=== PATIENT | male | born 1935 | race Caucasian/White ===

== ENCOUNTER → 2017-01-31 | Outpatient (CLI) | payer OTHER ==
[~2017-01-31] MED LIST: ASPI81TA28 PO; COEN75CA PO; MULT-506 PO; NIFE30TA83 PO
[2017-01-31 10:50] LABS: ALT/SGPT 26 U/L (12-78); BLOOD UREA NITROGEN 24 mg/dl (7-18); CALCIUM 8.7 mg/dl (8.5-10.1); CARBON DIOXIDE 27 mmol/L (21-32); CHLORIDE 108 mmol/L (98-107); CHOLESTEROL 204 mg/dl (0-200); GLUCOSE 100 mg/dl (70-99); POTASSIUM 4.2 mmol/L (3.5-5.1); SODIUM 142 mmol/L (136-145); TRIGLYCERIDES 328 mg/dl (0-150); VERY LOW DENSITY LIPOPROT CALC 66 mg/dl
[2017-01-31 10:53] LABS: ALB/GLOB RATIO 0.8 (0.9-2); ALKALINE PHOSPHATASE 75 U/L (45-117); AST/SGOT 15 U/L (15-37); CHOLESTEROL/HDL RATIO 6.2; HDL CHOLESTEROL 33 mg/dl; LDL CHOLESTEROL CALCULATED 105 mg/dl
== END | disposition home or self-care (01) ==
LOC: C.LAB1850 08:57
PROVIDERS: ATTEND Internal Medicine
DX: E78.5 Hyperlipidemia, unspecified (principal)

== ENCOUNTER → 2017-08-04 | Outpatient (CLI) | payer OTHER ==
--- NOTE | 2017-08-04 10:29 | DIAGNOSTIC IMAGING REPORT ---
KUB CLINICAL HISTORY: R31.9 Blood in [id number] COMPARISON STUDY: No previous studies for comparison. FINDINGS: There is no pathologic bowel dilatation. There is a faint calcification projected over the midpole the left kidney. A small calculus cannot be excluded. There are left supra renal calcifications. There is a lumbar levoscoliosis. Degenerative changes are present within the spine. 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 There is no pathologic bowel dilatation. IMPRESSION: Equivocal 3 mm left renal calculus Electronically signed by: Dalton Martinez M.D. 08/04/2017 10:28 AM Dictated Date/Time: 08/04/2017 10:27 AM
--- NOTE | 2017-08-04 10:34 | DIAGNOSTIC IMAGING REPORT ---
LUMBAR SPINE 5 VIEWS CLINICAL HISTORY: Numbness. FINDINGS: Five views of the lumbar spine are obtained. No prior studies are available for comparison at the time of dictation. The skeletal structures are osteopenic. There is no radiographic evidence of fracture or malalignment. Vertebral body height and alignment are maintained throughout the lumbar spine. There is straightening of the lumbar lordosis. The transverse and spinous processes are intact. Small anterior osteophytes are seen throughout. Advanced facet arthropathy is seen in the mid to lower lumbar region. There is advanced degenerative disc space narrowing at L5-S1 with endplate sclerosis and vacuum disc phenomenon. Moderate disc space narrowing with endplate sclerosis is seen at L3-L4 and L4-L5. Mild disc space narrowing is seen at the remaining lumbar levels. There is no evidence of spondylolysis. Mild lumbar levocurvature is centered at L3-L4. The bony pelvis is intact as visualized. 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 There is a nonobstructed abdominal bowel gas pattern noting moderate constipation. Advanced atherosclerotic calcification and ectasia is noted in the abdominal aorta. A small infrarenal abdominal aortic aneurysm measures up to 3.9 cm. IMPRESSION: 1. No acute bony abnormality is seen involving the lumbosacral spine. 2. Osteopenia with advanced multilevel spondylosis as above. 3. A small infrarenal abdominal aortic aneurysm measures up to 3.9 cm. Dictated: 08/04/2017 10:14 AM Transcribed: 08/04/2017 10:34 AM Barbie Electronically signed by: Ez Blancas M.D. 08/04/2017 10:40 AM Dictated Date/Time: 08/04/2017 10:14 AM
[2017-08-04 12:19] LABS: BASO % 0.3 %; BASO ABS # 0.03 K/uL (0-0.2); COMPLETE YES; EOS % 1.3 %; HEMATOCRIT 41.4 % (42-52); IG% 0.5 %; LYMPH % 19.2 %; LYMPH ABS # 2.27 K/uL (1.2-3.4); MEAN CELL VOLUME 88.8 fL (80-100); MEAN CORPUSCULAR HEMOGLOBIN 29.6 pg (25-34); MEAN CORPUSCULAR HGB CONC 33.3 g/dl (32-36); MEAN PLATELET VOLUME 11.5 fL (7.4-10.4); MONO % 8.6 %; NEUT % 70.1 %; PLATELET COUNT 210 K/uL (130-400); RED BLOOD COUNT 4.66 M/uL (4.7-6.1); WHITE BLOOD COUNT 11.83 K/uL (4.8-10.8)
[2017-08-04 13:44] LABS: ALT/SGPT 27 U/L (12-78); AST/SGOT 16 U/L (15-37); BLOOD UREA NITROGEN 26 mg/dl (7-18); BUN/CREATININE RATIO 21.3 (10-20); CARBON DIOXIDE 22 mmol/L (21-32); CHLORIDE 108 mmol/L (98-107); CHOLESTEROL 233 mg/dl (0-200); GLUCOSE 107 mg/dl (70-99); POTASSIUM 4.2 mmol/L (3.5-5.1); SODIUM 140 mmol/L (136-145)
[2017-08-04 13:47] LABS: ALB/GLOB RATIO 0.7 (0.9-2); ALKALINE PHOSPHATASE 74 U/L (45-117); CHOLESTEROL/HDL RATIO 5.7; HDL CHOLESTEROL 41 mg/dl; LDL CHOLESTEROL CALCULATED 145 mg/dl; TRIGLYCERIDES 235 mg/dl (0-150); VERY LOW DENSITY LIPOPROT CALC 47 mg/dl
[2017-08-04 14:59] LABS: URINE APPEARANCE CLEAR (CLEAR); URINE BILIRUBIN NEG (NEG); URINE COLOR DK YELLOW; URINE EPITHELIAL CELL AUTO 0-5 /lpf (0-5); URINE NITRITE NEG (NEG); URINE PH 6.5 (4.5-7.5); URINE SPECIFIC GRAVITY 1.019 (1.000-1.030); UROBILINOGEN NEG (NEG); ZZUR CULT IF INDIC CLEAN CATCH NO
[2017-08-04 15:00] LABS: MANUAL MICROSCOPIC REQUIRED? NO; REVIEW REQ? NO
== END | disposition home or self-care (01) ==
LOC: C.RAD1850 09:56
PROVIDERS: ATTEND Internal Medicine
DX: R31.9 Hematuria, unspecified (principal); R20.0 Anesthesia of skin; E78.5 Hyperlipidemia, unspecified; N20.0 Calculus of kidney; M85.88 Other specified disorders of bone density and structure, other site; M47.816 Spondylosis without myelopathy or radiculopathy, lumbar region

== ENCOUNTER 2017-11-26 18:53 | Inpatient (IN) | payer OTHER ==
[~2017-11-26] VITALS: Ht 180.3 cm; Wt 95.7 kg
[~2017-11-26 18:53] MED LIST changes: -APIX1TAB3 PO; -DILT-202 PO; -DLTCD/240 PO; -LNX125 PO; -LPR25 PO; -PRD20 PO; -PRED10TA PO
[2017-11-26] MEDS ORDERED: CEFTRIAXONE SOD INJ 1 GM ADDVIAL IV STA (19:28)
[2017-11-26] MEDS ORDERED: SODIUM CHLORIDE 0.9% 500ML 500 ML IV STA (19:28)
[2017-11-26] MEDS ORDERED: AZITHROMYCIN 250 MG TAB PO STA (19:28)
[2017-11-26] MEDS ORDERED: METHYLPREDNISOLONE 125 MG VIAL IV STA (19:28)
[2017-11-26] MEDS ORDERED: ALBUT/IPRATROP 3MG/0.5MG NEB 3 ML VIAL INH STA (19:28)
--- NOTE | 2017-11-26 19:31 | EMERGENCY ROOM VISIT NOTE ---
History Report prepared by Scribe: Corine Finch Under the Supervision of: Dr. Radu Llanes M.D. First contact with patient: 19:17 Chief Complaint: SHORTNESS OF BREATH Stated Complaint: SOB, PNEUMONIA History of Present Illness The patient is an 82 year old white male with a past medical history of emphysema, and heart block on daily Aspirin who presents to the ED with a cc of worsening shortness of breath beginning a few weeks ago. He does not use Oxygen. He states he saw his doctor recently and had a chest X-ray. He was then called earlier this evening and told he has pneumonia and to come to the ED. The patient admits last night he became very short of breath while playing pool , which concerned him as he had been only short of breath on exertion. Positive cough. Negative chest pain, nausea, vomiting, diarrhea. He denies any history of PE or DVT. He denies any recent sick contacts or antibiotic use. He did not receive a flu shot this year. He is a former smoker, stating he quit 20 years ago. Source of History: patient Onset: few weeks [employer] Position: chest Timing: worsening Modifying Factors (Worsening): exertion Associated Symptoms: + cough, No chest pain, No nausea, No vomiting, No diarrhea Review of Systems See HPI for pertinent positives and negatives. A total of ten systems were reviewed and were otherwise negative. Past Medical & Surgical Medical Problems: (1) Emphysema of lung (2) Hypertension (3) New onset a-fib (4) SOB (shortness of breath) Social History Smoking Status: Former Smoker Alcohol Use: none Drug Use: none Marital Status: Housing Status: lives with family Occupation Status: retired Current/Historical Medications Scheduled Aspirin (Aspirin Ec), 81 MG PO HS Coenzyme Q10 (Ubidecarenone) (Co Q-10), 75 MG PO HS Multivitamin (Multivitamin), 1 TAB PO HS Nifedipine Ext Rel (Procardia Xl Ext Rel), 30 MG PO HS Allergies Coded Allergies: No Known Allergies (Verified , 10/14/16) Physical Exam Vital Signs Date Time Temp Pulse Resp B/P (MAP) Pulse Ox O2 Delivery O2 Flow Rate FiO2 11/26/17 22:28 130 18 149/86 92 Nasal Cannula 4.0 11/26/17 20:35 132 21 93 Nasal Cannula 2.0 11/26/17 20:31 128/92 11/26/17 20:05 126 13 94 Nasal Cannula 2.0 11/26/17 20:01 116/80 11/26/17 19:50 Room Air 11/26/17 19:44 121 11/26/17 19:30 122 22 124/87 94 Nasal Cannula 2.0 11/26/17 19:27 86 Room Air 11/26/17 19:27 91 Nasal Cannula 3.0 11/26/17 19:12 36.4 130 18 122/72 88 Room Air Physical Exam GENERAL: Awake, alert, well-appearing, NAD HENT: Normocephalic, atraumatic. EYES: Normal conjunctiva. Sclera non-icteric. NECK: Supple. No nuchal rigidity. FROM. RESPIRATORY: Some trace bibasilar crackles, nasal canula in place, no rhonchi, wheezing, CARDIAC: Tachycardic heart rate, regular rhythm, no MRG ABDOMEN: Soft, NTND, BS+ MSK: No chest wall TTP, 1+ pretibial edema NEURO: GCS 15, CN 2-12 intact, moves all 4s on command SKIN: No rash or jaundice noted. Medical Decision & Procedures ER Provider Diagnostic Interpretation: Radiology results as stated below per my review and radiologist interpretation: TWO VIEW CHEST CLINICAL HISTORY: Atypical chest pain.. FINDINGS: PA and lateral chest radiographs are compared to study dated 05/01/2007. The heart is enlarged and there is atherosclerotic calcification of the thoracic aorta. The pulmonary vascular is noncongested. Emphysematous change is suspected. Chronic residual thickening is similar to previous. Patchy airspace opacities are present in the lower lungs. No large pleural effusion is identified. There is no pneumothorax. The skeletal structures are osteopenic. The bony thorax appears intact. IMPRESSION: 1. Cardiomegaly and suspect emphysema. 2. Patchy airspace opacities are present at the lung bases. Correlate clinically for evidence of an infectious/inflammatory pneumonitis. Radiographic follow-up to resolution is recommended. Electronically signed by: Ez Blancas M.D. 11/26/2017 4:18 PM CHEST CTA for PULMONARY ARTERIES CT DOSE: 468.80 mGy.cm HISTORY: Atypical chest pain. TECHNIQUE: Multiaxial CT images of the chest were performed following the intravenous administration of contrast to evaluate the pulmonary arteries. Maximal intensity projection images were also obtained. A dose lowering technique was utilized adhering to the principles of ALARA. COMPARISON STUDY: Chest 11/26/2017. FINDINGS: Mild calcified plaque within the normal caliber thoracic aorta. No evidence for dissection. There are also coronary artery calcifications. The heart is top normal in size. Trace pericardial and trace pleural effusions. The visualized liver and spleen are unremarkable. There are small bilateral adrenal gland nodules. An 8 mm exophytic hypodense lesion within the right kidney. This is too small to characterize. There is mediastinal and bilateral hilar lymphadenopathy. Dominant lymph node is seen on the right and measures 18 x 13 mm. Dominant subcarinal lymph node measures 3.4 x 1.8 cm. No suspicious lytic or blastic osseous lesions. No pneumothorax. Small biapical scarlike densities. Mild bronchial wall thickening. Central airways are patent. Moderate to severe emphysema. A 2 mm subpleural nodule within the right upper lobe on image 174. Groundglass appearance to the lungs most noted posteriorly. Mild interlobular septal thickening at the lung bases. Small patchy bibasilar densities posteriorly. No filling defects within the pulmonary arteries to suggest pulmonary embolus. IMPRESSION: 1. No evidence for pulmonary embolus. 2. Trace pericardial and trace pleural effusions. 3. Mediastinal and bilateral hilar lymphadenopathy. This is nonspecific but can be seen the setting of chronic pulmonary edema. However, a neoplastic process such as lymphoma could also have a similar appearance. 4. Mild bibasilar interlobular septal thickening suggestive of mild congestive change. There is also mild bronchial wall thickening which can also be seen the setting of congestive change or could be chronic. 5. Moderate to severe emphysema. 6. Small patchy airspace opacities within the lung bases posteriorly. This is nonspecific but favors atelectasis. 7. Groundglass appearance to the lungs most pronounced posteriorly which may be due to mild dependent change or poor expiratory effort. Electronically signed by: Jeremie Cai M.D. 11/26/2017 10:39 PM Laboratory Results Test 11/26/17 19:40 11/26/17 19:46 11/26/17 21:00 Influenza Type A Antigen Neg for Influ A (NEG) Influenza Type B Antigen Neg for Influ B (NEG) Immature Granulocyte % (Auto) 0.4 % White Blood Count 11.36 K/uL (4.8-10.8) Red Blood Count 4.44 M/uL (4.7-6.1) Hemoglobin 13.3 g/dL (14.0-18.0) Hematocrit 39.7 % (42-52) Mean Corpuscular Volume 89.4 fL (80-100) Mean Corpuscular Hemoglobin 30.0 pg (25-34) Mean Corpuscular Hemoglobin Concent 33.5 g/dl (32-36) Platelet Count 230 K/uL (130-400) Mean Platelet Volume 11.1 fL (7.4-10.4) Neutrophils (%) (Auto) 75.1 % Lymphocytes (%) (Auto) 13.6 % Monocytes (%) (Auto) 8.8 % Eosinophils (%) (Auto) 1.8 % Basophils (%) (Auto) 0.3 % Neutrophils # (Auto) 8.53 K/uL (1.4-6.5) Lymphocytes # (Auto) 1.55 K/uL (1.2-3.4) Monocytes # (Auto) 1.00 K/uL (0.11-0.59) Eosinophils # (Auto) 0.21 K/uL (0-0.5) Basophils # (Auto) 0.03 K/uL (0-0.2) Immature Granulocyte # (Auto) 0.04 K/uL (0.00-0.02) Prothrombin Time 11.9 SECONDS (9.0-12.0) Prothromb Time International Ratio 1.1 (0.9-1.1) Activated Partial Thromboplast Time 27.8 SECONDS (21.0-31.0) Partial Thromboplastin Ratio 1.1 Total Bilirubin 0.9 mg/dl (0.2-1) Aspartate Amino Transf (AST/SGOT) 21 U/L (15-37) Alanine Aminotransferase (ALT/SGPT) 32 U/L (12-78) Alkaline Phosphatase 76 U/L (45-117) Pro-B-Type Natriuretic Peptide 1996 pg/ml (0-1800) Total Protein 7.4 gm/dl (6.4-8.2) Albumin 3.1 gm/dl (3.4-5.0) Globulin 4.3 gm/dl (2.5-4.0) Albumin/Globulin Ratio 0.7 (0.9-2) Urine Color YELLOW Urine Appearance CLEAR (CLEAR) Urine pH 5.0 (4.5-7.5) Urine Specific [place] 1.025 (1.000-1.030) Urine Protein 1+ (NEG) Urine Glucose (UA) NEG (NEG) Urine Ketones NEG (NEG) Urine Occult Blood NEG (NEG) Urine Nitrite NEG (NEG) Urine Bilirubin NEG (NEG) Urine Urobilinogen NEG (NEG) Urine Leukocyte Esterase NEG (NEG) Urine WBC (Auto) 1-5 /hpf (0-5) Urine RBC (Auto) 0-4 /hpf (0-4) Urine Hyaline Casts (Auto) 1-5 /lpf (0-5) Urine Epithelial Cells (Auto) >30 /lpf (0-5) Urine Bacteria (Auto) NEG (NEG) Laboratory results reviewed by me Medications Administered Medications (Trade) Dose Ordered Sig/Gee Route Start Time Stop Time Status Last Admin Dose Admin Albuterol/ Ipratropium (Duoneb) 3 ml NOW STAT INH 11/26/17 19:28 11/26/17 19:31 DC 11/26/17 19:46 3 ML Azithromycin (Zithromax Tab) 500 mg NOW STAT PO 11/26/17 19:28 11/26/17 19:31 DC 11/26/17 19:47 500 MG Ceftriaxone Sodium (Rocephin Inj) 1 gm NOW STAT IV 11/26/17 19:28 11/26/17 19:31 DC 11/26/17 19:46 1 GM Methylprednisolone Sodium Succinate (Solu-Medrol IV) 125 mg NOW STAT IV 11/26/17 19:28 11/26/17 19:31 DC 11/26/17 19:46 125 MG Sodium Chloride 500 ml @ 999 mls/hr Q31M STAT IV 11/26/17 19:28 11/26/17 19:58 DC 11/26/17 19:46 999 MLS/HR Sodium Chloride 1,000 ml @ 999 mls/hr Q1H1M STAT IV 11/26/17 21:55 11/26/17 22:55 DC 11/26/17 22:26 999 MLS/HR Enoxaparin Sodium (Lovenox Inj) 100 mg ONE STAT SQ 11/26/17 22:23 11/26/17 22:24 DC 11/26/17 22:27 100 MG ECG Indication: SOB/dyspnea Rate (beats per minute): 131 Rhythm: atrial fibrillation (with RVR) Findings: other (Normal QRS, normal axis, T-wave flattening inferiorly) Change: Patient's electrocardiogram interpreted by me. ED Course 1921: The patient was evaluated in room B9. A complete history and physical exam was performed. 2144: I reevaluated the patient. He is resting comfortably. I discussed his results and my recommendation he remain in the hospital for further evaluation and management and he verbalized complete understanding and agreement. 2154: I discussed the patients case with Dr. Humphries, [facility] Hospitalist. The patient will be further evaluated. Medical Decision The patient is an 82 year old white male with a past medical history of emphysema, and heart block on daily Aspirin who presents to the ED with a cc of worsening shortness of breath beginning a few weeks ago. Triage Nursing notes reviewed. The patient's presentation and history were concerning for shortness of breath. Differential diagnosis: Etiologies such as infections, reactive airway disease, pneumonia, pneumothorax , COPD, CHF, cardiac ischemia, pulmonary embolism, musculoskeletal, gastrointestinal, as well as others were entertained. Patient was seen and evaluated at the bedside. Patient does have a known history of emphysema and was seen in clinic today where he had chest x-rays which were concerning for possible opacities in the bilateral lower lobes. Patient is requiring oxygen. Patient is a prior history of emphysema however is not treated on a regular basis with any inhalers. Patient does complain of some mild productive sputum. Patient was a former smoker but has not smoked in the last 20 years. He believes he smoked for approximately 40 years prior to that. Patient does have very trace pretibial edema. Patient does have bibasilar crackles. Patient does not have diffuse wheezing. Given the patient' s prior history of emphysema he was treated with medications for COPD exacerbation in addition to Rocephin and azithromycin for pneumonia. Patient also did have gas that was completed. Patient did have some tachycardia and was seen and have A. fib. This may be related to the patient's underlying disease processes patient was given fluids. Troponin is negative. Patient's BNP mildly elevated. Patient's white count 11,000. I did discuss the patient with the hospitalist stated the patient did have new onset A. fib. The patient does have a chance to Vascor greater than 1 and the patient was given Lovenox. Medication Reconcilliation Current Medication List: was personally reviewed by me Blood Pressure Screening Patient's blood pressure: Normal blood pressure Blood pressure disposition: Did not require urgent referral Consults Time Called: 2149 Consulting Physician: Dr. Humphries [facility] Hospitalist Returned Call: [phone] I discussed the patients case with Dr. Humphries [facility] Hospitalist. The patient will be further evaluated. Impression Primary Impression: Pneumonia Additional Impressions: New onset atrial fibrillation Atrial fibrillation with RVR Acute respiratory failure with hypoxia Critical Care I have personally spent greater than 45 minutes of critical care time in the direct management of this patient. This includes bedside care, interpretation of diagnostic studies, and testing, discussion with consultants, patient, and family members, and other required patient management activities. This 45 minutes is in excess of all separately billable procedures. Scribe Attestation The scribe's documentation has been prepared under my direction and personally reviewed by me in its entirety. I confirm that the note above accurately reflects all work, treatment, procedures, and medical decision making performed by me. Departure Information Dispostion Being Evaluated By Hospitalist Referrals RV. Ferguson MD (PCP) Patient Instructions My [facility] Problem Qualifiers Primary Impression: Pneumonia Pneumonia type: due to unspecified organism Laterality: bilateral Lung location: lower lobe of lung Qualified Codes: J18.9 - Pneumonia, unspecified organism
[2017-11-26 20:02] LABS: BASO % 0.3 %; BASO ABS # 0.03 K/uL (0-0.2); EOS % 1.8 %; EOS ABS # 0.21 K/uL (0-0.5); HEMATOCRIT 39.7 % (42-52); HEMOGLOBIN 13.3 g/dL (14.0-18.0); IG# 0.04 K/uL (0.00-0.02); LYMPH % 13.6 %; LYMPH ABS # 1.55 K/uL (1.2-3.4); MEAN CELL VOLUME 89.4 fL (80-100); MEAN CORPUSCULAR HGB CONC 33.5 g/dl (32-36); MEAN PLATELET VOLUME 11.1 fL (7.4-10.4); MONO % 8.8 %; NEUT % 75.1 %; NEUT ABS # 8.53 K/uL (1.4-6.5); PLATELET COUNT 230 K/uL (130-400); RED CELL DISTRIBUTION WIDTH CV 15.8 % (11.5-14.5); RED CELL DISTRIBUTION WIDTH SD 51.7 fL (36.4-46.3); WHITE BLOOD COUNT 11.36 K/uL (4.8-10.8)
[2017-11-26 20:20] LABS: ALBUMIN 3.1 gm/dl (3.4-5.0); ALT/SGPT 32 U/L (12-78); BLOOD UREA NITROGEN 33 mg/dl (7-18); CALCIUM 8.7 mg/dl (8.5-10.1); CARBON DIOXIDE 23 mmol/L (21-32); CREATININE 1.35 mg/dl (0.60-1.40); GLUCOSE 112 mg/dl (70-99); SODIUM 139 mmol/L (136-145)
[2017-11-26 20:25] LABS: ALKALINE PHOSPHATASE 76 U/L (45-117); AST/SGOT 21 U/L (15-37); TOTAL PROTEIN 7.4 gm/dl (6.4-8.2)
[2017-11-26 20:27] LABS: INR 1.1 (0.9-1.1); PTT PATIENT 27.8 SECONDS (21.0-31.0)
[2017-11-26 20:28] LABS: INFLUENZA B ANTIGEN Neg for Influ B (NEG)
[2017-11-26] MEDS ORDERED: SODIUM CHLORIDE 0.9% 1000ML 1,000 ML IV STA (21:55)
[2017-11-26] MEDS ORDERED: OPTIRAY 320 IV PRN (22:00)
[2017-11-26] MEDS ORDERED: ENOXAPARIN 1 MG/KG SQ STA (22:16)
[2017-11-26] MEDS ORDERED: ENOXAPARIN 100 MG/1ML SYR SQ STA (22:23)
--- NOTE | 2017-11-26 22:40 | DIAGNOSTIC IMAGING REPORT ---
CHEST CTA for PULMONARY ARTERIES CT DOSE: 468.80 mGy.cm HISTORY: Atypical chest pain. TECHNIQUE: Multiaxial CT images of the chest were performed following the intravenous administration of contrast to evaluate the pulmonary arteries. Maximal intensity projection images were also obtained. A dose lowering technique was utilized adhering to the principles of ALARA. COMPARISON STUDY: Chest 11/26/2017. FINDINGS: Mild calcified plaque within the normal caliber thoracic aorta. No evidence for dissection. There are also coronary artery calcifications. The heart is top normal in size. Trace pericardial and trace pleural effusions. The visualized liver and spleen are unremarkable. There are small bilateral adrenal gland nodules. An 8 mm exophytic hypodense lesion within the right kidney. This is too small to characterize. There is mediastinal and bilateral hilar lymphadenopathy. Dominant lymph node is seen on the right and measures 18 x 13 mm. Dominant subcarinal lymph node measures 3.4 x 1.8 cm. No suspicious lytic or blastic osseous lesions. No pneumothorax. Small biapical scarlike densities. Mild bronchial wall thickening. Central airways are patent. Moderate to severe emphysema. A 2 mm subpleural nodule within the right upper lobe on image 174. Groundglass appearance to the lungs most noted posteriorly. Mild interlobular septal thickening at the lung bases. Small patchy bibasilar densities posteriorly. No filling defects within the pulmonary arteries to suggest pulmonary embolus. IMPRESSION: 1. No evidence for pulmonary embolus. 2. Trace pericardial and trace pleural effusions. 3. Mediastinal and bilateral hilar lymphadenopathy. This is nonspecific but can be seen the setting of chronic pulmonary edema. However, a neoplastic process such as lymphoma could also have a similar appearance. 4. Mild bibasilar interlobular septal thickening suggestive of mild congestive change. There is also mild bronchial wall thickening which can also be seen the setting of congestive change or could be chronic. 5. Moderate to severe emphysema. 6. Small patchy airspace opacities within the lung bases posteriorly. This is nonspecific but favors atelectasis. 7. Groundglass appearance to the lungs most pronounced posteriorly which may be due to mild dependent change or poor expiratory effort. Electronically signed by: Jeremie Cai M.D. 11/26/2017 10:39 PM Dictated Date/Time: 11/26/2017 10:27 PM
[2017-11-26] MEDS ORDERED: DILTIAZEM BOLUS / DRIP IV STA (23:06)
[2017-11-26] MEDS ORDERED: MAGNESIUM HYDROXIDE SUSP 30 ML UDC PO PRN (23:15)
[2017-11-26] MEDS ORDERED: MoRPHine SULFATE 2 MG/ML CARP IV PRN (23:15)
[2017-11-26] MEDS ORDERED: ALUMINUM/MAGNESIUM/SIMETH (MAALOX MAX) 30 ML UDC PO PRN (23:15)
[2017-11-26] MEDS ORDERED: ACETAMINOPHEN 325 MG TAB PO PRN (23:15)
[2017-11-26] MEDS ORDERED: ONDANSETRON INJ 2 MG/ML 2 ML VIAL IV PRN (23:15)
[2017-11-26] MEDS ORDERED: POLYETHYLENE (MIRALAX) 17 GM PACK PO PRN (23:15)
--- NOTE | 2017-11-26 23:37 | History and Physical ---
History & Physical Date & Time of Service: Nov 26, 2017 at 23:05 Chief Complaint: Sob, Pneumonia Primary Care Physician: RV. Ferguson MD History of Present Illness Source: patient, clinic records, hospital records 82 y/o M Hx HTN, HPL, BPH, LVH, emphysema. Presenting with progressive SOB and a productive cough x 2 days. Denies CP, n/v, diarrhea, dysuria or fevers. On arrival to the ER AF with RVR was noted on monitor. He does not have a history of AF. A CTA was obtained which was consistent with severe emphysema. The pt states that he has not required treatment for this previously. 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, social ETOH Smoking Status: Former Smoker Drug Use: none Marital Status: Occupational Status: retired Immunizations History of Influenza Vaccine: No History of Tetanus Vaccine?: No History of Pneumococcal: No History of Hepatitis B Vaccine: No Multi-Drug Resistant Organisms History of MDRO: No Allergies Coded Allergies: No Known Allergies (Verified , 10/14/16) Home Medications Scheduled Aspirin (Aspirin Ec), 81 MG PO HS Coenzyme Q10 (Ubidecarenone) (Co Q-10), 75 MG PO HS Multivitamin (Multivitamin), 1 TAB PO HS Nifedipine Ext Rel (Procardia Xl Ext Rel), 30 MG PO HS Review of Systems Constitutional: No fever, No chills, No sweats Eyes: No worsening of vision ENT: No hearing loss, No unusual epistaxis, No nasal symptoms Respiratory: + cough, + sputum, + shortness of breath, + dyspnea on exertion Cardiovascular: No chest pain, No orthopnea Abdomen: No pain, No nausea, No vomiting Musculoskeletal: No joint pain Genitourinary - Male: No hematuria, No dysuria Neurologic: No memory loss, No paralysis, No weakness Psychiatric: No depression symptoms Endocrine: No fatigue Hematologic / Lymphatic: No abnormal bleeding/bruising Integumentary: No rash Allergic / Immunologic: No environmental allergies Physical Exam Vital Signs Date Time Temp Pulse Resp B/P (MAP) Pulse Ox O2 Delivery O2 Flow Rate FiO2 11/26/17 22:28 130 18 149/86 92 Nasal Cannula 4.0 11/26/17 20:35 132 21 93 Nasal Cannula 2.0 11/26/17 20:31 128/92 11/26/17 20:05 126 13 94 Nasal Cannula 2.0 11/26/17 20:01 116/80 11/26/17 19:50 Room Air 11/26/17 19:44 121 11/26/17 19:30 122 22 124/87 94 Nasal Cannula 2.0 11/26/17 19:27 86 Room Air 11/26/17 19:27 91 Nasal Cannula 3.0 11/26/17 19:12 36.4 130 18 122/72 88 Room Air General Appearance: WD/WN, no apparent distress Head: normocephalic Eyes: normal inspection ENT: normal ENT inspection, pharynx normal Neck: supple Respiratory/Chest: chest non-tender, + pertinent finding (Poor air movement without clear clear wheezing or crackles) Cardiovascular: no JVD, no murmur, + irregularly irregular Abdomen/GI: normal bowel sounds, non tender, soft Back: normal inspection, no CVA tenderness Extremities/Musculoskelatal: normal inspection, no calf tenderness, normal capillary refill Neurologic/Psych: life consultant II-XII nml as tested, no motor/sensory deficits, alert, oriented x 3 Skin: normal color Diagnostics Laboratory Results Results Past 24 Hours Test 11/26/17 19:40 11/26/17 19:46 11/26/17 21:00 Range/Units Influenza Type A Antigen Neg for Influ A NEG Influenza Type B Antigen Neg for Influ B NEG White Blood Count 11.36 4.8-10.8 K/uL Red Blood Count 4.44 4.7-6.1 M/uL Hemoglobin 13.3 14.0-18.0 g/dL Hematocrit 39.7 42-52 % Mean Corpuscular Volume 89.4 80-100 fL Mean Corpuscular Hemoglobin 30.0 25-34 pg Mean Corpuscular Hemoglobin Concent 33.5 32-36 g/dl Platelet Count 230 130-400 K/uL Mean Platelet Volume 11.1 7.4-10.4 fL Neutrophils (%) (Auto) 75.1 % Lymphocytes (%) (Auto) 13.6 % Monocytes (%) (Auto) 8.8 % Eosinophils (%) (Auto) 1.8 % Basophils (%) (Auto) 0.3 % Neutrophils # (Auto) 8.53 1.4-6.5 K/uL Lymphocytes # (Auto) 1.55 1.2-3.4 K/uL Monocytes # (Auto) 1.00 0.11-0.59 K/uL Eosinophils # (Auto) 0.21 0-0.5 K/uL Basophils # (Auto) 0.03 0-0.2 K/uL RDW Standard Deviation 51.7 36.4-46.3 fL RDW Coefficient of Variation 15.8 11.5-14.5 % Immature Granulocyte % (Auto) 0.4 % Immature Granulocyte # (Auto) 0.04 0.00-0.02 K/uL Prothrombin Time 11.9 9.0-12.0 SECONDS Prothromb Time International Ratio 1.1 0.9-1.1 Activated Partial Thromboplast Time 27.8 21.0-31.0 SECONDS Partial Thromboplastin Ratio 1.1 Sodium Level 139 136-145 mmol/L Potassium Level 4.0 3.5-5.1 mmol/L Chloride Level 107 98-107 mmol/L Carbon Dioxide Level 23 21-32 mmol/L Anion Gap 8.0 3-11 mmol/L Blood Urea Nitrogen 33 7-18 mg/dl Creatinine 1.35 0.60-1.40 mg/dl Est Creatinine Clear Calc Drug Dose 49.6 ml/min Estimated GFR () 56.3 Estimated GFR (Non- 48.5 BUN/Creatinine Ratio 24.4 10-20 Random Glucose 112 70-99 mg/dl Calcium Level 8.7 8.5-10.1 mg/dl Total Bilirubin 0.9 0.2-1 mg/dl Aspartate Amino Transf (AST/SGOT) 21 15-37 U/L Alanine Aminotransferase (ALT/SGPT) 32 12-78 U/L Alkaline Phosphatase 76 45-117 U/L Troponin I < 0.015 0-0.045 ng/ml Pro-B-Type Natriuretic Peptide 1996 0-1800 pg/ml Total Protein 7.4 6.4-8.2 gm/dl Albumin 3.1 3.4-5.0 gm/dl Globulin 4.3 2.5-4.0 gm/dl Albumin/Globulin Ratio 0.7 0.9-2 Urine Color YELLOW Urine Appearance CLEAR CLEAR Urine pH 5.0 4.5-7.5 Urine Specific [place] 1.025 1.000-1.030 Urine Protein 1+ NEG Urine Glucose (UA) NEG NEG Urine Ketones NEG NEG Urine Occult Blood NEG NEG Urine Nitrite NEG NEG Urine Bilirubin NEG NEG Urine Urobilinogen NEG NEG Urine Leukocyte Esterase NEG NEG Urine WBC (Auto) 1-5 0-5 /hpf Urine RBC (Auto) 0-4 0-4 /hpf Urine Hyaline Casts (Auto) 1-5 0-5 /lpf Urine Epithelial Cells (Auto) >30 0-5 /lpf Urine Bacteria (Auto) NEG NEG Diagnostic Radiology CTA: 1. No evidence for pulmonary embolus. 2. Trace pericardial and trace pleural effusions. 3. Mediastinal and bilateral hilar lymphadenopathy. This is nonspecific but can be seen the setting of chronic pulmonary edema. However, a neoplastic process such as lymphoma could also have a similar appearance. 4. Mild bibasilar interlobular septal thickening suggestive of mild congestive change. There is also mild bronchial wall thickening which can also be seen the setting of congestive change or could be chronic. 5. Moderate to severe emphysema. 6. Small patchy airspace opacities within the lung bases posteriorly. This is nonspecific but favors atelectasis. 7. Groundglass appearance to the lungs most pronounced posteriorly which may be due to mild dependent change or poor expiratory effort. EKG AF/RVR - compared to NSR with LVH on EKG 04/12 Impression Assessment and Plan 82 y/o M Hx HTN, HPL, BPH, LVH, emphysema. Presenting with progressive SOB and a productive cough x 2 days. Denies CP, n/v, diarrhea, dysuria or fevers. On arrival to the ER AF with RVR was noted on monitor. He does not have a history of AF. A CTA was obtained which was consistent with severe emphysema. The pt states that he has not required treatment for this previously. 1) SOB - likely result of COPD exacerbation, possible URI and vascular congestion resulting from AF. We will treat with a COPD protocol including antibiotics. He may require scheduled treatment for COPD going forward and should follow with a log rider. 2) AAF/RVR - vascular congestion on CT - will treat with rate control and fully anticoagulate - would consider diuretics if there is no significant short-term improvement, although clinically, volume overload is minimal. Echo and cardiology consult requested. 3) HTN - takes Nifedipine - would likely switch his medication due to onset of AF - he will be treated with Cardizem for now and a final agent would likely be determined by weather or not he reverts back to a sinus rhythm. 4) BPH - Per records was formerly taking Finasteride - no meds listed currently 5) HPL is listed in history - not currently treated 6) There is BL hilar lymphadenopathy on CT which deserves outpt f/u - can likely follow with pulm initially Full code - Full dose Lovenox Total time for this admit including review of labs, meds, imaging, records, EKG - discussion with pt and ER attending 45 min Level of Care Telemetry Resuscitation Status FULL RESUSCITATION VTE Prophylaxis Given or contraindicated: Enoxaparin (Lovenox)SQ
[2017-11-26] MEDS ORDERED: LEVALBUTEROL 1.25MG/3ML NEB INH PRN (23:45)
[2017-11-27] VITALS (16 sets, daily range): BP systolic 118–165; BP diastolic 70–100; PULSE 85–134; TEMP 36.4–36.8; O2SAT 86–94; Ht 180.3 cm; Wt 95.7 kg
[2017-11-27] MEDS: DILTIAZEM HCL INJ 125 MG in DEXTROSE 5% 100ML IV PRN ×3 (00:04→17:42)
[2017-11-27] MEDS: ALBUT/IPRATROP 3MG/0.5MG NEB 3 ML VIAL INH SCH ×4 (02:34→19:42)
[2017-11-27] MEDS: METHYLPREDNISOLONE IV 60 MG in SYRINGE 0 ML IV SCH ×4 (03:52→19:48)
[2017-11-27 07:04] LABS: HEMATOCRIT 39.5 % (42-52); HEMOGLOBIN 12.9 g/dL (14.0-18.0); MEAN CELL VOLUME 89.8 fL (80-100); MEAN CORPUSCULAR HEMOGLOBIN 29.3 pg (25-34); MEAN CORPUSCULAR HGB CONC 32.7 g/dl (32-36); MEAN PLATELET VOLUME 10.6 fL (7.4-10.4); PLATELET COUNT 221 K/uL (130-400); RED CELL DISTRIBUTION WIDTH SD 51.4 fL (36.4-46.3); WHITE BLOOD COUNT 11.07 K/uL (4.8-10.8)
[2017-11-27 07:36] LABS: BLOOD UREA NITROGEN 30 mg/dl (7-18); CALCIUM 8.2 mg/dl (8.5-10.1); CARBON DIOXIDE 20 mmol/L (21-32); CREATININE 1.25 mg/dl (0.60-1.40); GLUCOSE 175 mg/dl (70-99); POTASSIUM 4.4 mmol/L (3.5-5.1); SODIUM 137 mmol/L (136-145)
--- NOTE | 2017-11-27 08:47 | Hospitalist Progress Note ---
Hospitalist Progress Note Date of Service Nov 27, 2017. (Lacey Rivera ., SHARONC) Subjective Pt evaluation today including: conversation w/ patient, physical exam, chart review, lab review, review of inpatient medication list Pain: None PO Intake: Tolerating PO diet Voiding: incontinence (1 episode incontinence last night, unusual for him) Patient reports feeling better. He denies any chest pain, palpitations or shortness of breath currently. He did have a productive cough and wheezing last night that kept him awake. This seems to be clearing up now this morning. The patient is currently on 6L NC, does not wear oxygen at home or have any inhalers. He did have one episode of urinary incontinence last night, which is unusual for him. The patient denies fevers, chills, sweats, chest pain, palpitations, claudication, shortness of breath, nausea, vomiting, abdominal pain, dysuria, hematuria, urinary retention, paralysis, weakness, numbness and tingling. Additional Comments: See HPI for pertinent positives and negatives. All other systems reviewed and negative. (Lacey Rivera ., MARISELA-C) Objective Vital Signs Date Time Temp Pulse Resp B/P (MAP) Pulse Ox O2 Delivery O2 Flow Rate FiO2 11/27/17 07:33 36.6 116 18 165/81 (109) 90 6.0 11/27/17 07:21 115 20 89 Nasal Cannula 6.0 11/27/17 04:00 Nasal Cannula 6.0 11/27/17 03:35 36.5 115 16 147/77 (100) 90 11/27/17 02:20 115 138/84 (102) 11/27/17 02:05 121 20 89 Nasal Cannula 5.0 11/27/17 01:30 124 18 136/86 (103) 92 Nasal Cannula 5.0 11/27/17 01:20 86 Nasal Cannula 4.0 11/27/17 00:40 36.6 134 18 160/100 90 Nasal Cannula 4.0 11/27/17 00:15 36.4 126 24 149/86 92 11/26/17 23:24 126 11/26/17 22:28 130 18 149/86 92 Nasal Cannula 4.0 11/26/17 20:35 132 21 93 Nasal Cannula 2.0 11/26/17 20:31 128/92 11/26/17 20:05 126 13 94 Nasal Cannula 2.0 11/26/17 20:01 116/80 11/26/17 19:50 Room Air 11/26/17 19:44 121 11/26/17 19:30 122 22 124/87 94 Nasal Cannula 2.0 11/26/17 19:27 86 Room Air 11/26/17 19:27 91 Nasal Cannula 3.0 11/26/17 19:12 36.4 130 18 122/72 88 Room Air (Lacey Rivera ., PA-C) Physical Exam Notes: General appearance: Well-developed, well-nourished, no apparent distress Head: Normocephalic, atraumatic Eyes: Normal inspection, PERRL, EOMI ENT: Normal ENT inspection, hearing grossly normal, pharynx normal Neck: Supple, no JVD, trachea midline Respiratory/Chest: +Breath sounds mildly diminished, clear. Lungs clear to auscultation, no respiratory distress Cardiovascular: +Irregularly irregular, tachycardic. No gallop, no murmur Abdomen/GI: Normal bowel sounds, non-tender, soft Extremities/Musculoskeletal: +1+ pitting edema. Normal inspection, no calf tenderness Neurological/Psych: Alert, normal mood/affect, oriented x 3 Skin: Normal color, warm/dry, no rash (Lacey Rivera ., PA-C) Laboratory Results Last 24 Hours Test 11/26/17 19:40 11/26/17 19:46 11/26/17 21:00 11/27/17 06:40 Influenza Type A Antigen Neg for Influ A Influenza Type B Antigen Neg for Influ B White Blood Count 11.36 K/uL 11.07 K/uL Red Blood Count 4.44 M/uL 4.40 M/uL Hemoglobin 13.3 g/dL 12.9 g/dL Hematocrit 39.7 % 39.5 % Mean Corpuscular Volume 89.4 fL 89.8 fL Mean Corpuscular Hemoglobin 30.0 pg 29.3 pg Mean Corpuscular Hemoglobin Concent 33.5 g/dl 32.7 g/dl Platelet Count 230 K/uL 221 K/uL Mean Platelet Volume 11.1 fL 10.6 fL Neutrophils (%) (Auto) 75.1 % Lymphocytes (%) (Auto) 13.6 % Monocytes (%) (Auto) 8.8 % Eosinophils (%) (Auto) 1.8 % Basophils (%) (Auto) 0.3 % Neutrophils # (Auto) 8.53 K/uL Lymphocytes # (Auto) 1.55 K/uL Monocytes # (Auto) 1.00 K/uL Eosinophils # (Auto) 0.21 K/uL Basophils # (Auto) 0.03 K/uL RDW Standard Deviation 51.7 fL 51.4 fL RDW Coefficient of Variation 15.8 % 16.0 % Immature Granulocyte % (Auto) 0.4 % Immature Granulocyte # (Auto) 0.04 K/uL Prothrombin Time 11.9 SECONDS Prothromb Time International Ratio 1.1 Activated Partial Thromboplast Time 27.8 SECONDS Partial Thromboplastin Ratio 1.1 Sodium Level 139 mmol/L 137 mmol/L Potassium Level 4.0 mmol/L 4.4 mmol/L Chloride Level 107 mmol/L 108 mmol/L Carbon Dioxide Level 23 mmol/L 20 mmol/L Anion Gap 8.0 mmol/L 9.0 mmol/L Blood Urea Nitrogen 33 mg/dl 30 mg/dl Creatinine 1.35 mg/dl 1.25 mg/dl Est Creatinine Clear Calc Drug Dose 49.6 ml/min 53.6 ml/min Estimated GFR () 56.3 61.8 Estimated GFR (Non- 48.5 53.3 BUN/Creatinine Ratio 24.4 23.8 Random Glucose 112 mg/dl 175 mg/dl Calcium Level 8.7 mg/dl 8.2 mg/dl Total Bilirubin 0.9 mg/dl Aspartate Amino Transf (AST/SGOT) 21 U/L Alanine Aminotransferase (ALT/SGPT) 32 U/L Alkaline Phosphatase 76 U/L Troponin I < 0.015 ng/ml < 0.015 ng/ml Pro-B-Type Natriuretic Peptide 1996 pg/ml Total Protein 7.4 gm/dl Albumin 3.1 gm/dl Globulin 4.3 gm/dl Albumin/Globulin Ratio 0.7 Urine Color YELLOW Urine Appearance CLEAR Urine pH 5.0 Urine Specific [place] 1.025 Urine Protein 1+ Urine Glucose (UA) NEG Urine Ketones NEG Urine Occult Blood NEG Urine Nitrite NEG Urine Bilirubin NEG Urine Urobilinogen NEG Urine Leukocyte Esterase NEG Urine WBC (Auto) 1-5 /hpf Urine RBC (Auto) 0-4 /hpf Urine Hyaline Casts (Auto) 1-5 /lpf Urine Epithelial Cells (Auto) >30 /lpf Urine Bacteria (Auto) NEG Magnesium Level 2.2 mg/dl (Lacey Rivera ., MARISELA-C) Assessment and Plan 82 y/o male with a history of HTN, HLD, COPD, and BPH who presents with worsening SOB and productive cough. He was found to be in a-fib with RVR in ED and has no previous history of a-fib. New onset a-fib with RVR--ongoing -Admit to telemetry. Pt remains in a-fib, HR varying from 120s to 160s -Continue diltiazem drip. Currently running at 15 ml/hr -Cardiology consulted, appreciate recs -Therapeutic Lovenox 100 mg SC q12h -Troponin negative x 2, third pending -Echo pending -Potassium and magnesium WNL SOB, likely COPD exacerbation but also possible URI vs vascular congestion due to a-fib -DuoNebs Q6R scheduled, Xopenex prn -Solu-Medrol 60 mg IV q6h -Decrease azithromycin 250 mg PO qd. Day #2 -O2 by protocol. Currently 90% on 6L -Should have pulmonology f/u. Not currently being treated for COPD as outpatient despite severe emphysema HTN, HLD--stable -Nifedipine at home, this is held due to dilt drip BPH--no current meds B/l hilar lymphadenopathy on CT -F/u as outpatient DVT prophylaxis -Therapeutic enoxaparin 100 mg SC q12h Code Status -Level I, FULL RESUSCITATION STATUS (Lacey Rivera ., JOHN) Supervising Note Dr. Livingston I performed a history and physical examination on the patient. I reviewed above note and agree with it. I discussed plan with APC and patient. During my face to face encounter with the patient, I answered all of the patient's questions. (Elias Livingston M.D.)
[2017-11-27] MEDS: ENOXAPARIN 100 MG/1ML SYR SQ SCH ×2 (09:35→20:58)
[2017-11-27] MEDS ORDERED: ENOXAPARIN 100 MG/1ML SYR SQ SCH (10:00)
--- NOTE | 2017-11-27 12:26 | ECHOCARDIOGRAM REPORT ---
*NOTICE TO RECEIVING REPUBLICAN AGENCY This information is strictly Confidential and protected under [place] law. [place] law prohibits you from making any further disclosure of this information unless further disclosure is expressly permitted by the written consent of the person to whom it pertains or is authorized by law. A general authorization for the release of medical or other information is not sufficient for this purpose. Hospital accepts no responsibility if the information is made available to any other person, INCLUDING THE PATIENT. Interpretation Summary * Name: STEPHANIE THURSTON Study Date: 11/27/2017 06:18 AM BP: 147/ mmHg * Patient Location: C.2T\S\S241\S\1 HR: 102 * : 1935 (M/d/yyyy) Gender: Male Height: 71 in * Age: 82 yrs Ethnicity: CA Weight: 209 lb * Ordering Physician: Alvarez Humphries * Referring Physician: Steph Nunn * Performed By: Mercedes Burton RCS * * Reason For Study: A-FIB / SOB * BSA: 2.1 m2 * -- Conclusions -- * Left ventricular systolic function is normal. * The left atrium is moderately dilated. * There is mild mitral annular calcification. * Right ventricular systolic pressure is elevated at 40-50mmHg. Procedure Details * A complete two-dimensional transthoracic echocardiogram was performed (2D, M-mode, Doppler and color flow Doppler). Left Ventricle * The left ventricle is normal in size. * There is normal left ventricular wall thickness. * Left ventricular systolic function is normal. * Ejection Fraction = 55-60%. * The left ventricular wall motion is normal. Right Ventricle * The right ventricle is normal in size and function. Atria * The left atrium is moderately dilated. * The right atrium is borderline dilated. Mitral Valve * The mitral valve is grossly normal. * There is mild mitral annular calcification. * There is trace mitral regurgitation. Tricuspid Valve * The tricuspid valve is not well visualized, but is grossly normal. * There is mild tricuspid regurgitation. * Right ventricular systolic pressure is elevated at 40-50mmHg. Aortic Valve * The aortic valve is normal in structure and function. * The aortic valve is trileaflet. * No hemodynamically significant valvular aortic stenosis. * There is no significant aortic regurgitation. Great Vessels * The aortic root is normal size. Pericardium/Pleural * There is no pericardial effusion. MMode 2D Measurements and Calculations IVSd 1.2 cm IVSs 1.9 cm LVIDd 4.1 cm LVIDs 3.3 cm LVPWd 1.1 cm LVPWs 1.4 cm IVS/LVPW 1.0 FS 19.5 % EDV(Teich) 73.0 ml ESV(Teich) 43.4 ml EF(Teich) 40.6 % EDV(cubed) 67.5 ml ESV(cubed) 35.2 ml EF(cubed) 47.9 % % IVS thick 66.3 % % LVPW thick 26.9 % LV mass(C)d 157.0 grams LV mass(C)dI 73.1 grams/m\S\2 LV mass(C)s 212.3 grams LV mass(C)sI 98.8 grams/m\S\2 SV(Teich) 29.6 ml SI(Teich) 13.8 ml/m\S\2 SV(cubed) 32.3 ml SI(cubed) 15.0 ml/m\S\2 Ao root diam 3.7 cm Ao root area 10.5 cm\S\2 ACS 2.1 cm LA dimension 4.6 cm LA/Ao 1.3 LVOT diam 2.0 cm LVOT area 3.1 cm\S\2 LVAd ap4 29.8 cm\S\2 LVLd ap4 8.1 cm EDV(MOD-sp4) 89.0 ml EDV(sp4-el) 93.3 ml LVAs ap4 18.2 cm\S\2 LVLs ap4 7.6 cm ESV(MOD-sp4) 36.4 ml ESV(sp4-el) 37.2 ml EF(MOD-sp4) 59.1 % EF(sp4-el) 60.1 % LVAd ap2 22.7 cm\S\2 LVLd ap2 6.4 cm EDV(MOD-sp2) 66.0 ml EDV(sp2-el) 68.2 ml LVAs ap2 14.0 cm\S\2 LVLs ap2 4.8 cm ESV(MOD-sp2) 32.2 ml ESV(sp2-el) 34.7 ml EF(MOD-sp2) 51.2 % EF(sp2-el) 49.0 % LVLd %diff -25.47 % EDV(MOD-bp) 85.2 ml LVLs %diff -58.53 % ESV(MOD-bp) 40.7 ml EF(MOD-bp) 52.3 % SV(MOD-sp4) 52.6 ml SI(MOD-sp4) 24.5 ml/m\S\2 SV(MOD-sp2) 33.8 ml SI(MOD-sp2) 15.7 ml/m\S\2 SV(MOD-bp) 44.5 ml SI(MOD-bp) 20.7 ml/m\S\2 SV(sp4-el) 56.1 ml SI(sp4-el) 26.1 ml/m\S\2 SV(sp2-el) 33.4 ml SI(sp2-el) 15.6 ml/m\S\2 Doppler Measurements and Calculations MV E max declan 169.3 cm/sec MV P1/2t max declan 161.6 cm/sec MV P1/2t 70.1 msec MVA(P1/2t) 3.1 cm\S\2 MV dec slope 675.3 cm/sec\S\2 MV dec time 0.14 sec Ao V2 max 80.3 cm/sec Ao max PG 2.6 mmHg Ao max PG (full) 0.72 mmHg MARIA R(V,A) 2.6 cm\S\2 MARIA R(V,D) 2.6 cm\S\2 LV V1 max PG 1.9 mmHg LV V1 max 68.1 cm/sec TR max declan 315.8 cm/sec
--- NOTE | 2017-11-27 13:23 | Cardiology Consultation ---
Cardiology Consultation Date of Consultation: Nov 27, 2017. Requesting Physician: Dr. Humphries Reason for Consultation: Atrial fibrillation, shortness of breath Pt evaluation today including: conversation w/ patient, conversation w/ family , physical exam, chart review, lab review, review of studies, review of inpatient medication list History of Present Illness This is a very pleasant 82-year-old gentleman who has a history of hypertension , hyperlipidemia and COPD. He also describes a history of coronary artery disease, he describes having difficulty with exertion in the mid-1980s when he worked at [employer], he describes having a catheterization performed at that time where he recalls being told he had a blocked vessel with what sounds like a description of collateral flow. He was placed on nifedipine and has been taking it ever since. He did stop smoking around that time and has had no further difficulty with it. He does not recall ever having chest discomfort then or since. He presents now with about one week of a trembling sensation in his chest which he doesn't recall ever feeling before as well as shortness of breath and dyspnea on exertion. He has COPD and his oxygen content based on home oximetry was significantly reduced therefore he was brought to the emergency room. Here he was noted to be in rapid atrial fibrillation and hypoxic. He was placed on intravenous diltiazem, his heart rate was somewhat controlled although still fast. At the time of my evaluation he is feeling much better, he does not have much in the way of palpitations or shortness of breath currently. Past Medical/Surgical History COPD Coronary artery disease Hypertension Hyperlipidemia Social History Smoking Status: Former Smoker History of Alcohol Use: Yes (Socially drinks a beer) Review of Systems Constitutional: No fever, No weight loss, No weakness Respiratory: + see HPI, + shortness of breath, + dyspnea on exertion, No cough , No wheezing Cardiac: + see HPI, + palpitations, No chest pain, No orthopnea, No PND, No edema Abdomen: No pain, No nausea, No vomiting, No diarrhea, No GI bleeding Male : No urinary frequency, No nocturia more than once/night, No slowing stream, No sexual dysfunction Neurologic: No paralysis, No weakness, No numbness/tingling, No balance problems Heme: No abnormal bleeding/bruising, No clotting problems Endo: No fatigue Skin: No problem reported All Other Systems: Reviewed and Negative Allergies Coded Allergies: No Known Allergies (Verified , 10/14/16) Medications Current Inpatient Medications Medications (Trade) Dose Ordered Sig/Gee Route Start Time Stop Time Status Last Admin Dose Admin Ioversol (Optiray 320) 100 ml UD PRN IV 11/26/17 22:00 11/30/17 21:59 Aspirin (Ecotrin Tab) 81 mg HS PO 11/27/17 21:00 12/27/17 20:59 Acetaminophen (Tylenol Tab) 650 mg Q4H PRN PO 11/26/17 23:15 12/26/17 23:14 Al Hydrox/Mg Hydrox/Simethicone (Maalox Max Susp) 15 ml Q4H PRN PO 11/26/17 23:15 12/26/17 23:14 Magnesium Hydroxide (Milk Of Magnesia Susp) 30 ml Q12H PRN PO 11/26/17 23:15 12/26/17 23:14 Ondansetron HCl (Zofran Inj) 4 mg Q6H PRN IV 11/26/17 23:15 12/26/17 23:14 Morphine Sulfate (MoRPHine SULFATE INJ) 2 mg Q30M PRN IV 11/26/17 23:15 12/10/17 23:14 Polyethylene (Miralax Powder Packet) 17 gm DAILY PRN PO 11/26/17 23:15 12/26/17 23:14 Diltiazem HCl 125 mg/Dextrose 125 ml @ 0 mls/hr Q0M PRN IV 11/26/17 23:45 12/26/17 23:44 11/27/17 08:41 15 MLS/HR Albuterol/ Ipratropium (Duoneb) 3 ml Q6R INH 11/27/17 03:00 12/27/17 02:59 11/27/17 07:21 3 ML Levalbuterol (Xopenex 1.25MG/ 3ML Neb) 1.25 mg Q4R PRN INH 11/26/17 23:45 12/26/17 23:44 Methylprednisolone Sodium Succinate 60 mg/Syringe 0.96 ml @ 1.5 mls/min Q6H IV 11/27/17 02:00 12/27/17 01:59 11/27/17 08:19 1.5 MLS/MIN Enoxaparin Sodium (Lovenox Inj) 100 mg Q12H SQ 11/27/17 10:00 12/27/17 09:59 11/27/17 09:35 100 MG Azithromycin (Zithromax Tab) 250 mg Q24H PO 11/27/17 20:00 11/30/17 20:01 Physical Exam Vital Signs Past 12 Hours Date Time Temp Pulse Resp B/P (MAP) Pulse Ox O2 Delivery O2 Flow Rate FiO2 11/27/17 12:00 89 Nasal Cannula 5.0 11/27/17 11:27 36.4 113 20 131/70 (90) 89 5.0 11/27/17 08:00 90 Nasal Cannula 5.0 11/27/17 07:33 36.6 116 18 165/81 (109) 90 6.0 11/27/17 07:21 115 20 89 Nasal Cannula 6.0 11/27/17 04:00 Nasal Cannula 6.0 11/27/17 03:35 36.5 115 16 147/77 (100) 90 11/27/17 02:20 115 138/84 (102) 11/27/17 02:05 121 20 89 Nasal Cannula 5.0 11/27/17 01:30 124 18 136/86 (103) 92 Nasal Cannula 5.0 11/27/17 01:20 86 Nasal Cannula 4.0 Constitutional: General Apperance: heathly-appearing Level of Distress: NAD Psychiatric: Mental Status: active & alert Head: normocephalic Eyes: EOM: EOMI ENMT: normal ENT inspection, hearing grossly normal Neck: supple, no masses Lungs: Respiratory effort: no dyspnea, good air movement Auscultation: no wheezing, no rales/crackles, deminished air movement Cardiovascular: Heart Auscultation: no murmurs, no rubs, no gallops, irregular rate rhythm Peripheral Pulses: Bruits: none appreciated Abdomen: Bowel Sounds: normal Inspection & Palpation: soft, no tenderness, guarding & rebound, no masses Musculoskeletal: normal strength (5/5 throughout) Extremities: no edema Neurologic: Cranial Nerves: grossly intact Sensation: grossly intact Data Laboratory Results: Last 24 Hours Test 11/26/17 19:40 11/26/17 19:46 11/26/17 21:00 11/27/17 06:40 Influenza Type A Antigen Neg for Influ A Influenza Type B Antigen Neg for Influ B White Blood Count 11.36 K/uL 11.07 K/uL Red Blood Count 4.44 M/uL 4.40 M/uL Hemoglobin 13.3 g/dL 12.9 g/dL Hematocrit 39.7 % 39.5 % Mean Corpuscular Volume 89.4 fL 89.8 fL Mean Corpuscular Hemoglobin 30.0 pg 29.3 pg Mean Corpuscular Hemoglobin Concent 33.5 g/dl 32.7 g/dl Platelet Count 230 K/uL 221 K/uL Mean Platelet Volume 11.1 fL 10.6 fL Neutrophils (%) (Auto) 75.1 % Lymphocytes (%) (Auto) 13.6 % Monocytes (%) (Auto) 8.8 % Eosinophils (%) (Auto) 1.8 % Basophils (%) (Auto) 0.3 % Neutrophils # (Auto) 8.53 K/uL Lymphocytes # (Auto) 1.55 K/uL Monocytes # (Auto) 1.00 K/uL Eosinophils # (Auto) 0.21 K/uL Basophils # (Auto) 0.03 K/uL RDW Standard Deviation 51.7 fL 51.4 fL RDW Coefficient of Variation 15.8 % 16.0 % Immature Granulocyte % (Auto) 0.4 % Immature Granulocyte # (Auto) 0.04 K/uL Prothrombin Time 11.9 SECONDS Prothromb Time International Ratio 1.1 Activated Partial Thromboplast Time 27.8 SECONDS Partial Thromboplastin Ratio 1.1 Sodium Level 139 mmol/L 137 mmol/L Potassium Level 4.0 mmol/L 4.4 mmol/L Chloride Level 107 mmol/L 108 mmol/L Carbon Dioxide Level 23 mmol/L 20 mmol/L Anion Gap 8.0 mmol/L 9.0 mmol/L Blood Urea Nitrogen 33 mg/dl 30 mg/dl Creatinine 1.35 mg/dl 1.25 mg/dl Est Creatinine Clear Calc Drug Dose 49.6 ml/min 53.6 ml/min Estimated GFR () 56.3 61.8 Estimated GFR (Non- 48.5 53.3 BUN/Creatinine Ratio 24.4 23.8 Random Glucose 112 mg/dl 175 mg/dl Calcium Level 8.7 mg/dl 8.2 mg/dl Total Bilirubin 0.9 mg/dl Aspartate Amino Transf (AST/SGOT) 21 U/L Alanine Aminotransferase (ALT/SGPT) 32 U/L Alkaline Phosphatase 76 U/L Troponin I < 0.015 ng/ml < 0.015 ng/ml Pro-B-Type Natriuretic Peptide 1996 pg/ml Total Protein 7.4 gm/dl Albumin 3.1 gm/dl Globulin 4.3 gm/dl Albumin/Globulin Ratio 0.7 Urine Color YELLOW Urine Appearance CLEAR Urine pH 5.0 Urine Specific [place] 1.025 Urine Protein 1+ Urine Glucose (UA) NEG Urine Ketones NEG Urine Occult Blood NEG Urine Nitrite NEG Urine Bilirubin NEG Urine Urobilinogen NEG Urine Leukocyte Esterase NEG Urine WBC (Auto) 1-5 /hpf Urine RBC (Auto) 0-4 /hpf Urine Hyaline Casts (Auto) 1-5 /lpf Urine Epithelial Cells (Auto) >30 /lpf Urine Bacteria (Auto) NEG Magnesium Level 2.2 mg/dl Imaging: Chest x-ray on arrival suggests congestive heart failure EKG: On arrival atrial fibrillation with a heart rate of 131 bpm, no acute changes. Telemetry reviewed: Atrial fibrillation with a rapid heart rate, the heart rate has improved since admission but remains elevated. Echocardiogram: Normal left ventricular size and function, moderate left atrial enlargement. Assessment & Plan #1. Shortness of breath: He presented with one week of shortness of breath and developed progressive hypoxemia based on his home oximeter, I suspect that he went into atrial fibrillation about a week ago and had progressive fluid retention and eventually developed heart failure prior to presentation (this would be diastolic heart failure not systolic). There is no evidence of ischemia despite his history of coronary artery disease. #2. Atrial fibrillation: He has had one week of symptoms, he describes shortness of breath as well as palpitations which she doesn't recall ever having before. I suspect his atrial fibrillation started a week ago and his heart rate is rapid. Even on his current dose of diltiazem his heart rate is well over 100 on average. I am going to add digoxin to his regimen, but keep him on the IV diltiazem for now. I'm going to try to avoid beta-blockade with his lung disease but we may have to add a low dose. #3. Coronary artery disease: He has a good history of having a catheterization at [place] in the mid 1980s, where he was told he had an occluded vessel with collaterals. His history is quite consistent, however there is nothing on his electrocardiogram or his echocardiogram to suggest a myocardial infarction. He did quit smoking subsequently, so this is possible. His enzymes were negative this admission. I would not pursue further evaluation of this. Thank you for allowing me to participate in his care.
[2017-11-27] MEDS ORDERED: DIGOXIN IV 250 MCG in SYRINGE 9 ML IV ONE (14:00)
[2017-11-27] MEDS ORDERED: DIGOXIN 0.25 MG TAB PO ONE (14:00)
[2017-11-27] MEDS: DIGOXIN 0.125 MG TAB PO SCH (16:30)
[2017-11-27] MEDS: AZITHROMYCIN 250 MG TAB PO SCH (19:48)
[2017-11-27] MEDS ORDERED: AZITHROMYCIN IV 500 MG in DEXTROSE 5% 250ML 250 ML IV SCH (20:00)
[2017-11-27] MEDS: ASPIRIN 81 MG ECTAB PO SCH (20:58)
[2017-11-28] VITALS (16 sets, daily range): BP systolic 111–144; BP diastolic 62–82; PULSE 75–132; TEMP 36.3–36.7; O2SAT 86–99
[2017-11-28] MEDS: DILTIAZEM HCL INJ 125 MG in DEXTROSE 5% 100ML IV PRN ×2 (01:17→21:28)
[2017-11-28] MEDS: METHYLPREDNISOLONE IV 60 MG in SYRINGE 0 ML IV SCH ×3 (01:35→20:37)
[2017-11-28] MEDS: ALBUT/IPRATROP 3MG/0.5MG NEB 3 ML VIAL INH SCH ×4 (01:49→19:25)
[2017-11-28 07:10] LABS: HEMOGLOBIN 12.8 g/dL (14.0-18.0); MEAN CELL VOLUME 89.9 fL (80-100); MEAN CORPUSCULAR HEMOGLOBIN 29.5 pg (25-34); MEAN CORPUSCULAR HGB CONC 32.8 g/dl (32-36); MEAN PLATELET VOLUME 11.2 fL (7.4-10.4); PLATELET COUNT 254 K/uL (130-400); RED CELL DISTRIBUTION WIDTH CV 16.2 % (11.5-14.5); RED CELL DISTRIBUTION WIDTH SD 52.8 fL (36.4-46.3); WHITE BLOOD COUNT 22.16 K/uL (4.8-10.8)
--- NOTE | 2017-11-28 07:20 | Clinical Documentation Query ---
CLINICAL DOCUMENTATION QUERY 82 year old white male who presents to the ED with a cc of worsening shortness of breath. It has been surmised by cardiology that is due to prolonged Afib with RVR. Cardiology goes on to say the patient did developed diastolic CHF, however acuity was missing from his documentation. In your clinical opinion is this patient being managed for: (x ) Acute diastolic (Preserved EF) CHF due to Afib RVR exacerbating underling COPD treated with rate control medications ( ) Not Agree ( ) Other explanation of clinical findings (Please Explain) ( ) Unable to determine (Please Define) ( ) Need to Discuss The medical record reflects the following clinical findings, treatment, and risk factors. Clinical Indicators: HR 130, Hypoxia 88%, crackles and wheezes by ED lung exam. CXR suggestive of mild congestive changes. Treatment: IV Digoxin, IV Cardizem gtt, telemetry, I/O's daily weights, cardiology consult, Echo Risk Factors: Age, Afib RVR, HTN, LVH Please clarify and document your clinical opinion in the progress notes and discharge summary. Terms such as "probable", "suspected", "likely", "questionable", "possible", or "still to be ruled out" are acceptable. IF IN AGREEMENT, YOU MUST DOCUMENT ABOVE DIAGNOSTIC STATEMENT IN DAILY PROGRESS NOTES AND DISCHARGE SUMMARY. This document is not part of the patient's record. Thank You, Elie Tinsley, RN [phone]
--- NOTE | 2017-11-28 07:22 | Clinical Documentation Query ---
CLINICAL DOCUMENTATION QUERY 82 year old white male who presents to the ED with a cc of worsening shortness of breath. It has been surmised by cardiology that is due to prolonged Afib with RVR. Cardiology goes on to say the patient did developed diastolic CHF, however acuity was missing from his documentation. In your clinical opinion is this patient being managed for: ( ) Acute diastolic (Preserved EF) CHF due to Afib RVR exacerbating underling COPD treated with rate control ( ) Not Agree ( ) Other explanation of clinical findings (Please Explain) ( ) Unable to determine (Please Define) ( ) Need to Discuss The medical record reflects the following clinical findings, treatment, and risk factors. Clinical Indicators: HR 130, Hypoxia 88%, crackles and wheezes by ED lung exam. CXR suggestive of mild congestive changes. Treatment: IV Digoxin, IV Cardizem gtt, telemetry, I/O's daily weights, cardiology consult, Echo Risk Factors: Age, Afib RVR, HTN, LVH Please clarify and document your clinical opinion in the progress notes and discharge summary. Terms such as "probable", "suspected", "likely", "questionable", "possible", or "still to be ruled out" are acceptable. IF IN AGREEMENT, YOU MUST DOCUMENT ABOVE DIAGNOSTIC STATEMENT IN DAILY PROGRESS NOTES AND DISCHARGE SUMMARY. This document is not part of the patient's record. Thank You, Elie Tinsley, RN [phone]
[2017-11-28 07:33] LABS: CALCIUM 8.8 mg/dl (8.5-10.1); CREATININE 1.65 mg/dl (0.60-1.40); POTASSIUM 4.3 mmol/L (3.5-5.1)
--- NOTE | 2017-11-28 08:26 | Cardiology Follow-Up ---
Subjective Date of Service: Nov 28, 2017. Pt evaluation today including: conversation w/ patient, physical exam, lab review, review of studies, review of inpatient medication list History of Present Illness This is a very pleasant 82-year-old gentleman who has a history of hypertension , hyperlipidemia and COPD. He also describes a history of coronary artery disease, he describes having difficulty with exertion in the mid- when he worked at [employer], he describes having a catheterization performed at that time where he recalls being told he had a blocked vessel with what sounds like a description of collateral flow. He was placed on nifedipine and has been taking it ever since. He did stop smoking around that time and has had no further difficulty with it. He does not recall ever having chest discomfort then or since. He presents now with about one week of a trembling sensation in his chest which he doesn't recall ever feeling before as well as shortness of breath and dyspnea on exertion. He has COPD and his oxygen content based on home oximetry was significantly reduced therefore he was brought to the emergency room. Here he was noted to be in rapid atrial fibrillation and hypoxic (diastolic CHF). He was placed on intravenous diltiazem, his heart rate was somewhat controlled although still fast therefore I added digoxin yesterday in hopes of minimizing the need for beta blockade due to his lung disease. Today he is feeling much better, he does not have much in the way of palpitations, his shortness of breath is significantly improved. Social History Smoking Status: Former Smoker History of Alcohol Use: Yes (Socially drinks a beer) Review of Systems Respiratory: + see HPI, + shortness of breath, + dyspnea on exertion, No cough , No wheezing Cardiac: + see HPI, + palpitations, No chest pain, No orthopnea, No PND, No edema Medications Cardiovascular: Item Value Date Time Aspirin 81 mg 11/27/17 2100 (Ecotrin Tab) HS/PO 11/27/17 2058 Digoxin 0.125 mg 11/27/17 1600 (Lanoxin Tab) DAILY@16/PO 11/27/17 1630 Diltiazem HCl 125 125 ml @ 0 mls/hr 11/26/17 2345 mg/Dextrose .Q0M PRN/IV 11/28/17 0117 Objective Vital Signs Past 12 Hours Date Time Temp Pulse Resp B/P (MAP) Pulse Ox O2 Delivery O2 Flow Rate FiO2 11/28/17 07:42 36.5 105 18 135/82 (99) 93 5.0 11/28/17 07:12 75 20 92 Nasal Cannula 5.0 11/28/17 04:00 Nasal Cannula 5.0 11/28/17 03:04 36.7 119 21 122/62 (82) 91 Nasal Cannula 5.0 11/28/17 01:49 83 20 92 Nasal Cannula 5.0 11/28/17 00:00 Nasal Cannula 5.0 11/27/17 23:57 36.6 108 24 118/71 (87) 91 Nasal Cannula 5.0 Last Recorded Weight-Kilograms: 95.000 Physical Exam Constitutional: General Apperance: heathly-appearing Level of Distress: NAD Lungs: Respiratory effort: no dyspnea, good air movement Auscultation: no wheezing, no rales/crackles, deminished air movement Cardiovascular: Heart Auscultation: no murmurs, no rubs, no gallops, irregular rate rhythm Peripheral Pulses: Bruits: none appreciated Extremities: no edema Data Laboratory Results: Last 24 Hours Test 11/27/17 14:26 11/28/17 06:41 Troponin I < 0.015 ng/ml White Blood Count 22.16 K/uL Red Blood Count 4.34 M/uL Hemoglobin 12.8 g/dL Hematocrit 39.0 % Mean Corpuscular Volume 89.9 fL Mean Corpuscular Hemoglobin 29.5 pg Mean Corpuscular Hemoglobin Concent 32.8 g/dl RDW Standard Deviation 52.8 fL RDW Coefficient of Variation 16.2 % Platelet Count 254 K/uL Mean Platelet Volume 11.2 fL Sodium Level 134 mmol/L Potassium Level 4.3 mmol/L Chloride Level 105 mmol/L Carbon Dioxide Level 19 mmol/L Anion Gap 10.0 mmol/L Blood Urea Nitrogen 40 mg/dl Creatinine 1.65 mg/dl Est Creatinine Clear Calc Drug Dose 40.6 ml/min Estimated GFR () 44.1 Estimated GFR (Non- 38.1 BUN/Creatinine Ratio 24.2 Random Glucose 189 mg/dl Calcium Level 8.8 mg/dl Magnesium Level 2.4 mg/dl Digoxin Level 0.8 ng/ml Telemetry reviewed: Atrial fibrillation, heart rate improved from yesterday, still averaging right around 100 however. Assessment and Plan #1. Shortness of breath: He presented with one week of palpitations and shortness of breath and developed progressive hypoxemia based on his home oximeter, I suspect that he went into atrial fibrillation about a week ago and had progressive fluid retention and eventually developed heart failure prior to presentation (this would be diastolic heart failure not systolic). There is no evidence of ischemia despite his history of coronary artery disease. This has essentially resolved, at least at rest. His creatinine is up slightly today, I believe he has been adequately diuresed at this time and would not pursue further diuresis. My approach would be rate control for 3-4 weeks with anticoagulation, I will set him up for an office visit in about 3 weeks and if he remains in atrial fibrillation we can plan cardioversion. #2. Atrial fibrillation: He has had one week of symptoms, he describes shortness of breath as well as palpitations which she doesn't recall ever having before. I suspect his atrial fibrillation started a week ago and his heart rate was rapid. Even on his current dose of diltiazem (15 mg per hour) and on digoxin with a level of 0.8 his heart rate is better but still about 100 on average. At this point I would like to switch him to oral medications, I'm going to start him on diltiazem CD 240 mg this morning and give another dose of digoxin this morning. I'm going to continue his daily dose of 0.125. He does need anticoagulation, his creatinine is up slightly but his baseline is not, based on this his Eliquis dose is probably 2.5 mg twice a day now but I suspect before he goes home and should be 5 mg twice a day. I'm going to start 2.5 mg twice a day now and discontinue Lovenox. #3. Coronary artery disease: He has a good history of having a catheterization at [place] in the mid 1980s, where he was told he had an occluded vessel with collaterals. His history is quite consistent, however there is nothing on his electrocardiogram or his echocardiogram to suggest a myocardial infarction. He did quit smoking subsequently, so it is possible he has not had progression. His enzymes were negative this admission. I would not pursue further evaluation of this, but perhaps we should continue aspirin even though it increases his risk of bleeding on anticoagulant. Thank you for allowing me to participate in his care.
[2017-11-28] MEDS ORDERED: DIGOXIN 0.125 MG TAB PO ONE (08:30)
[2017-11-28] MEDS ORDERED: DILTIAZEM HCL 240 MG CAPCR PO SCH (09:00)
[2017-11-28] MEDS: APIXABAN 2.5 MG TAB PO SCH ×2 (10:16→20:38)
--- NOTE | 2017-11-28 15:11 | Progress Note ---
Subjective Date of Service: Nov 28, 2017. Subjective Pt evaluation today including: conversation w/ patient, physical exam 82 yo mail who is here for a. fib with RVR. Patient reports feeling well. Nurses state that his heart rate has been better controlled. Patient denies any palpitations or SOB. Problem List Medical Problems: (1) Atrial fibrillation with RVR Status: Acute (2) New onset atrial fibrillation Status: Acute (3) Pneumonia Status: Acute Medications Current Inpatient Medications Medications (Trade) Dose Ordered Sig/Gee Route Start Time Stop Time Status Last Admin Dose Admin Ioversol (Optiray 320) 100 ml UD PRN IV 11/26/17 22:00 11/30/17 21:59 Aspirin (Ecotrin Tab) 81 mg HS PO 11/27/17 21:00 12/27/17 20:59 11/28/17 20:36 81 MG Acetaminophen (Tylenol Tab) 650 mg Q4H PRN PO 11/26/17 23:15 12/26/17 23:14 Al Hydrox/Mg Hydrox/Simethicone (Maalox Max Susp) 15 ml Q4H PRN PO 11/26/17 23:15 12/26/17 23:14 Magnesium Hydroxide (Milk Of Magnesia Susp) 30 ml Q12H PRN PO 11/26/17 23:15 12/26/17 23:14 Ondansetron HCl (Zofran Inj) 4 mg Q6H PRN IV 11/26/17 23:15 12/26/17 23:14 Morphine Sulfate (MoRPHine SULFATE INJ) 2 mg Q30M PRN IV 11/26/17 23:15 12/10/17 23:14 Polyethylene (Miralax Powder Packet) 17 gm DAILY PRN PO 11/26/17 23:15 12/26/17 23:14 Albuterol/ Ipratropium (Duoneb) 3 ml Q6R INH 11/27/17 03:00 12/27/17 02:59 11/29/17 06:57 3 ML Levalbuterol (Xopenex 1.25MG/ 3ML Neb) 1.25 mg Q4R PRN INH 11/26/17 23:45 12/26/17 23:44 Azithromycin (Zithromax Tab) 250 mg Q24H PO 11/27/17 20:00 2/4/18 20:01 11/28/17 20:38 250 MG Digoxin (Lanoxin Tab) 0.125 mg DAILY@16 PO 11/27/17 16:00 12/27/17 15:59 11/28/17 16:48 0.125 MG Diltiazem HCl (Cardizem Cd Cap) 240 mg QAM PO 11/28/17 09:00 12/28/17 08:59 Future Hold 11/28/17 10:16 240 MG Apixaban (Eliquis Tab) 2.5 mg BID PO 11/28/17 09:00 12/28/17 08:59 11/28/17 20:38 2.5 MG Methylprednisolone Sodium Succinate 60 mg/Syringe 0.96 ml @ 1.5 mls/min Q12H IV 11/28/17 20:00 12/27/17 01:59 11/28/17 20:37 1.5 MLS/MIN Diltiazem HCl 125 mg/Dextrose 125 ml @ 0 mls/hr Q0M PRN IV 11/28/17 20:45 12/28/17 20:44 11/28/17 21:28 5 MLS/HR Objective Vital Signs Date Time Temp Pulse Resp B/P (MAP) Pulse Ox O2 Delivery O2 Flow Rate FiO2 11/28/17 14:25 118 20 93 Nasal Cannula 5.0 11/28/17 12:00 Nasal Cannula 5.0 11/28/17 11:19 36.4 110 18 144/67 (92) 92 5.0 11/28/17 10:17 108 11/28/17 08:00 Nasal Cannula 5.0 11/28/17 07:42 36.5 105 18 135/82 (99) 93 5.0 11/28/17 07:12 75 20 92 Nasal Cannula 5.0 11/28/17 04:00 Nasal Cannula 5.0 11/28/17 03:04 36.7 119 21 122/62 (82) 91 Nasal Cannula 5.0 11/28/17 01:49 83 20 92 Nasal Cannula 5.0 11/28/17 00:00 Nasal Cannula 5.0 11/27/17 23:57 36.6 108 24 118/71 (87) 91 Nasal Cannula 5.0 11/27/17 20:00 Nasal Cannula 5.0 11/27/17 19:42 85 20 91 Nasal Cannula 5.0 11/27/17 19:09 36.8 109 19 143/70 (94) 90 Room Air 11/27/17 16:30 92 11/27/17 16:00 Nasal Cannula 5.0 11/27/17 15:26 36.5 107 18 138/74 (95) 90 Nasal Cannula 5.0 Physical Exam Comments: General appearance: Well-developed, well-nourished, no apparent distress Head: Normocephalic, atraumatic Eyes: Normal inspection, PERRL, EOMI ENT: Normal ENT inspection, hearing grossly normal, pharynx normal Neck: Supple, no JVD, trachea midline Respiratory/Chest: Lungs clear to auscultation, no respiratory distress Cardiovascular: +Irregularly irregular, tachycardic. No gallop, no murmur Abdomen/GI: Normal bowel sounds, non-tender, soft Extremities/Musculoskeletal: +1+ pitting edema. Normal inspection, no calf tenderness Neurological/Psych: Alert, normal mood/affect, oriented x 3 Skin: Normal color, warm/dry, no rash Laboratory Results Last 24 Hours Test 11/28/17 06:41 White Blood Count 22.16 K/uL Red Blood Count 4.34 M/uL Hemoglobin 12.8 g/dL Hematocrit 39.0 % Mean Corpuscular Volume 89.9 fL Mean Corpuscular Hemoglobin 29.5 pg Mean Corpuscular Hemoglobin Concent 32.8 g/dl RDW Standard Deviation 52.8 fL RDW Coefficient of Variation 16.2 % Platelet Count 254 K/uL Mean Platelet Volume 11.2 fL Sodium Level 134 mmol/L Potassium Level 4.3 mmol/L Chloride Level 105 mmol/L Carbon Dioxide Level 19 mmol/L Anion Gap 10.0 mmol/L Blood Urea Nitrogen 40 mg/dl Creatinine 1.65 mg/dl Est Creatinine Clear Calc Drug Dose 40.6 ml/min Estimated GFR () 44.1 Estimated GFR (Non- 38.1 BUN/Creatinine Ratio 24.2 Random Glucose 189 mg/dl Calcium Level 8.8 mg/dl Magnesium Level 2.4 mg/dl Digoxin Level 0.8 ng/ml Assessment and Plan #1. Shortness of breath: He presented with one week of palpitations and shortness of breath and developed progressive hypoxemia based on his home oximeter, I suspect that he went into atrial fibrillation about a week ago and had progressive fluid retention and eventually developed heart failure prior to presentation (this would be diastolic heart failure not systolic). There is no evidence of ischemia despite his history of coronary artery disease. This has essentially resolved, at least at rest. His creatinine is up slightly today, I believe he has been adequately diuresed at this time and would not pursue further diuresis. My approach would be rate control for 3-4 weeks with anticoagulation, I will set him up for an office visit in about 3 weeks and if he remains in atrial fibrillation we can plan cardioversion. New onset a-fib with RVR--ongoing -Admit to telemetry. Pt remains in a-fib, HR varying from 105 to 113 Titrate diltiazem to PO. -Diltiazem 240 mg PO daily. -Cardiology consulted, appreciate recs -Therapeutic Lovenox 100 mg SC q12h -Troponin negative x 3 -Echo shows normal EF with normal systolic function -Potassium and magnesium WNL -Acute CHF from unctonrlled a. fib with RVR in a patient with preserved EF. Patient received lasix and is rate controlled with Diltiazem. SOB, likely COPD exacerbation but also possible URI vs vascular congestion due to a-fib -DuoNebs Q6R scheduled, Xopenex prn -Solu-Medrol 60 mg IV q6h -Decrease azithromycin 250 mg PO qd. Day #3 -O2 by protocol. Currently >92% on 4L -Should have pulmonology f/u. Not currently being treated for COPD as outpatient despite severe emphysema -Patient will be getting a 2 step today HTN, HLD--stable -Nifedipine at home, this is held due to dilt drip BPH--no current meds B/l hilar lymphadenopathy on CT -F/u as outpatient DVT prophylaxis -Therapeutic enoxaparin 100 mg SC q12h Code Status -Level I, FULL RESUSCITATION STATUS Continued [facility] stay due to: multiple IV medications needed Discharge planning: uncertain
[2017-11-28] MEDS: DIGOXIN 0.125 MG TAB PO SCH (16:48)
[2017-11-28] MEDS ORDERED: DILTIAZEM BOLUS / DRIP IV STA (20:24)
[2017-11-28] MEDS: ASPIRIN 81 MG ECTAB PO SCH (20:36)
[2017-11-28] MEDS: AZITHROMYCIN 250 MG TAB PO SCH (20:38)
[2017-11-28] MEDS ORDERED: DILTIAZEM HCL 5 MG/ML 5 ML VIAL BOLUS/OMNI IV SCH (20:45)
[2017-11-29] VITALS (12 sets, daily range): BP systolic 111–155; BP diastolic 59–89; PULSE 79–113; TEMP 36.4–36.7; O2SAT 86–96
[2017-11-29] MEDS: ALBUT/IPRATROP 3MG/0.5MG NEB 3 ML VIAL INH SCH ×4 (02:23→19:12)
[2017-11-29 07:14] LABS: HEMATOCRIT 38.2 % (42-52); HEMOGLOBIN 12.3 g/dL (14.0-18.0); MEAN CELL VOLUME 90.1 fL (80-100); MEAN CORPUSCULAR HGB CONC 32.2 g/dl (32-36); PLATELET COUNT 237 K/uL (130-400); RED CELL DISTRIBUTION WIDTH CV 16.1 % (11.5-14.5); RED CELL DISTRIBUTION WIDTH SD 52.2 fL (36.4-46.3); WHITE BLOOD COUNT 19.21 K/uL (4.8-10.8)
[2017-11-29 08:03] LABS: CALCIUM 8.8 mg/dl (8.5-10.1); CREATININE 1.27 mg/dl (0.60-1.40)
[2017-11-29] MEDS: METHYLPREDNISOLONE IV 60 MG in SYRINGE 0 ML IV SCH ×2 (08:38→21:02)
[2017-11-29] MEDS: APIXABAN 2.5 MG TAB PO SCH ×2 (08:38→21:02)
[2017-11-29] MEDS: DILTIAZEM HCL INJ 125 MG in DEXTROSE 5% 100ML IV PRN (09:02)
[2017-11-29] MEDS ORDERED: DILTIAZEM HCL 240 MG CAPCR PO ONE (10:50)
--- NOTE | 2017-11-29 11:34 | Hospitalist Progress Note ---
Hospitalist Progress Note Date of Service Nov 29, 2017. (Lacey Rivera ., SHARONC) Subjective Pt evaluation today including: conversation w/ patient, physical exam, chart review, lab review, review of inpatient medication list Pain: None PO Intake: Tolerating PO diet Voiding: no voiding problems Patient reports feeling well. He denies any palpitations, chest pain or shortness of breath. Reviewed tele, and the patient remains in a-fib with RVR. The patient denies fevers, chills, sweats, chest pain, palpitations, claudication, cough, wheezing, shortness of breath, nausea, vomiting, abdominal pain, dysuria, hematuria, urinary retention, paralysis, weakness, numbness and tingling. Additional Comments: See HPI for pertinent positives and negatives. All other systems reviewed and negative. (Lacey Rivera ., MARISELA-C) Objective Vital Signs Date Time Temp Pulse Resp B/P (MAP) Pulse Ox O2 Delivery O2 Flow Rate FiO2 11/29/17 08:05 Nasal Cannula 3.0 11/29/17 07:40 36.6 88 22 155/80 (105) 96 Nasal Cannula 5.0 11/29/17 06:57 104 15 86 Nasal Cannula 5.0 11/29/17 04:00 Nasal Cannula 5.0 11/29/17 03:38 36.6 99 18 111/59 (76) 95 Nasal Cannula 4.0 11/29/17 00:00 Nasal Cannula 5.0 11/28/17 23:38 36.6 119 17 111/63 (79) 96 Nasal Cannula 4.0 11/28/17 22:43 108 18 135/82 (99) 94 Nasal Cannula 5.0 11/28/17 22:15 119 18 130/81 (97) 94 Nasal Cannula 5.0 11/28/17 22:00 109 18 116/65 (82) 95 Nasal Cannula 5.0 11/28/17 21:45 113 18 129/69 (89) 96 Nasal Cannula 5.0 11/28/17 21:30 127 18 138/74 (95) 93 Nasal Cannula 11/28/17 21:15 36.6 132 18 135/65 (88) 93 Nasal Cannula 11/28/17 20:21 36.3 113 20 138/82 (100) 99 Nasal Cannula 5.0 11/28/17 19:25 103 20 86 Nasal Cannula 3.0 11/28/17 19:22 Nasal Cannula 5.0 11/28/17 16:48 112 11/28/17 16:00 Nasal Cannula 5.0 11/28/17 15:42 36.4 109 20 140/63 (88) 90 Nasal Cannula 3.0 11/28/17 14:25 118 20 93 Nasal Cannula 5.0 11/28/17 12:00 Nasal Cannula 5.0 11/28/17 11:19 36.4 110 18 144/67 (92) 92 5.0 (Lacey Rivera ., PA-C) Physical Exam Notes: General appearance: Well-developed, well-nourished, no apparent distress Head: Normocephalic, atraumatic Eyes: Normal inspection, PERRL, EOMI ENT: Normal ENT inspection, hearing grossly normal, pharynx normal Neck: Supple, no JVD, trachea midline Respiratory/Chest: +Breath sounds mildly diminished, clear. Lungs clear to auscultation, no respiratory distress Cardiovascular: +Irregularly irregular. No gallop, no murmur Abdomen/GI: Normal bowel sounds, non-tender, soft Extremities/Musculoskeletal: +Trace pitting edema. Normal inspection, no calf tenderness Neurological/Psych: Alert, normal mood/affect, oriented x 3 Skin: Normal color, warm/dry, no rash (Lacey Rivera ., PA-C) Laboratory Results Last 24 Hours Test 11/29/17 06:55 11/29/17 08:12 White Blood Count 19.21 K/uL Red Blood Count 4.24 M/uL Hemoglobin 12.3 g/dL Hematocrit 38.2 % Mean Corpuscular Volume 90.1 fL Mean Corpuscular Hemoglobin 29.0 pg Mean Corpuscular Hemoglobin Concent 32.2 g/dl RDW Standard Deviation 52.2 fL RDW Coefficient of Variation 16.1 % Platelet Count 237 K/uL Mean Platelet Volume 11.0 fL Sodium Level 136 mmol/L Potassium Level mmol/L 4.0 mmol/L Chloride Level 108 mmol/L Carbon Dioxide Level 21 mmol/L Anion Gap 7.0 mmol/L Blood Urea Nitrogen 38 mg/dl Creatinine 1.27 mg/dl Est Creatinine Clear Calc Drug Dose 52.8 ml/min Estimated GFR () 60.6 Estimated GFR (Non- 52.3 BUN/Creatinine Ratio 30.0 Random Glucose 154 mg/dl Calcium Level 8.8 mg/dl Magnesium Level mg/dl 2.6 mg/dl (Lacey Rivera ., JOHN) Assessment and Plan 82 y/o male with a history of HTN, HLD, COPD, and BPH who presents with worsening SOB and productive cough. He was found to be in a-fib with RVR in ED and has no previous history of a-fib. New onset a-fib with RVR--ongoing -Admit to telemetry. Pt remains in a-fib, HR varying from 100s up to 150s but maintaining mostly 130s overnight. Now dilt drip titrated up, HR is in 80s -Continue diltiazem drip. Currently running at 10 ml/hr -Cardiology consulted, appreciate recs: Patient will need 3-4 weeks anticoagulation and follow up to evaluate need for cardioversion. Stop Lovenox and will anticoagulate with Eliquis. Continue aspirin given cardiac history. -Lovenox d/c'd -Increase Eliquis to 5 mg PO BID as JUAN resolved -Increase diltiazem to 360 mg PO qd -Continue digoxin 125 mcg PO qd -Troponin negative x 3 -Echo shows LVEF 55-60%. Left atrium mildly dilated. No wall motion abnormalities -Potassium and magnesium WNL SOB secondary to COPD exacerbation and/or acute diastolic CHF caused by a-fib-- improving -DuoNebs Q6R scheduled, Xopenex prn -Solu-Medrol 60 mg IV q12h -Azithromycin 250 mg PO qd. Day #4 -O2 by protocol. Currently on 3L. Wean to SpO2 88-92% -Should have pulmonology f/u. Not currently being treated for COPD as outpatient despite severe emphysema JUAN on CKD stage III--resolved -Creatinine up to 1.65, now back down to 1.27 on 2/3 -Increase Eliquis as above HTN, HLD--stable -Nifedipine at home, this is held due to dilt drip BPH--no current meds B/l hilar lymphadenopathy on CT -F/u as outpatient DVT prophylaxis -Therapeutic enoxaparin 100 mg SC q12h Code Status -Level I, FULL RESUSCITATION STATUS Continued [facility] stay due to: abnormal vital signs (RVR), multiple IV medications needed (Lacey Rivera ., PA-C) Supervising Note Dr. Livingston I performed a history and physical examination on the patient. I reviewed above note and agree with it. I discussed plan with APC and patient. During my face to face encounter with the patient, I answered all of the patient's questions. (Elias Livingston M.D.)
[2017-11-29] MEDS ORDERED: DILTIAZEM HCL 120 MG CAPCR PO ONE (11:37)
[2017-11-29] MEDS: DIGOXIN 0.125 MG TAB PO SCH (17:17)
[2017-11-29] MEDS: AZITHROMYCIN 250 MG TAB PO SCH (21:01)
[2017-11-29] MEDS: ASPIRIN 81 MG ECTAB PO SCH (21:01)
[2017-11-30] VITALS (13 sets, daily range): BP systolic 139–157; BP diastolic 69–89; PULSE 65–116; TEMP 36.4–36.8; O2SAT 88–93
[2017-11-30] MEDS: ALBUT/IPRATROP 3MG/0.5MG NEB 3 ML VIAL INH SCH ×4 (02:12→20:02)
[2017-11-30 06:10] LABS: HEMATOCRIT 37.2 % (42-52); HEMOGLOBIN 12.3 g/dL (14.0-18.0); MEAN CELL VOLUME 90.3 fL (80-100); MEAN CORPUSCULAR HEMOGLOBIN 29.9 pg (25-34); MEAN CORPUSCULAR HGB CONC 33.1 g/dl (32-36); PLATELET COUNT 233 K/uL (130-400); RED CELL DISTRIBUTION WIDTH CV 16.1 % (11.5-14.5); RED CELL DISTRIBUTION WIDTH SD 53.2 fL (36.4-46.3); WHITE BLOOD COUNT 16.61 K/uL (4.8-10.8)
[2017-11-30 06:41] LABS: CALCIUM 8.3 mg/dl (8.5-10.1); CREATININE 1.22 mg/dl (0.60-1.40); POTASSIUM 4.1 mmol/L (3.5-5.1)
[2017-11-30] MEDS: APIXABAN 2.5 MG TAB PO SCH ×2 (07:32→20:46)
[2017-11-30] MEDS: DILTIAZEM HCL 120 MG CAPCR PO SCH (07:32)
[2017-11-30] MEDS: DILTIAZEM HCL 240 MG CAPCR PO SCH (07:33)
[2017-11-30] MEDS: METHYLPREDNISOLONE IV 60 MG in SYRINGE 0 ML IV SCH (07:33)
[2017-11-30] MEDS ORDERED: METOPROLOL TARTRATE 25 MG TAB PO ONE (10:38)
--- NOTE | 2017-11-30 10:46 | Progress Note ---
Subjective Date of Service: Nov 30, 2017. Subjective Pt evaluation today including: conversation w/ patient, physical exam, chart review Patient reports feeling well. He denies any shortness of breath, palpations, nausea, vomiting. Patient is ambulating well on his own to the bathroom. Problem List Medical Problems: (1) Atrial fibrillation with RVR Status: Acute (2) New onset atrial fibrillation Status: Acute (3) Pneumonia Status: Acute Review of Systems Constitutional: No fever, No chills Eyes: No worsening of vision Respiratory: No cough, No sputum Cardiac: No edema Abdomen: No pain, No nausea Musculoskeletal: No joint pain Neurologic: No memory loss Psychiatric: No depression symptoms Endo: No fatigue Skin: No rash, No itch All Other Systems: Reviewed and Negative Medications Current Inpatient Medications Medications (Trade) Dose Ordered Sig/Gee Route Start Time Stop Time Status Last Admin Dose Admin Ioversol (Optiray 320) 100 ml UD PRN IV 11/26/17 22:00 11/30/17 21:59 Aspirin (Ecotrin Tab) 81 mg HS PO 11/27/17 21:00 12/27/17 20:59 11/29/17 21:01 81 MG Acetaminophen (Tylenol Tab) 650 mg Q4H PRN PO 11/26/17 23:15 12/26/17 23:14 Al Hydrox/Mg Hydrox/Simethicone (Maalox Max Susp) 15 ml Q4H PRN PO 11/26/17 23:15 12/26/17 23:14 Magnesium Hydroxide (Milk Of Magnesia Susp) 30 ml Q12H PRN PO 11/26/17 23:15 12/26/17 23:14 Ondansetron HCl (Zofran Inj) 4 mg Q6H PRN IV 11/26/17 23:15 12/26/17 23:14 Morphine Sulfate (MoRPHine SULFATE INJ) 2 mg Q30M PRN IV 11/26/17 23:15 12/10/17 23:14 Polyethylene (Miralax Powder Packet) 17 gm DAILY PRN PO 11/26/17 23:15 12/26/17 23:14 Albuterol/ Ipratropium (Duoneb) 3 ml Q6R INH 11/27/17 03:00 12/27/17 02:59 11/30/17 07:55 3 ML Levalbuterol (Xopenex 1.25MG/ 3ML Neb) 1.25 mg Q4R PRN INH 11/26/17 23:45 12/26/17 23:44 Azithromycin (Zithromax Tab) 250 mg Q24H PO 11/27/17 20:00 11/30/17 20:01 11/29/17 21:01 250 MG Digoxin (Lanoxin Tab) 0.125 mg DAILY@16 PO 11/27/17 16:00 12/27/17 15:59 11/29/17 17:17 0.125 MG Methylprednisolone Sodium Succinate 60 mg/Syringe 0.96 ml @ 1.5 mls/min Q12H IV 11/28/17 20:00 12/27/17 01:59 11/30/17 07:33 1.5 MLS/MIN Diltiazem HCl 125 mg/Dextrose 125 ml @ 0 mls/hr Q0M PRN IV 11/28/17 20:45 12/28/17 20:44 11/29/17 09:02 10 MLS/HR Diltiazem HCl (Cardizem Cd Cap) 240 mg QAM PO 11/30/17 09:00 12/30/17 08:59 11/30/17 07:33 240 MG Apixaban (Eliquis Tab) 5 mg BID PO 11/29/17 21:00 12/29/17 20:59 11/30/17 07:32 5 MG Diltiazem HCl (Cardizem Cd Cap) 120 mg QAM PO 11/30/17 09:00 12/30/17 08:59 11/30/17 07:32 120 MG Objective Vital Signs Date Time Temp Pulse Resp B/P (MAP) Pulse Ox O2 Delivery O2 Flow Rate FiO2 11/30/17 09:04 88 Nasal Cannula 2.0 11/30/17 07:55 116 16 91 Nasal Cannula 3.0 11/30/17 07:47 36.8 101 20 156/71 (99) 92 Nasal Cannula 2.0 11/30/17 03:40 36.4 113 23 139/89 (106) 89 Nasal Cannula 2.0 11/30/17 03:00 89 Nasal Cannula 2.0 11/30/17 02:12 113 16 92 Nasal Cannula 3.0 11/30/17 00:00 90 Nasal Cannula 2.0 11/29/17 23:40 36.7 100 22 151/77 (101) 88 Nasal Cannula 2.0 11/29/17 20:00 88 Nasal Cannula 2.0 11/29/17 19:48 36.5 107 18 144/60 (88) 88 Nasal Cannula 2.0 11/29/17 19:12 79 16 91 Nasal Cannula 3.0 11/29/17 17:17 105 11/29/17 16:00 Nasal Cannula 2.0 11/29/17 15:28 36.6 100 18 113/61 (78) 92 Nasal Cannula 2.0 11/29/17 14:10 105 16 90 Nasal Cannula 2.0 11/29/17 12:06 Nasal Cannula 2.0 11/29/17 11:53 36.4 82 20 126/69 (88) 92 Nasal Cannula 2.0 11/29/17 11:18 92 Nasal Cannula 2.0 Physical Exam General Appearance: WD/WN, no apparent distress Eyes: normal inspection ENT: normal ENT inspection Neck: supple, no adenopathy Respiratory/Chest: chest non-tender, lungs clear, normal breath sounds Cardiovascular: no JVD, + irregularly irregular, + pertinent finding (trace edema) Abdomen: normal bowel sounds, non tender, soft Extremities: normal range of motion, non-tender Neurologic/Psychiatric: alert, oriented x 3 Skin: normal color Lymphatic: no adenopathy Laboratory Results Last 24 Hours Test 11/30/17 05:29 White Blood Count 16.61 K/uL Red Blood Count 4.12 M/uL Hemoglobin 12.3 g/dL Hematocrit 37.2 % Mean Corpuscular Volume 90.3 fL Mean Corpuscular Hemoglobin 29.9 pg Mean Corpuscular Hemoglobin Concent 33.1 g/dl RDW Standard Deviation 53.2 fL RDW Coefficient of Variation 16.1 % Platelet Count 233 K/uL Mean Platelet Volume 11.0 fL Sodium Level 137 mmol/L Potassium Level 4.1 mmol/L Chloride Level 107 mmol/L Carbon Dioxide Level 22 mmol/L Anion Gap 8.0 mmol/L Blood Urea Nitrogen 39 mg/dl Creatinine 1.22 mg/dl Est Creatinine Clear Calc Drug Dose 55.0 ml/min Estimated GFR () 63.6 Estimated GFR (Non- 54.9 BUN/Creatinine Ratio 31.7 Random Glucose 154 mg/dl Calcium Level 8.3 mg/dl Magnesium Level 2.2 mg/dl Assessment and Plan 82 y/o male with a history of HTN, HLD, COPD, and BPH who presents with worsening SOB and productive cough. He was found to be in a-fib with RVR in ED and has no previous history of a-fib. New onset a-fib with RVR--ongoing -Admit to telemetry. Pt remains in a-fib, HR varying from 90s to 130s -Increased diltiazem yesterday to 360mg. -HR is not at goal. will continue with dig and obtain a level. -D/W cardio, will add metoprolol 12.5 mg PO TID -Cardiology consulted, appreciate recs: Patient will need 3-4 weeks anticoagulation and follow up to evaluate need for cardioversion. -On elquis -Continue digoxin 125 mcg PO qd -Troponin negative x 3 -Echo shows LVEF 55-60%. Left atrium mildly dilated. No wall motion abnormalities -Potassium and magnesium WNL SOB secondary to COPD exacerbation and/or acute diastolic CHF caused by a-fib-- improving -DuoNebs Q6R scheduled, Xopenex prn -Solu-Medrol 60 mg IV q12h -will dc solumedrol and start prednisone 60mg in AM and slowly taper -Azithromycin 250 mg PO qd. Day #5; will stop. -O2 by protocol. Currently on 2L. Wean to SpO2 88-92% -Should have pulmonology f/u. Not currently being treated for COPD as outpatient despite severe emphysema JUAN on CKD stage III--resolved -Creatinine up to 1.65, now back down to 1.22 on 11/30 HTN, HLD--stable -Nifedipine at home, this is held due to dilt drip BPH--no current meds B/l hilar lymphadenopathy on CT -F/u as outpatient DVT prophylaxis -Eliquis Code Status -Level I, FULL RESUSCITATION STATUS Continued [facility] stay due to: abnormal vital signs (RVR), multiple IV medications needed Discharge planning: uncertain
[2017-11-30] MEDS: METOPROLOL TARTRATE 25 MG TAB PO SCH ×2 (14:08→20:47)
[2017-11-30] MEDS: DIGOXIN 0.125 MG TAB PO SCH (17:12)
[2017-11-30] MEDS: ASPIRIN 81 MG ECTAB PO SCH (20:45)
[2017-11-30] MEDS: AZITHROMYCIN 250 MG TAB PO SCH (20:46)
[2017-12-01] VITALS (10 sets, daily range): BP systolic 141–162; BP diastolic 80–90; PULSE 76–118; TEMP 36.4–36.9; O2SAT 89–93
[2017-12-01] MEDS: ALBUT/IPRATROP 3MG/0.5MG NEB 3 ML VIAL INH SCH ×3 (02:20→14:17)
[2017-12-01] MEDS: METOPROLOL TARTRATE 25 MG TAB PO SCH ×2 (07:54→12:20)
[2017-12-01] MEDS: DILTIAZEM HCL 240 MG CAPCR PO SCH (07:55)
[2017-12-01] MEDS: DILTIAZEM HCL 120 MG CAPCR PO SCH (07:55)
[2017-12-01] MEDS: APIXABAN 2.5 MG TAB PO SCH (07:55)
--- NOTE | 2017-12-01 08:45 | Hospitalist Progress Note ---
Hospitalist Progress Note Date of Service Dec 01, 2017. Objective Vital Signs Date Time Temp Pulse Resp B/P (MAP) Pulse Ox O2 Delivery O2 Flow Rate FiO2 12/01/17 07:26 36.5 103 18 162/85 (110) 92 2.0 12/01/17 04:00 Nasal Cannula 2.0 12/01/17 03:40 36.4 112 22 141/80 (100) 89 Nasal Cannula 2.0 12/01/17 02:20 76 16 93 Nasal Cannula 2.0 12/01/17 00:00 Nasal Cannula 2.0 11/30/17 23:43 36.6 82 22 157/78 (104) 92 Room Air 11/30/17 20:02 65 16 91 Nasal Cannula 2.0 11/30/17 20:00 Nasal Cannula 2.0 11/30/17 19:16 36.6 95 18 153/72 (99) 93 Nasal Cannula 2.0 11/30/17 17:12 85 11/30/17 16:00 Nasal Cannula 2.0 11/30/17 15:22 74 16 90 Nasal Cannula 2.0 11/30/17 15:09 36.6 101 18 139/69 (92) 92 Nasal Cannula 2.0 11/30/17 12:46 36.4 105 20 152/84 (106) 90 Nasal Cannula 2.0 11/30/17 12:16 Nasal Cannula 2.0 11/30/17 09:04 88 Nasal Cannula 2.0 Laboratory Results Last 24 Hours Test 12/01/17 07:02 Assessment and Plan 82 y/o male with a history of HTN, HLD, COPD, and BPH who presents with worsening SOB and productive cough. He was found to be in new onset a-fib with RVR in ED. New onset a-fib with RVR--ongoing - Pt remains in a-fib, HR varying from 90s to 130s - Cardiology on board: continue diltiazem CD 360 qAM, metoprolol tartrate 12.5 mg TID, digoxin 0.125 mg daily -Cardiology consulted, appreciate recs: Patient will need 3-4 weeks anticoagulation (Eliquis 5 mg BID) and follow up to evaluate need for cardioversion. -Echo on 11/27: LVEF 55-60%. Left atrium mildly dilated. No wall motion abnormalities -Troponin negative x 3, Potassium and magnesium WNL SOB secondary to COPD exacerbation and/or acute diastolic CHF caused by a-fib-- improving - DuoNebs Q6R scheduled, Xopenex prn - Tapered off solumedrol now to prednisone 60 mg QAM (day #2) - Finished Azithromycin 250 mg x 5 days on 11/30. - O2 by protocol. Currently on 2L. Wean to SpO2 88-92% - Should have pulmonology f/u. Not currently being treated for COPD as outpatient despite severe emphysema JUAN on CKD stage III--resolved -Creatinine up to 1.65, now back down to 1.22 on 11/30 HTN, HLD--stable -Nifedipine at home on hold as now on diltiazem, metoprolol and digoxin. BPH--no current meds B/l hilar lymphadenopathy on CT -F/u as outpatient DVT px: Eliquis Code Status: FULL code Disposition: From home
--- NOTE | 2017-12-01 08:49 | Cardiology Follow-Up ---
Subjective Date of Service: Dec 01, 2017. Pt evaluation today including: conversation w/ patient, physical exam, lab review, review of studies, review of inpatient medication list History of Present Illness This is a very pleasant 82-year-old gentleman who has a history of hypertension , hyperlipidemia and COPD. He also describes a history of coronary artery disease, he describes having difficulty with exertion in the mid- when he worked at [employer], he describes having a catheterization performed at that time where he recalls being told he had a blocked vessel with what sounds like a description of collateral flow. He was placed on nifedipine and has been taking it ever since. He did stop smoking around that time and has had no further difficulty with it. He does not recall ever having chest discomfort then or since. He presents now with about one week of a trembling sensation in his chest which he doesn't recall ever feeling before as well as shortness of breath and dyspnea on exertion. He has COPD and his oxygen content based on home oximetry was significantly reduced therefore he was brought to the emergency room. Here he was noted to be in rapid atrial fibrillation and hypoxic (diastolic CHF). He was placed on intravenous diltiazem, his heart rate was somewhat controlled although still fast therefore I added digoxin yesterday in hopes of minimizing the need for beta blockade due to his lung disease. He continues to have difficulty with heart rate control but he is not aware of it. He has no complaints, he is unaware of his heart rhythm and is not having shortness of breath. He would like to go home. Social History Smoking Status: Former Smoker History of Alcohol Use: Yes (Socially drinks a beer) Review of Systems Respiratory: No cough, No sputum, No shortness of breath Cardiac: No chest pain, No edema Medications Cardiovascular: Item Value Date Time Metoprolol 12.5 mg 11/30/17 1400 Tartrate TID/PO 12/01/17 0754 (Lopressor Tab) Diltiazem HCl 240 mg 11/30/17 0900 (Cardizem Cd Cap) QAM/PO 12/01/17 0755 Diltiazem HCl 120 mg 11/30/17 0900 (Cardizem Cd Cap) QAM/PO 12/01/17 0755 Apixaban 5 mg 11/29/17 2100 (Eliquis Tab) BID/PO 12/01/17 0755 Diltiazem HCl 125 125 ml @ 0 mls/hr 11/28/172044 mg/Dextrose .Q0M PRN/IV 11/29/17 0902 Aspirin 81 mg 11/27/17 2100 (Ecotrin Tab) HS/PO 11/30/172044 Digoxin 0.125 mg 11/27/17 1600 (Lanoxin Tab) DAILY@16/PO 11/30/17 1712 Objective Vital Signs Past 12 Hours Date Time Temp Pulse Resp B/P (MAP) Pulse Ox O2 Delivery O2 Flow Rate FiO2 12/01/17 07:26 36.5 103 18 162/85 (110) 92 2.0 12/01/17 04:00 Nasal Cannula 2.0 12/01/17 03:40 36.4 112 22 141/80 (100) 89 Nasal Cannula 2.0 12/01/17 02:20 76 16 93 Nasal Cannula 2.0 12/01/17 00:00 Nasal Cannula 2.0 11/30/17 23:43 36.6 82 22 157/78 (104) 92 Room Air Last Recorded Weight-Kilograms: 95.700 Physical Exam Constitutional: General Apperance: heathly-appearing Level of Distress: NAD Lungs: Respiratory effort: no dyspnea, good air movement Auscultation: breath sounds normal, no wheezing, no rales/crackles Cardiovascular: Heart Auscultation: no murmurs, no rubs, no gallops, irregular rate rhythm Peripheral Pulses: Bruits: none appreciated Extremities: no edema Data Laboratory Results: Last 24 Hours Test 12/01/17 07:02 Telemetry reviewed: Atrial fibrillation, heart rate averaging around 100 with some higher rates, no bradycardia. No significant mold insert changer 3 days. Assessment and Plan #1. Shortness of breath: He presented with one week of palpitations and shortness of breath and developed progressive hypoxemia based on his home oximeter, I suspect that he went into atrial fibrillation about a week ago and had progressive fluid retention and eventually developed heart failure prior to presentation (this would be diastolic heart failure not systolic). There is no evidence of ischemia despite his history of coronary artery disease. This has resolved. I believe he has been adequately diuresed at this time and would not pursue further diuresis. #2. Atrial fibrillation: He had one week of symptoms, he describes shortness of breath as well as palpitations which she doesn't recall ever having before. I suspect his atrial fibrillation started a week prior to admission and his heart rate was rapid. Even on his current combination of oral diltiazem, low- dose beta-blockade and and on digoxin with a level of 0.8 (pending today) his heart rate is still about 100 on average. I think this is acceptable, I'm little concerned about going up to high and his medications as they don't appear to be controlling it very well and even though it is little bit high we are planning cardioversion in a few weeks. If we increase his medications substantially and he converts on his own he may get very slow. I would continue Eliquis at the current dose. #3. Coronary artery disease: He has a good history of having a catheterization at [facility] in the mid 1980s, where he was told he had an occluded vessel with collaterals. His history is quite consistent, however there is nothing on his electrocardiogram or his echocardiogram to suggest a myocardial infarction. He did quit smoking subsequently, so it is possible he has not had progression. His enzymes were negative this admission. I would not pursue further evaluation of this, but perhaps we should continue aspirin even though it increases his risk of bleeding on anticoagulant. Thank you for allowing me to participate in his care.
[2017-12-01] MEDS ORDERED: LNX125 PO (13:54)
[2017-12-01] MEDS ORDERED: DILT-202 PO (13:54)
[2017-12-01] MEDS ORDERED: LPR25 PO (13:54)
[2017-12-01] MEDS ORDERED: DLTCD/240 PO (13:54)
[2017-12-01] MEDS ORDERED: APIX1TAB3 PO (13:54)
[2017-12-01] MEDS ORDERED: PRED10TA PO (13:54)
[2017-12-01] MEDS ORDERED: PRD20 PO (13:54)
--- NOTE | 2017-12-01 14:06 | Discharge Instructions ---
Discharge Instructions Date of Service Dec 01, 2017. Admission Reason for Admission: New Onset A-Fib, Sob Discharge Discharge Diagnosis / Problem: New onset Afib, diastolic CHF exacerabation, COPD exacerbation Discharge Goals Goal(s): Decrease discomfort, Improve function, Increase independence, Improve disease control Activity Recommendations Activity Limitations: resume your previous activity Lifting Limitations: no more than 25 pounds, gradually increase as tolerated Exercise/Sports Limitations: rest today, gradually increase as tolerated May Resume Sexual Activity: when tolerated Shower/Bathe: no limitations Driving or Machine Use: Do not drive until cleared by PCP . Instructions / Follow-Up Instructions / Follow-Up You were admitted to [facility] with new onset atrial fibrillation with rapid ventricular response (RVR) and diagnosed with the same, along with Congestive Heart Failure exacerbation and COPD exacerbation.. During your stay here you were treated with supportive care, heart rate controlling medications, and intravenous diuretics to remove excess fluid for atrial fibrillation and CHF exacerbation. You were seen by cardiology during admission, and will need to follow up for outpatient cardioversion. This is why you have been placed on anticoagulation ( Eliquis). You were also treated with intravenous steroids which were weaned down to oral prednisone for COPD. It is likely that your acute CHF exacerbation was caused by atrial fibrillation as stated above.. Medications: For atrial fibrillation, CHF exacerbation: 1. Continue taking Cardizem 360 mg daily (this will be 2 tablets combined to equal this dosage ) 2. Continue taking digoxin 0.125 mg daily 3. Continue taking metoprolol tartrate 25 mg twice daily 4. Continue Taking Eliquis 5 mg twice daily For COPD exacerbation: Take Prednisone taper as directed, start with the 20 mg tablet prescription: Take 60 mg (3 tabs) x 2 days, then 40 mg (2 tabs) x 4 days, then 20 mg (1 tab ) x 4 days. Then take the other prescription of 10 mg tablets, 1 tablet daily x 4 days then stop. Finish course on 12/15. Appointments: Follow up with your Primary Care Provider within 1 week. Follow-up with cardiology within 1-2 weeks. You will be scheduled for outpatient cardioversion in 3-4 weeks. Follow-up with pulmonology within 1-2 weeks. Specific CHF instructions Call 911 and go to the Emergency Room if: * You have tightness or pain in your chest that does not go away with rest or Nitroglycerin * You are very short of breath even with rest Call your doctor if any of the following symptoms or problems start or get worse: * Shortness of breath or difficulty breathing * Wake up at night short of breath * Chest pain * Cough * Swelling of your hands, fee, or legs * More fatigued or tired with your normal activity * Palpitations - sudden fast heart beats WEIGHT * Weigh yourself every morning after using the bathroom. * Use the same scale. * Wear the same amount of clothing. * Write your weight down on your chart. * Call your doctor if you gain more than 2-3 pounds in 1-2 days, or if you gain more than 5 pounds within 1 week. MEDICATIONS * Use this discharge instruction sheet for instructions. * Take your medications at the time your doctor ordered. * Do not skip a dose of your medicines. * If you miss a dose of medicine, take as soon as possible, but DO NOT DOUBLE A DOSE. * Read your medicine information when you get home. * Know all of the side effects of your medicine. * Call your doctor's office if you have any side effects. * Be sure all of your doctors know what medicine and herbs you take (including cold, flu, and herbal medicine). * Pain Medicine: If you do not get relief from your pain, please call your doctor for help. Take the following with you to your follow-up doctor appointments: * Weight Chart * Medication List * List of questions Do not drink excessive alcohol, beer or wine. Current Hospital Diet Patient's current hospital diet: AHA Diet (Heart Healthy) Discharge Diet Recommended Diet: AHA Diet (Heart Healthy) Pending Studies Studies pending at discharge: no Medical Emergencies . Who to Call and When: Medical Emergencies: If at any time you feel your situation is an emergency, please call 911 immediately. . Non-Emergent Contact Non-Emergency issues call your: Primary Care Provider, Industrial Machine System Technician Call Non-Emergent contact if: you have a fever, temperature is above 100.5, your pain is not controlled, your pain is worsening, you have any medication questions other concerns with your health. Call 911 or go directly to the Emergency Department if you experience any of the following: Chest pain, chest tightness, shortness of breath, abdominal pain , lightheadedness, dizziness, gastrointestinal bleeding, or have any other concerns regarding your health. . Past History Medical & Surgical History: (1) Atrial fibrillation with RVR (2) New onset a-fib (3) Diastolic CHF, acute on chronic (4) COPD exacerbation (5) Hypertension . "Provider Documentation" section prepared by Debo Castillo. . VTE Core Measure Inpt VTE Proph given/why not?: Enoxaparin (Lovenox)SQ
--- NOTE | 2017-12-01 14:19 | Discharge Summary ---
Discharge Summary Date of Service Dec 01, 2017. Discharge Summary Admission Date: Nov 26, 2017 at 23:14 Discharge Date: Dec 01, 2017 Discharge Disposition: Home with services Principal Diagnosis: New onset Atrial fibrillation with RVR, Diastolic CHF, COPD exacerbation Problems/Secondary Diagnoses: Medical Problems: (1) COPD exacerbation (2) Diastolic CHF, acute on chronic (3) Emphysema of lung (4) Hypertension (5) New onset a-fib (6) SOB (shortness of breath) Immunizations: Have You Had Influenza Vaccine: No History of Tetanus Vaccine?: No History of Pneumococcal: No History of Hepatitis B Vaccine: No Procedures: CHEST CTA for PULMONARY ARTERIES 11/26/17 IMPRESSION: 1. No evidence for pulmonary embolus. 2. Trace pericardial and trace pleural effusions. 3. Mediastinal and bilateral hilar lymphadenopathy. This is nonspecific but can be seen the setting of chronic pulmonary edema. However, a neoplastic process such as lymphoma could also have a similar appearance. 4. Mild bibasilar interlobular septal thickening suggestive of mild congestive change. There is also mild bronchial wall thickening which can also be seen the setting of congestive change or could be chronic. 5. Moderate to severe emphysema. 6. Small patchy airspace opacities within the lung bases posteriorly. This is nonspecific but favors atelectasis. 7. Groundglass appearance to the lungs most pronounced posteriorly which may be due to mild dependent change or poor expiratory effort. Consultations: Cardiology Medication Reconciliation New Medications: Prednisone Tab (Prednisone) 10 Mg Tab 10 MG PO DAILY for 4 Days, #4 TAB Take 10 mg daily x 4 days after finishing all 20 mg tablets. Apixaban (Eliquis) 5 Mg Tab 5 MG PO BID for 30 Days, #60 TAB Digoxin (Digoxin) 0.125 Mg Tab 0.125 MG PO DAILY@16 for 30 Days, #30 TAB Diltiazem Hcl (Diltiazem Cd) 240 Mg Capcr 240 MG PO QAM for 30 Days, #30 TAB Diltiazem HCl (Diltiazem Cd) 120 Mg Capcr 120 MG PO QAM for 30 Days, #30 TAB Metoprolol Tartrate (Lopressor) 25 Mg Tab 25 MG PO BID for 30 Days, #60 TAB Prednisone (Prednisone) 20 Mg Tab 60 MG PO UD for 8 Days, #18 TAB Take 60 mg x 2 days, then 40 mg x 4 days, then 20 mg x 4 days, then follow with 10 mg x 4 days. Continued Medications: Aspirin (Aspirin Ec) 81 Mg Tab 81 MG PO HS Coenzyme Q10 (Ubidecarenone) (Co Q-10) 75 Mg Cap 75 MG PO HS Multivitamin (Multivitamin) Tab 1 TAB PO HS Discontinued Medications: Nifedipine Ext Rel (Procardia Xl Ext Rel) 30 Mg Tabcr 30 MG PO HS Discharge Exam The patient was seen and examined this morning. Pt reports doing well today. He has been up and ambulating to the bathroom without any difficulty. On telemetry he was noted to have a heart rate into the 130s low 140s during this timeframe, all throughout this time he is asymptomatic. In his heart rate slowly dropped back down into the 90s to 100s at rest. He denies any chest pain , shortness of breath, headache, palpitation, flutter. He is hoping to go home later today. Overall the patient feels very well. ROS: Constitutional: No fever, sweats or chills Eyes: No diplopia, no worsening or blurred vision ENT: normal hearing, no trouble swallowing Respiratory: No cough, sputum, dyspnea at rest or on exertion Cardiovascular: No chest pain, tightness or palpitations Abdomen: No pain, nausea, vomiting, diarrhea or constipation Musculoskeletal: No joint pain, calf pain, swelling Neurologic: No weakness, numbness/tingling, or balance problems Psychiatric: No anxiety or depression Skin: No rash or itch PE: General: awake, alert, no apparent distress Head: Normocephalic, atraumatic ENT: PERRL, EOMI, no pharyngeal exudate, mucous membranes moist Chest: Clear to auscultation, on 2 L via NC, no adventitious breath sounds Cardiac: Regular rate and rhythm, slightly tachycardic heart rate in the low 100s, + systolic murmur, no JVD, normal peripheral pulses, good capillary refill Abdominal: NABS x 4 quadrants, soft, nontender to palpation, no rebound, guarding or tenderness Extremities: Normal inspection, no peripheral edema or erythema, calfs nontender to palpation Psych: Normal mood and affect Neuro: AAO x 3, strength intact bilaterally and related 5/5, no motor deficits, speech is clear, no peripheral sensory deficits Hospital Course 82 y/o male with a history of HTN, HLD, COPD, and BPH who presents with worsening SOB and productive cough. He was found to be in new onset a-fib with RVR in ED. New onset a-fib with RVR--ongoing - Pt remains in a-fib, HR varying from 90s to 130s - elevated only with exertion and pt is asymptomatic - Cardiology on board: continue diltiazem CD 360 qAM, metoprolol tartrate 12.5 mg TID- will switch over to 25 twice a day since his HR is still elevating with minimal exertion. Continue digoxin 0.125 mg daily. Patient will need 3-4 weeks anticoagulation (Eliquis 5 mg BID) and follow up to evaluate need for cardioversion. - Echo on 11/27: LVEF 55-60%. Left atrium mildly dilated. No wall motion abnormalities - Troponin negative x 3, Potassium and magnesium WNL SOB secondary to COPD exacerbation and/or acute diastolic CHF caused by a-fib-- improving - DuoNebs Q6R scheduled, Xopenex prn - Tapered off solumedrol now to prednisone 60 mg QAM (day #2) - will do slow taper: Take 60 mg (3 tabs) x 2 days, then 40 mg (2 tabs) x 4 days, then 20 mg ( 1 tab) x 4 days. Then take the other prescription of 10 mg tablets, 1 tablet daily x 4 days then stop. Finish course on 12/15. - Finished Azithromycin 250 mg x 5 days on 11/30. - O2 by protocol. Currently on 2L. Wean to SpO2 88-92% - Pt was provided a script for O2 2 L at rest and 3 L on exertion. - Will need pulmonology f/u. Not currently being treated for COPD as outpatient despite severe emphysema JUAN on CKD stage III--resolved -Creatinine was up to 1.65, now back down to 1.22 on 11/30 HTN, HLD--stable -Nifedipine discontinued as other medications for A. fib and CHF started as above including diltiazem, metoprolol and digoxin. BPH--no current meds B/l hilar lymphadenopathy on CT -F/u as outpatient DVT px: Eliquis Code Status: FULL code Disposition: From home, discharge home today. Total Time Spent: Greater than 30 minutes This includes examination of the patient, discharge planning, medication reconciliation, and communication with other providers. Discharge Instructions Please refer to the electronic Patient Visit Report (Discharge Instructions) for additional information. Follow-Up Follow up with your Primary Care Provider within 1 week. Follow-up with cardiology within 1-2 weeks. You will be scheduled for outpatient cardioversion in 3-4 weeks. Follow-up with pulmonology within 1-2 weeks. Additional Copies To RV. Ferguson MD
[2017-12-01] MEDS: DIGOXIN 0.125 MG TAB PO SCH (16:20)
== END 2017-12-01 16:45 | disposition home or self-care (01) | DRG 308 ==
LOC: C.EDB 18:55 → C.2T 23:14 → ENRESERV 23:25
PROVIDERS: ADMIT Internal Medicine; ATTEND Internal Medicine
DX: I48.91 Unspecified atrial fibrillation (principal); I50.31 Acute diastolic (congestive) heart failure; I13.0 Hypertensive heart and chronic kidney disease with heart failure and stage 1 through stage 4 chronic kidney disease, or unspecified chronic kidney disease; N17.9 Acute kidney failure, unspecified; J43.9 Emphysema, unspecified; N18.3 Chronic kidney disease, stage 3 (moderate); E78.5 Hyperlipidemia, unspecified; Z79.82 Long term (current) use of aspirin; Z79.899 Other long term (current) drug therapy; Z87.891 Personal history of nicotine dependence

== ENCOUNTER → 2017-11-26 | Outpatient (CLI) | payer OTHER ==
[~2017-11-26] MED LIST changes: +APIX1TAB3 PO; +DILT-202 PO; +DLTCD/240 PO; +LNX125 PO; +LPR25 PO; +PRD20 PO; +PRED10TA PO
--- NOTE | 2017-11-26 16:20 | DIAGNOSTIC IMAGING REPORT ---
TWO VIEW CHEST CLINICAL HISTORY: Atypical chest pain.. FINDINGS: PA and lateral chest radiographs are compared to study dated 05/01/2007. The heart is enlarged and there is atherosclerotic calcification of the thoracic aorta. The pulmonary vascular is noncongested. Emphysematous change is suspected. Chronic residual thickening is similar to previous. Patchy airspace opacities are present in the lower lungs. No large pleural effusion is identified. There is no pneumothorax. The skeletal structures are osteopenic. The bony thorax appears intact. IMPRESSION: 1. Cardiomegaly and suspect emphysema. 2. Patchy airspace opacities are present at the lung bases. Correlate clinically for evidence of an infectious/inflammatory pneumonitis. Radiographic follow-up to resolution is recommended. Electronically signed by: Ez Blancas M.D. 11/26/2017 4:18 PM Dictated Date/Time: 11/26/2017 4:17 PM
== END | disposition home or self-care (01) ==
LOC: C.RAD1850 16:06
PROVIDERS: ATTEND Internal Medicine
DX: I51.7 Cardiomegaly (principal); R91.8 Other nonspecific abnormal finding of lung field; R09.02 Hypoxemia

== ENCOUNTER → 2017-12-08 | Outpatient (CLI) | payer OTHER ==
[~2017-12-08] MED LIST changes: +APIX1TAB3 PO; +DILT-202 PO; +DLTCD/240 PO; +LNX125 PO; +LPR25 PO; -NIFE30TA83 PO; +PRD20 PO
[2017-12-08 15:43] LABS: BASO % 0.2 %; BASO ABS # 0.04 K/uL (0-0.2); EOS % 0.1 %; EOS ABS # 0.02 K/uL (0-0.5); HEMATOCRIT 45.7 % (42-52); IG# 0.71 K/uL (0.00-0.02); LYMPH % 5.7 %; LYMPH ABS # 1.19 K/uL (1.2-3.4); MEAN CELL VOLUME 90.5 fL (80-100); MEAN CORPUSCULAR HEMOGLOBIN 29.7 pg (25-34); MEAN CORPUSCULAR HGB CONC 32.8 g/dl (32-36); MEAN PLATELET VOLUME 11.4 fL (7.4-10.4); MONO % 2.9 %; NEUT % 87.7 %; NEUT ABS # 18.48 K/uL (1.4-6.5); PLATELET COUNT 297 K/uL (130-400); RED CELL DISTRIBUTION WIDTH CV 16.7 % (11.5-14.5); RED CELL DISTRIBUTION WIDTH SD 54.4 fL (36.4-46.3); WHITE BLOOD COUNT 21.04 K/uL (4.8-10.8)
[2017-12-08 15:50] LABS: ALBUMIN 2.9 gm/dl (3.4-5.0); ALT/SGPT 70 U/L (12-78); AST/SGOT 16 U/L (15-37); BLOOD UREA NITROGEN 32 mg/dl (7-18); CALCIUM 8.8 mg/dl (8.5-10.1); CARBON DIOXIDE 26 mmol/L (21-32); CREATININE 1.29 mg/dl (0.60-1.40); GLUCOSE 124 mg/dl (70-99); POTASSIUM 4.4 mmol/L (3.5-5.1); SODIUM 137 mmol/L (136-145)
[2017-12-08 15:52] LABS: ALKALINE PHOSPHATASE 74 U/L (45-117); TOTAL PROTEIN 6.6 gm/dl (6.4-8.2)
== END | disposition home or self-care (01) ==
LOC: C.LAB1850 14:10
PROVIDERS: ATTEND Internal Medicine
DX: D72.829 Elevated white blood cell count, unspecified (principal); I48.91 Unspecified atrial fibrillation

== ENCOUNTER → 2017-12-29 | Day surgery (SDC) | payer OTHER ==
[2017-12-29] VITALS (7 sets, daily range): BP systolic 128–184; BP diastolic 70–99; PULSE 82–120; TEMP 36.8; O2SAT 96–98; Ht 180.3 cm; Wt 93.0 kg
[~2017-12-29] VITALS: Ht 180.3 cm; Wt 93.0 kg
[~2017-12-29] MED LIST changes: +COEN1CAP7 PO; +LIDOCAINE HCL 2% 2 ML VIAL (20MG/ML) ONE; +PROPOFOL IV EMULSION 10 MG/ML 20 ML VIAL IV ONE
--- NOTE | 2017-12-29 07:42 | History & Physical Bridge Note ---
H&P Re-Evaluation Bridge Note: I have examined the patient, reviewed the History & Physical and in the interval since the performance of the History & Physical I have noted the following changes of clinical significance: No changes noted. I reviewed the indications, procedure, risks and alternatives with him and he understands and agrees to proceed. Consent obtained.
--- NOTE | 2017-12-29 07:49 | Cardioversion ---
Electricial Cardioversion Rpt Date of Service: December 29, 2017 Electrical Cardioversion Rprt The patient was brought to the laboratory being NPO after midnight and was identified in the laboratory, connected to the recording apparatus including electrocardiographic monitoring, noninvasive blood pressure monitoring and pulse oximetry. Anteroposterior patch electrodes were placed. The patient was anesthetized by the anesthesia department. Once adequate anesthesia was obtained a synchronized biphasic shock was delivered using 200 J with conversion to a sinus rhythm. The patient awoke from the anesthetic without sequela, will be observed briefly and then discharged.
--- NOTE | 2017-12-29 08:24 | Anesthesiology Progress Note ---
Anesthesia Post Op Note Date & Time Dec 29, 2017 at 08:24 Vital Signs Pain Intensity: 0 Vital Signs Past 12 Hours Date Time Temp Pulse Resp B/P (MAP) Pulse Ox O2 Delivery O2 Flow Rate FiO2 12/29/17 08:03 82 16 130/75 (93) 98 Nasal Cannula 2 12/29/17 07:53 82 16 128/73 98 Nasal Cannula 2 12/29/17 07:50 82 16 131/73 98 Nasal Cannula 4 12/29/17 07:47 82 16 141/82 98 Nasal Cannula 4 12/29/17 07:43 120 16 158/99 98 Nasal Cannula 4 12/29/17 07:05 36.8 120 16 184/98 (126) 98 Room Air Notes Mental Status: alert / awake / arousable, participated in evaluation Pt Amnestic to Procedure: Yes Nausea / Vomiting: adequately controlled Pain: adequately controlled Airway Patency, RR, SpO2: stable & adequate BP & HR: stable & adequate Hydration State: stable & adequate Anesthetic Complications: no major complications apparent
--- NOTE | 2017-12-29 09:17 | Discharge Instructions ---
Discharge Instructions Date of Service Dec 29, 2017. Admission Reason for Admission: Atrial fibrillation Discharge Discharge Diagnosis / Problem: Electrical cardioversion Discharge Goals Goal(s): Improve disease control Activity Recommendations Activity Limitations: resume your previous activity . Instructions / Follow-Up Instructions / Follow-Up ACTIVITY RECOMMENDATIONS: * May resume driving tomorrow. SPECIAL CARE: * May apply burn ointment for skin irritation. * Please contact physician for any lightheadedness, dizziness or palpitations. Follow-up appointment on January 29, [address] Leyva Current Hospital Diet Patient's current hospital diet: AHA Diet (Heart Healthy) Discharge Diet Recommended Diet: AHA Diet (Heart Healthy) Pending Studies Studies pending at discharge: no Medical Emergencies . Who to Call and When: Medical Emergencies: If at any time you feel your situation is an emergency, please call 911 immediately. . Non-Emergent Contact Non-Emergency issues call your: Primary Care Provider . . "Provider Documentation" section prepared by Issa Leyva. .
== END | disposition home or self-care (01) ==
LOC: C.CATH 06:45
PROVIDERS: ATTEND Internal Medicine Cardiovascular Disease
DX: I48.91 Unspecified atrial fibrillation (principal); J44.9 Chronic obstructive pulmonary disease, unspecified; I12.9 Hypertensive chronic kidney disease with stage 1 through stage 4 chronic kidney disease, or unspecified chronic kidney disease; I50.9 Heart failure, unspecified; E78.5 Hyperlipidemia, unspecified; M19.90 Unspecified osteoarthritis, unspecified site; I25.10 Atherosclerotic heart disease of native coronary artery without angina pectoris; H35.81 Retinal edema; Z87.891 Personal history of nicotine dependence; Z79.82 Long term (current) use of aspirin; Z80.49 Family history of malignant neoplasm of other genital organs

== ENCOUNTER → 2018-01-27 | Outpatient (CLI) | payer OTHER ==
[~2018-01-27] MED LIST changes: -APIX1TAB3 PO; -COEN75CA PO; -LIDOCAINE HCL 2% 2 ML VIAL (20MG/ML) ONE; -PRD20 PO; -PROPOFOL IV EMULSION 10 MG/ML 20 ML VIAL IV ONE
--- NOTE | 2018-01-30 18:04 | POLYSOMNOGRAPH REPORT ---
CLINICAL DATA: An 82-year-old male with BMI of 28.17, referred by Rj Burton PA-C, for evaluation of witnessed apneic spells, hypersomnolence and nocturnal hypoxemia. On the evening of 01/27/2018, a home sleep apnea test was performed using VenueSpot type 3 monitor. RECORDING RESULTS: Total recording time was 10 hours. The patient monitoring time and estimated sleep time was 7.1 hours. RESPIRATORY DATA: The VIJI was 2.7. There were 1 obstructive, 3 mixed and 4 central apneic episodes. There were 11 hypopneic episodes. The longest respiratory event was 26 seconds. OXIMETRY DATA: Significant nocturnal hypoxemia was seen. Oxygen rosa was 78%. Mean saturation was 89%. Time below 89% was 201 minutes. HEART RATE DATA: Heart rates ranged from 44-75 beats per minute. SNORING DATA: Snoring was recorded throughout the night. HAIRSPRING FABRICATION SUPERVISOR'S COMMENTS: The patient's saturations ran in the mid-to-high 80s through most of the night. He was wearing nasal cannula and the thermistor did not read a lot of the time. It appeared that the patient may have taken both cannulas out of his nose during the night. He often takes his nasal cannula for oxygen out during the night. Therefore, the reliability of the data from this study is questioned. IMPRESSION: No definite evidence of sleep apnea based on this limited home sleep apnea test. The patient does have significant nocturnal hypoxemia. It is unclear whether the patient had his thermistor in place enough throughout the night to make this a valid test. RECOMMENDATIONS: If sleep apnea is still a consideration, an in-lab baseline sleep study should be performed. Clinical correlation is needed. EARNESTINE
== END | disposition home or self-care (01) ==
LOC: C.NEUR 12:55
PROVIDERS: ATTEND Physician Assistant
DX: G47.19 Other hypersomnia (principal); R06.81 Apnea, not elsewhere classified

== ENCOUNTER → 2018-02-03 | Outpatient (CLI) | payer OTHER ==
[~2018-02-03] MED LIST changes: +OPTIRAY 320 IV PRN
--- NOTE | 2018-02-03 14:11 | DIAGNOSTIC IMAGING REPORT ---
CT (CHEST) THORAX WITH CLINICAL HISTORY: 82 years-old Male presenting with LYMPHADENOPATHY. TECHNIQUE: Multidetector CT imaging of the chest was performed after the administration of intravenous contrast. IV contrast: 111 mL of Optiray 320. A dose lowering technique was used consistent with the principles of ALARA (as low as reasonably achievable). COMPARISON: 11/26/2017. CT DOSE (mGy.cm): The estimated cumulative dose is 412.63 mGy.cm. 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 On soft tissue windows, normal thyroid and thoracic inlet. Prominent though subcentimeter mediastinal and bilateral hilar nodes. Index node in the mediastinum in the subcarinal region measures 8 mm in the short axis. Atherosclerosis of the aorta. Mild prominence of both atria. Coronary artery and aortic valve calcification. Trace pericardial effusion. Resolution of prior pleural effusions. Upper abdomen normal. On lung windows, moderate emphysematous changes diffusely throughout the lungs with an apical predominance. Paraseptal emphysematous changes also noted. Minimal peripheral bandlike opacity in the right middle lobe (series 4 image 223), likely scarring. Peripheral solid 3 mm nodule in the anterior segment of the left upper lobe (series 4 image 58), unchanged. Subpleural irregular 5 mm nodule in the lingula (series 4 image 199), new from prior. Multiple adjacent bandlike opacities and architectural distortion. Previously noted added density in the lungs with diffuse groundglass is no longer apparent. Dependent consolidation has also resolved. Bronchial wall thickening noted. Central airways patent. On bone windows, degenerative changes of the spine. IMPRESSION: 1. Resolution of previously noted diffuse groundglass density, dependent consolidation, and pleural effusions. No convincing evidence of acute intrathoracic pathology. 2. Moderate emphysematous changes and bronchial wall thickening. 3. Multifocal solid irregular and nodular foci in the lungs, some of which were present on prior exam and some of which are new or have evolved since the prior. These may represent multifocal areas of scarring or discrete nodules. Follow-up as clinically indicated. 4. Borderline enlarged mediastinal and bilateral hilar lymph nodes are likely reactive given the presence of chronic lung disease. Electronically signed by: Ramon Hay M.D. 02/03/2018 2:10 PM Dictated Date/Time: 02/03/2018 2:00 PM
== END | disposition home or self-care (01) ==
LOC: C.CTS 13:41
PROVIDERS: ATTEND Internal Medicine Hematology & Oncology
DX: R59.0 Localized enlarged lymph nodes (principal); R91.8 Other nonspecific abnormal finding of lung field

== ENCOUNTER → 2018-03-12 | Outpatient (CLI) | payer OTHER ==
[~2018-03-12] MED LIST changes: -OPTIRAY 320 IV PRN
[2018-03-12 13:05] LABS: BASO % 0.2 %; BASO ABS # 0.02 K/uL (0-0.2); EOS ABS # 0.12 K/uL (0-0.5); HEMATOCRIT 42.7 % (42-52); HEMOGLOBIN 14.1 g/dL (14.0-18.0); IG# 0.04 K/uL (0.00-0.02); LYMPH % 15.4 %; LYMPH ABS # 1.91 K/uL (1.2-3.4); MEAN CORPUSCULAR HEMOGLOBIN 29.1 pg (25-34); MEAN PLATELET VOLUME 10.6 fL (7.4-10.4); MONO % 7.2 %; MONO ABS # 0.89 K/uL (0.11-0.59); NEUT % 75.9 %; NEUT ABS # 9.45 K/uL (1.4-6.5); PLATELET COUNT 253 K/uL (130-400); RED CELL DISTRIBUTION WIDTH CV 15.2 % (11.5-14.5); RED CELL DISTRIBUTION WIDTH SD 48.3 fL (36.4-46.3); WHITE BLOOD COUNT 12.43 K/uL (4.8-10.8)
[2018-03-12 13:48] LABS: ALBUMIN 3.4 gm/dl (3.4-5.0); ALKALINE PHOSPHATASE 69 U/L (45-117); ALT/SGPT 21 U/L (12-78); AST/SGOT 15 U/L (15-37); BLOOD UREA NITROGEN 16 mg/dl (7-18); CARBON DIOXIDE 28 mmol/L (21-32); CREATININE 1.08 mg/dl (0.60-1.40); GLUCOSE 107 mg/dl (70-99); POTASSIUM 4.1 mmol/L (3.5-5.1); SODIUM 139 mmol/L (136-145); TOTAL PROTEIN 7.7 gm/dl (6.4-8.2)
== END | disposition home or self-care (01) ==
LOC: C.LAB1850 12:10
PROVIDERS: ATTEND Physician Assistant
DX: R11.0 Nausea (principal); I48.1 Persistent atrial fibrillation

== ENCOUNTER 2020-03-21 10:49 | Inpatient (IN) ==
[2020-03-21] MEDS ORDERED: MoRPHine SULFATE 4 MG/ML 1 ML CARP\\VIAL IV STA (11:14)
[2020-03-21] MEDS ORDERED: SODIUM CHLORIDE 0.9% 1000ML 500 ML IV ONE (11:14)
[2020-03-21] MEDS ORDERED: ONDANSETRON INJ 2 MG/ML 2 ML VIAL IV STA (11:14)
--- NOTE | 2020-03-21 11:37 | Emergency Department Note ---
Impression & Plan Back pain, JUAN (acute kidney injury), Hypertension, Leukocytosis ED Provider Note NAME: STEPHANIE THURSTON AGE: 84 SEX: M : 1935 ARRIVES VIA: Ambulance INFORMANT: Patient ED PROVIDER(S): Ariel Anthony DO CHIEF COMPLAINT: Severe back pain HPI: Patient is an 84-year-old male who presents the ER for bilateral flank pain which has been present for the past 2 weeks. He notes it is located in the middle of his lower back. Radiates out to both sides. It is worse with movement, twisting, turning, and bending. Pain can radiate up to a 10 out of 10. Describes a sharp stabbing. Currently the pain is a 1 out of 10. He has been taking Tylenol and this helps. He denies any weakness or numbness. No loss of bowel or bladder function. Denies any chest pain shortness of breath, change in vision, nausea vomiting or diarrhea. He does not chronically wear 3 L nasal cannula at all times. ROS: See above HPI for pertinent positives & negatives. A total of 10 systems reviewed and were otherwise negative. PAST MEDICAL HISTORY:See Below PAST SURGICAL HISTORY:See Below FAMILY HISTORY:See Below SOCIAL HISTORY:See Below HOME MEDICATIONS:See Below ALLERGIES:See Below VITALS:See Below PHYSICAL EXAMINATION: GENERAL: Sitting up in bed, alert, well appearing, well nourished, no distress, non-toxic EYE EXAM: normal conjunctiva. OROPHARYNX: no exudate, no erythema, lips, buccal mucosa, and tongue normal and mucous membranes are moist NECK: supple, no nuchal rigidity, no adenopathy, non-tender LUNGS: Clear to auscultation. Normal chest wall mechanics HEART: no murmurs, S1 normal and S2 normal ABDOMEN: abdomen soft, non-tender, normo-active bowel sounds, no masses, no rebound or guarding. BACK: Back is symmetrical on inspection and there is no deformity, acute midline tenderness in the mid lumbar region radiating out to both flanks. UPPER EXTREMITIES: upper extremities are grossly normal. LOWER EXTREMITIES: No pitting edema. Flexion-extension of the hips knees ankles and EHL 5 out of 5 bilaterally. Moderate pain with flexion of the right hip. NEURO EXAM: Normal sensorium, cranial nerves II-XII grossly intact, normal speech, no gross weakness of arms. MEDICAL DECISION MAKING: Patient is a 84-year-old male who presents the ER for back pain located in the middle of the back. Radiates out to both sides. Labs show a mild leukocytosis of 16,000 and a mild anemia 10. BMP with a creatinine 1.9 although baseline of 1. LFTs and bilirubin was unremarkable. Lipase is unremarkable as well. Patient has been taking apixaban. CT of the lumbar spine showed significant degenerative diseases. Patient was given IV pain medications. He still continued to have significant amount of pain. He was unable to get up and move around. He has not been drinking liquids as he is unable to get up out of bed. Discussed with hospitalist for observation. UA was still pending as patient did not give a urine sample. Triage Nursing notes reviewed. Prior medical records reviewed Vital Signs: reviewed and remarkable for no significant abnormalities Differential diagnosis: Differential diagnoses includes but is not limited to lumbar radiculopathy, kidney stone, muscle strain, facture, cauda equina, mass, and disc herniation. ER treatment provided: See below Diagnostics interpreted by me: ECG: none Cardiac Monitoring: An order was placed for continuous cardiac monitoring. The monitor shows a rate of 81 with sinus rhythm. Laboratory studies: As stated above and show below. Imaging studies: CT lumbar spine shows degenerative disease Consultation(s): Discussed with Dr. Ball for admission. ED COURSE: Procedures: none Critical Care: [None] Past Med/Surg History Social History Preferred Language: Kiswahili Communication Ability: Effective Visual Impairment: No Limitations Hearing Ability: Use of Hearing Aid Supervising Librarian Required: No Beliefs That Will Affect Care: None marital status: Current Living Situation: Spouse current occupational status: retired Feels Safe at Home: Yes Smoking Status: Former smoker Tobacco Type: cigarettes ; Age Started Using Tobacco: 16 ; Age Quit Using Tobacco: 50 ; Second Hand Exposure: No ; Hx Alcohol Use: Yes Alcohol type: beer Alcohol Intake Frequency: Weekly Hx Substance Use: No Childhood Exposure to Second-Hand Smoke: No Seatbelt Use: always Sunscreen Use: No Allergies Allergies Allergy/AdvReac Type Severity Reaction Status Date / Time No Known Allergies Allergy Unknown Verified 03/17/20 13:40 Home Meds Home Medications Medication Instructions Recorded Confirmed Oxygen Home #1 ea 04/14/19 03/17/20 multivitamin 1 tab PO DAILY 08/13/19 03/21/20 coenzyme Q10 [Co Q-10] 100 mg PO BID 03/21/20 03/21/20 diltiazem HCl [Cardizem CD] 360 mg PO QPM 03/21/20 03/21/20 Previous Rx's Medication Instructions Recorded tiotropium 2.5 mcg-olodaterol 2.5 2 puffs INHALATION DAILY #3 inhaler 08/05/19 mcg/actuation mist for inhalation triamterene 37.5 1 cap PO QAM #90 cap 11/08/19 mg-hydrochlorothiazide 25 mg capsule apixaban 5 mg tablet 5 mg PO BID #180 tab 02/15/20 digoxin 125 mcg (0.125 mg) tablet 125 mcg PO DAILY #90 tab 02/15/20 metoprolol tartrate 25 mg tablet 25 mg PO BID #180 tab 02/15/20 diclofenac sodium 1 % topical gel 4 gm TOP TID PRN #100 gm 03/17/20 Results & Data (ED) Vital Signs Vital Signs - 24 hr 03/21/20 10:55 03/21/20 11:24 Temperature 37.4 C Temperature Source Oral Pulse Rate 98 H Respiratory Rate 18 Blood Pressure 100/45 L Blood Pressure Mean 63 Pulse Oximetry 95 96 Oxygen Delivery Method Nasal Cannula Room Air Oxygen Flow Rate 3 Sepsis Recent Fever Within 48 Hours No Sepsis Action Taken by Nursing No Action Required Laboratory Data Result diagrams: 03/21/20 11:25 03/21/20 11:25 Lab Results 03/21/20 03/21/20 Range/Units 11:25 11:25 WBC 16.18 H (4.8-10.8) K/uL RBC 3.47 L (4.7-6.1) M/uL Hgb 10.4 L (14.0-18.0) g/dL Hct 31.3 L (42-52) % MCV 90.2 (80-100) fL MCH 30.0 (25-34) pg MCHC 33.2 (32-36) g/dL RDW Std Deviation 50.3 H (36.4-46.3) fL RDW Coeff of Ashley 15.4 H (11.5-14.5) % Plt Count 262 (130-400) K/uL MPV 9.8 (7.4-10.4) fL Immature Gran % (Auto) 0.6 % Neut % (Auto) 83.4 % Lymph % (Auto) 6.7 % [place] % (Auto) 9.0 % Eos % (Auto) 0.1 % Baso % (Auto) 0.2 % Immature Gran # (Auto) 0.10 H (0.00-0.02) K/uL Neut # (Auto) 13.48 H (1.4-6.5) K/uL Lymph # (Auto) 1.08 L (1.2-3.4) K/uL [place] # (Auto) 1.46 H (0.11-0.59) K/uL Eos # (Auto) 0.02 (0-0.5) K/uL Baso # (Auto) 0.04 (0-0.2) K/uL Sodium 134 L (136-145) mmol/L Potassium 4.7 (3.5-5.1) mmol/L Chloride 103 (98-107) mmol/L Carbon Dioxide 27 (21-32) mmol/L Anion Gap 4.0 (3-11) BUN 58 H (7-18) mg/dl Creatinine 1.99 H (0.6-1.4) mg/dl Est Cr Clr Drug Dosing 28.5 ml/min Est GFR ( Amer) 34.7 Est GFR (Non-Af Amer) 29.9 BUN/Creatinine Ratio 29.3 H (10-20) Glucose 127 H (70-99) mg/dl Calcium 9.2 (8.5-10.1) mg/dl Total Bilirubin 1.1 H (0.2-1) mg/dl AST 39 H (15-37) U/L ALT 52 (12-78) U/L Alkaline Phosphatase 141 H (45-117) U/L Total Protein 7.5 (6.4-8.2) gm/dl Albumin 2.3 L (3.4-5.0) gm/dl Globulin 5.2 H (2.5-4.0) gm/dl Albumin/Globulin Ratio 0.4 L (0.9-2) Lipase 260 (73-393) U/L Administered Medications Discontinued Medications Sodium Chloride (Nss 1000ml) 500 mls @ 999 mls/hr IV .Q31M ONE Stop: 03/21/20 11:44 Last Infusion: 03/21/20 12:03 Dose: 0 mls/hr Documented by: [id number] Admin: 03/21/20 11:31 Dose: 999 mls/hr Documented by: [id number] Morphine Sulfate (Morphine Sulfate) 4 mg IV NOW STA Stop: 03/21/20 11:15 Last Admin: 03/21/20 11:31 Dose: 4 mg Documented by: [id number] Ondansetron HCl (Zofran) 4 mg IV NOW STA Stop: 03/21/20 11:15 Last Admin: 03/21/20 11:31 Dose: 4 mg Documented by: [id number] Discharge Plan Visit Data *Final* Discharge Date/Time: 03/21/20 15:19 Chief Complaint: Back Injury/Pain ED Provider: Ariel Anthony Discharge Problem: Back pain, JUAN (acute kidney injury), Hypertension, Leukocytosis Patient Disposition: Admitted As Inpatient Discharge Instructions Interventions: ED Discharge Assessment Last Done: 03/21/20 15:19 Discharge Problem: Back pain Qualifiers: Back pain location: low back pain Chronicity: acute Back pain laterality: unspecified Sciatica presence: without sciatica Qualified Code(s): M54.5 - Low back pain Hypertension Qualifiers: Hypertension type: unspecified Qualified Code(s): I10 - Essential (primary) hypertension Leukocytosis Qualifiers: Leukocytosis type: unspecified Qualified Code(s): D72.829 - Elevated white blood cell count, unspecified
[2020-03-21 11:40] LABS: Basophils # (auto) 0.04 K/uL (0-0.2); Basophils % (auto) 0.2 %; Eosinophils # (auto) 0.02 K/uL (0-0.5); Eosinophils % (auto) 0.1 %; Hematocrit (blood only) 31.3 % (42-52); Hemoglobin 10.4 g/dL (14.0-18.0); Immature Granulocytes % (auto) 0.6 %; Lymphocytes # (auto) 1.08 K/uL (1.2-3.4); Lymphocytes % (auto) 6.7 %; Mean Corpuscular Hgb Conc 33.2 g/dL (32-36); Mean Corpuscular Volume 90.2 fL (80-100); Mean Platelet Volume 9.8 fL (7.4-10.4); Monocytes # (auto) 1.46 K/uL (0.11-0.59); Neutrophils # (auto) 13.48 K/uL (1.4-6.5); Neutrophils % (auto) 83.4 %; Platelet Count 262 K/uL (130-400); RDW Coefficient of Variation 15.4 % (11.5-14.5); RDW Standard Deviation 50.3 fL (36.4-46.3); Red Blood Count 3.47 M/uL (4.7-6.1); White Blood Count 16.18 K/uL (4.8-10.8)
[2020-03-21 12:09] LABS: Albumin Level 2.3 gm/dl (3.4-5.0); BUN Creatinine Ratio 29.3 (10-20); Calcium 9.2 mg/dl (8.5-10.1); Creatinine Clr Calc Pharmacy 28.5 ml/min; Est GFR (African American) 34.7; Est GFR (Non-African American) 29.9; Potassium 4.7 mmol/L (3.5-5.1)
[2020-03-21 12:12] LABS: Albumin Globulin Ratio 0.4 (0.9-2); Bilirubin,Total 1.1 mg/dl (0.2-1); Globulin 5.2 gm/dl (2.5-4.0); Total Protein 7.5 gm/dl (6.4-8.2)
--- NOTE | 2020-03-21 12:30 | CT Scan Report ---
CT lumbar spine wo con CT DOSE: 636.18 mGycm HISTORY: Pain. Neuropathy. severe lower back pain TECHNIQUE: Multiaxial CT images of the lumbar spine were performed and reformatted in the sagittal an d coronal plane without the use of contrast. A dose lowering technique was utilized adhering to the principles of ALARA. COMPARISON: None. FINDINGS: Moderate generalized degenerative disc change. This is most prominent from L4 through S1. S everal vacuum discs are present. Vertebral body stature is normal. No evidence for compression deformity. Transaxial images confirm moderate degenerative changes of the posterior elements. No acute abnormali ty is identified. No significant bony compromise of the spinal canal. IMPRESSION: 1. Moderate rather significant degenerative disc change primarily of the low lumbar region. 2. No acute process. ACT 112: Negative or not required by law. The above report was generated using voice recognition software. It may contain grammatical, syntax or spelling errors. Electronically signed by: Taurus Hurt M.D. 03/21/2020 12:28 PM
--- NOTE | 2020-03-21 13:18 | History & Physical Report ---
Date of Service March 21, 2020 Assessment & Plan (1) Back pain of thoracolumbar region: Suspect acute worsening due to lockdown and patient's lack of movement. CT lumbar spine negative for acute fracture However slight concern regarding abnormalities in lab work which is unexplained by above and sudden progression of symptoms for someone with no significant back pain prior to the lockdown and associated fatigue, reduced appetite, weight loss. Therefore will rehydrate overnight to improve his renal function and get MRI L- spine w and w/o contrast in AM to assess for discitis. If MRI spine normal will need PT assessment potentially for inpatient rehabilitation (2) Permanent atrial fibrillation: Continue anticoagulation with apixaban Rate control with digoxin, metoprolol and diltiazem (3) Leukocytosis: Chronically elevated but acutely increased. No symptoms/sign PNA, UTI (pyelo), prostatitis, IE, cellulitis, diverticulitis (although scan without contrast). Will assess for discitis given acute complaint of back pain but otherwise trend with inflammatory markers to make sure improving. (4) Normocytic anemia: Acute onset. Unclear cause. No suggestion of GI bleed from history of exam. CT A/P to r/o retroperitoneal bleed causing his pain - subsequently negative. CBC, iron studies, B12, folate in AM (5) Elevated serum creatinine: Suspected dehydration from history, without JUAN at present IV fluids overnight. Trend in AM. 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 Do not suspect related to acute complaint. No uncontrolled hypertension or electrolyte abnormality to suggest hormonal hypersecretion. Follow up outpatient. (8) Aneurysm of infrarenal abdominal aorta: Noted on CT, previously known and monitored as outpatient (9) Emphysema of lung: Continue maintenance outpatient inhalers (10) Chronic respiratory failure with hypoxia: At baseline with 3L O2 (11) DVT prophylaxis: Continue outpatient apixaban Admission and Anticipated Discharge Date Admission Date: 12/22/2019 History of Present Illness Chief Complaint: Back pain Primary Care Provider: Dorothea Plunkett MD Rafiq Jesus is an 84 year old male who presents to the ER via EMS due to ongoing bilateral back pain for the past 2-2.5 weeks. No sudden event event that occurred to start this but he has been finding it harder and harder to get out of a chair and move around because of the pain. No radiation down his legs, no perianal numbness, no change in his urine frequency, stream, nocturia, hematuria. Associated bilateral generalized lower leg weakness. He does endorse three days during this time in which he had to take some laxatives to help his bowels move but otherwise no change in his bowel movements. He denies any red blood in stool or melena. While resting in bed the pain severity is 1/10 but on any movement this increases to 10/10. Prior to this he notes only the occasional back twinge which was helped by his daughter who is a chiropractor but this severity of pain he has never experienced before now. Associated loss of appetite and weight loss during this time. He has not been eating or drinking much due to the pain over the last 2 days. He is chronically on 3L O2 due to COPD. No acute wheezing or shortness of breath. Discussed with his and daughter over the phone who confirmed history above in addition to noting he had a temperature of 101 degree Fahrenheit this morning. Allergies Allergy/AdvReac Type Severity Reaction Status Date / Time No Known Allergies Allergy Unknown Verified 03/17/20 13:40 Home Medications Home Medications Medication Instructions Recorded Confirmed Type Oxygen Home #1 ea 04/14/19 03/17/20 History tiotropium 2.5 mcg-olodaterol 2.5 2 puffs INHALATION DAILY #3 inhaler 08/05/19 03/21/20 Rx mcg/actuation mist for inhalation multivitamin 1 tab PO DAILY 08/13/19 03/21/20 History triamterene 37.5 1 cap PO QAM #90 cap 11/08/19 03/21/20 Rx mg-hydrochlorothiazide 25 mg capsule apixaban 5 mg tablet 5 mg PO BID #180 tab 02/15/20 03/21/20 Rx digoxin 125 mcg (0.125 mg) tablet 125 mcg PO DAILY #90 tab 02/15/20 03/21/20 Rx metoprolol tartrate 25 mg tablet 25 mg PO BID #180 tab 02/15/20 03/21/20 Rx diclofenac sodium 1 % topical gel 4 gm TOP TID PRN #100 gm 03/17/20 03/21/20 Rx coenzyme Q10 [Co Q-10] 100 mg PO BID 03/21/20 03/21/20 History diltiazem HCl [Cardizem CD] 360 mg PO QPM 03/21/20 03/21/20 History Past Med/Surg History Social History Preferred Language: Vietnamese Communication Ability: Effective Visual Impairment: No Limitations Hearing Ability: Use of Hearing Aid Commercial Or Institutional Cleaner Required: No Beliefs That Will Affect Care: None marital status: Current Living Situation: Spouse current occupational status: retired Other Information That Helps Us Care for You: No Feels Safe at Home: Yes Safety Concerns: Feels Safe At This Time Smoking Status: Former smoker Tobacco Type: cigarettes ; Age Started Using Tobacco: 16 ; Age Quit Using Tobacco: 50 ; Second Hand Exposure: No ; Hx Alcohol Use: Yes Alcohol type: beer Alcohol Intake Frequency: Weekly Hx Substance Use: No Childhood Exposure to Second-Hand Smoke: No Seatbelt Use: always Sunscreen Use: No Review of Systems Review of Systems: All systems reviewed & are unremarkable except as noted in HPI & below Physical Exam Constitutional: well developed and + acute distress (back pain on movement or examination); + not well nourished and no altered mental status Eyes: PERRL, conjunctivae normal, anicteric sclerae ENMT: Ears: + hearing impairment; no external ear abnormality Nose: no external nose abnormality Mouth: + dry oral mucous membranes Neck: trachea midline, no thyromegaly Respiratory: normal respiratory effort, lungs clear to auscultation Auscultation: no crackles, no rales, no rhonchi and no wheezes Cardiovascular: Rate/Rhythm: regular rate and + irregularly irregular Musculoskeletal: Spine: + limited thoraco-lumbar ROM, thoracic spine normal to inspection, lumbar spine normal to inspection, + lumbar spinal tenderness (L2 central, more generalized paraspinal), + paraspinal tenderness and + straight leg raise positive (b/l); no sacral tenderness Extremities: extremities normal to inspection, strength 5/5 throughout and + muscle atrophy (generalized) Difficult to assess b/l LE strength due to pain but no objective or lateralizing weakness with hip flexion, knee extension/flex, ankle dorsiflex/plantarflex Skin: no rashes, warm and dry Neurologic: moves all extremities and awake; no focal motor deficits (see above) and not confused Speech / Cognition: normal speech Motor/Sensory: no tremor, no pronator drift and no sensory deficit Psychiatric: A+Ox3, euthymic affect Genitourinary: no CVA tenderness (tenderness appears to be more superficial) Lymphatic: no inguinal lymphadenopathy Results & Data Results & Data ([facility]) Vital Signs (Past 12 Hours) Vital Signs Temp Pulse Resp BP Pulse Ox 03/21/20 11:24 96 03/21/20 10:55 37.4 C 98 H 18 100/45 [address] lumbar spine wo con IMPRESSION: 1. Moderate rather significant degenerative disc change primarily of the low lumbar region. 2. No acute process. XR chest 1V portable IMPRESSION: 1. Emphysema. 2. Mild diffuse interstitial thickening which is likely chronic. This remains unchanged. 3. Stable cardiomegaly. 4. No evidence for pulmonary edema CT SCAN OF THE ABDOMEN AND PELVIS WITHOUT CONTRAST IMPRESSION: 1. No evidence of bowel obstruction. No evidence of free air 2. Normal appendix 3. Diverticulosis. No evidence of acute diverticulitis 4. Cholelithiasis 5. Bilateral adrenal gland nodules 6. Mild hepatosplenomegaly 7. 3 cm infrarenal abdominal aortic aneurysm 8. Pulmonary emphysema Code Status & VTE Plan Code Status All treatments outside of a cardiac arrest VTE Prophylaxis Plan VTE Prophylaxis will be ordered: Yes PG Care Time/CCT Total # of Minutes Spent Total Time Spent with Patient: Total time spent is greater than 50% in coordinat ion of care (as documented) at patient's floor/unit and/or counseling patient: Coding Level of Care Code 75559 Initial Inpt Care Lvl 3 Diagnoses Back pain of thoracolumbar region M54.5; M54.6 Permanent atrial fibrillation I48.21 Leukocytosis D72.829 Normocytic anemia D64.9 Elevated serum creatinine R79.89 Constipation K59.00 Adrenal incidentaloma E27.8 Aneurysm of infrarenal abdominal aorta I71.4 Emphysema of lung J43.9 Chronic respiratory failure with hypoxia J96.11 DVT prophylaxis Z29.9
--- NOTE | 2020-03-21 13:48 | XRay Report ---
XR chest 1V portable HISTORY: Shortness of breath. congestive heart failure COMPARISON: Chest CT 05/05/2018. Chest x-ray 11/26/2017. FINDINGS: The lungs are hyperexpanded with apical predominant emphysematous changes. No pneumothorax. No pleural effusions. The heart remains mildly enlarged. There are a few bibasilar linear densities suggesting subsegmental atelectasis. No new focal lung consolidations to suggest pneumonia. Prominenc e of interstitial markings is likely chronic and unchanged. No evidence for pulmonary edema. IMPRESSION: 1. Emphysema. 2. Mild diffuse interstitial thickening which is likely chronic. This remains unchanged. 3. Stable cardiomegaly. 4. No evidence for pulmonary edema. ACT 112: Negative or not required by law. Electronically signed by: Jeremie Cai M.D. 03/21/2020 1:46 PM
[2020-03-21 14:32] LABS: C Reactive Protein 13.4 mg/dl (0-0.29); Prostate Specific Antigen 3.21 ng/ml (0-4)
--- NOTE | 2020-03-21 14:37 | CT Scan Report ---
CT SCAN OF THE ABDOMEN AND PELVIS WITHOUT CONTRAST CLINICAL HISTORY: generalized abdominal pain, weight/appetite loss COMPARISON STUDY: No previous studies for comparison. TECHNIQUE: CT scan of the abdomen and pelvis was performed from the lung bases to the proximal femurs . Images are reviewed in the axial, sagittal, and coronal planes. IV contrast was not administered fo r this examination. A dose lowering technique was utilized adhering to the principles of ALARA. CT DOSE: 885.98 mGycm FINDINGS: Lower chest: There is severe pulmonary emphysema. There is subtle increased groundglass attenuation o f the lung parenchyma. There is a small pericardial effusion Liver: There is mild hepatomegaly. No focal hepatic masses are visualized in this noncontrast study. Gallbladder: Cholelithiasis Spleen: The spleen is mildly enlarged measuring 13 cm Pancreas: Unremarkable. Adrenal glands: There is a 34 mm left adrenal gland nodule. There is a 12 mm right adrenal gland nodu le. Kidneys: There is a hyperdense 7 mm upper pole right renal cyst. In addition there are multiple hypod ense renal lesions, statistically representing cysts. There is no hydronephrosis. Bowel: There are no transition zones to indicate bowel obstruction. There is colonic diverticulosis. There are no acute peridiverticular inflammatory changes. Peritoneum: There is no intraperitoneal free air or abdominal ascites. There is a tiny fat-containing umbilical hernia. There are postsurgical changes of a left inguinal hernia repair. There is a small fat-containing right inguinal hernia. There is a ringlike opacity adjacent to the sigmoid colon and a nterior to the left femoral vessels, likely representing a small fat infarct. Vasculature: There is a 3 cm infrarenal abdominal aortic aneurysm. Adenopathy: None. Pelvic viscera: There is a tiny bladder diverticulum. There is artifact secondary to bilateral hip ar throplasties. The prostate appears prominent Skeletal structures: No destructive osseous lesions are seen. IMPRESSION: 1. No evidence of bowel obstruction. No evidence of free air 2. Normal appendix 3. Diverticulosis. No evidence of acute diverticulitis 4. Cholelithiasis 5. Bilateral adrenal gland nodules 6. Mild hepatosplenomegaly 7. 3 cm infrarenal abdominal aortic aneurysm 8. Pulmonary emphysema ACT 112: Negative or not required by law. Electronically signed by: Dalton Martinez M.D. 03/21/2020 2:36 PM
[2020-03-21] MEDS ORDERED: ALBUT/IPRATROP 3MG/0.5MG NEB 3 ML VIAL INH SCH (16:15)
[2020-03-21] MEDS ORDERED: LACTATED RINGER'S 1,000 ML IV SCH (16:45)
[2020-03-21] MEDS: ACETAMINOPHEN 325 MG TAB PO SCH ×2 (17:26→20:05)
[2020-03-21] MEDS: DICLOFENAC SOD 1% GEL 100 GM TUBE EXT PRN (17:27)
[2020-03-21] MEDS: METOPROLOL TARTRATE 25 MG TAB PO SCH (20:06)
[2020-03-21] MEDS ORDERED: NON-FORMULARY MEDICATION (Coenzyme Q10 [Co Q-10] 100 MG) PO SCH (21:00)
[2020-03-21] MEDS ORDERED: APIXABAN 2.5 MG TAB PO SCH (21:00)
[2020-03-21] MEDS ORDERED: dilTIAZem HCL 180 MG CAPCR PO SCH (21:00)
[2020-03-22 00:29] LABS: Appearance Urine Cloudy (Clear); Bacteria Urine Automated 1+ (Negative); Bilirubin Urine Negative (Negative); Blood Urine Trace (Negative); Color Urine Dark Yellow; Glucose Urine UA Negative (Negative); Ketones Urine Negative (Negative); Leukocyte Esterase Urine 2+ (Negative); Nitrite Urine Negative (Negative); Protein Urine Negative (Negative); Specific Gravity Urine 1.018 (1.000-1.030); Urobilinogen Urine Negative (Negative); WBC Urine Automated >30 /hpf (0-5)
[2020-03-22 07:36] LABS: Basophils # (auto) 0.02 K/uL (0-0.2); Basophils % (auto) 0.2 %; Eosinophils # (auto) 0.16 K/uL (0-0.5); Eosinophils % (auto) 1.3 %; Hematocrit (blood only) 30.3 % (42-52); Hemoglobin 9.7 g/dL (14.0-18.0); Immature Granulocytes # (auto) 0.09 K/uL (0.00-0.02); Immature Granulocytes % (auto) 0.7 %; Lymphocytes # (auto) 0.74 K/uL (1.2-3.4); Mean Corpuscular Hemoglobin 29.2 pg (25-34); Mean Corpuscular Volume 91.3 fL (80-100); Mean Platelet Volume 10.2 fL (7.4-10.4); Monocytes # (auto) 1.02 K/uL (0.11-0.59); Monocytes % (auto) 8.3 %; Neutrophils # (auto) 10.28 K/uL (1.4-6.5); Neutrophils % (auto) 83.5 %; Platelet Count 253 K/uL (130-400); RDW Coefficient of Variation 15.5 % (11.5-14.5); RDW Standard Deviation 51.9 fL (36.4-46.3); Red Blood Count 3.32 M/uL (4.7-6.1); Reticulocytes # 0.07 10^6/uL (0.02-0.10); White Blood Count 12.31 K/uL (4.8-10.8)
[2020-03-22] MEDS: UMECLIDINIUM/VILANTEROL 62.5/25MCG 7 PUFFS/INHALER INH SCH (08:07)
[2020-03-22] MEDS: ACETAMINOPHEN 325 MG TAB PO SCH ×4 (08:08→20:05)
[2020-03-22 08:09] LABS: Albumin Level 2.2 gm/dl (3.4-5.0); BUN Creatinine Ratio 33.3 (10-20); C Reactive Protein 13.4 mg/dl (0-0.29); Creatinine Clr Calc Pharmacy 30.9 ml/min; Est GFR (African American) 38.2; Est GFR (Non-African American) 32.9; Magnesium 2.5 mg/dl (1.8-2.4); Potassium 4.4 mmol/L (3.5-5.1)
[2020-03-22] MEDS: MULTIVITAMIN TAB PO SCH (08:09)
[2020-03-22] MEDS: APIXABAN 5 MG TABLET PO SCH (08:09)
[2020-03-22 08:12] LABS: Albumin Globulin Ratio 0.5 (0.9-2); Bilirubin,Total 0.8 mg/dl (0.2-1); Ferritin 565.5 ng/ml (8-388); Globulin 4.8 gm/dl (2.5-4.0); Phosphorus 4.6 mg/dl (2.5-4.9)
[2020-03-22 08:13] LABS: Folate (Folic Acid) 21.58 ng/ml (>5.38)
[2020-03-22] MEDS: LIDOCAINE 5% 1 PATCH TD SCH (08:13)
[2020-03-22] MEDS ORDERED: VANCOMYCIN CONSULT ACTIVE PRN (10:42)
[2020-03-22] MEDS ORDERED: VANCOMYCIN HCL 1,000 MG in SODIUM CHLORIDE 0.9% 250 ML IV SCH (10:45)
[2020-03-22] MEDS ORDERED: SODIUM CHLORIDE 0.9% 1000ML 1,000 ML IV SCH (11:00)
--- NOTE | 2020-03-22 11:04 | Hospitalist Progress Note ---
Date of Service March 22, 2020 Assessment & Plan (1) Streptococcal bacteremia: present on arrival 2 out of 2 sets growing gram positive cocci in chains awaiting final cultures and sensitivity follow up urine culture, still pending will try to get MRI lumbar spine to look for discitis no signs of endocarditis on exam (no murmurs, no splinter hemorrhages or petechiae) check echo to be sure start Vanco and Rocephin, taper as cultures indicate repeat blood cultures in 48 hours (2) JUAN (acute kidney injury): due to dehydration, possible infection, UTI vs bacteremia Cr down to 1.84 from 1.99 making adequate urine continue fluids, repeat BMP tomorrow, electrolytes stable (3) Back pain of thoracolumbar region: Suspect acute worsening due to lockdown and patient's lack of movement. CT lumbar spine negative for acute fracture could be due to dehydration, UTI, there was no evidence of pyelonephritis refusing MRI lumbar spine today, will hold off for now, especially since pain is better consult PT/OT (4) Permanent atrial fibrillation: hold apixaban starting this evening in case he needs procedure, will base this off of MRI if he gets one Rates controlled with digoxin, metoprolol and diltiazem (5) Leukocytosis: Chronically elevated but acutely increased. possible UTI, does have evidence of bacteremia WBC coming down start antibiotics today (6) Normocytic anemia: Acute onset. Unclear cause. No suggestion of GI bleed from history of exam. CT A/P to r/o retroperitoneal bleed causing his pain - subsequently negative. 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 Do not suspect related to acute complaint. No uncontrolled hypertension or electrolyte abnormality to suggest hormonal hypersecretion. Follow up outpatient. (10) Aneurysm of infrarenal abdominal aorta: Noted on CT, previously known and monitored as outpatient (11) Emphysema of lung: Continue maintenance outpatient inhalers (12) Chronic respiratory failure with hypoxia: At baseline with 3L O2 (13) DVT prophylaxis: Continue outpatient apixaban Admission and Anticipated Discharge Date Admission Date: March 21, 2020 Subjective patient feels better this morning, far less back pain sitting at the edge of the bed, able to move easier, he is happy discussed that his blood cultures were positive, looks like streptococcal species no known skin infection, no breaks in skin, urine culture is still pending discussed with him that we would need to get repeat blood cultures, likely here through the weekend refused MRI today, can wait another day, see what bacteria grows in cultures reviewed labs updated his over the phone Review of Systems Review of Systems: All systems reviewed & are unremarkable except as noted in HPI & below Constitutional: + fatigue and + weakness; no fever, no chills and no sweats Respiratory: no cough and no dyspnea Cardiovascular: no chest pain, no palpitations, no syncope and no edema Gastrointestinal: no abdominal pain, no nausea, no vomiting, no constipation and no diarrhea/loose stools Genitourinary: + dysuria (far less, had this prior to admission) Musculoskeletal: + back pain (far less) Physical Exam Constitutional: WD/WN, vitals as above Eyes: PERRL, conjunctivae normal, anicteric sclerae ENMT: external ear and nose normal, oropharynx normal Neck: trachea midline, no thyromegaly Respiratory: normal respiratory effort, lungs clear to auscultation Cardiovascular: Rate/Rhythm: regular rate and + irregularly irregular Heart Sounds: normal S1 and normal S2; no murmur Vessels: no JVD Extremities: normal capillary refill; no edema Gastrointestinal (Abdomen): normal bowel sounds, soft, nontender, no hepatosplenomegaly Musculoskeletal: no cyanosis or clubbing, extremities motor strength 5/5 Skin: no rashes, warm and dry Neurologic: patellar DTR's 2+ bilat, sensation intact and PERRL, EOMI, accommodation nl, no face palsy, no dysarthria Psychiatric: A+Ox3, euthymic affect Lymphatic: no cervical or axillary lymphadenopathy Results & Data Results & Data ([facility]) Vital Signs (Past 12 Hours) Vital Signs Temp Pulse Pulse Resp BP BP Pulse Ox 03/22/20 07:32 36.5 C 20 109/64 90 03/22/20 07:01 83 03/22/20 05:06 36.5 C 69 18 94/56 L 91 03/22/20 01:50 100/50 L 102/60 03/22/20 00:44 14 94/49 L 94 03/21/20 23:43 36.3 C L 79 18 100/49 L 91 Laboratory Results Laboratory Results - last 24 hr 03/21/20 03/21/20 03/21/20 11:25 11:25 13:47 WBC 16.18 H RBC 3.47 L Hgb 10.4 L Hct 31.3 L MCV 90.2 MCH 30.0 MCHC 33.2 RDW Std Deviation 50.3 H RDW Coeff of Ashley 15.4 H Plt Count 262 MPV 9.8 Immature Gran % (Auto) 0.6 Neut % (Auto) 83.4 Lymph % (Auto) 6.7 [place] % (Auto) 9.0 Eos % (Auto) 0.1 Baso % (Auto) 0.2 Reticulocyte % (Auto) Immature Gran # (Auto) 0.10 H Neut # (Auto) 13.48 H Lymph # (Auto) 1.08 L [place] # (Auto) 1.46 H Eos # (Auto) 0.02 Baso # (Auto) 0.04 Reticulocyte # ESR 84 H Sodium 134 L Potassium 4.7 Chloride 103 Carbon Dioxide 27 Anion Gap 4.0 BUN 58 H Creatinine 1.99 H Est Cr Clr Drug Dosing 28.5 Est GFR ( Amer) 34.7 Est GFR (Non-Af Amer) 29.9 BUN/Creatinine Ratio 29.3 H Glucose 127 H Calcium 9.2 Phosphorus Magnesium Iron Transferrin Transferrin % Sat Ferritin Total Bilirubin 1.1 H AST 39 H ALT 52 Alkaline Phosphatase 141 H C-Reactive Protein Total Protein 7.5 Albumin 2.3 L Globulin 5.2 H Albumin/Globulin Ratio 0.4 L Lipase 260 Prostate Specific Ag Vitamin B12 Folate Urine Color Urine Appearance Urine pH Ur Specific [place] Urine Protein Urine Glucose (UA) Urine Ketones Urine Blood Urine Nitrite Urine Bilirubin Urine Urobilinogen Ur Leukocyte Esterase Urine WBC (Auto) Urine RBC (Auto) U Hyaline Cast (Auto) U Epithel Cells (Auto) Urine Bacteria (Auto) 03/21/20 03/21/20 03/22/20 13:47 23:45 07:00 WBC 12.31 H RBC 3.32 L Hgb 9.7 L Hct 30.3 L MCV 91.3 MCH 29.2 MCHC 32.0 RDW Std Deviation 51.9 H RDW Coeff of [place] 15.5 H Plt Count 253 MPV 10.2 Immature Gran % (Auto) 0.7 Neut % (Auto) 83.5 Lymph % (Auto) 6.0 [place] % (Auto) 8.3 Eos % (Auto) 1.3 Baso % (Auto) 0.2 Reticulocyte % (Auto) 2.0 Immature Gran # (Auto) 0.09 H Neut # (Auto) 10.28 H Lymph # (Auto) 0.74 L [place] # (Auto) 1.02 H Eos # (Auto) 0.16 Baso # (Auto) 0.02 Reticulocyte # 0.07 ESR Sodium Potassium Chloride Carbon Dioxide Anion Gap BUN Creatinine Est Cr Clr Drug Dosing Est GFR ( Amer) Est GFR (Non-Af Amer) BUN/Creatinine Ratio Glucose Calcium Phosphorus Magnesium Iron Transferrin Transferrin % Sat Ferritin Total Bilirubin AST ALT Alkaline Phosphatase C-Reactive Protein 13.40 H Total Protein Albumin Globulin Albumin/Globulin Ratio Lipase Prostate Specific Ag 3.210 Vitamin B12 Folate Urine Color Dark Yellow Urine Appearance Cloudy A Urine pH 5.0 Ur Specific [place] 1.018 Urine Protein Negative Urine Glucose (UA) Negative Urine Ketones Negative Urine Blood Trace H Urine Nitrite Negative Urine Bilirubin Negative Urine Urobilinogen Negative Ur Leukocyte Esterase 2+ H Urine WBC (Auto) >30 H Urine RBC (Auto) 5-10 H U Hyaline Cast (Auto) 1-5 U Epithel Cells (Auto) 10-20 H Urine Bacteria (Auto) 1+ H 03/22/20 03/22/20 03/22/20 07:00 07:00 07:00 WBC RBC Hgb Hct MCV MCH MCHC RDW Std Deviation RDW Coeff of [place] Plt Count MPV Immature Gran % (Auto) Neut % (Auto) Lymph % (Auto) [place] % (Auto) Eos % (Auto) Baso % (Auto) Reticulocyte % (Auto) Immature Gran # (Auto) Neut # (Auto) Lymph # (Auto) [place] # (Auto) Eos # (Auto) Baso # (Auto) Reticulocyte # ESR 73 H Sodium 133 L Potassium 4.4 Chloride 102 Carbon Dioxide 22 Anion Gap 9.0 BUN 61 H Creatinine 1.84 H Est Cr Clr Drug Dosing 30.9 Est GFR ( Amer) 38.2 Est GFR (Non-Af Amer) 32.9 BUN/Creatinine Ratio 33.3 H Glucose 102 H Calcium 9.0 Phosphorus 4.6 Magnesium 2.5 H Iron 24 L Transferrin 136 L Transferrin % Sat 12 L Ferritin 565.5 H Total Bilirubin 0.8 AST 25 ALT 44 Alkaline Phosphatase 122 H C-Reactive Protein 13.40 H Total Protein 7.0 Albumin 2.2 L Globulin 4.8 H Albumin/Globulin Ratio 0.5 L Lipase Prostate Specific Ag Vitamin B12 768 Folate 21.58 Urine Color Urine Appearance Urine pH Ur Specific [place] Urine Protein Urine Glucose (UA) Urine Ketones Urine Blood Urine Nitrite Urine Bilirubin Urine Urobilinogen Ur Leukocyte Esterase Urine WBC (Auto) Urine RBC (Auto) U Hyaline Cast (Auto) U Epithel Cells (Auto) Urine Bacteria (Auto) Microbiology 03/21/20 17:10 Blood Aerobic Blood Culture - Preliminary Gram positive cocci in chains 03/21/20 17:10 Blood Anaerobic Blood Culture - Preliminary Gram positive cocci in chains 03/21/20 17:18 Blood Aerobic Blood Culture - Preliminary Gram positive cocci in chains 03/21/20 17:18 Blood Anaerobic Blood Culture - Preliminary Gram positive cocci in chains Medications Administered Current Inpatient Medications [facility]: 04/20/20 16:14 Last Admin: 03/22/20 08:08 Dose: 650 mg Documented by: Apixaban (Eliquis) 5 mg PO BID [facility] Stop: 04/21/20 08:59 Last Admin: 03/22/20 08:09 Dose: 5 mg Documented by: Diclofenac Sodium (Voltaren 1% Top) 4 gm EXT TID PRN PRN Reason: back pain Stop: 04/20/20 16:14 Last Admin: 03/21/20 17:27 Dose: 4 gm Documented by: Digoxin (Lanoxin) 0.125 mg PO DAILY@1600 [facility] Stop: 04/21/20 15:59 Diltiazem HCl (Cardizem Cd) 360 mg PO QPM [facility] Stop: 04/20/20 20:59 Last Admin: 03/21/20 20:07 Dose: 360 mg Documented by: Ceftriaxone Sodium 1,000 mg/ (Dextrose) 50 mls @ 100 mls/hr IV Q12H [facility]; Protocol Stop: 04/05/20 10:44 Sodium Chloride (Nss 1000ml) 1,000 mls @ 80 mls/hr IV .[id number] [facility] Stop: 03/22/20 23:29 Vancomycin HCl 2,000 mg/ (Sodium Chloride) 540 mls @ 200 mls/hr IV TODAY@1115 [facility] Stop: 03/22/20 13:56 Lidocaine (Lidoderm 5%) 1 patch TD QAM [facility] Stop: 04/21/20 08:59 Last Admin: 03/22/20 08:13 Dose: 1 patch Documented by: Metoprolol Tartrate (Lopressor) 25 mg PO BID [facility] Stop: 04/20/20 20:59 Last Admin: 03/21/20 20:06 Dose: 25 mg Documented by: Miscellaneous (Remove Lidoderm Patch) 1 ea N/A DAILY@2100 [facility] Stop: 04/21/20 20:59 Miscellaneous Information (Consult) 1 ea N/A UD PRN PRN Reason: Consult Stop: 04/21/20 10:41 Multivitamins (Multivitamin Tab) 1 tab PO DAILY [facility] Stop: 04/21/20 08:59 Last Admin: 03/22/20 08:09 Dose: 1 tab Documented by: Tramadol HCl (Ultram) 50 mg PO Q4H PRN PRN Reason: Pain Stop: 04/20/20 16:14 Umeclidinium/Vilanterol (Anoro Ellipta 62.5/25 Mcg Inh) 1 puffs INH DAILY [facility] Stop: 04/21/20 08:59 Last Admin: 03/22/20 08:07 Dose: 1 puffs Documented by: PG Care Time/CCT Total # of Minutes Spent Total Time Spent with Patient: Total time spent is greater than 50% in coordination of care (as documented) at patient's floor/unit and/or counseling patient: Coding Level of Care Code 02757 Subseq Hosp Care Lvl 3 Diagnoses Streptococcal bacteremia R78.81; B95.5 JUAN (acute kidney injury) N17.9 Back pain of thoracolumbar region M54.5; M54.6 Permanent atrial fibrillation I48.21 Leukocytosis D72.829 Normocytic anemia D64.9 Elevated serum creatinine R79.89 Constipation K59.00 Adrenal incidentaloma E27.8 Aneurysm of infrarenal abdominal aorta I71.4 Emphysema of lung J43.9 Chronic respiratory failure with hypoxia J96.11 DVT prophylaxis Z29.9
[2020-03-22] MEDS ORDERED: VANCOMYCIN HCL 2,000 MG in SODIUM CHLORIDE 0.9% 500 ML IV SCH (11:15)
[2020-03-22] MEDS ORDERED: cefTRIAXone SODIUM 2,000 MG in DEXTROSE 5% 50 ML IV SCH (12:00)
--- NOTE | 2020-03-22 12:33 | XCELERA ---
[id number]
--- NOTE | 2020-03-22 15:34 | Pharmacy Report ---
Pharmacy Abx Initial Consult - Date of Service March 22, 2020 - Pharmacy Dosing Scope Date of Consult: 03/22/2020 Consultation requested by: Dr. Chopra Pharmacy is consulted to initiate Vancomycin IV dosing therapy, order appropriate labs and adjust drug dose/frequency. - Subjective The patient is a 84 year old M admitted on 03/21/20 13:18. - Objective Height: 5 ft 10 in Weight: 82.3 kg Vital Signs (Past 12hrs): Vital Signs Temp Pulse Pulse Resp BP BP Pulse Ox 03/22/20 15:27 36.4 C L 77 18 101/61 90 03/22/20 15:06 75 03/22/20 11:46 36.5 C 83 18 147/78 H 94 03/22/20 07:32 36.5 C 20 109/64 90 03/22/20 07:01 83 03/22/20 05:06 36.5 C 69 18 94/56 L 91 Lab Results (24hrs): Laboratory Tests (24 Hours) 03/22/20 03/22/20 03/22/20 07:00 07:00 07:00 WBC 12.31 H Neut # (Auto) 10.28 H ESR 73 H Creatinine 1.84 H Est Cr Clr Drug Dosing 30.9 C-Reactive Protein 13.40 H Micro Results: 03/21/20 23:45 Urine Culture - Pending Urine,Clean Catch - Risk Factors for Resistance * None - Assessment & Plan Assessment 84 year old M admitted secondary to possible discitis Started on Vancomycin + Rocephin Leukocytosis of 12.3K, afebrile, inflammatory markers (ESR/CRP) both elevated, Renal fxn appears to be elevated from previous data in April 2019. 01/28 BCx bottles growing Gram Positive Cocci in Chains. Urine culture pending. Plan Vancomycin for treatment of possible discitis Vancomycin IV * Loading dose: 2000 mg (~24 mg/kg) * Maintenance dose: 1000 mg IV (~12 mg/kg) every 24 hours * Goal trough level: 15 to 20 mcg/mL * Trough level ordered tentatively scheduled for Friday but may need adjusted if patient's kidney function improves * A less than traditional dose has been selected due to likelihood of drug accumulation in patient with h/o CKD. Ceftriaxone (Pharmacy not consulted) * 2 g IV every 24 hours is appropriate for indication Pharmacy will continue to follow and will adjust dose/frequency as necessary. Thank you.
[2020-03-22] MEDS ORDERED: DIGOXIN 0.125 MG TAB PO SCH (16:00)
[2020-03-22] MEDS: TRAMADOL HCL 50 MG TABLET PO PRN (21:00)
[2020-03-23 01:20] LABS: Appearance Urine Cloudy (Clear); Bacteria Urine Automated Negative (Negative); Bilirubin Urine Negative (Negative); Blood Urine 3+ (Negative); Color Urine Dark Yellow; Glucose Urine UA Negative (Negative); Ketones Urine Negative (Negative); Leukocyte Esterase Urine 3+ (Negative); Nitrite Urine Negative (Negative); Protein Urine Trace (Negative); RBC Urine Automated >30 /hpf (0-4); Specific Gravity Urine 1.022 (1.000-1.030); Urobilinogen Urine Negative (Negative); WBC Urine Automated >30 /hpf (0-5)
[2020-03-23 07:28] LABS: Creatinine Clr Calc Pharmacy 30.9 ml/min; Est GFR (African American) 38.2; Est GFR (Non-African American) 32.9
[2020-03-23] MEDS: LIDOCAINE 5% 1 PATCH TD SCH (08:59)
[2020-03-23] MEDS: UMECLIDINIUM/VILANTEROL 62.5/25MCG 7 PUFFS/INHALER INH SCH (09:00)
[2020-03-23] MEDS: ACETAMINOPHEN 325 MG TAB PO SCH ×4 (09:01→20:26)
[2020-03-23] MEDS: MULTIVITAMIN TAB PO SCH (09:01)
[2020-03-23 10:46] LABS: Basophils # (auto) 0.02 K/uL (0-0.2); Basophils % (auto) 0.2 %; Eosinophils # (auto) 0.04 K/uL (0-0.5); Eosinophils % (auto) 0.3 %; Hematocrit (blood only) 28.6 % (42-52); Hemoglobin 9.6 g/dL (14.0-18.0); Immature Granulocytes # (auto) 0.07 K/uL (0.00-0.02); Immature Granulocytes % (auto) 0.5 %; Lymphocytes % (auto) 6.8 %; Mean Corpuscular Hemoglobin 30.5 pg (25-34); Mean Corpuscular Hgb Conc 33.6 g/dL (32-36); Mean Corpuscular Volume 90.8 fL (80-100); Mean Platelet Volume 9.7 fL (7.4-10.4); Monocytes # (auto) 0.66 K/uL (0.11-0.59); Neutrophils # (auto) 11.54 K/uL (1.4-6.5); Neutrophils % (auto) 87.2 %; Platelet Count 258 K/uL (130-400); RDW Coefficient of Variation 15.5 % (11.5-14.5); RDW Standard Deviation 51.7 fL (36.4-46.3); Red Blood Count 3.15 M/uL (4.7-6.1); White Blood Count 13.23 K/uL (4.8-10.8)
[2020-03-23 10:48] LABS: Base Excess ABG -1.7 mEq/L (-9-1.8); HCO3 ABG 22 mmol/L (19-24); Oxygen Saturation ABG 87.1 % (90-95); PCO2 ABG 32 mmHg (35-46); PO2 ABG 56 mmHg (80-95); pH ABG 7.45 (7.35-7.45)
[2020-03-23 10:49] LABS: Allen Test Pos (Pos)
[2020-03-23 11:02] LABS: Albumin Level 2.2 gm/dl (3.4-5.0); BUN Creatinine Ratio 32.3 (10-20); Calcium 8.4 mg/dl (8.5-10.1); Est GFR (African American) 41.4; Est GFR (Non-African American) 35.7; Potassium 4.5 mmol/L (3.5-5.1)
[2020-03-23 11:05] LABS: Albumin Globulin Ratio 0.4 (0.9-2); Bilirubin,Total 0.8 mg/dl (0.2-1); Total Protein 7.2 gm/dl (6.4-8.2)
[2020-03-23] MEDS ORDERED: LACTULOSE SYRUP 20 GM/30 ML UDC PO ONE (11:26)
[2020-03-23] MEDS ORDERED: cefTRIAXone SODIUM 2,000 MG in DEXTROSE 5% 50 ML IV SCH (12:00)
[2020-03-23] MEDS ORDERED: VANCOMYCIN HCL 1,000 MG in SODIUM CHLORIDE 0.9% 250 ML IV SCH (12:00)
[2020-03-23] MEDS ORDERED: OPTIRAY 320 125ml IV PRN (13:32)
--- NOTE | 2020-03-23 13:52 | CT Scan Report ---
CT head/brain wo con CLINICAL HISTORY: Left arm/hand weakness POSSIBLE ACUTE STROKE COMPARISON STUDY: None TECHNIQUE: Axial CT of the brain is performed from the vertex to the skull base. IV contrast was not administered for this examination. A dose lowering technique was utilized adhering to the principles of ALARA. CT DOSE: FINDINGS: No intra or extra-axial mass lesions are visualized. There is no CT evidence of acute cortical infarc tion. There is no evidence of midline shift. There is no acute hemorrhage. No calvarial fractures ar e visualized. There are patchy white matter hypodensities likely on a small vessel basis. There is subtle basal camacho glial mineralization There is no evidence of pathologic ventricular dilatation. There is no evidence of acute sinusitis IMPRESSION: No acute intracranial findings ACT 112: Negative or not required by law. Electronically signed by: Dalton Martinez M.D. 03/23/2020 1:42 PM
--- NOTE | 2020-03-23 13:53 | CT Scan Report ---
CT angio neck with con CLINICAL HISTORY: left arm/hand weakness POSSIBLE ACUTE STROKE COMPARISON STUDY: No previous studies for comparison. TECHNIQUE: CT angiography was performed from the aortic arch to the skull base. MIP imaging was perfo rmed. The patient was scanned in a dynamic helical fashion during intravenous administration of 120 c c of Optiray 320. A dose lowering technique was utilized adhering to the principles of ALARA. CT DOSE: Technique: CT angiogram of the carotid and vertebral arteries was obtained using intravenous contrast and 3-D reconstruction. NASCET criteria was utilized. Findings: There is severe pulmonary emphysema. The right carotid revealed no evidence of aneurysm and no evidence of dissection. There is no evidenc e of hemodynamic significant stenosis. 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 There is minor nonhemodynamically significant stenosis of the left internal ca rotid artery origin. There is no evidence of dissection. There is no evidence of hemodynamically significant vertebral stenosis. There is no evidence of verte bral dissection. IMPRESSION: No evidence of hemodynamically significant carotid or vertebral artery stenosis. No evidence of disse ction. ACT 112: Negative or not required by law. Electronically signed by: Dalton Martinez M.D. 03/23/2020 1:52 PM
[2020-03-23] MEDS: TRAMADOL HCL 50 MG TABLET PO PRN ×2 (13:54→16:56)
--- NOTE | 2020-03-23 13:56 | CT Scan Report ---
CT angio head w con HISTORY: Mental status change left arm/hand weakness TECHNIQUE: Multiaxial CT angiography of the head was performed IV contrast: 100 cc nonionic Maximu m intensity projection images were also obtained. A dose lowering technique was utilized adhering to the principles of ALARA. COMPARISON: None. FINDINGS: There is no mass, hematoma, midline shift, or acute infarct. Visualized intracranial internet consultant al carotid arteries, distal vertebral arteries, and basilar artery are widely patent. There is no sig nificant stenosis, occlusion, or aneurysm seen within the bilateral ACAs, MCAs, or medical insurance verifier. IMPRESSION: No significant stenosis, occlusion, or aneurysm within the [place]. ACT 112: Negative or not required by law. The above report was generated using voice recognition software. It may contain grammatical, syntax or spelling errors. Electronically signed by: Taurus Hurt M.D. 03/23/2020 1:55 PM
[2020-03-23] MEDS: APIXABAN 5 MG TABLET PO SCH (16:02)
--- NOTE | 2020-03-23 17:11 | Hospitalist Progress Note ---
Date of Service March 23, 2020 Assessment & Plan (1) Streptococcal bacteremia: present on arrival 2 out of 2 sets growing gram positive cocci in chains awaiting final cultures and sensitivity repeat blood cultures in the morning urine appears to be the source, also growing strep species, 2 different strains, awaiting final results no signs of endocarditis on exam (no murmurs, no splinter hemorrhages or petechiae) ECHO: no vegetations on valves start Vanco and Rocephin, taper as cultures indicate feeling a little worse today despite treatment, perhaps endotoxins released from killing bacteria WBC is 13k, no fever (2) JUAN (acute kidney injury): due to dehydration, possible infection, UTI vs bacteremia Cr down to 1.7 from 1.99 making adequate urine continue fluids at 80cc/hr repeat BMP tomorrow (3) Back pain of thoracolumbar region: Suspect acute worsening due to lockdown and patient's lack of movement. CT lumbar spine negative for acute fracture could be due to dehydration, UTI, there was no evidence of pyelonephritis refusing MRI lumbar spine (4) Permanent atrial fibrillation: resume Apixiban, no plans for procedures held Digoxin, metoprolol, cardizem due to pauses on monitor resume metoprolol with hold parameters, HR in the 100's which is appropriate response to bacteremia (5) Leukocytosis: Chronically elevated but acutely increased. possible UTI, does have evidence of bacteremia WBC up slightly at 13k (6) Normocytic anemia: Acute onset. Unclear cause. No suggestion of GI bleed from history of exam. CT A/P to r/o retroperitoneal bleed causing his pain - subsequently negative. 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 Do not suspect related to acute complaint. No uncontrolled hypertension or electrolyte abnormality to suggest hormonal hypersecretion. Foll ow up outpatient. (10) Aneurysm of infrarenal abdominal aorta: Noted on CT, previously known and monitored as outpatient (11) Emphysema of lung: Continue maintenance outpatient inhalers (12) Chronic respiratory failure with hypoxia: acute on chronic hypoxia starting this morning unclear etiology, lungs are clear stable on 5L, normally on 3L has COPD and chronic scarring on CXR (13) DVT prophylaxis: Continue outpatient apixaban Admission and Anticipated Discharge Date Admission Date: March 21, 2020 Subjective patient appears worse today, more ill appearing, c/o pain in right lower back/flank very fatigued, poor appetite urine culture growing out Streptococcal species, similar to blood culture findings WBC is 13k, Hb stable ABG with hypoxia, PaO2 56, he normally wears 3L NC, up to 5L this morning, admits to some dyspnea Cr down to 1.72, ammonia up slightly at 38 RN concerned about left arm weakness, facial droop around 11am immediately examined patient, admitted to some numbness in left hand last night, feels a little weak and poor coordination today on exam, CN intact, no facial drop, no dysarthria, strength in left hand 4 out of 5, no pronator drift, 5/[address] head normal, CTA head and neck normal, he refuses to consider MRI brain revisited later in the day, felt a little better in regards to left hand updated his about the slightly worse clinical status Review of Systems Review of Systems: All systems reviewed & are unremarkable except as noted in HPI & below Physical Exam Constitutional: WD/WN, vitals as above + ill appearing and + frail appearing; no acute distress Eyes: PERRL, conjunctivae normal, anicteric sclerae ENMT: external ear and nose normal, oropharynx normal Neck: trachea midline, no thyromegaly Respiratory: normal respiratory effort, lungs clear to auscultation Cardiovascular: Rate/Rhythm: + tachycardic and + irregularly irregular Heart Sounds: normal S1 and normal S2; no murmur Vessels: no JVD Extremities: normal capillary refill; no edema Gastrointestinal (Abdomen): normal bowel sounds, soft, nontender, no hepatosplenomegaly Musculoskeletal: Head/Neck/Chest: normocephalic, head atraumatic and neck supple Extremities: + abnormal strength (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, 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, otherwise 5/5 strength) Skin: no rashes, warm and dry Neurologic: patellar DTR's 2+ bilat, sensation intact and PERRL, EOMI, accommodation nl, no face palsy, no dysarthria Psychiatric: A+Ox3, euthymic affect Lymphatic: no cervical or axillary lymphadenopathy Results & Data Results & Data ([facility]) Vital Signs (Past 12 Hours) Vital Signs Temp Pulse Resp BP Pulse Ox 05/28/20 14:55 36.4 C L 115 H 20 119/70 90 03/23/20 11:23 37.2 C 116 H 20 109/61 91 03/23/20 11:16 114 H 111/62 03/23/20 07:39 36.4 C L 107 H 16 103/62 89 L Laboratory Results Laboratory Results - last 24 hr 03/23/20 03/23/20 03/23/20 00:55 06:35 10:34 WBC RBC Hgb Hct MCV MCH MCHC RDW Std Deviation RDW Coeff of Ashley Plt Count MPV Immature Gran % (Auto) Neut % (Auto) Lymph % (Auto) [place] % (Auto) Eos % (Auto) Baso % (Auto) Immature Gran # (Auto) Neut # (Auto) Lymph # (Auto) [place] # (Auto) Eos # (Auto) Baso # (Auto) ABG pH ABG pCO2 ABG pO2 ABG HCO3 ABG O2 Saturation ABG Base Excess Marlon Test Barometric Pressure Oxygen Given Sodium 135 L Potassium 4.5 Chloride 106 Carbon Dioxide 23 Anion Gap 6.0 BUN 56 H Creatinine 1.84 H 1.72 H Est Cr Clr Drug Dosing 30.9 33.0 Est GFR ( Amer) 38.2 41.4 Est GFR (Non-Af Amer) 32.9 35.7 BUN/Creatinine Ratio 32.3 H Glucose 153 H Calcium 8.4 L Total Bilirubin 0.8 AST 23 ALT 42 Alkaline Phosphatase 134 H Ammonia Total Protein 7.2 Albumin 2.2 L Globulin 5.0 H Albumin/Globulin Ratio 0.4 L Urine Color Dark Yellow Urine Appearance Cloudy A Urine pH 5.0 Ur Specific [place] 1.022 Urine Protein Trace H Urine Glucose (UA) Negative Urine Ketones Negative Urine Blood 3+ H Urine Nitrite Negative Urine Bilirubin Negative Urine Urobilinogen Negative Ur Leukocyte Esterase 3+ H Urine WBC (Auto) >30 H Urine RBC (Auto) >30 H U Hyaline Cast (Auto) 1-5 U Epithel Cells (Auto) 5-10 H Urine Bacteria (Auto) Negative 03/23/20 03/23/20 03/23/20 10:34 10:34 10:34 WBC 13.23 H RBC 3.15 L Hgb 9.6 L Hct 28.6 L MCV 90.8 MCH 30.5 MCHC 33.6 RDW Std Deviation 51.7 H RDW Coeff of Ashley 15.5 H Plt Count 258 MPV 9.7 Immature Gran % (Auto) 0.5 Neut % (Auto) 87.2 Lymph % (Auto) 6.8 [place] % (Auto) 5.0 Eos % (Auto) 0.3 Baso % (Auto) 0.2 Immature Gran # (Auto) 0.07 H Neut # (Auto) 11.54 H Lymph # (Auto) 0.90 L [place] # (Auto) 0.66 H Eos # (Auto) 0.04 Baso # (Auto) 0.02 ABG pH 7.45 ABG pCO2 32 L ABG pO2 56 L ABG HCO3 22 ABG O2 Saturation 87.1 L ABG Base Excess -1.7 Marlon Test Pos Barometric Pressure 732.3 Oxygen Given 4 L Sodium Potassium Chloride Carbon Dioxide Anion Gap BUN Creatinine Est Cr Clr Drug Dosing Est GFR ( Amer) Est GFR (Non-Af Amer) BUN/Creatinine Ratio Glucose Calcium Total Bilirubin AST ALT Alkaline Phosphatase Ammonia 38.0 H Total Protein Albumin Globulin Albumin/Globulin Ratio Urine Color Urine Appearance Urine pH Ur Specific [place] Urine Protein Urine Glucose (UA) Urine Ketones Urine Blood Urine Nitrite Urine Bilirubin Urine Urobilinogen Ur Leukocyte Esterase Urine WBC (Auto) Urine RBC (Auto) U Hyaline Cast (Auto) U Epithel Cells (Auto) Urine Bacteria (Auto) Microbiology 03/21/20 23:45 Urine,Clean Catch Urine Culture - Preliminary Streptococcus species Streptococcus species#2 03/21/20 17:10 Blood Aerobic Blood Culture - Preliminary Gram positive cocci in chains 03/21/20 17:10 Blood Anaerobic Blood Culture - Preliminary Gram positive cocci in chains 03/21/20 17:18 Blood Aerobic Blood Culture - Preliminary Gram positive cocci in chains 03/21/20 17:18 Blood Anaerobic Blood Culture - Preliminary Gram positive cocci in chains Diagnostic Findings CT head: no acute findings CT angiogram head and neck: no acute findings PG Care Time/CCT Total # of Minutes Spent Total Time Spent: 41 Total Time Spent with Patient: Total time spent is greater than 50% in coordination of care (as documented) at patient's floor/unit and/or counseling patient: Coding Level of Care Code 86289 Subseq Hosp Care Lvl 3 Diagnoses Streptococcal bacteremia R78.81; B95.5 JUAN (acute kidney injury) N17.9 Back pain of thoracolumbar region M54.5; M54.6 Permanent atrial fibrillation I48.21 Leukocytosis D72.829 Normocytic anemia D64.9 Elevated serum creatinine R79.89 Constipation K59.00 Adrenal incidentaloma E27.8 Aneurysm of infrarenal abdominal aorta I71.4 Emphysema of lung J43.9 Chronic respiratory failure with hypoxia J96.11 DVT prophylaxis Z29.9
[2020-03-24 06:42] LABS: Basophils # (auto) 0.03 K/uL (0-0.2); Basophils % (auto) 0.2 %; Eosinophils # (auto) 0.04 K/uL (0-0.5); Eosinophils % (auto) 0.3 %; Hematocrit (blood only) 30.8 % (42-52); Hemoglobin 9.9 g/dL (14.0-18.0); Immature Granulocytes % (auto) 1.4 %; Lymphocytes # (auto) 1.23 K/uL (1.2-3.4); Lymphocytes % (auto) 8.7 %; Mean Corpuscular Hemoglobin 29.2 pg (25-34); Mean Corpuscular Hgb Conc 32.1 g/dL (32-36); Mean Corpuscular Volume 90.9 fL (80-100); Monocytes # (auto) 0.93 K/uL (0.11-0.59); Monocytes % (auto) 6.6 %; Neutrophils % (auto) 82.8 %; Platelet Count 282 K/uL (130-400); RDW Coefficient of Variation 15.7 % (11.5-14.5); RDW Standard Deviation 52.3 fL (36.4-46.3); Red Blood Count 3.39 M/uL (4.7-6.1); White Blood Count 14.13 K/uL (4.8-10.8)
[2020-03-24 07:19] LABS: Albumin Level 2.3 gm/dl (3.4-5.0); BUN Creatinine Ratio 31.7 (10-20); Creatinine Clr Calc Pharmacy 31.7 ml/min; Est GFR (African American) 39.5; Potassium 4.6 mmol/L (3.5-5.1)
[2020-03-24 07:22] LABS: Albumin Globulin Ratio 0.4 (0.9-2); Bilirubin,Total 0.8 mg/dl (0.2-1); Globulin 5.3 gm/dl (2.5-4.0); Total Protein 7.6 gm/dl (6.4-8.2)
[2020-03-24] MEDS: MULTIVITAMIN TAB PO SCH (07:46)
[2020-03-24] MEDS: ACETAMINOPHEN 325 MG TAB PO SCH ×4 (07:46→20:04)
[2020-03-24] MEDS: UMECLIDINIUM/VILANTEROL 62.5/25MCG 7 PUFFS/INHALER INH SCH (07:47)
[2020-03-24] MEDS: APIXABAN 5 MG TABLET PO SCH ×2 (07:47→20:05)
[2020-03-24] MEDS: LIDOCAINE 5% 1 PATCH TD SCH (07:47)
[2020-03-24] MEDS ORDERED: CLOPIDOGREL BISULFATE 75 MG TAB PO SCH (10:15)
[2020-03-24] MEDS: D5W AND 1/2NSS 1,000 ML IV SCH (10:52)
[2020-03-24] MEDS: ASPIRIN 81 MG ECTAB PO SCH (10:53)
[2020-03-24] MEDS ORDERED: AMPICILLIN 2,000 MG in SODIUM CHLOR 0.9% AD-VAN 100 ML IV SCH (12:00)
--- NOTE | 2020-03-24 14:25 | XRay Report ---
XR chest 1V portable CLINICAL HISTORY: Hypoxia dyspnea COMPARISON STUDY: 03/21/2020 FINDINGS: Diffuse bilateral parenchymal interstitial change. Bulk of this appears chronic. Developing superimposed infiltrate right base. Stable cardiomegaly. Stable prominence of pulmonary vasculature. IMPRESSION: Infiltrate right base superimposed upon chronic interstitial change. ACT 112: Negative or not required by law. The above report was generated using voice recognition software. It may contain grammatical, syntax or spelling errors. Electronically signed by: Taurus Hurt M.D. 03/24/2020 2:23 PM
[2020-03-24] MEDS ORDERED: PIPERACILL/TAZOBAC CONSULT ACTIVE PRN (15:13)
[2020-03-24] MEDS ORDERED: PIPERACILLIN/TAZOBACTAM 3.375 GM in DEXTROSE 5% 100 ML IV ONE (15:30)
--- NOTE | 2020-03-24 15:35 | Hospitalist Progress Note ---
Date of Service March 24, 2020 Assessment & Plan (1) Enterococcal bacteremia: present on arrival 2 out of 2 sets, final results back on 03/24 with Enterococcus, fortunately metzger sensitive repeat blood cultures done 03/24 urine appears to be the source, also growing Enterococcus no signs of endocarditis on exam (no murmurs, no splinter hemorrhages or petechiae) ECHO: no vegetations on valves treated initially with Vanco and Rocephin will use Zosyn IV now for dual coverage of both bacteremia/UTI and developing RLL pneumonia WBC is 14k, no fever (2) Chronic respiratory failure with hypoxia: acute on chronic hypoxia starting 03/23 CXR on 03/24 with RLL infiltrate will use Zosyn for coverage, was on Rocephin for two days prior saturation goal is 88% with his emphysema no respiratory distress on 5L today at baseline he wears 3L (3) JUAN (acute kidney injury): due to dehydration, possible infection, UTI vs bacteremia Cr 1.99 on admission, down a little at 1.79 today making adequate urine electrolytes stable repeat BMP tomorrow, continue low rate of fluids because he is not eating well (4) Right lower lobe pneumonia: new finding on CXR on 03/24 compared to CXR on admission received two days of Vanco and Rocephin will use Zosyn IV for time being, watch for clinical response (5) Left hand weakness: developed this morning of 03/23, no other focal motor deficits he is right handed on exam the left hand is a little weaker than right, when arm is extended he cannot extend hand, has wrist drop CT head normal CTA head and neck normal on Apixiban for anticoagulation, will add aspirin for antiplatelet therapy patient refused MRI brain unless he can have sedation, told him he cannot have sedation with his respiratory status differential would be small stroke vs nerve palsy vs cervical spine nerve root compression PT/OT consulted to work with him (6) Back pain of thoracolumbar region: Suspect acute worsening due to lockdown and patient's lack of movement. CT lumbar spine negative for acute fracture could be due to dehydration, UTI, there was no evidence of pyelonephritis refusing MRI lumbar spine (7) Permanent atrial fibrillation: resume Apixiban, no plans for procedures held Digoxin, metoprolol, cardizem due to pauses on monitor resume metoprolol with hold parameters, HR in the 100's which is appropriate response to bacteremia (8) Leukocytosis: Chronically elevated but acutely increased. possible UTI, does have evidence of bacteremia WBC up slightly at 14k (9) Normocytic anemia: Acute onset. Unclear cause. No suggestion of GI bleed from history of exam. CT A/P to r/o retroperitoneal bleed causing his pain - subsequently negative. 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 Do not suspect related to acute complaint. No uncontrolled hypertension or electrolyte abnormality to suggest hormonal hypersecretion. Follow up outpatient. (13) Aneurysm of infrarenal abdominal aorta: Noted on CT, previously known and monitored as outpatient (14) Emphysema of lung: Continue maintenance outpatient inhalers (15) DVT prophylaxis: Continue outpatient apixaban Admission and Anticipated Discharge Date Admission Date: March 21, 2020 Subjective patient still very weak but a little more responsive today therapy was able to get him up OBB in a wheelchair for a few hours this morning he said it worsened his right lower back pain, now it is a 2 out of 10 when in bed reviewed cultures, urine and blood with enterococcus, metzger sensitive initially down graded antibiotics to Ampicillin for that coverage later in the day he was a little more short of breath, saturations around 90% on 5L portable CXR shows possible developing right lower lobe infiltrate, talked with pharmacy, will change him back to Zosyn reviewed labs, WBC up to 14k, Hb 9.9, Cr is 1.79, BUN down a little at 57, electrolytes stable called his Tanisha, updated her over the phone Review of Systems Review of Systems: All systems reviewed & are unremarkable except as noted in HPI & below Constitutional: + fatigue and + weakness; no fever Respiratory: + dyspnea on exertion; no cough, no dyspnea and no wheezing Cardiovascular: no chest pain and no edema Gastrointestinal: + early satiety; no abdominal pain, no nausea, no vomiting, no constipation and no diarrhea/loose stools Genitourinary: + flank pain (right) Musculoskeletal: + back pain (low back) Physical Exam Constitutional: WD/WN, vitals as above + ill appearing and + frail appearing; no acute distress Eyes: PERRL, conjunctivae normal, anicteric sclerae ENMT: external ear and nose normal, oropharynx normal Neck: trachea midline, no thyromegaly Respiratory: normal respiratory effort, lungs clear to auscultation Auscultation: + diminished lung sounds (overall, consistent with his emphysema) Cardiovascular: Rate/Rhythm: + tachycardic and + irregularly irregular Heart Sounds: normal S1 and normal S2; no murmur Vessels: no JVD Extremities: normal capillary refill; no edema Gastrointestinal (Abdomen): normal bowel sounds, soft, nontender, no hepatosplenomegaly Musculoskeletal: no cyanosis or clubbing, extremities motor strength 5/5 Head/Neck/Chest: normocephalic, head atraumatic and neck supple Extremities: + 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, 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, otherwise 5/5 strength) Skin: no rashes, warm and dry Neurologic: patellar DTR's 2+ bilat, sensation intact and PERRL, EOMI, accommodation nl, no face palsy, no dysarthria Psychiatric: A+Ox3, euthymic affect Lymphatic: no cervical or axillary lymphadenopathy Results & Data Results & Data ([facility]) Vital Signs (Past 12 Hours) Vital Signs Temp Pulse Resp BP BP Pulse Ox 03/24/20 11:00 36.5 C 122 H 20 104/63 93 03/24/20 07:04 36.6 C 105 H 20 121/67 90 03/24/20 04:00 36.4 C L 112 H 18 120/64 91 Laboratory Results Laboratory Results - last 24 hr 03/24/20 03/24/20 06:13 06:13 WBC 14.13 H RBC 3.39 L Hgb 9.9 L Hct 30.8 L MCV 90.9 MCH 29.2 MCHC 32.1 RDW Std Deviation 52.3 H RDW Coeff of Ashley 15.7 H Plt Count 282 MPV 10.0 Immature Gran % (Auto) 1.4 Neut % (Auto) 82.8 Lymph % (Auto) 8.7 [place] % (Auto) 6.6 Eos % (Auto) 0.3 Baso % (Auto) 0.2 Immature Gran # (Auto) 0.20 H Neut # (Auto) 11.70 H Lymph # (Auto) 1.23 [place] # (Auto) 0.93 H Eos # (Auto) 0.04 Baso # (Auto) 0.03 Sodium 134 L Potassium 4.6 Chloride 104 Carbon Dioxide 21 Anion Gap 8.0 BUN 57 H Creatinine 1.79 H Est Cr Clr Drug Dosing 31.7 Est GFR ( Amer) 39.5 Est GFR (Non-Af Amer) 34.0 BUN/Creatinine Ratio 31.7 H Glucose 120 H Calcium 9.0 Total Bilirubin 0.8 AST 23 ALT 45 Alkaline Phosphatase 139 H Total Protein 7.6 Albumin 2.3 L Globulin 5.3 H Albumin/Globulin Ratio 0.4 L Microbiology 03/21/20 17:18 Blood Aerobic Blood Culture - Final Enterococcus faecalis 03/21/20 17:18 Blood Anaerobic Blood Culture - Final Enterococcus faecalis 03/21/20 17:10 Blood Aerobic Blood Culture - Final Enterococcus faecalis 03/21/20 17:10 Blood Anaerobic Blood Culture - Final Enterococcus faecalis 03/21/20 23:45 Urine,Clean Catch Urine Culture - Final Enterococcus faecalis Enterococcus faecalis#2 Diagnostic Findings XR chest 1V portable CLINICAL HISTORY: Hypoxia dyspnea COMPARISON STUDY: 03/21/2020 FINDINGS: Diffuse bilateral parenchymal interstitial change. Bulk of this appears chronic. Developing superimposed infiltrate right base. Stable cardiomegaly. Stable prominence of pulmonary vasculature. IMPRESSION: Infiltrate right base superimposed upon chronic interstitial change. Medications Administered Current Inpatient Medications Acetaminophen (Tylenol) 650 mg PO Q4HWA [facility] Stop: 04/20/20 16:14 Last Admin: 03/24/20 12:41 Dose: 650 mg Documented by: Apixaban (Eliquis) 5 mg PO BID [facility] Stop: 04/21/20 08:59 Last Admin: 03/24/20 07:47 Dose: 5 mg Documented by: Aspirin (Ecotrin Ectab) 81 mg PO QAM [facility] Stop: 04/23/20 10:14 Last Admin: 03/24/20 10:53 Dose: 81 mg Documented by: Diclofenac Sodium (Voltaren 1% Top) 4 gm EXT TID PRN PRN Reason: back pain Stop: 04/20/20 16:14 Last Admin: 03/21/20 17:27 Dose: 4 gm Documented by: Digoxin (Lanoxin) 0.125 mg PO DAILY@1600 [facility] Stop: 04/21/20 15:59 Last Admin: 03/22/20 16:07 Dose: 0.125 mg Documented by: Diltiazem HCl (Cardizem Cd) 360 mg PO QPM [facility] Stop: 04/20/20 20:59 Last Admin: 03/21/20 20:07 Dose: 360 mg Documented by: Dextrose/Sodium Chloride (D5w And 1/2nss) 1,000 mls @ 80 mls/hr IV .[id number] [facility] Stop: 04/23/20 10:14 Last Infusion: 03/24/20 14:52 Dose: 80 mls/hr Documented by: Piperacillin Sod/Tazobactam (Sod 3.375 gm/ Dextrose) 115 mls @ 28.75 mls/hr IV Q8H [facility] Stop: 03/31/20 15:14 Ioversol (Optiray 320 125ml) 120 ml IV ONCE PRN PRN Reason: Interaction Checking Stop: 03/27/20 13:31 Last Admin: 03/23/20 13:32 Dose: 120 ml Documented by: Lidocaine (Lidoderm 5%) 1 patch TD QAM [facility] Stop: 04/21/20 08:59 Last Admin: 03/24/20 07:47 Dose: 1 patch Documented by: Metoprolol Tartrate (Lopressor) 25 mg PO BID [facility] Stop: 04/20/20 20:59 Last Admin: 03/21/20 20:06 Dose: 25 mg Documented by: Miscellaneous (Remove Lidoderm Patch) 1 ea N/A DAILY@2100 [facility] Stop: 04/21/20 20:59 Last Admin: 03/23/20 20:26 Dose: 1 ea Documented by: Miscellaneous Information (Consult) 1 ea N/A UD PRN PRN Reason: Consult Stop: 04/23/20 15:12 Multivitamins (Multivitamin Tab) 1 tab PO DAILY [facility] Stop: 04/21/20 08:59 Last Admin: 03/24/20 07:46 Dose: 1 tab Documented by: Tramadol HCl (Ultram) 50 mg PO Q4H PRN PRN Reason: Pain Stop: 04/20/20 16:14 Last Admin: 03/23/20 16:56 Dose: 50 mg Documented by: Umeclidinium/Vilanterol (Anoro Ellipta 62.5/25 Mcg Inh) 1 puffs INH DAILY [facility] Stop: 04/21/20 08:59 Last Admin: 03/24/20 07:47 Dose: 1 puffs Documented by: PG Care Time/CCT Total # of Minutes Spent Total Time Spent with Patient: Total time spent is greater than 50% in coordination of care (as documented) at patient's floor/unit and/or counseling patient: Coding Level of Care Code 98319 Subseq Hosp Care Lvl 3 Diagnoses Enterococcal bacteremia R78.81; B95.2 Chronic respiratory failure with hypoxia J96.11 JUAN (acute kidney injury) N17.9 Right lower lobe pneumonia J18.9 Left hand weakness R29.898 Back pain of thoracolumbar region M54.5; M54.6 Permanent atrial fibrillation I48.21 Leukocytosis D72.829 Normocytic anemia D64.9 Elevated serum creatinine R79.89 Constipation K59.00 Adrenal incidentaloma E27.8 Aneurysm of infrarenal abdominal aorta I71.4 Emphysema of lung J43.9 DVT prophylaxis Z29.9
[2020-03-24] MEDS: METOPROLOL TARTRATE 25 MG TAB PO SCH (20:05)
[2020-03-24] MEDS: PIPERACILLIN/TAZOBACTAM 3.375 GM in DEXTROSE 5% 100 ML IV SCH (21:22)
[2020-03-25] MEDS: D5W AND 1/2NSS 1,000 ML IV SCH ×2 (00:21→13:57)
[2020-03-25] MEDS: LEVALBUTEROL 1.25MG/0.5ML NEB NEB SCH ×4 (01:08→19:36)
[2020-03-25] MEDS: PIPERACILLIN/TAZOBACTAM 3.375 GM in DEXTROSE 5% 100 ML IV SCH ×3 (05:18→22:20)
[2020-03-25 07:35] LABS: Basophils # (auto) 0.05 K/uL (0-0.2); Basophils % (auto) 0.3 %; Eosinophils # (auto) 0.06 K/uL (0-0.5); Eosinophils % (auto) 0.3 %; Hematocrit (blood only) 30.1 % (42-52); Hemoglobin 9.9 g/dL (14.0-18.0); Immature Granulocytes % (auto) 2.7 %; Lymphocytes # (auto) 1.04 K/uL (1.2-3.4); Lymphocytes % (auto) 5.6 %; Mean Corpuscular Hemoglobin 29.9 pg (25-34); Mean Corpuscular Hgb Conc 32.9 g/dL (32-36); Mean Corpuscular Volume 90.9 fL (80-100); Mean Platelet Volume 10.5 fL (7.4-10.4); Monocytes # (auto) 0.99 K/uL (0.11-0.59); Monocytes % (auto) 5.4 %; Neutrophils # (auto) 15.84 K/uL (1.4-6.5); Neutrophils % (auto) 85.7 %; Platelet Count 342 K/uL (130-400); RDW Coefficient of Variation 15.7 % (11.5-14.5); RDW Standard Deviation 51.8 fL (36.4-46.3); Red Blood Count 3.31 M/uL (4.7-6.1); White Blood Count 18.48 K/uL (4.8-10.8)
[2020-03-25 08:09] LABS: BUN Creatinine Ratio 31.8 (10-20); Calcium 8.7 mg/dl (8.5-10.1); Creatinine Clr Calc Pharmacy 29.3 ml/min; Est GFR (African American) 35.8; Est GFR (Non-African American) 30.9; Potassium 4.6 mmol/L (3.5-5.1)
[2020-03-25] MEDS: APIXABAN 5 MG TABLET PO SCH ×2 (08:25→20:09)
[2020-03-25] MEDS: ACETAMINOPHEN 325 MG TAB PO SCH ×4 (08:25→20:08)
[2020-03-25] MEDS: ASPIRIN 81 MG ECTAB PO SCH (08:26)
[2020-03-25] MEDS: METOPROLOL TARTRATE 25 MG TAB PO SCH ×2 (08:26→20:07)
[2020-03-25] MEDS: MULTIVITAMIN TAB PO SCH (08:26)
[2020-03-25] MEDS: LIDOCAINE 5% 1 PATCH TD SCH (08:29)
[2020-03-25] MEDS: UMECLIDINIUM/VILANTEROL 62.5/25MCG 7 PUFFS/INHALER INH SCH (08:30)
--- NOTE | 2020-03-25 09:32 | CT Scan Report ---
CT chest wo con CLINICAL HISTORY: Worsening leukocytosis, pneumonia COMPARISON STUDY: Chest CT dated 05/05/2018, chest x-ray dated 03/24/2020 CT DOSE: 1248.65 mGy.cm TECHNIQUE: CT of the thorax was performed from the thoracic inlet to the lung bases. Images are revi ewed in the axial, sagittal, and coronal planes. IV contrast was not administered for this examinatio n. A dose lowering technique was utilized adhering to the principles of ALARA. FINDINGS: Thyroid: Imaged portions of the thyroid gland are normal in appearance. Thoracic aorta: The thoracic aorta is normal in course and caliber, noting standard 3 vessel arch abida jamal. Heart: There are coronary artery calcifications present. There is trace pericardial fluid. The pulmon amada artery is dilated, finding suggesting pulmonary nodule hypertension. Lungs and pleural spaces: There is a trace left pleural effusion, and small to moderate right pleural effusion. There is severe pulmonary emphysema. There is subtle increased groundglass attenuation the lungs, most pronounced within the right middle lobe and right lower lobe. There are compressive atel ectatic changes within the right lower lobe. Diagnostic considerations include mild asymmetric pulmon amada edema versus an infectious/inflammatory process. Mediastinum: There is persistent mild mediastinal lymphadenopathy. Xiomy: Hilar lymph nodes are minimally enlarged. Axilla: There is no evidence of pathologic axillary lymphadenopathy Upper abdomen: There are bilateral adrenal nodules. Skeletal structures: There are no lytic or blastic osseous lesions. IMPRESSION: 1. Trace left pleural effusion and small to moderate right pleural effusion 2. Severe pulmonary emphysema 3. Asymmetric groundglass pulmonary opacities. Likely diagnostic considerations include asymmetric pu lmonary edema versus infectious/inflammatory process. 4. Dependent right basilar opacities, statistically representing compressive atelectasis 5. Mild persistent mediastinal and hilar lymphadenopathy 6. Bilateral adrenal gland nodules ACT 112: Negative or not required by law. Electronically signed by: Dalton Martinez M.D. 03/25/2020 9:31 AM
--- NOTE | 2020-03-25 09:50 | CT Scan Report ---
CT SCAN OF THE ABDOMEN AND PELVIS WITHOUT CONTRAST CLINICAL HISTORY: worsening leukocytosis, UTI, pyelo? COMPARISON STUDY: 07/22/2020 TECHNIQUE: CT scan of the abdomen and pelvis was performed from the lung bases to the proximal femurs . Images are reviewed in the axial, sagittal, and coronal planes. IV contrast was not administered fo r this examination. A dose lowering technique was utilized adhering to the principles of ALARA. CT DOSE: FINDINGS: Lower chest: There is severe pulmonary emphysema. There is a trace left pleural effusion. There is a [id number] right pleural effusion with right basilar opacity statistically representing compre ssive atelectasis. There is a small pericardial effusion. Liver: The liver is mildly enlarged. No focal masses are visualized. Gallbladder: Cholelithiasis. Mild gallbladder distention. Minimal nonspecific pericholecystic edema. Spleen: Normal in size and attenuation. Pancreas: Unremarkable. Adrenal glands: There is a stable 32 mm left adrenal nodule. There is a stable 13 mm right adrenal gl and nodule Kidneys: There is nephrographic enhancement presumed with secondary to a prior contrast-enhanced CT s can. As the last contrast-enhanced CT scan was performed 2 days prior, the findings may indicate an e lement of renal insufficiency/acute tubular necrosis. There are bilateral renal hypodensities, consis tent with cysts. 7 mm hyperdense right renal nodule nonspecific likely represents a hyperdense cyst. There is no hydronephrosis. Bowel: There are no transition zones indicate bowel obstruction. There is colonic diverticulosis. The re are no acute peridiverticular inflammatory changes. Despite the history of a prior appendectomy, a normal-appearing appendix is visualized. Peritoneum: There is no intraperitoneal free air or abdominal ascites. There is mild nonspecific stra nding within the right lower quadrant fat located anterior to the right iliac vessels and posterior i nferior to the cecum. Vasculature: There is a 31 mm infrarenal abdominal aortic aneurysm. Adenopathy: None. Pelvic viscera: There is marked bladder wall thickening. There is an anterior bladder diverticulum. P rostate is mildly enlarged. There is mild presacral edema. Skeletal structures: There are bilateral total hip arthroplasties. No destructive lesions are visuali zed. IMPRESSION: 1. No evidence of bowel obstruction. No evidence of free air 2. Normal appendix. No evidence of acute diverticulitis 3. Marked bladder wall thickening 4. Stable bilateral adrenal nodules 5. 31 mm infrarenal abdominal aortic aneurysm 6. Trace left pleural effusion, [id number] right pleural effusion with associated right basila r opacity statistically atelectatic 7. Cholelithiasis. Minimal nonspecific pericholecystic edema. ACT 112: Negative or not required by law. Electronically signed by: Dalton Martinez M.D. 03/25/2020 9:49 AM
[2020-03-25] MEDS ORDERED: VANCOMYCIN TROUGH ONE (11:30)
--- NOTE | 2020-03-25 14:00 | Hospitalist Progress Note ---
Date of Service March 25, 2020 Assessment & Plan (1) Enterococcal bacteremia: present on arrival 2 out of 2 sets, final results back on 03/24 with Enterococcus, fortunately metzger sensitive repeat blood cultures done 03/24 - no growth thus far urine appears to be the source, also growing Enterococcus no signs of endocarditis on exam (no murmurs, no splinter hemorrhages or petechiae) ECHO: no vegetations on valves, EF 55-60% treated initially with Vanco and Rocephin will use Zosyn IV now for dual coverage of both bacteremia/UTI and developing RLL pneumonia WBC is 18k, no fever during hospitalization CT chest, abdomen/pelvis done on 03/25 to look for any organized fluid collection, abscess to explain why he is not feeling better no abscess seen, shows cystitis but no other major inflammation/infection in abdomen chest with effusions, atelectasis, no consolidation, 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, emphysema which fits with h/o chronic hypoxia (2) Chronic respiratory failure with hypoxia: acute on chronic hypoxia starting 03/23, when he was admitted he was stable on his baseline 3L NC CXR on 03/24 with possible RLL infiltrate will use Zosyn for coverage CT chest on 03/25 more informative, trace effusion on left, small to moderate on right asymmetrical groundglass opacities consistent with either inflammation or edema compressive atelectasis RAPID COVID TEST NEGATIVE ON 03/25 reviewing I/O he is 4.5 liters positive, with his JUAN he is not making as much urine as normal will give Lasix 40mg IV x 1 dose and look for response and improvement in oxygenation saturation goal is 88% with his emphysema no respiratory distress on 5L today at baseline he wears 3L (3) JUAN (acute kidney injury): initially thought it was prerenal with his UTI and dehydration however, now more inclined to think it is ATN Cr 1.99 on admission, down to 1.7, then up to 1.8 and then 1.9 today making adequate urine, about 500cc a day, but he is 4.5 liters positive electrolytes stable will give Lasix 40mg IV and watch for response, will place goddard catheter (4) Right lower lobe pneumonia: new finding on CXR on 03/24 compared to CXR on admission received two days of Vanco and Rocephin will use Zosyn IV no clear infiltrate on CT chest continue Zosyn for now (5) Left hand weakness: developed morning of 03/23, no other focal motor deficits he is right handed on exam the left hand is a little weaker than right, when arm is extended he cannot extend hand, has wrist drop CT head normal CTA head and neck normal on Apixiban for anticoagulation, will add aspirin for antiplatelet therapy patient refused MRI brain unless he can have sedation, told him he cannot have sedation with his respiratory status differential would be small stroke vs nerve palsy vs cervical spine nerve root compression PT/OT consulted to work with him he says symptoms are a little better today (6) Back pain of thoracolumbar region: Suspect acute worsening due to lockdown and patient's lack of movement. CT lumbar spine negative for acute fracture could be due to dehydration, UTI, there was no evidence of pyelonephritis refusing MRI lumbar spine PT/OT consulted (7) Permanent atrial fibrillation: continue Apixiban, no plans for procedures held Digoxin, metoprolol, cardizem due to pauses on monitor, the longest was 3.5 seconds, no pauses since that time resume metoprolol with hold parameters, HR in the 100's which is appropriate response to bacteremia (8) Leukocytosis: has chronic leukocytosis dating back to 2018, follows with Dr. Cortez felt to be a precursor for myeloproliferative disorder, BM biopsy was not recommended at that time due to other co-morbidities WBC 16k on admission, down to 13k, then slowly trending up, is 18k today cannot really follow WBC as a marker for response to antibiotics (9) Normocytic anemia: Acute onset. Unclear cause. No suggestion of GI bleed from history of exam. CT A/P to r/o retroperitoneal bleed causing his pain - subsequently negative. 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 Do not suspect related to acute complaint. No uncontrolled hypertension or electrolyte abnormality to suggest hormonal hypersecretion. Follow up outpatient. (13) Aneurysm of infrarenal abdominal aorta: Noted on CT, previously known and monitored as outpatient (14) Emphysema of lung: Continue maintenance outpatient inhalers (15) DVT prophylaxis: Continue outpatient apixaban Admission and Anticipated Discharge Date Admission Date: March 21, 2020 Subjective patient still looks quite fatigued and ill, but he says he feels less pain, slept really well last night still has no appetite, c/o shortness of breath, just can't seem to catch his breath and he doesn't understand it no chest pain or pressure, no fever/chills, no sweats, no nausea, has not moved his bowels since admission reviewed labs, WBC going up to 18k, Hb stable, Cr up to 1.9, electrolytes stable, HCO3 down a little since his WBC is up at 18k and he does not feel well despite three days of appropriate antibiotics, elected to get CT chest, abdomen/pelvis to look for abscess, other source of infection CT chest shows chronic emphysema, small pleural effusion, atelectasis, no consolidation, some ground glass opacities consistent with infection/inflammation or pulmonary edema since he is getting worse clinically, checked COVID 19 - NEGATIVE CT abdomen/pelvis showed similar results to time of admission, evidence of cystitis, no evidence of bowel obstruction, no ureteral stones extensively updated patient's and daughter over the phone his daughter Sofia is likely a better contact, she says that patient's is a little forgetful his daughter relayed that the leukocytosis is chronic, he saw Dr. Cortez two years ago, plan was to just watch it, likely a precursor to myeloproliferative disorder but no current evidence to suggest disease knowing this makes me less inclined to trust the WBC as a marker for infection responding repeat blood cultures drawn yesterday show no growth thus far Review of Systems Review of Systems: All systems reviewed & are unremarkable except as noted in HPI & below Constitutional: + fatigue and + weakness; no fever, no chills and no sweats Respiratory: + dyspnea and + dyspnea on exertion; no cough and no wheezing Cardiovascular: no chest pain and no edema Gastrointestinal: + early satiety; no abdominal pain, no nausea, no vomiting, no constipation and no diarrhea/loose stools Physical Exam Constitutional: WD/WN, vitals as above + ill appearing and + frail appearing; no acute distress Eyes: PERRL, conjunctivae normal, anicteric sclerae ENMT: external ear and nose normal, oropharynx normal Neck: trachea midline, no thyromegaly Respiratory: normal respiratory effort, lungs clear to auscultation Auscultation: + diminished lung sounds (overall, consistent with his emphysema) Cardiovascular: Rate/Rhythm: + tachycardic and + irregularly irregular Heart Sounds: normal S1 and normal S2; no murmur Vessels: no JVD Extremities: normal capillary refill; no edema Gastrointestinal (Abdomen): normal bowel sounds, soft, nontender, no h epatosplenomegaly Musculoskeletal: no cyanosis or clubbing, extremities motor strength 5/5 Head/Neck/Chest: normocephalic, head atraumatic and neck supple Extremities: + abnormal strength (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, 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, otherwise 5/5 strength) Skin: no rashes, warm and dry Neurologic: patellar DTR's 2+ bilat, sensation intact and PERRL, EOMI, accommodation nl, no face palsy, no dysarthria Psychiatric: A+Ox3, euthymic affect Lymphatic: no cervical or axillary lymphadenopathy Results & Data Results & Data ([facility]) Vital Signs (Past 12 Hours) Vital Signs Temp Pulse Pulse Pulse Pulse Resp BP 03/25/20 13:18 118 H 22 03/25/20 11:54 36.4 C L 110 H 21 102/61 03/25/20 08:40 101 H 03/25/20 08:05 36.4 C L 117 H 21 117/72 03/25/20 07:58 36.4 C L 118 H 20 114/70 03/25/20 07:29 118 H 23 03/25/20 04:56 03/25/20 03:59 106 H 03/25/20 03:17 36.6 C 117 H 22 BP Pulse Ox 03/25/20 13:18 90 03/25/20 11:54 87 L 03/25/20 08:40 03/25/20 08:05 90 03/25/20 07:58 90 03/25/20 07:29 91 03/25/20 04:56 90 03/25/20 03:59 03/25/20 03:17 112/69 93 Laboratory Results Laboratory Results - last 24 hr 03/25/20 03/25/20 03/25/20 06:34 06:34 12:30 WBC 18.48 H RBC 3.31 L Hgb 9.9 L Hct 30.1 L MCV 90.9 MCH 29.9 MCHC 32.9 RDW Std Deviation 51.8 H RDW Coeff of Ashley 15.7 H Plt Count 342 MPV 10.5 H Immature Gran % (Auto) 2.7 Neut % (Auto) 85.7 Lymph % (Auto) 5.6 [place] % (Auto) 5.4 Eos % (Auto) 0.3 Baso % (Auto) 0.3 Immature Gran # (Auto) 0.50 H Neut # (Auto) 15.84 H Lymph # (Auto) 1.04 L [place] # (Auto) 0.99 H Eos # (Auto) 0.06 Baso # (Auto) 0.05 Sodium 132 L Potassium 4.6 Chloride 103 Carbon Dioxide 18 L Anion Gap 11.0 BUN 62 H Creatinine 1.94 H Est Cr Clr Drug Dosing 29.3 Est GFR ( Amer) 35.8 Est GFR (Non-Af Amer) 30.9 BUN/Creatinine Ratio 31.8 H Glucose 179 H Calcium 8.7 COVID-19 PCR NEGATIVE Diagnostic Findings CT chest IMPRESSION: 1. Trace left pleural effusion and small to moderate right pleural effusion 2. Severe pulmonary emphysema 3. Asymmetric groundglass pulmonary opacities. Likely diagnostic considerations include asymmetric pulmonary edema versus infectious/inflammatory process. 4. Dependent right basilar opacities, statistically representing compressive atelectasis 5. Mild persistent mediastinal and hilar lymphadenopathy 6. Bilateral adrenal gland nodules CT abdomen/pelvis IMPRESSION: 1. No evidence of bowel obstruction. No evidence of free air 2. Normal appendix. No evidence of acute diverticulitis 3. Marked bladder wall thickening 4. Stable bilateral adrenal nodules 5. 31 mm infrarenal abdominal aortic aneurysm 6. Trace left pleural effusion, [id number] right pleural effusion with associated right basilar opacity statistically atelectatic 7. Cholelithiasis. Minimal nonspecific pericholecystic edema. Medications Administered Current Inpatient Medications Acetaminophen (Tylenol) 650 mg PO Q4HWA [facility] Stop: 04/20/20 16:14 Last Admin: 03/25/20 12:33 Dose: 650 mg Documented by: Apixaban (Eliquis) 5 mg PO BID [facility] Stop: 04/21/20 08:59 Last Admin: 03/25/20 08:25 Dose: 5 mg Documented by: Aspirin (Ecotrin Ectab) 81 mg PO QAM [facility] Stop: 04/23/20 10:14 Last Admin: 03/25/20 08:26 Dose: 81 mg Documented by: Diclofenac Sodium (Voltaren 1% Top) 4 gm EXT TID PRN PRN Reason: back pain Stop: 04/20/20 16:14 Last Admin: 03/21/20 17:27 Dose: 4 gm Documented by: Digoxin (Lanoxin) 0.125 mg PO DAILY@1600 [facility] Stop: 04/21/20 15:59 Last Admin: 03/22/20 16:07 Dose: 0.125 mg Documented by: Diltiazem HCl (Cardizem Cd) 360 mg PO QPM [facility] Stop: 04/20/20 20:59 Last Admin: 03/21/20 20:07 Dose: 360 mg Documented by: Dextrose/Sodium Chloride (D5w And 1/2nss) 1,000 mls @ 80 mls/hr IV .[id number] [facility] Stop: 04/23/20 10:14 Last Admin: 03/25/20 13:57 Dose: 80 mls/hr Documented by: Piperacillin Sod/Tazobactam (Sod 3.375 gm/ Dextrose) 115 mls @ 28.75 mls/hr IV Q8H [facility]; Protocol Stop: 03/31/20 21:59 Last Admin: 03/25/20 13:57 Dose: 28.8 mls/hr Documented by: Ioversol (Optiray 320 125ml) 120 ml IV ONCE PRN PRN Reason: Interaction Checking Stop: 03/27/20 13:31 Last Admin: 03/23/20 13:32 Dose: 120 ml Documented by: Levalbuterol HCl (Xopenex 1.25mg/0.5ml Neb) 1.25 mg NEB Q6R [facility] Stop: 04/24/20 00:59 Last Admin: 03/25/20 13:18 Dose: 1.25 mg Documented by: Lidocaine (Lidoderm 5%) 1 patch TD QAM [facility] Stop: 04/21/20 08:59 Last Admin: 03/25/20 08:29 Dose: 1 patch Documented by: Metoprolol Tartrate (Lopressor) 25 mg PO BID [facility] Stop: 04/20/20 20:59 Last Admin: 03/25/20 08:26 Dose: 25 mg Documented by: Miscellaneous (Remove Lidoderm Patch) 1 ea N/A DAILY@2100 [facility] Stop: 04/21/20 20:59 Last Admin: 03/24/20 20:05 Dose: 1 ea Documented by: Miscellaneous Information (Consult) 1 ea N/A UD PRN PRN Reason: Consult Stop: 04/23/20 15:12 Multivitamins (Multivitamin Tab) 1 tab PO DAILY [facility] Stop: 04/21/20 08:59 Last Admin: 03/25/20 08:26 Dose: 1 tab Documented by: Tramadol HCl (Ultram) 50 mg PO Q4H PRN PRN Reason: Pain Stop: 04/20/20 16:14 Last Admin: 03/23/20 16:56 Dose: 50 mg Documented by: Umeclidinium/Vilanterol (Anoro Ellipta 62.5/25 Mcg Inh) 1 puffs INH DAILY [facility] Stop: 04/21/20 08:59 Last Admin: 03/25/20 08:30 Dose: 1 puffs Documented by: PG Care Time/CCT Total # of Minutes Spent Total Time Spent: 70 Total Time Spent with Patient: Total time spent is greater than 50% in coordination of care (as documented) at patient's floor/unit and/or counseling patient: visited patient three times today extensive discussions with patient, his , his daughter gathered more history from the patient reviewed CT of the chest, abdomen, pelvis Prolonged Care Time Prolonged Care Time: Yes Total Prolonged Care Time: 40 Coding Level of Care Code 79017 Subseq Hosp Care Lvl 3 Diagnoses Enterococcal bacteremia R78.81; B95.2 Chronic respiratory failure with hypoxia J96.11 JUAN (acute kidney injury) N17.9 Right lower lobe pneumonia J18.9 Left hand weakness R29.898 Back pain of thoracolumbar region M54.5; M54.6 Permanent atrial fibrillation I48.21 Leukocytosis D72.829 Normocytic anemia D64.9 Elevated serum creatinine R79.89 Constipation K59.00 Adrenal incidentaloma E27.8 Aneurysm of infrarenal abdominal aorta I71.4 Emphysema of lung J43.9 DVT prophylaxis Z29.9 Additional Codes Prolonged Care Time - Prolonged Care Time: Yes ([id number])
[2020-03-25] MEDS ORDERED: FUROSEMIDE 40 MG in SYRINGE 0 ML IV ONE (14:30)
[2020-03-25] MEDS ORDERED: ALBUT/IPRATROP 3MG/0.5MG NEB 3 ML VIAL NEB STA (22:23)
[2020-03-26] MEDS: LEVALBUTEROL 1.25MG/0.5ML NEB NEB SCH ×4 (00:57→19:36)
[2020-03-26] MEDS ORDERED: bisacodyL 5 MG TABEC PO ONE (04:52)
[2020-03-26] MEDS: PIPERACILLIN/TAZOBACTAM 3.375 GM in DEXTROSE 5% 100 ML IV SCH ×3 (05:44→22:28)
--- NOTE | 2020-03-26 07:06 | XRay Report ---
XR chest 1V portable CLINICAL HISTORY: increasing dyspnea, ?increasing effusion COMPARISON STUDY: 03/24/2020 FINDINGS: The heart is enlarged. There is diffuse interstitial thickening. More focal airspace opacit ies are present within the right mid and lower lung zones, suspicious for a pneumonia. A small right subpulmonic pleural effusion is suspected.[ IMPRESSION: 1. Persistent cardiomegaly 2. Stable subpulmonic right pleural effusion 3. Persistent right mid and lower lung zone airspace opacities superimposed on interstitial thickenin g. Pneumonia superimposed on mild congestive failure is favored over asymmetric pulmonary edema. Clin ical and radiographic follow-up is recommended. ACT 112: Negative or not required by law. Electronically signed by: Dalton Martinez M.D. 03/26/2020 7:05 AM
--- NOTE | 2020-03-26 07:50 | Electrocardiogram Report ---
Test Reason : Blood Pressure : / mmHG Vent. Rate : 111 BPM Atrial Rate : 046 BPM P-R Int : 000 ms QRS Dur : 118 ms QT Int : 288 ms P-R-T Axes : 000 -58 175 degrees QTc Int : 391 ms Atrial fibrillation with rapid ventricular response with premature ventricular or aberrantly conducte d complexes Left anterior fascicular block Nonspecific ST and T wave abnormality Abnormal ECG When compared with ECG of 29-DEC-2017 07:51, Atrial fibrillation has replaced Sinus rhythm Left anterior fascicular block is now Present T wave inversion now evident in Lateral leads Confirmed by Issa Leyva ([id number]) on 03/26/2020 7:50:03 AM Referred By: REFERRED SELF Confirmed By:Issa Leyva
[2020-03-26 07:56] LABS: Hematocrit (blood only) 29.9 % (42-52); Hemoglobin 9.8 g/dL (14.0-18.0); Mean Corpuscular Hgb Conc 32.8 g/dL (32-36); Mean Corpuscular Volume 91.4 fL (80-100); Mean Platelet Volume 9.7 fL (7.4-10.4); Nucleated RBC # (auto) 0.15 K/uL (0-0); Nucleated RBC % (auto) 0.6 %; Platelet Count 368 K/uL (130-400); RDW Coefficient of Variation 15.7 % (11.5-14.5); RDW Standard Deviation 50.8 fL (36.4-46.3); Red Blood Count 3.27 M/uL (4.7-6.1); White Blood Count 22.73 K/uL (4.8-10.8)
[2020-03-26] MEDS: METOPROLOL TARTRATE 25 MG TAB PO SCH ×2 (08:11→20:52)
[2020-03-26] MEDS: ACETAMINOPHEN 325 MG TAB PO SCH ×4 (08:11→20:51)
[2020-03-26] MEDS: APIXABAN 5 MG TABLET PO SCH ×2 (08:12→20:51)
[2020-03-26] MEDS: MULTIVITAMIN TAB PO SCH (08:12)
[2020-03-26] MEDS: ASPIRIN 81 MG ECTAB PO SCH (08:12)
[2020-03-26] MEDS: LIDOCAINE 5% 1 PATCH TD SCH (08:13)
[2020-03-26] MEDS: UMECLIDINIUM/VILANTEROL 62.5/25MCG 7 PUFFS/INHALER INH SCH (08:15)
[2020-03-26 08:26] LABS: BUN Creatinine Ratio 32.9 (10-20); Calcium 8.6 mg/dl (8.5-10.1); Creatinine Clr Calc Pharmacy 26.5 ml/min; Est GFR (African American) 31.8; Est GFR (Non-African American) 27.4; Potassium 4.6 mmol/L (3.5-5.1)
[2020-03-26 08:39] LABS: Basophils # (auto) 0.16 K/uL (0-0.2); Basophils % (auto) 0.7 %; Eosinophils # (auto) 0.02 K/uL (0-0.5); Eosinophils % (auto) 0.1 %; Immature Granulocytes # (auto) 1.23 K/uL (0.00-0.02); Immature Granulocytes % (auto) 5.4 %; Lymphocytes # (auto) 1.59 K/uL (1.2-3.4); Monocytes # (auto) 1.06 K/uL (0.11-0.59); Monocytes % (auto) 4.7 %; Neutrophils # (auto) 18.67 K/uL (1.4-6.5); Neutrophils % (auto) 82.1 %; Polychromasia 1+
[2020-03-26] MEDS ORDERED: VANCOMYCIN CONSULT ACTIVE PRN (10:04)
--- NOTE | 2020-03-26 10:19 | XRay Report ---
XR chest 1V portable CLINICAL HISTORY: Tachypnea, hypoxemia; worsening PNA dyspnea COMPARISON STUDY: 03/25/2020 FINDINGS: Slightly progressive right basilar parenchymal infiltrative change. Interstitial prominence right mid upper lung unaltered. Left lung is grossly clear. Mild stable cardiomegaly. IMPRESSION: Slightly progressive right basilar infiltrate. Otherwise unchanged exam compared to the prior study. ACT 112: Negative or not required by law. The above report was generated using voice recognition software. It may contain grammatical, syntax or spelling errors. Electronically signed by: Taurus Hurt M.D. 03/26/2020 10:17 AM
[2020-03-26] MEDS ORDERED: AZITHROMYCIN 500 MG in DEXTROSE 5% 250 ML IV ONE (10:30)
[2020-03-26] MEDS ORDERED: VANCOMYCIN HCL 2,000 MG in SODIUM CHLORIDE 0.9% 500 ML IV ONE (10:30)
[2020-03-26 11:04] LABS: Appearance Urine Cloudy (Clear); Bilirubin Urine Negative (Negative); Blood Urine 3+ (Negative); Color Urine Red; Glucose Urine UA Negative (Negative); Ketones Urine Negative (Negative); Leukocyte Esterase Urine 1+ (Negative); Nitrite Urine Negative (Negative); Protein Urine 2+ (Negative); Specific Gravity Urine >= 1.030 (1.000-1.030); Urobilinogen Urine Negative (Negative)
[2020-03-26 11:06] LABS: RBC Urine >30 /hpf (0-4)
[2020-03-26 11:08] LABS: Bacteria Urine 1+ (Negative)
[2020-03-26 11:16] LABS: Base Excess ABG -5.1 mEq/L (-9-1.8); HCO3 ABG 18 mmol/L (19-24); Oxygen Saturation ABG 91.7 % (90-95); PCO2 ABG 27 mmHg (35-46); PO2 ABG 65 mmHg (80-95); pH ABG 7.44 (7.35-7.45)
[2020-03-26 11:28] LABS: Allen Test Pos (Pos)
[2020-03-26] MEDS ORDERED: ZITHROMAX PHARMACY CONSULT IN PROGRESS PRN (11:43)
--- NOTE | 2020-03-26 12:13 | Pharmacy Report ---
Pharmacy Abx Initial Consult - Date of Service March 26, 2020 - Pharmacy Dosing Scope Date of Consult: 03/26/20 Consultation requested by: Dr. Hansen Pharmacy is consulted to initiate Vancomycin IV dosing therapy, order appropriate labs and adjust drug dose/frequency. - Subjective The patient is a 84 year old M admitted on 03/21/20 13:18. - Objective Height: 5 ft 10 in Weight: 83.3 kg Vital Signs (Past 12hrs): Vital Signs Temp Pulse Pulse Pulse Pulse Resp BP 03/26/20 11:28 36.9 C 104 H 16 119/78 03/26/20 08:00 113 H 03/26/20 07:43 36.4 C L 115 H 22 121/75 03/26/20 07:12 117 H 32 H 03/26/20 04:17 36.4 C L 117 H 26 H 109/67 03/26/20 01:00 119 H 23 03/26/20 00:55 119 H 25 H Pulse Ox 03/26/20 11:28 93 03/26/20 08:00 03/26/20 07:43 93 03/26/20 07:12 91 03/26/20 04:17 92 03/26/20 01:00 98 03/26/20 00:55 98 Lab Results (24hrs): Laboratory Tests (24 Hours) 03/26/20 03/26/20 03/26/20 10:44 07:50 07:50 WBC 22.73 H Neut # (Auto) 18.67 H Creatinine 2.14 H Est Cr Clr Drug Dosing 26.5 Procalcitonin 2.24 H Micro Results: 03/26/20 11:07 Aerobic Blood Culture - Pending Blood Anaerobic Blood Culture - Pending 03/26/20 10:40 Urine Culture - Pending Urine,Clean Catch 03/26/20 10:44 Aerobic Blood Culture - Pending Blood Anaerobic Blood Culture - Pending 03/21/20 17:18 Aerobic Blood Culture - Final Blood Enterococcus faecalis Anaerobic Blood Culture - Final Enterococcus faecalis 03/21/20 17:10 Aerobic Blood Culture - Final Blood Enterococcus faecalis Anaerobic Blood Culture - Final Enterococcus faecalis 03/21/20 23:45 Urine Culture - Final Urine,Clean Catch Enterococcus faecalis Enterococcus faecalis#2 - Risk Factors for Resistance * Current hospitalization > 5 days - Assessment & Plan Assessment 84 year old M admitted for back pain and discitis on 03/21/20. Patient was initially started on Vancomycin on 03/22 and received two doses of this on 03/22 and 03/23. Also was on Rocephin q24h on 03/22 and 03/23 then d/c. Blood and urine cultures from the all grew E. faecalis metzger-sensitive. Vancomycin was d/c'd and Ampicillin was initiated on 03/24. After one dose of Ampicillin, therapy was changed again to Zosyn on 03/24 and currently on-going. Per Dr. Hansen, patient has been getting worse, concern for Pneumonia. Patient has been here for 5 days now. wanted to re-start Vancomycin today and also start Zithromax to cover atypical organisms. Noted elevated WBC today. Renal function worse today compared to last 2 days. New blood and urine cultures. Plan Vancomycin IV * Estimated PK Parameters: Vd 0.7 L/kg, Lenin 0.025 hr-1, t1/2 27 hr * Loading dose: 2000 mg (24 mg/kg) IV x 1 dose this AM. * Maintenance dose: 1250 mg IV (15 mg/kg) every 30 hours * Goal trough level for Pneumonia: 15 to 20 mcg/mL * Trough Vanc level ordered for 03/28/20 before dose at 1800. This will be the 3rd day of therapy. * Scr = 2.14, eCrCl = 26.5 today. Will monitor. * Trough level ordered sooner rather than later to avoid drug accumulation in elderly patient with poor renal function. Pharmacy will continue to follow and will adjust dose/frequency as necessary. Thank you.
[2020-03-26] MEDS ORDERED: FUROSEMIDE 40 MG in SYRINGE 0 ML IV ONE ×2 (12:45→14:00)
[2020-03-26] MEDS: LORazepam 0.5 MG TAB PO PRN (12:51)
--- NOTE | 2020-03-26 13:28 | Hospitalist Progress Note ---
Date of Service March 26, 2020 Assessment & Plan (1) Chronic respiratory failure with hypoxia: Acute on chronic hypoxia starting 03/23, when he was admitted he was stable on his baseline 3L NC. - CXR on 03/24 with possible RLL infiltrate - Broadened to Zosyn at that time. - Given Lasix on 03/[address] chest indicated some volume overload. - On 03/26, clearly decompensating. CXR shows worsening RLL infiltrate. WBC increased to 23 today from 18. - Re-cultured. Broadened abx to vanc/Zosyn/azithromycin. Given Lasix 80mg IV as he did not have much UOP with 40 mg IV. Discussed with patient twice, , and daughter. He does not want intubation or ventilator. Made DNR/DNI. Did not tolerate BiPap overnight. Will trial high-flow as needed, but also everyone accepting that he might pass away from this pneumonia. (2) Enterococcal bacteremia: Present on arrival. 2 out of 2 sets, final results back on 03/24 with Enterococcus, fortunately metzger sensitive repeat blood cultures done 03/24 - no growth thus far urine appears to be the source, also growing Enterococcus no signs of endocarditis on exam (no murmurs, no splinter hemorrhages or petechiae) ECHO: no vegetations on valves, EF 55-60% treated initially with Vanco and Rocephin. - Now on vanc/Zosyn/azithromycin. CT chest, abdomen/pelvis done on 03/25 to look for any organized fluid collection, abscess to explain why he is not feeling better no abscess seen, shows cystitis but no other major inflammation/infection in abdomen chest with effusions, atelectasis, no consolidation, 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, emphysema which fits with h/o chronic hypoxia (3) JUAN (acute kidney injury): Initially thought it was prerenal with his UTI and dehydration. however, now more inclined to think it is ATN. Cr 1.99 on admission, down to 1.7, then up 2.1 today. He is 4.5 liters positive. - Give Lasix 80 mg IV today. (4) Right lower lobe pneumonia: New finding on CXR on 03/24 compared to CXR on admission. received two days of Vanco and Rocephin, then Zosyn. - Added abx as above (5) Left hand weakness: Developed morning of 03/23, no other focal motor deficits. He is right handed. on exam the left hand is a little weaker than right, when arm is extended he cannot extend hand, has wrist drop CT head normal CTA head and neck normal on Apixiban for anticoagulation, will add aspirin for antiplatelet therapy patient refused MRI brain unless he can have sedation, told him he cannot have sedation with his respiratory status differential would be small stroke vs nerve palsy vs cervical spine nerve root compression PT/OT consulted to work with him he says symptoms are a little better today (6) Back pain of thoracolumbar region: Suspect acute worsening due to lockdown and patient's lack of movement. CT lumbar spine negative for acute fracture could be due to dehydration, UTI, there was no evidence of pyelonephritis refusing MRI lumbar spine PT/OT consulted (7) Permanent atrial fibrillation: Continue Apixiban, no plans for procedures. held Digoxin, metoprolol, cardizem due to pauses on monitor, the longest was 3.5 seconds, no pauses since that time - Resumed metoprolol on 03/25 -> Today HR is 100-130. Will titrate beta-reilly as needed; consider restarting calcium channel reilly if needed. (8) Leukocytosis: has chronic leukocytosis dating back to 2018, follows with Dr. Cortez felt to be a precursor for myeloproliferative disorder, BM biopsy was not recommended at that time due to other co-morbidities WBC 16k on admission, down to 13k, then slowly trending up, is 22k today. - Cannot really follow WBC as a marker for response to antibiotics; however, he is also worsening clinically, so I do think that this is indicating worsening pneumonia. (9) Normocytic anemia: Acute onset. Unclear cause. No suggestion of GI bleed from history of exam. CT A/P to r/o retroperitoneal bleed causing his pain - subsequently negative. 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 Do not suspect related to acute complaint. No uncontrolled hypertension or electrolyte abnormality to suggest hormonal hypersecretion. Follow up outpatient. (13) Aneurysm of infrarenal abdominal aorta: Noted on CT, previously known and monitored as outpatient (14) Emphysema of lung: Continue maintenance outpatient inhalers (15) DVT prophylaxis: Continue outpatient apixaban I spent 50 minutes in the critical care of this patient, including time at bedside assessing the patient, time spent reviewing and ordering tests, time spent discussing with fellow providers. Given his atrial fibrillation with rapid heart rate & respiratory distress, these are life-threatening issues. Admission and Anticipated Discharge Date Admission Date: March 21, 2020 Subjective Very short of breath this morning. Feels scared. Reports no fevers/chills, chest pain, abdominal pain, nausea, or vomiting. Physical Exam Constitutional: + acute distress and + frail appearing Eyes: EOM intact bilaterally; no conjunctival abnormality ENMT: external ear and nose normal, oropharynx normal Neck: trachea midline, no thyromegaly normal visual inspection Respiratory: + respiratory distress and + labored breathing Auscultation: + diminished lung sounds and + rales Cardiovascular: Rate/Rhythm: + tachycardic and + irregularly irregular Heart Sounds: normal S1 and normal S2 Vessels: no JVD Extremities: no edema Gastrointestinal (Abdomen): Inspection/Auscultation: abdomen normal to inspection; abdomen not distended Musculoskeletal: no cyanosis or clubbing, extremities motor strength 5/5 Skin: no rashes, warm and dry Neurologic: moves all extremities and awake Psychiatric: Orientation: alert, oriented to person and cooperative Results & Data Results & Data ([facility]) Vital Signs (Past 12 Hours) Vital Signs Temp Pulse Pulse Pulse Resp BP Pulse Ox 03/26/20 12:08 36.3 C L 110 H 20 103/67 92 03/26/20 11:28 36.9 C 104 H 16 119/78 93 03/26/20 08:00 113 H 03/26/20 07:43 36.4 C L 115 H 22 121/75 93 03/26/20 07:12 117 H 32 H 91 03/26/20 04:17 36.4 C L 117 H 26 H 109/67 92 PG Care Time/CCT Total # of Minutes Spent Total Time Spent with Patient: Total time spent is greater than 50% in coordination of care (as documented) at patient's floor/unit and/or counseling patient: Critical Care Time: Yes Total Critical Care Time: 50 Coding Level of Care Code 85077 Subseq Hosp Care Lvl 3 Diagnoses Chronic respiratory failure with hypoxia J96.11 Enterococcal bacteremia R78.81; B95.2 JUAN (acute kidney injury) N17.9 Right lower lobe pneumonia J18.9 Left hand weakness R29.898 Back pain of thoracolumbar region M54.5; M54.6 Permanent atrial fibrillation I48.21 Leukocytosis D72.829 Normocytic anemia D64.9 Elevated serum creatinine R79.89 Constipation K59.00 Adrenal incidentaloma E27.8 Aneurysm of infrarenal abdominal aorta I71.4 Emphysema of lung J43.9 DVT prophylaxis Z29.9 Additional Codes Critical Care Time - Critical Care Time: Yes ([id number])
[2020-03-26] MEDS: MoRPHine SULFATE 2 MG/ML CARP IV PRN ×2 (16:06→22:28)
[2020-03-27] MEDS: LEVALBUTEROL 1.25MG/0.5ML NEB NEB SCH ×4 (01:33→19:27)
[2020-03-27] MEDS: MoRPHine SULFATE 2 MG/ML CARP IV PRN (03:25)
[2020-03-27] MEDS: PIPERACILLIN/TAZOBACTAM 3.375 GM in DEXTROSE 5% 100 ML IV SCH ×3 (06:07→21:06)
[2020-03-27 06:28] LABS: Hematocrit (blood only) 28.5 % (42-52); Hemoglobin 9.4 g/dL (14.0-18.0); Mean Corpuscular Hemoglobin 30.3 pg (25-34); Mean Corpuscular Volume 91.9 fL (80-100); Mean Platelet Volume 9.8 fL (7.4-10.4); Nucleated RBC # (auto) 0.32 K/uL (0-0); Nucleated RBC % (auto) 1.4 %; Platelet Count 376 K/uL (130-400); RDW Coefficient of Variation 16.1 % (11.5-14.5); RDW Standard Deviation 50.9 fL (36.4-46.3); White Blood Count 22.77 K/uL (4.8-10.8)
[2020-03-27 06:57] LABS: BUN Creatinine Ratio 36.9 (10-20); Calcium 8.1 mg/dl (8.5-10.1); Creatinine Clr Calc Pharmacy 24.5 ml/min; Est GFR (African American) 28.8; Est GFR (Non-African American) 24.9; Magnesium 2.8 mg/dl (1.8-2.4); Potassium 4.3 mmol/L (3.5-5.1)
[2020-03-27] MEDS: ASPIRIN 81 MG ECTAB PO SCH (08:14)
[2020-03-27] MEDS: APIXABAN 5 MG TABLET PO SCH (08:14)
[2020-03-27] MEDS: METOPROLOL TARTRATE 25 MG TAB PO SCH ×2 (08:17→20:38)
[2020-03-27] MEDS: ACETAMINOPHEN 325 MG TAB PO SCH ×4 (08:18→20:42)
[2020-03-27] MEDS: UMECLIDINIUM/VILANTEROL 62.5/25MCG 7 PUFFS/INHALER INH SCH (08:18)
[2020-03-27] MEDS: LIDOCAINE 5% 1 PATCH TD SCH (08:56)
--- NOTE | 2020-03-27 10:17 | XRay Report ---
XR chest 1V portable CLINICAL HISTORY: resp failure, right-sided pneumonia COMPARISON STUDY: 03/26/2020 FINDINGS: Right basilar parenchymal infiltrate again shows slight progression. Interstitial and bronc hovascular prominence throughout all remaining components of the chest are similar. Heart remains mil dly enlarged. IMPRESSION: Slightly slightly progressive right basilar parenchymal infiltrate. Study is otherwise u nchanged. ACT 112: Negative or not required by law. The above report was generated using voice recognition software. It may contain grammatical, syntax or spelling errors. Electronically signed by: Taurus Hurt M.D. 03/27/2020 10:16 AM
[2020-03-27] MEDS ORDERED: SODIUM CHLORIDE 0.65% NA SOLN 45 ML (OCEAN) PRN (10:32)
[2020-03-27] MEDS ORDERED: STAT IV Infusion **Titration per Protocol STA (10:33)
--- NOTE | 2020-03-27 10:39 | Hospitalist Progress Note ---
Date of Service March 27, 2020 Assessment & Plan (1) Acute and chronic respiratory failure with hypoxia: acute component 2nd to RML/RLL pneumonia +/- acute/chronic diastolic CHF (although does not appear volume overloaded today). chronic respiratory failure 2nd to COPD/pulmonary fibrosis. On 3 L NC at baseline. change NC to oxymask due to epistaxis. cont broad-spectrum IV antibiotics for worsening pneumonia. repeat COVID-19 today due to worsening pulmonary status despite considerable medical efforts. (2) Septicemia: 2nd to enterococcal UTI. zosyn will cover (it is pansensitive). repeat blood cx's negative. echo w/o obvious signs of endocarditis. goddard in place. (3) Enterococcal bacteremia: as above. continue zosyn. repeat blood cx's negative. (4) Right lower lobe pneumonia: clinically & radiographically worse today. cont triple IV abx therapy (zosyn, vanco, zithromax). need to check on date of zithromax start. cont bronchodilators. cont o2 support. (5) Acute kidney injury: worse today. likely combination of sepsis-associated ATN and diuresis. HOLD off on additional diuretics today. supportive care. BMP am. cont goddard. (6) Metabolic encephalopathy: 2nd to UTI, pneumonia, bacteremia, hypoxia. supportive care. treat infections. avoid sedatives. (7) Epistaxis: 2nd to dryness in nose from NC O2 in setting of eliquis use. change to oxymask. bactroban to nares BID. nasal saline q1h prn. (8) Chronic obstructive pulmonary disease: Low threshold to start systemic steroids. Cont bronchodilators and mucinex along with pulmonary toilet. (9) Atrial fibrillation, persistent: poor control. restart digoxin PO. check dig level am with JUAN. due to low-normal BPs in setting of sepsis - start cardizem infusion; titrate slowly. hold PO cardizem. cont apixaban. (10) CAD (coronary artery disease): cont metoprolol asa added this admission for possible stroke no ischemic symptoms (11) CHF (congestive heart failure): acute/chronic - s/p multiple doses of lasix this admission. since Cr is rising and patient looks mildly volume contracted today will NOT give additional diuretics today. a.fib rates need better control. (12) Leukocytosis: has seen heme/onc for such. chronic. possible precursor to MDS or other malignancy. (13) Left-sided weakness: present for several days. concerning for right-sided stroke. CT head obtained when he began to c/o symptoms was negative for acute process. CTA head/neck negative. Echo w/o thrombus. Remains on apixaban. Asa 81mg daily added by previous attending. check lipids while here. speech consult in light of worsening right-sided pneumonia. will obtain neurology consult. PT, OT as well. patient previously deferred on MRI - and he is not stable enough for MRI brain at this time from pulmonary standpoint. (14) DVT prophylaxis: apixaban BID. reduce dose to 2.5mg BID due to rise in Creatinine and age >80. left message for Laura - daughter - on 03/27/2020 Admission and Anticipated Discharge Date Admission Date: March 21, 2020 Subjective patient feels poorly. no appetite. lost his taste and smell about 1 to 1.5 weeks ago. also he still cannot move the left arm very well - started a "couple of days" after he was admitted. left leg also mildly weak. he denies cough but has dyspnea with minimal exertion. during the visit he had what looked like blood on his fingers; he said "it's chocolate" but it was blood from his mouth. tele with uncontrolled a.fib, rates >100 consistently. Review of Systems Constitutional: + fatigue and + anorexia Ear, Nose, Mouth, Throat: no dysphagia Cardiovascular: no chest pain and no edema Gastrointestinal: no abdominal pain and no nausea Neurologic: as per Subjective / HPI and + localized weakness Physical Exam Constitutional: + acute distress (tachypneic ), + altered mental status (mildly confused ) and + frail appearing ENMT: Nose: + nare abnormality (right nare - dried blood ) Mouth: + lip abnormality (dry, cyanotic) and + oral mucosal abnormality (fresh blood throughout the oral cavity and posterior throat ) Respiratory: + respiratory distress, + retractions and + tachypneic Auscultation: + diminished lung sounds (right base) and + crackles (bases ); no wheezes Cardiovascular: Rate/Rhythm: + tachycardic and + irregularly irregular Heart Sounds: normal S1 and normal S2; no murmur Vessels: + JVD (mild), posterior tibial pulses present and dorsalis pedis pulses present Extremities: no edema Gastrointestinal (Abdomen): normal bowel sounds, soft, nontender, no hepatosplenomegaly Skin: no rashes, warm and dry Neurologic: + focal motor deficit (left arm strength 4/5; left hand 3-4/5; left leg 4/5; RUE/RLE 5/5) Psychiatric: Orientation: alert, oriented to person and oriented to place; + not oriented to time Results & Data Results & Data ([facility]) Vital Signs (Past 12 Hours) Vital Signs Temp Pulse Pulse Pulse Resp BP Pulse Ox 03/27/20 07:36 36.5 C 126 H 18 104/67 95 03/27/20 07:25 87 22 95 03/27/20 03:41 36.4 C L 130 H 21 110/70 92 03/27/20 01:34 98 H 16 93 03/27/20 00:10 36.4 C L 111 H 19 108/70 95 03/26/20 23:26 115 H Laboratory Results Laboratory Results - last 24 hr 03/26/20 03/26/20 03/26/20 10:15 10:40 10:44 WBC RBC Hgb Hct MCV MCH MCHC RDW Std Deviation RDW Coeff of Ashley Plt Count MPV Absolute Nucleated RBC Nucleated RBC % (auto) ABG pH ABG pCO2 ABG pO2 ABG HCO3 ABG O2 Saturation ABG Base Excess Marlon Test Barometric Pressure Oxygen Given Sodium Potassium Chloride Carbon Dioxide Anion Gap BUN Creatinine Est Cr Clr Drug Dosing Est GFR ( Amer) Est GFR (Non-Af Amer) BUN/Creatinine Ratio Glucose Lactate 4.2 H* Calcium Magnesium NT-Pro-B Natriuret Pep Procalcitonin Urine Color Red Urine Appearance Cloudy A Urine pH 5.0 Ur Specific [place] >= 1.030 Urine Protein 2+ H Urine Glucose (UA) Negative Urine Ketones Negative Urine Blood 3+ H Urine Nitrite Negative Urine Bilirubin Negative Urine Urobilinogen Negative Ur Leukocyte Esterase 1+ H Urine RBC >30 H Urine WBC 10-30 H Ur Epithelial Cells 5-10 H Urine Bacteria 1+ H Nasal Screen MRSA (PCR) Negative 03/26/20 03/26/20 03/26/20 10:44 10:44 11:07 WBC RBC Hgb Hct MCV MCH MCHC RDW Std Deviation RDW Coeff of Ashley Plt Count MPV Absolute Nucleated RBC Nucleated RBC % (auto) ABG pH 7.44 ABG pCO2 27 L ABG pO2 65 L ABG HCO3 18 L ABG O2 Saturation 91.7 ABG Base Excess -5.1 Marlon Test Pos Barometric Pressure 736.2 Oxygen Given 6L Sodium Potassium Chloride Carbon Dioxide Anion Gap BUN Creatinine Est Cr Clr Drug Dosing Est GFR ( Amer) Est GFR (Non-Af Amer) BUN/Creatinine Ratio Glucose Lactate Calcium Magnesium NT-Pro-B Natriuret Pep > 14118 H Procalcitonin 2.24 H Urine Color Urine Appearance Urine pH Ur Specific [place] Urine Protein Urine Glucose (UA) Urine Ketones Urine Blood Urine Nitrite Urine Bilirubin Urine Urobilinogen Ur Leukocyte Esterase Urine RBC Urine WBC Ur Epithelial Cells Urine Bacteria Nasal Screen MRSA (PCR) 03/26/20 03/27/20 03/27/20 12:44 06:20 06:20 WBC 22.77 H RBC 3.10 L Hgb 9.4 L Hct 28.5 L MCV 91.9 MCH 30.3 MCHC 33.0 RDW Std Deviation 50.9 H RDW Coeff of Ashley 16.1 H Plt Count 376 MPV 9.8 Absolute Nucleated RBC 0.32 H Nucleated RBC % (auto) 1.4 ABG pH ABG pCO2 ABG pO2 ABG HCO3 ABG O2 Saturation ABG Base Excess Marlon Test Barometric Pressure Oxygen Given Sodium 135 L Potassium 4.3 Chloride 104 Carbon Dioxide 18 L Anion Gap 13.0 H BUN 86 H Creatinine 2.32 H Est Cr Clr Drug Dosing 24.5 Est GFR ( Amer) 28.8 Est GFR (Non-Af Amer) 24.9 BUN/Creatinine Ratio 36.9 H Glucose 115 H Lactate 4.7 H* Calcium 8.1 L Magnesium 2.8 H NT-Pro-B Natriuret Pep 44184 H Procalcitonin Urine Color Urine Appearance Urine pH Ur Specific [place] Urine Protein Urine Glucose (UA) Urine Ketones Urine Blood Urine Nitrite Urine Bilirubin Urine Urobilinogen Ur Leukocyte Esterase Urine RBC Urine WBC Ur Epithelial Cells Urine Bacteria Nasal Screen MRSA (PCR) 03/27/20 06:20 WBC RBC Hgb Hct MCV MCH MCHC RDW Std Deviation RDW Coeff of Ashley Plt Count MPV Absolute Nucleated RBC Nucleated RBC % (auto) ABG pH ABG pCO2 ABG pO2 ABG HCO3 ABG O2 Saturation ABG Base Excess Marlon Test Barometric Pressure Oxygen Given Sodium Potassium Chloride Carbon Dioxide Anion Gap BUN Creatinine Est Cr Clr Drug Dosing Est GFR ( Amer) Est GFR (Non-Af Amer) BUN/Creatinine Ratio Glucose Lactate Calcium Magnesium NT-Pro-B Natriuret Pep Procalcitonin 2.51 H Urine Color Urine Appearance Urine pH Ur Specific [place] Urine Protein Urine Glucose (UA) Urine Ketones Urine Blood Urine Nitrite Urine Bilirubin Urine Urobilinogen Ur Leukocyte Esterase Urine RBC Urine WBC Ur Epithelial Cells Urine Bacteria Nasal Screen MRSA (PCR) PG Care Time/CCT Total # of Minutes Spent Total Time Spent with Patient: Total time spent is greater than 50% in coordination of care (as documented) at patient's floor/unit and/or counseling patient: Coding Level of Care Code 71682 Subseq Hosp Care Lvl 3 Diagnoses Acute and chronic respiratory failure with hypoxia J96.21 Septicemia A41.9 Enterococcal bacteremia R78.81; B95.2 Right lower lobe pneumonia J18.9 Pneumonia type: due to unspecified organism Acute kidney injury N17.9 Metabolic encephalopathy G93.41 Epistaxis R04.0 Chronic obstructive pulmonary disease J44.9 COPD type: unspecified COPD Atrial fibrillation, persistent I48.1 CAD (coronary artery disease) I25.10 Coronary Disease-Associated Artery/Lesion type: samish artery [place] vs. transplanted heart: samish heart Associated angina: without angina CHF (congestive heart failure) I50.32 Heart failure type: diastolic Heart failure chronicity: chronic Leukocytosis D72.829 Leukocytosis type: unspecified Left-sided weakness R53.1 DVT prophylaxis Z29.9 (1) Right lower lobe pneumonia Pneumonia type: due to unspecified organism Qualified Code(s): J18.9 - Pneumonia, unspecified organism (2) Chronic obstructive pulmonary disease COPD type: unspecified COPD Qualified Code(s): J44.9 - Chronic obstructive pulmonary disease, unspecified (3) CAD (coronary artery disease) Coronary Disease-Associated Artery/Lesion type: samish artery [place] vs. transplanted heart: samish heart Associated angina: without angina Qualified Code(s): I25.10 - Atherosclerotic heart disease of samish coronary artery without angina pectoris (4) CHF (congestive heart failure) Heart failure type: diastolic Heart failure chronicity: chronic Qualified Code(s): I50.32 - Chronic diastolic (congestive) heart failure (5) Leukocytosis Leukocytosis type: unspecified Qualified Code(s): D72.829 - Elevated white blood cell count, unspecified
[2020-03-27] MEDS ORDERED: IPRATROPIUM BROMIDE/ALBUTEROL respimat INH INH SCH (10:40)
[2020-03-27] MEDS: MUPIROCIN 2% OINT 22 GM TUBE EXT SCH ×2 (11:04→20:36)
[2020-03-27] MEDS: AZITHROMYCIN 500 MG in DEXTROSE 5% 250 ML IV SCH (11:04)
[2020-03-27] MEDS: VANCOMYCIN HCL 1,250 MG in SODIUM CHLORIDE 0.9% 250 ML IV SCH (11:04)
[2020-03-27] MEDS: dilTIAZem HCL 125 MG in DEXTROSE 5% 100 ML IV SCH ×2 (11:04→22:45)
[2020-03-27] MEDS: IPRATROPIUM BROMIDE NEB SOLN 0.02% 2.5 ML VIAL INH SCH ×2 (13:23→19:27)
[2020-03-27] MEDS: DIGOXIN 0.125 MG TAB PO SCH (15:34)
[2020-03-27] MEDS: APIXABAN 2.5 MG TAB PO SCH (20:37)
[2020-03-28] MEDS: MoRPHine SULFATE 2 MG/ML CARP IV PRN ×2 (00:05→11:30)
[2020-03-28] MEDS: LEVALBUTEROL 1.25MG/0.5ML NEB NEB SCH ×4 (00:59→19:21)
[2020-03-28] MEDS: IPRATROPIUM BROMIDE NEB SOLN 0.02% 2.5 ML VIAL INH SCH ×4 (01:01→19:21)
[2020-03-28] MEDS: PIPERACILLIN/TAZOBACTAM 3.375 GM in DEXTROSE 5% 100 ML IV SCH ×3 (06:03→20:20)
[2020-03-28 06:10] LABS: Hematocrit (blood only) 28.3 % (42-52); Hemoglobin 9.2 g/dL (14.0-18.0); Mean Corpuscular Hemoglobin 30.7 pg (25-34); Mean Corpuscular Hgb Conc 32.5 g/dL (32-36); Mean Corpuscular Volume 94.3 fL (80-100); Mean Platelet Volume 9.8 fL (7.4-10.4); Nucleated RBC # (auto) 0.35 K/uL (0-0); Nucleated RBC % (auto) 1.5 %; Platelet Count 396 K/uL (130-400); RDW Coefficient of Variation 17.4 % (11.5-14.5); RDW Standard Deviation 52.6 fL (36.4-46.3); White Blood Count 22.95 K/uL (4.8-10.8)
[2020-03-28 06:29] LABS: Basophils % (auto) 0.4 %; Eosinophils # (auto) 0.34 K/uL (0-0.5); Eosinophils % (auto) 1.5 %; Immature Granulocytes # (auto) 1.52 K/uL (0.00-0.02); Immature Granulocytes % (auto) 6.6 %; Lymphocytes # (auto) 1.28 K/uL (1.2-3.4); Lymphocytes % (auto) 5.6 %; Monocytes # (auto) 1.29 K/uL (0.11-0.59); Monocytes % (auto) 5.6 %; Neutrophils # (auto) 18.42 K/uL (1.4-6.5); Neutrophils % (auto) 80.3 %; Polychromasia 1+
[2020-03-28 06:43] LABS: BUN Creatinine Ratio 37.8 (10-20); Calcium 8.1 mg/dl (8.5-10.1); Est GFR (African American) 29.6; Est GFR (Non-African American) 25.5; Potassium 3.7 mmol/L (3.5-5.1)
[2020-03-28] MEDS: LIDOCAINE 5% 1 PATCH TD SCH (08:17)
[2020-03-28] MEDS: ASPIRIN 81 MG ECTAB PO SCH (08:17)
[2020-03-28] MEDS: METOPROLOL TARTRATE 25 MG TAB PO SCH ×2 (08:17→20:21)
[2020-03-28] MEDS: APIXABAN 2.5 MG TAB PO SCH ×2 (08:18→20:20)
[2020-03-28] MEDS: MUPIROCIN 2% OINT 22 GM TUBE EXT SCH ×2 (08:18→20:21)
[2020-03-28] MEDS: UMECLIDINIUM/VILANTEROL 62.5/25MCG 7 PUFFS/INHALER INH SCH (08:18)
[2020-03-28] MEDS: ACETAMINOPHEN 325 MG TAB PO SCH ×4 (08:21→20:22)
--- NOTE | 2020-03-28 10:33 | Hospitalist Progress Note ---
Date of Service March 28, 2020 Assessment & Plan (1) Stroke: confirmed with CT head today. right frontal lobe - c/w clinical exam. appreciate neurology consult and recs. will d/c aspirin. PT, OT, speech evals. work-up including CTA head/neck and echo negative. cont apixaban for secondary prevention. uncertain why he developed the stroke in the midst of his bacteremia. is he hypercoagulable from underlying malignancy? other? will need rehab. (2) Acute and chronic respiratory failure with hypoxia: acute component 2nd to RML/RLL pneumonia +/- acute/chronic diastolic CHF - latter resolved. chronic respiratory failure 2nd to COPD/pulmonary fibrosis. On 3 L NC at baseline. cont oxymask. cont broad-spectrum IV antibiotics for pneumonia. repeat COVID-19 testing negative. (3) Septicemia: 2nd to enterococcal UTI. zosyn will cover (it is pansensitive). repeat blood cx's negative. echo w/o obvious signs of endocarditis. goddard in place. (4) Enterococcal bacteremia: as above. continue zosyn. repeat blood cx's negative. 14 days in total of IV/PO antibiotics. (5) Right lower lobe pneumonia: scantly better today (less distress). cont triple IV abx therapy (zosyn, vanco, zithromax). day #3 of zithromax. cont bronchodilators. cont o2 support. COVID-19 testing negative. (6) Acute kidney injury: likely combination of sepsis-associated ATN and diuresis. Cr has peaked; scantly improved today. supportive care. BMP am. cont goddard. (7) Metabolic encephalopathy: ongoing 2nd to UTI, pneumonia, bacteremia, hypoxia. supportive care. treat infections. avoid sedatives. (8) Epistaxis: 2nd to dryness in nose from NC O2 in setting of eliquis use. cont oxymask. bactroban to nares BID. nasal saline q1h prn. afrin protocol. if epistaxis worsens then ENT eval and stop eliquis. (9) Chronic obstructive pulmonary disease: Low threshold to start systemic steroids. Cont bronchodilators and mucinex along with pulmonary toilet. (10) Atrial fibrillation, persistent: improving. cont digoxin. dig level acceptable today. cont cardizem infusion - now at 10mg/hr and tolerating such. cont apixaban. (11) CAD (coronary artery disease): cont metoprolol no ischemic symptoms (12) CHF (congestive heart failure): acute/chronic - s/p multiple doses of lasix this admission. again mildly volume contracted today - will NOT give additional diuretics today. (13) Leukocytosis: has seen heme/onc for such. chronic. possible precursor to MDS or other malignancy. mild lymphadenopathy on CT chest. mild hepatosplenomegaly on CT abd/pelvis. concerning for development of lymphoma, especially with progressive weight loss since 2019? (14) Severe protein-calorie malnutrition: 20+ pounds of weight loss since 09/2019 worrisome for malignancy vs wasting from severe COPD (15) Hematuria: 2nd to UTI and/or prostatitis in setting of eliquis use cont goddard cont eliquis but if bleeding worsens then hold eliquis (16) DVT prophylaxis: apixaban BID. reduce dose to 2.5mg BID due to rise in Creatinine and age >80. left message for Laura - daughter - on 03/27/2020 spoke with Laura on 03/28/2020 - spent 30 minutes reviewing plan of care and answering questions will have conference call with Laura and pt's TOMORROW total time today between multiple visits, correspondence with neurology, speaking w/ daughter, etc - 70 minutes Admission and Anticipated Discharge Date Admission Date: March 21, 2020 Subjective 2 visits to pt's room today. first was during AM rounds. patient resting, but awoke easily. he denied any further nosebleeds or blood in mouth. still no appetite. minimal cough. still quite dyspneic with any activity. sometime overnight/this am his goddard started to drain mild hematuria. tele overnight - a. fib, rates improved - now 90s and low 100s. 2nd visit was late in the day - received message from nurse that pt had a nosebleed from right nare. afrin protocol ordered. I arrived after he had received the afrin - bleeding stopped. he was confused during 2nd visit, stating "tell me what's going on." he didn't realize he was being treated for pneumonia. he was aware of the stroke causing left-sided weakness; asked how it happened. lengthy discussion held with pt's daughter by phone late in the afternoon - see A/P for details. Review of Systems Constitutional: + fatigue and + anorexia; no fever Respiratory: + cough and + dyspnea; no hemoptysis and no wheezing Cardiovascular: + orthopnea; no chest pain Gastrointestinal: no abdominal pain, no nausea and no vomiting Physical Exam Constitutional: + ill appearing, + altered mental status and + frail appearing; no acute distress ENMT: Nose: + nare abnormality (No active bleeding during AM rounds) Mouth: + lip abnormality (dry), + oral mucosal abnormality (Old blood throughout the oral cavity and posterior throat ) and + dry oral mucous membranes Respiratory: no respiratory distress Auscultation: + diminished lung sounds (Right base) and + crackles (bases ); no wheezes Cardiovascular: Rate/Rhythm: + tachycardic and + irregularly irregular Heart Sounds: normal S1 and normal S2; no murmur Vessels: posterior tibial pulses present and dorsalis pedis pulses present Extremities: no edema Gastrointestinal (Abdomen): normal bowel sounds, soft, nontender, no hepatosplenomegaly Skin: no rashes, warm and dry Neurologic: + focal motor deficit (left arm strength 4/5; left hand 3-4/5; left leg 4/5; RUE/RLE 5/5) Psychiatric: Orientation: alert and oriented to person; + not oriented to place and + not oriented to time Results & Data Results & Data ([facility]) Vital Signs (Past 12 Hours) Vital Signs Temp Pulse Pulse Resp BP Pulse Ox 03/28/20 08:00 114 H 03/28/20 07:14 105 H 18 92 03/28/20 07:08 36.6 C 100 H 19 92/56 L 93 03/28/20 03:56 36.7 C 103 H 18 105/56 L 93 03/28/20 01:16 95 03/28/20 01:02 112 H 19 84 L 03/27/20 23:34 36.5 C 97 H 17 90/53 L 96 Laboratory Results Laboratory Results - last 24 hr 03/27/20 03/27/20 03/28/20 12:43 Unknown 05:30 WBC RBC Hgb Hct MCV MCH MCHC RDW Std Deviation RDW Coeff of Ashley Plt Count MPV Immature Gran % (Auto) Neut % (Auto) Lymph % (Auto) Hale % (Auto) Eos % (Auto) Baso % (Auto) Immature Gran # (Auto) Neut # (Auto) Lymph # (Auto) Hale # (Auto) Eos # (Auto) Baso # (Auto) Absolute Nucleated RBC Nucleated RBC % (auto) Polychromasia Sodium 134 L Potassium 3.7 Chloride 103 Carbon Dioxide 20 L Anion Gap 11.0 BUN 86 H Creatinine 2.27 H Est Cr Clr Drug Dosing 25.0 Est GFR ( Amer) 29.6 Est GFR (Non-Af Amer) 25.5 BUN/Creatinine Ratio 37.8 H Glucose 123 H Calcium 8.1 L Triglycerides 164 H Cholesterol 91 LDL Cholesterol, Calc 45 VLDL Cholesterol, Calc 33 HDL Cholesterol 13 Cholesterol/HDL Ratio 7 Digoxin COVID-19 PCR NEGATIVE SARS-CoV-2 RNA (RT-PCR) Cancelled 03/28/20 03/28/20 05:30 05:30 WBC 22.95 H RBC 3.00 L Hgb 9.2 L Hct 28.3 L MCV 94.3 MCH 30.7 MCHC 32.5 RDW Std Deviation 52.6 H RDW Coeff of Ashley 17.4 H Plt Count 396 MPV 9.8 Immature Gran % (Auto) 6.6 Neut % (Auto) 80.3 Lymph % (Auto) 5.6 Hale % (Auto) 5.6 Eos % (Auto) 1.5 Baso % (Auto) 0.4 Immature Gran # (Auto) 1.52 H Neut # (Auto) 18.42 H Lymph # (Auto) 1.28 Hale # (Auto) 1.29 H Eos # (Auto) 0.34 Baso # (Auto) 0.10 Absolute Nucleated RBC 0.35 H Nucleated RBC % (auto) 1.5 Polychromasia 1+ Sodium Potassium Chloride Carbon Dioxide Anion Gap BUN Creatinine Est Cr Clr Drug Dosing Est GFR ( Amer) Est GFR (Non-Af Amer) BUN/Creatinine Ratio Glucose Calcium Triglycerides Cholesterol LDL Cholesterol, Calc VLDL Cholesterol, Calc HDL Cholesterol Cholesterol/HDL Ratio Digoxin 1.0 COVID-19 PCR SARS-CoV-2 RNA (RT-PCR) CT head - subacute CVA right frontal lobe PG Care Time/CCT Total # of Minutes Spent Total Time Spent with Patient: Total time spent is greater than 50% in coordi nation of care (as documented) at patient's floor/unit and/or counseling patient: Prolonged Care Time Prolonged Care Time: Yes 70 minutes Coding Level of Care Code 92919 Subseq Hosp Care Lvl 3 (25 - SIGNIFICANT, SEPARATELY IDENTIFIABLE ) Diagnoses Stroke I63.9 CVA mechanism: unspecified Acute and chronic respiratory failure with hypoxia J96.21 Septicemia A41.9 Enterococcal bacteremia R78.81; B95.2 Right lower lobe pneumonia J18.9 Pneumonia type: due to unspecified organism Acute kidney injury N17.9 Metabolic encephalopathy G93.41 Epistaxis R04.0 Chronic obstructive pulmonary disease J44.9 COPD type: unspecified COPD Atrial fibrillation, persistent I48.1 CAD (coronary artery disease) I25.10 Associated angina: without angina Coronary Disease-Associated Artery/Lesion type: [place] artery [place] vs. transplanted heart: [place] heart CHF (congestive heart failure) I50.32 Heart failure chronicity: chronic Heart failure type: diastolic Leukocytosis D72.829 Leukocytosis type: unspecified Severe protein-calorie malnutrition E43 Hematuria R31.0 Hematuria type: gross DVT prophylaxis Z29.9 Additional Codes Prolonged Care Time - Prolonged Care Time: Yes ([id number]) (1) CAD (coronary artery disease) Associated angina: without angina Coronary Disease-Associated Artery/Lesion type: [place] artery [place] vs. transplanted heart: [place] heart Qualified Code(s): I25.10 - Atherosclerotic heart disease of [place] coronary artery without angina pectoris (2) CHF (congestive heart failure) Heart failure chronicity: chronic Heart failure type: diastolic Qualified Code(s): I50.32 - Chronic diastolic (congestive) heart failure (3) Leukocytosis Leukocytosis type: unspecified Qualified Code(s): D72.829 - Elevated white blood cell count, unspecified (4) Chronic obstructive pulmonary disease COPD type: unspecified COPD Qualified Code(s): J44.9 - Chronic obstructive pulmonary disease, unspecified (5) Right lower lobe pneumonia Pneumonia type: due to unspecified organism Qualified Code(s): J18.9 - Pneumonia, unspecified organism (6) Stroke CVA mechanism: unspecified Qualified Code(s): I63.9 - Cerebral infarction, unspecified (7) Hematuria Hematuria type: gross Qualified Code(s): R31.0 - Gross hematuria
--- NOTE | 2020-03-28 11:14 | CT Scan Report ---
CT SCAN OF THE BRAIN WITHOUT IV CONTRAST CLINICAL HISTORY: Strokelike symptoms. COMPARISON STUDY: CT of the brain dated 03/23/2020. TECHNIQUE: Unenhanced axial CT scan of the brain is performed from the vertex to the skull base. A do se lowering technique was utilized adhering to the principles of ALARA. CT DOSE: 1074.96 mGy.cm FINDINGS: Brain parenchyma: There is a 1.4 cm focus of low attenuation within the right centrum semiovale seen on axial image #19. This is new from 03/23/2020 and is consistent with a subacute lacunar infarct. The re are age-related involutional changes noting moderate subcortical and periventricular microangiopa thic change. There is no hemorrhage, mass effect, or evidence of acute territorial ischemia by CT cri teria. [place]-white matter differentiation is preserved. No extra-axial fluid collection is seen. Ventricles, sulci, cisterns: Prominent secondary to involutional change. Intracranial vasculature: There is atherosclerotic calcification of the cavernous carotid and vertebr al arteries. Calvarium: Unremarkable. Sinuses and mastoids: The visualized paranasal sinuses are clear. The mastoid air cells are well pneu matized. Orbits: The bony orbits are grossly intact. There are bilateral ocular lens implants. IMPRESSION: 1. There is a subacute/evolving lacunar infarct identified in the right centrum semiovale. This is ne w from 03/23/2020. 2. There is no hemorrhage, mass effect, or evidence of acute territorial ischemia by CT criteria. ACT 112: Negative or not required by law. Electronically signed by: Ez Blancas M.D. 03/28/2020 11:13 AM
[2020-03-28] MEDS: dilTIAZem HCL 125 MG in DEXTROSE 5% 100 ML IV SCH (11:16)
[2020-03-28] MEDS: AZITHROMYCIN 500 MG in DEXTROSE 5% 250 ML IV SCH (12:26)
--- NOTE | 2020-03-28 15:43 | Neurology Consultation ---
Date of Consultation March 28, 2020 Assessment & Plan (1) Left-sided weakness: (2) Stroke: Rafiq Heller is an 84 yo man w/ PMH of Afib on apixban, HLD, CAD, known AAA, CHF, COPD on home O2, h/o tobacco abuse, prediabetes and chronic leukocytosis who initially presented to [facility] on 03/21/2020 with subacute severe worsening of bilateral lower back pain over the course of 2 weeks associated with generalized bilateral lower extremity weakness, worsening constipation, decreased appetite and reported temperature of 101F prior to arrival. Symptom localization: right frontal Stroke mechanism: cardioembolic Stroke WorkUp: - CT head: right posterior frontal infarct on repeat CTH 03/28/20 - CTA head/neck: atherosclerotic plaque at the L ICA bifurcation with mild associated stenosis, diffuse extracranial atherosclerosis, and no LVO, high grade stenosis or aneurysms noted - MRI brain: pending (if pt consents, though not needed at this time for treatment) - TTE: EF 55-60%, mild MR, mild TR, LVH - Telemetry: Afib - A1c: pending - FLP: 45 Stroke Management: - Acute treatment: continue apixaban - Vitals, Neurochecks, NIHSS per unit routine - BP parameters: SBP CAP 180, continue home anti-hypertensives as tolerated given ongoing sepsis/hypotension - Complete ischemic stroke workup with A1c - Consult speech, PT, OT for supportive management - Will certified genetic counselor concerning stroke education, smoking cessation, healthy diet, physical activity, weight loss - Follow up with PCP for assistance with outpatient goals (BP <135/85, LDL <70, A1c <7) - Follow up in neurology clinic in 6-8 weeks Secondary Stroke Prevention: - Antiplatelet: n/a - Anticoagulation: apixaban 5mg bid - Statin: at goal, no need to start a statin if not already on one HTN: - BP parameters, as above FEN/GI: - Diet: Cardiac HH diet and PO meds given absence of bulbar signs or symptoms - Monitor lytes and replete PRN Glucose Control: - Sliding scale insulin and accuchecks per primary team to avoid hyperglycemia Thank you for this interesting consult. Plan of care was discussed with primary team. Please call with any questions. (3) Enterococcal bacteremia: (4) Chronic respiratory failure with hypoxia: (5) Atrial fibrillation, persistent: History of Present Illness Attending Physician: Anthony Lopez History of Present Illness Rafiq Heller is an 84 yo man w/ PMH of Afib on apixban, HLD, CAD, known AAA, CHF, COPD on home O2, h/o tobacco abuse, prediabetes and chronic leukocytosis who initially presented to [facility] on 03/21/2020 with subacute severe worsening of bilateral lower back pain over the course of 2 weeks associated with generalized bilateral lower extremity weakness, worsening constipation, decreased appetite and reported temperature of 101F prior to arrival. In the ED, he was noted to be afebrile with BP 100/45, heart rate 98, satting 95% on 3 L. Labs at that time were notable for WBC 16.18, hemoglobin 10.4, platelets 262, sodium 134, BUN 58, creatinine 1.99, glucose 127, lipase 260, calcium 9.2. He received IV fluids with Zofran and morphine for pain control. Further work-up this admission includes an echo with EF 55 to 60%, mild LVH, mild MR and mild TR with no valvular vegetations. UA showed UTI (enterococcal). Blood culture was notable for 2 out of 2 sets growing enterococcus; he was initially started on Vanco on Rocephin for this, before transitioning to Zosyn. Apixaban was briefly held 03/22-03/23 given concern for possible need for procedures. Repeat chest x-ray on 03/24 showed a right lower lobe infiltrate concerning for pneumonia. He was noted to have left hand weakness on the morning of 03/23 with no other motor deficits noted. He was restarted on his apixaban, as well as aspirin added. He had CT of the head that showed mild generalized atrophy with small vessel disease but no hemorrhage or large stroke. CTA of the head and neck was performed and independent review notable for atherosclerotic plaque at the L ICA bifurcation with mild associated stenosis, diffuse extracranial atherosclerosis, and no LVO, high grade stenosis or aneurysms noted. He was recommended to undergo MRI of the brain, as well as MRI of the spine, however he has declined this during this admission. Overall picture got worse on 03/26 and he briefly required BiPAP before being transitioned to 6 L oxygen mask. Most recent labs notable for WBC 22.95, hemoglobin 9.2, platelets 396, sodium 134, BUN 86, creatinine 2.27, glucose 123, lactate 4.7, calcium 8.1, magnesium 2.8, ammonia mildly elevated 38 on 03/23, LDL 45, B12 768, COVID negative. Repeat CT head on 03/28/2020 shows new hypodensity in the posterior right frontal lobe. On examination today, he was tired but appropriately answering questions and participate in exam. He reports that he does not have his hearing aids here with him so it is difficult for him to hear. He has ongoing weakness of the LUE>LLE with dependent edema noted in his left forearm. He reported only motor symptoms and denied any numbness, tingling, vision changes or headaches and symptoms started. Allergies Allergy/AdvReac Type Severity Reaction Status Date / Time No Known Allergies Allergy Unknown Verified 03/17/20 13:40 Home Medications Home Medications Medication Instructions Recorded Confirmed Type Oxygen Home #1 ea 04/14/19 03/17/20 History tiotropium 2.5 mcg-olodaterol 2.5 2 puffs INHALATION DAILY #3 inhaler 08/05/19 03/21/20 Rx mcg/actuation mist for inhalation multivitamin 1 tab PO DAILY 08/13/19 03/21/20 History triamterene 37.5 1 cap PO QAM #90 cap 11/08/19 03/21/20 Rx mg-hydrochlorothiazide 25 mg capsule apixaban 5 mg tablet 5 mg PO BID #180 tab 02/15/20 03/21/20 Rx digoxin 125 mcg (0.125 mg) tablet 125 mcg PO DAILY #90 tab 02/15/20 03/21/20 Rx metoprolol tartrate 25 mg tablet 25 mg PO BID #180 tab 02/15/20 03/21/20 Rx diclofenac sodium 1 % topical gel 4 gm TOP TID PRN #100 gm 03/17/20 03/21/20 Rx coenzyme Q10 [Co Q-10] 100 mg PO BID 03/21/20 03/21/20 History diltiazem HCl [Cardizem CD] 360 mg PO QPM 03/21/20 03/21/20 History Patient History Medical History Aneurysm of infrarenal abdominal aorta (Chronic) Atrial fibrillation, persistent (Chronic) CAD (coronary artery disease) (Chronic) CHF (congestive heart failure) (Chronic) Chronic obstructive pulmonary disease (Chronic) Constipation (Chronic) Daytime hypersomnolence (Chronic) History of renal calculi (Chronic) Hyperglycemia (Chronic) Hyperlipidemia (Chronic) Leukocytosis (Chronic) Mediastinal adenopathy (Chronic) On anticoagulant therapy (Chronic) Pulmonary emphysema (Chronic) Surgical History H/O elbow surgery S/P hip replacement LEFT- 05/14/2007- Dr. Jimenez RIGHT- 12/27/04- Dr. Jimenez Family History Father Sepsis Cardiac disorder Brother Lung cancer Mother Uterine cancer Social History Preferred Language: Maltese Communication Ability: Effective Visual Impairment: No Limitations Hearing Ability: Use of Hearing Aid Orthopedic Podiatrist Required: No Beliefs That Will Affect Care: None marital status: Current Living Situation: Spouse current occupational status: retired Other Information That Helps Us Care for You: No Feels Safe at Home: Yes Safety Concerns: Feels Safe At This Time Smoking Status: Former smoker Tobacco Type: cigarettes ; Age Started Using Tobacco: 16 ; Age Quit Using Tobacco: 50 ; Second Hand Exposure: No ; Hx Alcohol Use: Yes Alcohol type: beer Alcohol Intake Frequency: Weekly Hx Substance Use: No Childhood Exposure to Second-Hand Smoke: No Seatbelt Use: always Sunscreen Use: No Review of Systems Review of Systems: 14 point review of systems completed and negative except as in HPI. Exam (Neuro) Physical Exam: General Exam: GEN: NAD, lying down in examination bed. HEENT: No conjunctival injection, no rhinorrhea. CV: irregularly irregular on monitor, + dependent edema in left forearm PULM: Nonlabored respirations on oxygen mask Neuro Exam: MS: Awake and Alert. Oriented to person, place, not date. Speech fluent and appropriate without dysarthria or paraphasic errors. Language intact including naming, comprehension, repetition. Cognition and memory grossly intact. Att ention intact. No neglect. CN: Visual rivers full. No extinction to double simultaneous stimuli. Unable to visualize fundi on fundoscopic exam. PERRLA OU. EOMI without nystagmus. Facial sensation intact to LT. Facial muscles full and symmetric. Hearing intact to conversation. Shoulder shrug normal. Tongue midline. MOTOR: Normal bulk and tone. No pronator drift in RUE. RUE strength 5-/5 at deltoids, biceps, triceps, wrist flexors and extensors, and hand grasp. LUE strength 4-/5 at deltoids, biceps, triceps, 4/5 wrist flexors and extensors, and 4/5 hand grasp. BLE strength 4+/5 at iliopsoas, hamstrings, quadriceps, 5-/5 tibialis anterior, and 5-/5 gastrocnemius bilaterally. REFLEXES: 1+ at biceps, triceps, brachioradialis, trace patella, and absent Achilles bilaterally. Flexor plantar responses bilaterally. SENSORY: Intact to LT throughout, no extinction to double simultaneous stimuli. COORDINATION: No dysmetria or ataxia on [id number] in RUE. Normal Huy in RUE. GAIT: Deferred due to physical status. NIH STROKE SCALE 1A. Level of Consciousness (0-3) = 0 1B. LOC Questions (0-2) = 0 1C. LOC Commands (0-2) = 0 2. Best Horizontal Gaze (0-2) = 0 3. Visual [place] (0-3) = 0 4. Facial Palsy (0-3) = 0 5. Motor Arm Right (0-4) = 0 Left (0-4) = 2 6. Motor Leg Right (0-4) = 0 Left (0-4) = 1 7. Limb Ataxia (0-2) = 0 8. Sensory (0-2) = 0 9. Best Language (0-3) = 0 10. Dysarthria (0-2) = 0 11. Extinction and Inattention (0-2) = 0 NIHSS TOTAL = 3 Results & Data ([facility]) Vital Signs (Past 12 Hours) Vital Signs Temp Pulse Pulse Pulse Resp BP BP 03/28/20 15:06 73 03/28/20 13:14 81 18 03/28/20 12:02 36.4 C L 94 H 17 97/59 L 03/28/20 08:00 114 H 03/28/20 07:14 105 H 18 03/28/20 07:08 36.6 C 100 H 19 92/56 L 03/28/20 03:56 36.7 C 103 H 18 105/56 L Pulse Ox 03/28/20 15:06 03/28/20 13:14 94 03/28/20 12:02 97 03/28/20 08:00 03/28/20 07:14 92 03/28/20 07:08 93 03/28/20 03:56 93 PG Care Time/CCT Total # of Minutes Spent Total Time Spent with Patient: Total time spent is greater than 50% in coordination of care (as documented) at patient's floor/unit and/or counseling patient: Coding Level of Care Code 20610 Initial Inpt Care Lvl 3 Diagnoses Left-sided weakness R53.1 Stroke I63.9 Enterococcal bacteremia R78.81; B95.2 Chronic respiratory failure with hypoxia J96.11 Atrial fibrillation, persistent I48.1
[2020-03-28] MEDS ORDERED: OXYMETAZOLINE 0.05% 30 ML BTL ONE (17:27)
[2020-03-28] MEDS ORDERED: VANCOMYCIN TROUGH ONE (17:30)
[2020-03-28] MEDS: DIGOXIN 0.125 MG TAB PO SCH (17:59)
[2020-03-28] MEDS: VANCOMYCIN HCL 1,250 MG in SODIUM CHLORIDE 0.9% 250 ML IV SCH (18:01)
[2020-03-29] MEDS: IPRATROPIUM BROMIDE NEB SOLN 0.02% 2.5 ML VIAL INH SCH ×4 (01:15→19:17)
[2020-03-29] MEDS: LEVALBUTEROL 1.25MG/0.5ML NEB NEB SCH ×4 (01:15→19:17)
[2020-03-29] MEDS: dilTIAZem HCL 125 MG in DEXTROSE 5% 100 ML IV SCH ×2 (05:15→07:08)
[2020-03-29] MEDS: PIPERACILLIN/TAZOBACTAM 3.375 GM in DEXTROSE 5% 100 ML IV SCH ×3 (05:25→22:15)
[2020-03-29] MEDS: DICLOFENAC SOD 1% GEL 100 GM TUBE EXT PRN (05:25)
[2020-03-29 08:18] LABS: BUN Creatinine Ratio 39.7 (10-20); Calcium 8.5 mg/dl (8.5-10.1); Est GFR (African American) 35.4; Est GFR (Non-African American) 30.5; Potassium 3.4 mmol/L (3.5-5.1)
[2020-03-29] MEDS ORDERED: NSS + 20MEQ KCL 20 MEQ/1,000 ML BAG IV SCH (08:45)
--- NOTE | 2020-03-29 09:09 | Electrocardiogram Report ---
Test Reason : Blood Pressure : / mmHG Vent. Rate : 107 BPM Atrial Rate : 119 BPM P-R Int : 000 ms QRS Dur : 144 ms QT Int : 392 ms P-R-T Axes : 000 -54 179 degrees QTc Int : 523 ms Atrial fibrillation with rapid ventricular response Left axis deviation Right bundle branch block T wave abnormality, consider lateral ischemia Abnormal ECG When compared with ECG of 25-MAR-2020 23:02, Right bundle branch block is now Present Confirmed by Issa Leyva ([id number]) on 03/29/2020 9:08:44 AM Referred By: REFERRED SELF Confirmed By:Issa Leyva
[2020-03-29] MEDS: ACETAMINOPHEN 325 MG TAB PO SCH ×4 (09:18→20:10)
[2020-03-29] MEDS: MUPIROCIN 2% OINT 22 GM TUBE EXT SCH ×2 (09:19→20:11)
[2020-03-29] MEDS: UMECLIDINIUM/VILANTEROL 62.5/25MCG 7 PUFFS/INHALER INH SCH (09:19)
[2020-03-29] MEDS: AZITHROMYCIN 250 MG TAB PO SCH (09:20)
[2020-03-29] MEDS: METOPROLOL TARTRATE 25 MG TAB PO SCH ×2 (09:20→20:12)
[2020-03-29] MEDS: APIXABAN 2.5 MG TAB PO SCH (09:20)
[2020-03-29] MEDS: LIDOCAINE 5% 1 PATCH TD SCH (09:21)
--- NOTE | 2020-03-29 13:28 | Neurology Progress Note ---
Date of Service March 29, 2020 Assessment & Plan (1) Left-sided weakness: (2) Stroke: Rafiq Heller is an 84 yo man w/ PMH of Afib on apixban, HLD, CAD, known AAA, CHF, COPD on home O2, h/o tobacco abuse, prediabetes and chronic leukocytosis who initially presented to [facility] on 03/21/2020 with subacute severe worsening of bilateral lower back pain over the course of 2 weeks associated with generalized bilateral lower extremity weakness, worsening constipation, decreased appetite and reported temperature of 101F prior to arrival. Symptom localization: right frontal Stroke mechanism: cardioembolic from known Afib Stroke WorkUp: - CT head: right posterior frontal infarct on repeat CTH 03/28/20 - CTA head/neck: atherosclerotic plaque at the L ICA bifurcation with mild associated stenosis, diffuse extracranial atherosclerosis, and no LVO, high grade stenosis or aneurysms noted - MRI brain: pending (if pt consents, though not needed at this time for treatment) - TTE: EF 55-60%, mild MR, mild TR, LVH - Telemetry: Afib - A1c: pending - FLP: 45 Stroke Management: - Acute treatment: continue apixaban - Vitals, Neurochecks, NIHSS per unit routine - BP parameters: SBP CAP 180, continue home anti-hypertensives as tolerated given ongoing sepsis/hypotension - Complete ischemic stroke workup with A1c - Consult speech, PT, OT for supportive management. Would see if OT could give brace for LUE to help with dependent edema. Optimize nutrition for stroke recovery. - Will financial health counselor concerning stroke education, smoking cessation, healthy diet, physical activity, weight loss - Follow up with PCP for assistance with outpatient goals (BP <135/85, LDL <70, A1c <7) - Follow up in neurology clinic in 6-8 weeks (can be telehealth if pt prefers) Secondary Stroke Prevention: - Antiplatelet: n/a - Anticoagulation: apixaban 5mg bid - Statin: at goal, no need to start a statin if not already on one HTN: - BP parameters, as above FEN/GI: - Diet: Cardiac HH diet and PO meds given absence of bulbar signs or symptoms - Monitor lytes and replete PRN Glucose Control: - Sliding scale insulin and accuchecks per primary team to avoid hyperglycemia Thank you for this interesting consult. Plan of care was discussed with primary team. Please call with any questions. (3) Enterococcal bacteremia: (4) Chronic respiratory failure with hypoxia: (5) Atrial fibrillation, persistent: Admission and Anticipated Discharge Date Admission Date: March 21, 2020 Subjective Noted to have hematuria and nose bleed yesterday afternoon. More tired today. Resting in bed. Aware of having stroke affecting left side. [place] short of breath with head of bed down. Review of Systems Review of Systems: 14 point review of systems completed and negative except as in HPI. Results & Data ([facility]) Vital Signs (Past 12 Hours) Vital Signs Temp Pulse Pulse Pulse Resp BP BP 03/29/20 13:07 102 H 20 03/29/20 11:34 36.6 C 116 H 20 105/66 03/29/20 09:00 104 H 03/29/20 08:02 36.7 C 95 H 18 112/72 03/29/20 07:04 102 H 18 03/29/20 04:00 36.3 C L 102 H 17 103/64 Pulse Ox 03/29/20 13:07 91 03/29/20 11:34 94 03/29/20 09:00 03/29/20 08:02 91 03/29/20 07:04 95 03/29/20 04:00 93 Exam (Neuro) Physical Exam: General Exam: GEN: NAD, lying down in examination bed. HEENT: No conjunctival injection, no rhinorrhea. CV: irregularly irregular on monitor, + dependent edema in left forearm PULM: Nonlabored respirations on oxygen mask Neuro Exam: MS: Awake and Alert. Oriented to person, place, not date. Speech fluent and appropriate without dysarthria or paraphasic errors. Language intact including naming, comprehension, repetition. Cognition and memory grossly intact. Attention intact. No neglect. CN: Visual teague full. No extinction to double simultaneous stimuli. Unable to visualize fundi on fundoscopic exam. PERRLA OU. EOMI without nystagmus. Facial sensation intact to LT. Facial muscles full and symmetric. Hearing intact to conversation. Shoulder shrug normal. Tongue midline. MOTOR: Normal bulk and tone. No pronator drift in RUE. RUE strength 5-/5 at deltoids, biceps, triceps, wrist flexors and extensors, and hand grasp. LUE strength 4-/5 at deltoids, biceps, triceps, 4/5 wrist flexors and extensors, and 4/5 hand grasp. BLE strength 4+/5 at iliopsoas, hamstrings, quadriceps, 5-/5 tibialis anterior, and 5-/5 gastrocnemius bilaterally. REFLEXES: 1+ at biceps, triceps, brachioradialis, trace patella, and absent Achilles bilaterally. Flexor plantar responses bilaterally. SENSORY: Intact to LT throughout, no extinction to double simultaneous stimuli. COORDINATION: No dysmetria or ataxia on [id number] in RUE. Normal Huy in RUE. GAIT: Deferred due to physical status. NIH STROKE SCALE 1A. Level of Consciousness (0-3) = 0 1B. LOC Questions (0-2) = 0 1C. LOC Commands (0-2) = 0 2. Best Horizontal Gaze (0-2) = 0 3. Visual Teague (0-3) = 0 4. Facial Palsy (0-3) = 0 5. Motor Arm Right (0-4) = 0 Left (0-4) = 1 6. Motor Leg Right (0-4) = 0 Left (0-4) = 1 7. Limb Ataxia (0-2) = 0 8. Sensory (0-2) = 0 9. Best Language (0-3) = 0 10. Dysarthria (0-2) = 0 11. Extinction and Inattention (0-2) = 0 NIHSS TOTAL = 2 PG Care Time/CCT Total # of Minutes Spent Total Time Spent with Patient: Total time spent is greater than 50% in coordination of care (as documented) at patient's floor/unit and/or counseling patient: Coding Level of Care Code 81898 Subseq Obs Care Lvl 2 Diagnoses Left-sided weakness R53.1 Stroke I63.9 CVA mechanism: unspecified Enterococcal bacteremia R78.81; B95.2 Chronic respiratory failure with hypoxia J96.11 Atrial fibrillation, persistent I48.1 (1) Stroke CVA mechanism: unspecified Qualified Code(s): I63.9 - Cerebral infarction, unspecified
[2020-03-29] MEDS ORDERED: methylPREDNISolone 40 MG in SYRINGE 0 ML IV SCH (14:00)
[2020-03-29 14:04] LABS: Hematocrit (blood only) 28.8 % (42-52); Hemoglobin 9.3 g/dL (14.0-18.0); Mean Corpuscular Hemoglobin 30.8 pg (25-34); Mean Corpuscular Hgb Conc 32.3 g/dL (32-36); Mean Corpuscular Volume 95.4 fL (80-100); Mean Platelet Volume 9.9 fL (7.4-10.4); Nucleated RBC # (auto) 0.07 K/uL (0-0); Nucleated RBC % (auto) 0.4 %; Platelet Count 333 K/uL (130-400); RDW Coefficient of Variation 19.2 % (11.5-14.5); RDW Standard Deviation 52.6 fL (36.4-46.3); Red Blood Count 3.02 M/uL (4.7-6.1)
[2020-03-29 14:08] LABS: Base Excess VBG -2.2 mEq/L; Oxygen Saturation VBG 80.1 %; pH VBG 7.42 (7.36-7.41)
[2020-03-29 14:21] LABS: INR 1.4 (0.9-1.1); Partial Thromboplastin Ratio 1.2
[2020-03-29] MEDS: methylPREDNISolone 30 MG in SYRINGE 0 ML IV SCH (14:35)
[2020-03-29] MEDS: PANTOprazole 40 MG TAB PO SCH ×2 (15:42→20:11)
[2020-03-29] MEDS: DIGOXIN 0.125 MG TAB PO SCH (15:42)
--- NOTE | 2020-03-29 18:40 | Hospitalist Progress Note ---
Date of Service March 29, 2020 Assessment & Plan (1) Stroke: confirmed with CT head on 03/28. right frontal lobe - c/w clinical exam. appreciate neurology consult and recs. no need for additional antiplatelet agent. cont systemic anticoagulation, if possible, in light of epistaxis/melena/hematur ia. PT, OT, speech evals. work-up including CTA head/neck and echo negative. uncertain why he developed the stroke in the midst of his bacteremia. is he hypercoagulable from underlying malignancy? other? will need rehab. given his tenuous status with bleeding (epistaxis, hematuria, and now melena) will HOLD eliquis; place on heparin infusion in jeanine. if bleeding worsens, Hb drops, etc we may be forced to stop the heparin. (2) Acute and chronic respiratory failure with hypoxia: acute component 2nd to RML/RLL pneumonia +/- acute/chronic diastolic CHF - latter resolved. chronic respiratory failure 2nd to COPD/pulmonary fibrosis. On 3 L NC at baseline. cont oxymask. cont broad-spectrum IV antibiotics for pneumonia. day #5-6 of zosyn. day #4 of zithromax. day #4 of vancomycin. COVID-19 testing negative x 2. (3) Septicemia: 2nd to enterococcal UTI. zosyn will cover (it is pansensitive). repeat blood cx's negative. echo w/o obvious signs of endocarditis. goddard in place. (4) Enterococcal bacteremia: as above. continue zosyn. repeat blood cx's negative. 14 days in total of IV/PO antibiotics will be needed. (5) Right lower lobe pneumonia: stable. no distress. slow improvement overall. cont triple IV abx therapy (zosyn, vanco, zithromax). day #4 zithromax day # 5 into 6 of zosyn day #4 vancomyin cont bronchodilators. cont o2 support. COVID-19 testing negative. (6) Acute kidney injury: likely combination of sepsis-associated ATN and diuresis. Cr has peaked; continues to improve supportive care. BMP am. cont goddard. (7) Metabolic encephalopathy: ongoing 2nd to UTI, pneumonia, bacteremia, hypoxia. supportive care. treat infections. avoid sedatives. VBG checked today to r/o hypercarbia - negative for such (8) Epistaxis: 2nd to dryness in nose from NC O2 in setting of eliquis use. cont oxymask. bactroban to nares BID. nasal saline q1h prn. afrin protocol. if epistaxis worsens/recurs then ENT eval no bleeding since yesterday (9) Chronic obstructive pulmonary disease: start solumedrol 30mg IV q12h hopefully this will help pulmonary status and appetite Cont bronchodilators and mucinex along with pulmonary toilet. (10) Atrial fibrillation, persistent: improving. cont digoxin. dig level acceptable, cont cardizem infusion - probably can transition to PO cardizem on 03/30 use heparin drip in jeanine of apixaban for now (11) CAD (coronary artery disease): cont metoprolol no ischemic symptoms (12) CHF (congestive heart failure): acute/chronic - s/p multiple doses of lasix earlier this admission. again mildly volume contracted today and he is very thirsty. give 1 liter of fluids back to him then saline lock. no further diuretics either. (13) Leukocytosis: has seen heme/onc for such. chronic. possible precursor to MDS or other malignancy. mild lymphadenopathy on CT chest. mild hepatosplenomegaly on CT abd/pelvis. concerning for development of lymphoma, especially with progressive weight loss since 2019? (14) Severe protein-calorie malnutrition: 20+ pounds of weight loss since 09/2019 worrisome for malignancy vs wasting from severe COPD (15) Hematuria: 2nd to UTI and/or prostatitis in setting of eliquis use appears grossly worse today, but fortunately h/h remain stable in case the hematuria worsens further stop the eliquis change to heparin drip that way it can be stopped quickly if necessary cont goddard coags checked today and acceptable platelets acceptable (16) Heme positive stool: melena stool per staff and indeed heme+ start PPI not a candidate for endoscopic evaluation follow serial CBCs see discussion above re: systemic anticoagulation (17) DVT prophylaxis: remains on anticoagulation cautiously in light of multiple sites of bleeding spoke with Laura on 03/28/2020 - spent 30 minutes reviewing plan of care and answering questions had conference call with Laura and pt's today again 30 minute call - extensive update given, questions answered, told them I anticipate he will be hospitalized here through the weekend and likely beyond status is tenuous; outcome uncertain; multiple comorbidities and issues too sick to participate with PT per therapy notes they voiced understanding Zoom session set up for daughter/ to interact with him; staff to assist w/ this Admission and Anticipated Discharge Date Admission Date: March 21, 2020 Subjective patient very sleepy during my 2 visits with him today. with that said he does wake up and answer questions. he reported feeling thirsty. left arm weakness continues - actually worse in his estimation. staff report slightly better appetite today. tele with improved a.fib rates; in fact cardizem drip decreased to 5mg/hr. denied pain in any location. minimal cough. feels short of breath. also c/o mouth pain. staff report hematuria is worse. also he had a very dark bowel movement today - fecal occult sent and was positive. Review of Systems Constitutional: + fatigue and + anorexia; no fever Ear, Nose, Mouth, Throat: no epistaxis Respiratory: + cough and + dyspnea; no hemoptysis Cardiovascular: no chest pain Gastrointestinal: no abdominal pain Genitourinary: + hematuria (Worse today) Physical Exam Constitutional: + ill appearing, + altered mental status, + frail appearing and + lethargic; no acute distress ENMT: Nose: + nare abnormality (No active bleeding) Mouth: + lip abnormality (dry), + oral mucosal abnormality (Old blood throughout the oral cavity and posterior throat ), + tongue abnormality (Dry, cracked, irritated/ulcerated) and + dry oral mucous membranes Respiratory: no respiratory distress Auscultation: + diminished lung sounds (Right base) and + crackles (bases ); no wheezes Cardiovascular: Rate/Rhythm: regular rate and + irregularly irregular Heart Sounds: normal S1 and normal S2; no murmur Vessels: posterior tibial pulses present and dorsalis pedis pulses present Extremities: no edema Gastrointestinal (Abdomen): normal bowel sounds, soft, nontender, no hepatosplenomegaly Skin: no rashes, warm and dry Neurologic: + focal motor deficit (left arm strength 4/5; left hand 3-4/5; left leg 4/5; RUE/RLE 5/5) Psychiatric: Orientation: alert and oriented to person; + not oriented to place and + not oriented to time Results & Data Results & Data ([facility]) Vital Signs (Past 12 Hours) Vital Signs Temp Pulse Pulse Pulse Resp BP BP 03/29/20 16:00 93 H 03/29/20 15:48 36.7 C 88 18 112/71 03/29/20 15:42 74 03/29/20 13:07 102 H 20 03/29/20 11:34 36.6 C 116 H 20 105/66 03/29/20 09:00 104 H 03/29/20 08:02 36.7 C 95 H 18 112/72 03/29/20 07:04 102 H 18 Pulse Ox 03/29/20 16:00 03/29/20 15:48 94 03/29/20 15:42 03/29/20 13:07 91 03/29/20 11:34 94 03/29/20 09:00 03/29/20 08:02 91 03/29/20 07:04 95 Laboratory Results Laboratory Results - last 24 hr 03/29/20 03/29/20 03/29/20 07:15 13:40 13:55 WBC 18.10 H RBC 3.02 L Hgb 9.3 L Hct 28.8 L MCV 95.4 MCH 30.8 MCHC 32.3 RDW Std Deviation 52.6 H RDW Coeff of Ashley 19.2 H Plt Count 333 MPV 9.9 Absolute Nucleated RBC 0.07 H Nucleated RBC % (auto) 0.4 PT INR APTT PTT Ratio VBG pH VBG pCO2 VBG pO2 VBG HCO3 VBG O2 Saturation VBG Base Excess Barometric Pressure Sodium 134 L Potassium 3.4 L Chloride 104 Carbon Dioxide 21 Anion Gap 10.0 BUN 78 H Creatinine 1.96 H D Est Cr Clr Drug Dosing 29.0 Est GFR ( Amer) 35.4 Est GFR (Non-Af Amer) 30.5 BUN/Creatinine Ratio 39.7 H Glucose 119 H POC Glucose Calcium 8.5 Stool Occult Bld Scrn Positive A 03/29/20 03/29/20 03/29/20 13:55 13:55 16:22 WBC RBC Hgb Hct MCV MCH MCHC RDW Std Deviation RDW Coeff of Ashley Plt Count MPV Absolute Nucleated RBC Nucleated RBC % (auto) PT 15.0 H INR 1.4 H APTT 34.0 H PTT Ratio 1.2 VBG pH 7.42 H VBG pCO2 35 L VBG pO2 47 VBG HCO3 22 VBG O2 Saturation 80.1 VBG Base Excess -2.2 Barometric Pressure 725.0 Sodium Potassium Chloride Carbon Dioxide Anion Gap BUN Creatinine Est Cr Clr Drug Dosing Est GFR ( Amer) Est GFR (Non-Af Amer) BUN/Creatinine Ratio Glucose POC Glucose 154 H Calcium Stool Occult Bld Scrn PG Care Time/CCT Total # of Minutes Spent Total Time Spent with Patient: Total time spent is greater than 50% in coordination of care (as documented) at patient's floor/unit and/or counseling patient: Coding Level of Care Code 66988 Subseq Hosp Care Lvl 3 Diagnoses Stroke I63.9 CVA mechanism: unspecified Acute and chronic respiratory failure with hypoxia J96.21 Septicemia A41.9 Enterococcal bacteremia R78.81; B95.2 Right lower lobe pneumonia J18.9 Pneumonia type: due to unspecified organism Acute kidney injury N17.9 Metabolic encephalopathy G93.41 Epistaxis R04.0 Chronic obstructive pulmonary disease J44.9 COPD type: unspecified COPD Atrial fibrillation, persistent I48.1 CAD (coronary artery disease) I25.10 Associated angina: without angina Coronary Disease-Associated Artery/Lesion type: saxman artery [place] vs. transplanted heart: saxman heart CHF (congestive heart failure) I50.32 Heart failure chronicity: chronic Heart failure type: diastolic Leukocytosis D72.829 Leukocytosis type: unspecified Severe protein-calorie malnutrition E43 Hematuria R31.0 Hematuria type: gross Heme positive stool R19.5 DVT prophylaxis Z29.9 (1) Hematuria Hematuria type: gross Qualified Code(s): R31.0 - Gross hematuria (2) CAD (coronary artery disease) Associated angina: without angina Coronary Disease-Associated Artery/Lesion type: [place] artery [place] vs. transplanted heart: [place]man heart Qualified Code(s): I25.10 - Atherosclerotic heart disease of [place] coronary artery without angina pectoris (3) CHF (congestive heart failure) Heart failure chronicity: chronic Heart failure type: diastolic Qualified Code(s): I50.32 - Chronic diastolic (congestive) heart failure (4) Leukocytosis Leukocytosis type: unspecified Qualified Code(s): D72.829 - Elevated white blood cell count, unspecified (5) Chronic obstructive pulmonary disease COPD type: unspecified COPD Qualified Code(s): J44.9 - Chronic obstructive pulmonary disease, unspecified (6) Right lower lobe pneumonia Pneumonia type: due to unspecified organism Qualified Code(s): J18.9 - Pneumonia, unspecified organism (7) Stroke CVA mechanism: unspecified Qualified Code(s): I63.9 - Cerebral infarction, unspecified
[2020-03-29] MEDS: NYSTATIN 30 ML, DEXAMETHASONE CONC 3.75 MG, DiphenhydrAMINE Syrup 300 MG, ORA-SWEET SYR... PO SCH (20:10)
[2020-03-29] MEDS: HEPARIN SODIUM/DEXTROSE 25,000 UNITS/500 ML BAG IV SCH (20:56)
[2020-03-29] MEDS: Heparin IV Standard *NO* Bolus IV SCH ×2 (22:32→22:44)
[2020-03-30] MEDS: NYSTATIN 30 ML, DEXAMETHASONE CONC 3.75 MG, DiphenhydrAMINE Syrup 300 MG, ORA-SWEET SYR... PO SCH ×4 (00:11→21:22)
[2020-03-30 00:27] LABS: Hemoglobin 9.3 g/dL (14.0-18.0)
[2020-03-30] MEDS: LEVALBUTEROL 1.25MG/0.5ML NEB NEB SCH ×4 (00:59→20:04)
[2020-03-30] MEDS: IPRATROPIUM BROMIDE NEB SOLN 0.02% 2.5 ML VIAL INH SCH ×4 (00:59→20:04)
[2020-03-30] MEDS: dilTIAZem HCL 125 MG in DEXTROSE 5% 100 ML IV SCH (03:21)
[2020-03-30 03:23] LABS: Hematocrit (blood only) 30.8 % (42-52); Hemoglobin 9.7 g/dL (14.0-18.0); Mean Corpuscular Hgb Conc 31.5 g/dL (32-36); Mean Corpuscular Volume 95.4 fL (80-100); Mean Platelet Volume 10.1 fL (7.4-10.4); Nucleated RBC # (auto) 0.05 K/uL (0-0); Nucleated RBC % (auto) 0.3 %; Platelet Count 361 K/uL (130-400); RDW Coefficient of Variation 19.9 % (11.5-14.5); RDW Standard Deviation 54.7 fL (36.4-46.3); Red Blood Count 3.23 M/uL (4.7-6.1); White Blood Count 16.51 K/uL (4.8-10.8)
[2020-03-30 03:42] LABS: Partial Thromboplastin Ratio 2.3
[2020-03-30 03:43] LABS: Partial Thromboplastin Time 63.3 Seconds (21.0-31.0)
[2020-03-30 03:44] LABS: BUN Creatinine Ratio 37.3 (10-20); Calcium 8.2 mg/dl (8.5-10.1); Creatinine Clr Calc Pharmacy 30.4 ml/min; Est GFR (African American) 37.4; Est GFR (Non-African American) 32.3; Potassium 4.2 mmol/L (3.5-5.1)
[2020-03-30] MEDS: PIPERACILLIN/TAZOBACTAM 3.375 GM in DEXTROSE 5% 100 ML IV SCH ×3 (05:48→21:23)
[2020-03-30] MEDS: ACETAMINOPHEN 325 MG TAB PO SCH ×4 (07:53→21:21)
[2020-03-30] MEDS: AZITHROMYCIN 250 MG TAB PO SCH (07:54)
[2020-03-30] MEDS: LIDOCAINE 5% 1 PATCH TD SCH (07:54)
[2020-03-30] MEDS: METOPROLOL TARTRATE 25 MG TAB PO SCH ×2 (07:54→21:22)
[2020-03-30] MEDS: PANTOprazole 40 MG TAB PO SCH ×2 (07:54→21:22)
[2020-03-30] MEDS: MUPIROCIN 2% OINT 22 GM TUBE EXT SCH ×2 (07:55→21:22)
[2020-03-30] MEDS: UMECLIDINIUM/VILANTEROL 62.5/25MCG 7 PUFFS/INHALER INH SCH (07:55)
--- NOTE | 2020-03-30 08:42 | Pharmacy Report ---
Pharmacy Abx Dose Short Note - Date of Service March 30, 2020 - Assessment & Plan Assessment 84 year old M receiving vancomycin and Zosyn for treatment of pneumonia + Enterococcus pneumonia Day # 5 of antimicrobial therapy. Plan Vancomycin * Random level of 20.5 mcg/mL is therapeutic. * Give vancomycin 1000 mg IV x 1 (11.7 mg/kg) -- patient specific pharmacokinetics are as follows: Vd = 0.7, peak = 45.6 mcg/mL, trough = 20.5 mcg/mL, Lenin = 0.025 and T1/2 = 26 hours * Goal trough level for pulmonary infection : 15 to 20 mcg/mL * Random level ordered for: 03/31/2020 with AM labs. Pharmacy will continue to follow and will adjust dose/frequency as necessary. Thank you.
[2020-03-30] MEDS ORDERED: VANCOMYCIN HCL 1,000 MG in SODIUM CHLORIDE 0.9% 250 ML IV ONE (09:00)
[2020-03-30] MEDS: HEPARIN SODIUM/DEXTROSE 25,000 UNITS/500 ML BAG IV SCH (13:22)
[2020-03-30] MEDS: methylPREDNISolone 30 MG in SYRINGE 0 ML IV SCH ×2 (14:12)
[2020-03-30] MEDS: MoRPHine SULFATE 2 MG/ML CARP IV PRN (16:54)
[2020-03-30] MEDS: DIGOXIN 0.125 MG TAB PO SCH (16:55)
[2020-03-30 17:18] LABS: Hematocrit (blood only) 30.8 % (42-52); Hemoglobin 9.8 g/dL (14.0-18.0)
--- NOTE | 2020-03-30 19:31 | Hospitalist Progress Note ---
Date of Service March 30, 2020 Assessment & Plan (1) Stroke: confirmed with CT head on 03/28. right frontal lobe - c/w clinical exam. appreciate neurology consult and recs. no need for additional antiplatelet agent. cont systemic anticoagulation, if possible, in light of epistaxis/melena/hematur ia. PT, OT, speech evals. work-up including CTA head/neck and echo negative. uncertain why he developed the stroke in the midst of his bacteremia. is he hypercoagulable from underlying malignancy? other? will need rehab. given his tenuous status with bleeding (epistaxis, hematuria, and now melena) will HOLD eliquis; place on heparin infusion in lieu. if bleeding worsens, Hb drops, etc we may be forced to stop the heparin. Hb 6/4 AM 9.7, repeat around 5p is 9.8--will continue heparin given risks of d/c in the setting of stable Hb Continue to assess (2) Acute and chronic respiratory failure with hypoxia: acute component 2nd to RML/RLL pneumonia +/- acute/chronic diastolic CHF - latter resolved. chronic respiratory failure 2nd to COPD/pulmonary fibrosis. On 3 L NC at baseline. cont oxymask. cont broad-spectrum IV antibiotics for pneumonia. day #5-6 of zosyn. day #4 of zithromax. day #4 of vancomycin. COVID-19 testing negative x 2. (3) Septicemia: 2nd to enterococcal UTI. zosyn will cover (it is pansensitive). repeat blood cx's negative. echo w/o obvious signs of endocarditis. goddard in place. (4) Enterococcal bacteremia: as above. continue zosyn. repeat blood cx's negative. 14 days in total of IV/PO antibiotics will be needed. (5) Right lower lobe pneumonia: stable. no distress. slow improvement overall. cont triple IV abx therapy (zosyn, vanco, zithromax). day #4 zithromax day # 5 into 6 of zosyn day #4 vancomyin cont bronchodilators. cont o2 support. COVID-19 testing negative. (6) Acute kidney injury: likely combination of sepsis-associated ATN and diuresis. Cr has peaked; continues to improve supportive care. BMP am. cont goddard. (7) Metabolic encephalopathy: ongoing 2nd to UTI, pneumonia, bacteremia, hypoxia. supportive care. treat infections. avoid sedatives. VBG checked today to r/o hypercarbia - negative for such (8) Epistaxis: 2nd to dryness in nose from NC O2 in setting of eliquis use. cont oxymask. bactroban to nares BID. nasal saline q1h prn. afrin protocol. if epistaxis worsens/recurs then ENT eval no bleeding since 03/28 (9) Chronic obstructive pulmonary disease: start solumedrol 30mg IV q12h hopefully this will help pulmonary status and appetite Cont bronchodilators and mucinex along with pulmonary toilet. (10) Atrial fibrillation, persistent: improving. cont digoxin. dig level acceptable, cont cardizem infusion - probably can transition to PO cardizem on 03/30 use heparin drip in jeanine of apixaban for now (11) CAD (coronary artery disease): cont metoprolol no ischemic symptoms (12) CHF (congestive heart failure): acute/chronic - s/p multiple doses of lasix earlier this admission. again mildly volume contracted today and he is very thirsty. give 1 liter of fluids back to him then saline lock. no further diuretics either. (13) Leukocytosis: has seen heme/onc for such. chronic. possible precursor to MDS or other malignancy. mild lymphadenopathy on CT chest. mild hepatosplenomegaly on CT abd/pelvis. concerning for development of lymphoma, especially with progressive weight loss since 2019? (14) Severe protein-calorie malnutrition: 20+ pounds of weight loss since 09/2019 worrisome for malignancy vs wasting from severe COPD (15) Hematuria: 2nd to UTI and/or prostatitis in setting of eliquis use appears grossly worse today, but fortunately h/h remain stable in case the hematuria worsens further stop the eliquis change to heparin drip that way it can be stopped quickly if necessary cont goddard coags checked and acceptable platelets acceptable (16) Heme positive stool: melena stool per staff and indeed heme+ start PPI not a candidate for endoscopic evaluation follow serial CBCs see discussion above re: systemic anticoagulation (17) DVT prophylaxis: remains on anticoagulation cautiously in light of multiple sites of bleeding Too sick to participate in PT/OT Zoom session set up for daughter/ to interact with him; staff to assist w/ this Admission and Anticipated Discharge Date Admission Date: March 21, 2020 Subjective Pt noted blood in the back of his throat. No new nosebleeding or coughing up blood per pt and nursing. Tolerated PO. Put finger in back of throat "because I could feel something filling there" and pulled it away with blood on it. Pt denies fever, SOB, chest pain, abd pain, n/v/c/d, LE pain or swelling. He feels generally unwell. Per nursing, there was blood in bowel movement and catheter. Review of Systems Review of Systems: Pertinent positives and negatives reviewed in HPI--all others negative Physical Exam Constitutional: WD/WN, vitals as above Eyes: normal visual teague by confrontation and + anicteric sclerae ENMT: Nose: + epistaxis (appears dried) Blood noted on tongue and upper and lower palate, is moist, but unclear if this is new Neck: normal visual inspection and trachea midline Respiratory: normal respiratory effort, lungs clear to auscultation Cardiovascular: Rate/Rhythm: regular rate and regular rhythm Gastrointestinal (Abdomen): Inspection/Auscultation: abdomen not distended Percussion/Palpation: abdomen soft; abdomen nontender Musculoskeletal: Head/Neck/Chest: normocephalic and head atraumatic negative for edema, peripheral pulses intact Skin: no rashes, warm and dry Neurologic: awake; not confused Speech / Cognition: normal speech Psychiatric: A+Ox3, euthymic affect Results & Data Results & Data ([facility]) Vital Signs (Past 12 Hours) Vital Signs Temp Pulse Pulse Pulse Resp BP BP 03/30/20 16:55 97 H 03/30/20 16:01 36.4 C L 97 H 19 119/74 03/30/20 13:14 96 H 18 03/30/20 12:11 37.1 C 76 22 137/77 03/30/20 07:52 36.4 C L 118 H 22 118/69 Pulse Ox 03/30/20 16:55 03/30/20 16:01 94 03/30/20 13:14 91 03/30/20 12:11 92 03/30/20 07:52 91 PG Care Time/CCT Total # of Minutes Spent Total Time Spent with Patient: Total time spent is greater than 50% in coordination of care (as documented) at patient's floor/unit and/or counseling patient: Coding Level of Care Code 50324 Subseq Hosp Care Lvl 3 Diagnoses Stroke I63.9 CVA mechanism: unspecified Acute and chronic respiratory failure with hypoxia J96.21 Septicemia A41.9 Enterococcal bacteremia R78.81; B95.2 Right lower lobe pneumonia J18.9 Pneumonia type: due to unspecified organism Acute kidney injury N17.9 Metabolic encephalopathy G93.41 Epistaxis R04.0 Chronic obstructive pulmonary disease J44.9 COPD type: unspecified COPD Atrial fibrillation, persistent I48.1 CAD (coronary artery disease) I25.10 Coronary Disease-Associated Artery/Lesion type: [place] artery [place] vs. transplanted heart: [place] heart Associated angina: without angina CHF (congestive heart failure) I50.32 Heart failure type: diastolic Heart failure chronicity: chronic Leukocytosis D72.829 Leukocytosis type: unspecified Severe protein-calorie malnutrition E43 Hematuria R31.0 Hematuria type: gross Heme positive stool R19.5 DVT prophylaxis Z29.9 (1) Stroke CVA mechanism: unspecified Qualified Code(s): I63.9 - Cerebral infarction, unspecified (2) Right lower lobe pneumonia Pneumonia type: due to unspecified organism Qualified Code(s): J18.9 - Pneu monia, unspecified organism (3) Chronic obstructive pulmonary disease COPD type: unspecified COPD Qualified Code(s): J44.9 - Chronic obstructive pulmonary disease, unspecified (4) CAD (coronary artery disease) Coronary Disease-Associated Artery/Lesion type: [place] artery [place] vs. transplanted heart: [place] heart Associated angina: without angina Qualified Code(s): I25.10 - Atherosclerotic heart disease of [place] coronary artery without angina pectoris (5) CHF (congestive heart failure) Heart failure type: diastolic Heart failure chronicity: chronic Qualified Code(s): I50.32 - Chronic diastolic (congestive) heart failure (6) Leukocytosis Leukocytosis type: unspecified Qualified Code(s): D72.829 - Elevated white blood cell count, unspecified (7) Hematuria Hematuria type: gross Qualified Code(s): R31.0 - Gross hematuria
[2020-03-31] MEDS: IPRATROPIUM BROMIDE NEB SOLN 0.02% 2.5 ML VIAL INH SCH ×4 (00:34→18:56)
[2020-03-31] MEDS: LEVALBUTEROL 1.25MG/0.5ML NEB NEB SCH ×4 (00:34→18:56)
[2020-03-31] MEDS: methylPREDNISolone 30 MG in SYRINGE 0 ML IV SCH ×2 (01:49→13:09)
[2020-03-31] MEDS: NYSTATIN 30 ML, DEXAMETHASONE CONC 3.75 MG, DiphenhydrAMINE Syrup 300 MG, ORA-SWEET SYR... PO SCH ×4 (01:51→19:34)
[2020-03-31] MEDS: MoRPHine SULFATE 2 MG/ML CARP IV PRN ×4 (02:48→21:12)
[2020-03-31] MEDS ORDERED: METOPROLOL TARTRATE 1 MG/ML VIAL IV STA (04:17)
[2020-03-31] MEDS ORDERED: FUROSEMIDE 40 MG/4 ML VIAL IV ONE (04:19)
[2020-03-31] MEDS ORDERED: METOPROLOL TARTRATE 1 MG/ML VIAL IV ONE (04:19)
[2020-03-31 04:28] LABS: Basophils # (auto) 0.01 K/uL (0-0.2); Basophils % (auto) 0.1 %; Hematocrit (blood only) 30.5 % (42-52); Hemoglobin 9.9 g/dL (14.0-18.0); Immature Granulocytes # (auto) 0.33 K/uL (0.00-0.02); Immature Granulocytes % (auto) 1.7 %; Lymphocytes # (auto) 0.84 K/uL (1.2-3.4); Lymphocytes % (auto) 4.3 %; Mean Corpuscular Hemoglobin 31.1 pg (25-34); Mean Corpuscular Volume 95.9 fL (80-100); Monocytes # (auto) 0.67 K/uL (0.11-0.59); Monocytes % (auto) 3.4 %; Neutrophils # (auto) 17.78 K/uL (1.4-6.5); Neutrophils % (auto) 90.5 %; Nucleated RBC # (auto) 0.04 K/uL (0-0); Nucleated RBC % (auto) 0.2 %; Platelet Count 405 K/uL (130-400); RDW Standard Deviation 56.1 fL (36.4-46.3); Red Blood Count 3.18 M/uL (4.7-6.1); White Blood Count 19.63 K/uL (4.8-10.8)
[2020-03-31] MEDS ORDERED: FUROSEMIDE 20 MG in SYRINGE 0 ML IV ONE (04:30)
--- NOTE | 2020-03-31 04:33 | Communication Note ---
Date of Service: March 31, 2020 Called by nursing at 3:58AM to evaluate patient for increased SOB and chest pain. Evaluated patient at the bedside. Stat EKG, CBC, BMP, Mag, Phos, Calc, Coa gs, Troponin drawn. Patient noted to have some discomfort with deep inhalation, no wheezing on exam, no increased oxygen requirement, satting at 88% on 8L. EKG compared to prior, no acute ST or T wave changes or signs of acute ischemia. CXR ordered which showed increased haziness, greater on R than L with fluid overloaded appearance in the setting of afib with intermittent RVR. Ordered for 20mg IV Lasix and 2.5mg IV Lopressor. CPAP ordered to bedside for 5mm H20 as needed or if SpO2 <88%.
[2020-03-31 04:37] LABS: Mean Corpuscular Hgb Conc 32.5 g/dL (32-36)
[2020-03-31 04:46] LABS: BUN Creatinine Ratio 31.9 (10-20); Calcium 8.4 mg/dl (8.5-10.1); Creatinine Clr Calc Pharmacy 24.9 ml/min; Est GFR (African American) 29.4; Est GFR (Non-African American) 25.4; Magnesium 3.3 mg/dl (1.8-2.4)
[2020-03-31 04:55] LABS: Phosphorus 5.5 mg/dl (2.5-4.9); Troponin I 0.121 ng/ml (0-0.045)
[2020-03-31 05:05] LABS: Anisocytosis Present; Ovalocytes 1+; Polychromasia 1+
[2020-03-31 05:07] LABS: Partial Thromboplastin Ratio 2.7
[2020-03-31] MEDS: PIPERACILLIN/TAZOBACTAM 3.375 GM in DEXTROSE 5% 100 ML IV SCH ×3 (06:14→22:40)
--- NOTE | 2020-03-31 07:43 | XRay Report ---
XR chest 1V portable CLINICAL HISTORY: Chest pain dyspnea COMPARISON STUDY: 03/27/2020 FINDINGS: Moderate stable cardiomegaly. Unchanged right basilar parenchymal infiltrate. Stable promin ence of pulmonary vasculature. IMPRESSION: No major change compared to the prior study. Unchanged prominence of pulmonary vasculatu re with unchanging right basilar infiltrate. ACT 112: Negative or not required by law. The above report was generated using voice recognition software. It may contain grammatical, syntax or spelling errors. Electronically signed by: Taurus Hurt M.D. 03/31/2020 7:42 AM
[2020-03-31 07:46] LABS: Partial Thromboplastin Time 75.7 Seconds (21.0-31.0)
[2020-03-31] MEDS: HEPARIN SODIUM/DEXTROSE 25,000 UNITS/500 ML BAG IV SCH ×2 (07:55→12:17)
[2020-03-31] MEDS: ACETAMINOPHEN 325 MG TAB PO SCH ×4 (07:55→21:11)
[2020-03-31] MEDS: PANTOprazole 40 MG TAB PO SCH ×2 (07:55→21:11)
[2020-03-31] MEDS: METOPROLOL TARTRATE 25 MG TAB PO SCH ×2 (07:55→21:11)
[2020-03-31] MEDS: UMECLIDINIUM/VILANTEROL 62.5/25MCG 7 PUFFS/INHALER INH SCH (07:56)
[2020-03-31] MEDS: MUPIROCIN 2% OINT 22 GM TUBE EXT SCH ×2 (07:56→21:11)
[2020-03-31] MEDS: LIDOCAINE 5% 1 PATCH TD SCH (07:56)
--- NOTE | 2020-03-31 09:10 | Pharmacy Report ---
Pharmacy Abx Dose Short Note - Date of Service March 31, 2020 - Assessment & Plan Assessment 84 year old M receiving vancomycin and Zosyn for treatment of pneumonia Day # 6 for vancomycin therapy and day #8 of Zosyn of antimicrobial therapy. Plan Vancomycin * Random level of 27.8 mcg/mL is supratherapeutic * Continue to hold vancomycin. * Goal trough level for pneumonia : 15 to 20 mcg/mL * Random level ordered for: 04/01/2020 in the morning Pharmacy will continue to follow and will adjust dose/frequency as necessary. Thank you.
[2020-03-31 11:26] LABS: Partial Thromboplastin Ratio 2.5
[2020-03-31 12:15] LABS: Partial Thromboplastin Time 69.9 Seconds (21.0-31.0)
--- NOTE | 2020-03-31 15:39 | Hospitalist Progress Note ---
Date of Service March 31, 2020 Assessment & Plan (1) Stroke: confirmed with CT head on 03/28. right frontal lobe - c/w clinical exam. appreciate neurology consult and recs. no need for additional antiplatelet agent. cont systemic anticoagulation, if possible, in light of epistaxis/melena/hematur ia. PT, OT, speech evals. work-up including CTA head/neck and echo negative. uncertain why he developed the stroke in the midst of his bacteremia. is he hypercoagulable from underlying malignancy? other? will need rehab. given his tenuous status with bleeding (epistaxis, hematuria, and now melena) will HOLD eliquis; place on heparin infusion in lieu. if bleeding worsens, Hb drops, etc we may be forced to stop the heparin. Hb 03/30 AM 9.7, repeat around 5p is 9.8, now at 9.9 03/31--will continue heparin given risks of d/c in the setting of stable Hb Continue to assess Lengthy discussion with daughter and . They are interested in speaking with palliative care. They are not certain they will pursue this route at this time, but would like to discuss given pt has "a long road ahead". Discussed that he is not actively bleeding now, but that this would be a very life limiting event given he cannot have surgical or procedural interventions for this. I did discuss with Dr. Polo who stated she will see pt on Friday given current stability. (2) Acute and chronic respiratory failure with hypoxia: acute component 2nd to RML/RLL pneumonia +/- acute/chronic diastolic CHF - latter resolved. chronic respiratory failure 2nd to COPD/pulmonary fibrosis. On 3 L NC at baseline. cont oxymask. cont broad-spectrum IV antibiotics for pneumonia. completed course of zithromax 03/30 zosyn started 03/24 vancomyin started 03/24, d/c 03/31 given metzger sensi COVID-19 testing negative x 2. (3) Septicemia: 2nd to enterococcal UTI. zosyn will cover (it is pansensitive). repeat blood cx's negative. echo w/o obvious signs of endocarditis. goddard in place. Ongoing leukocytosis in the setting of steroid use (4) Enterococcal bacteremia: as above. continue zosyn. repeat blood cx's negative. 14 days in total of IV/PO antibiotics will be needed. (5) Right lower lobe pneumonia: stable. no distress. slow improvement overall. started on triple IV abx therapy on admission (zosyn, vanco, zithromax). completed course of zithromax 03/30 zosyn started 03/24 vancomyin started 03/24, d/c 03/31 cont bronchodilators. cont o2 support. COVID-19 testing negative. (6) Acute kidney injury: likely combination of sepsis-associated ATN and diuresis. Cr has peaked; continues to improve supportive care. BMP am. cont goddard. (7) Metabolic encephalopathy: ongoing 2nd to UTI, pneumonia, bacteremia, hypoxia. supportive care. treat infections. avoid sedatives. VBG checked today to r/o hypercarbia - negative for such (8) Epistaxis: 2nd to dryness in nose from NC O2 in setting of eliquis use. cont oxymask. bactroban to nares BID. nasal saline q1h prn. afrin protocol. if epistaxis worsens/recurs then ENT eval no bleeding since 03/28 (9) Chronic obstructive pulmonary disease: start solumedrol 30mg IV q12h hopefully this will help pulmonary status and appetite Cont bronchodilators and mucinex along with pulmonary toilet. (10) Atrial fibrillation, persistent: improving. cont digoxin. dig level acceptable, cont cardizem infusion - probably can transition to PO cardizem on 03/30 use heparin drip in jeanine of apixaban for now (11) CAD (coronary artery disease): cont metoprolol no ischemic symptoms (12) CHF (congestive heart failure): acute/chronic - s/p multiple doses of lasix earlier this admission. again mildly volume contracted today and he is very thirsty. give 1 liter of fluids back to him then saline lock. no further diuretics either. (13) Leukocytosis: has seen heme/onc for such. chronic. possible precursor to MDS or other malignancy. mild lymphadenopathy on CT chest. mild hepatosplenomegaly on CT abd/pelvis. concerning for development of lymphoma, especially with progressive weight loss since 2019? (14) Severe protein-calorie malnutrition: 20+ pounds of weight loss since 09/2019 worrisome for malignancy vs wasting from severe COPD (15) Hematuria: 2nd to UTI and/or prostatitis in setting of eliquis use appears grossly worse today, but fortunately h/h remain stable in case the hematuria worsens further stop the eliquis change to heparin drip that way it can be stopped quickly if necessary cont goddard coags checked and acceptable platelets acceptable Urology c/s pending given ongoing hematuria but stable H/H (16) Heme positive stool: melena stool per staff and indeed heme+ start PPI not a candidate for endoscopic evaluation follow serial CBCs see discussion above re: systemic anticoagulation (17) DVT prophylaxis: remains on anticoagulation cautiously in light of multiple sites of bleeding Too sick to participate in PT/OT and daughter updated 03/31 Zoom session set up for daughter/ to interact with him again after dinner today; staff to assist w/ this Of note, daughter informs me that pt's hearing aids were lost in a room transfer Admission and Anticipated Discharge Date Admission Date: March 21, 2020 Subjective Pt states he feels a bit better today. He is still tired, but did eat some today. No nose bleeds. Not coughing up blood. Episode of SOB and chest pain overnight, now back to no SOB on face mask. No chest pain. Pt denies fever, abd pain, n/v/c/d, LE pain or swelling. Nursing reports on going blood in catheter. No bowel movement to note for bleeding. No nose or mouth bleeding per nursing as well. Review of Systems Review of Systems: Pertinent positives and negatives reviewed in HPI--all others negative Physical Exam Constitutional: WD/WN, vitals as above Eyes: normal visual teague by confrontation and + anicteric sclerae ENMT: Nose: + epistaxis (appears dried) Neck: normal visual inspection and trachea midline Respiratory: normal respiratory effort, lungs clear to auscultation Cardiovascular: Rate/Rhythm: regular rate and regular rhythm Gastrointestinal (Abdomen): Inspection/Auscultation: abdomen not distended Percussion/Palpation: abdomen soft; abdomen nontender Musculoskeletal: Head/Neck/Chest: normocephalic and head atraumatic Skin: no rashes, warm and dry Neurologic: awake; not confused Speech / Cognition: normal speech Psychiatric: Orientation: oriented x 3 and cooperative Fatigued Results & Data Results & Data ([facility]) Vital Signs (Past 12 Hours) Vital Signs Temp Pulse Pulse Pulse Resp BP BP 03/31/20 15:33 36.8 C 85 21 113/72 03/31/20 13:14 91 H 20 03/31/20 12:15 36.2 C L 105 H 18 115/71 03/31/20 08:24 36.5 C 96 H 20 117/75 03/31/20 08:00 97 H 03/31/20 07:15 104 H 16 03/31/20 04:22 116 H 03/31/20 03:51 36.4 C L 97 H 26 H 135/79 Pulse Ox 03/31/20 15:33 93 03/31/20 13:14 93 03/31/20 12:15 91 03/31/20 08:24 93 03/31/20 08:00 03/31/20 07:15 90 03/31/20 04:22 03/31/20 03:51 89 L PG Care Time/CCT Total # of Minutes Spent Total Time Spent with Patient: Total time spent is greater than 50% in coordination of care (as documented) at patient's floor/unit and/or counseling patient: Coding Level of Care Code 23874 Subseq Hosp Care Lvl 3 Diagnoses Stroke I63.9 CVA mechanism: unspecified Acute and chronic respiratory failure with hypoxia J96.21 Septicemia A41.9 Enterococcal bacteremia R78.81; B95.2 Right lower lobe pneumonia J18.9 Pneumonia type: due to unspecified organism Acute kidney injury N17.9 Metabolic encephalopathy G93.41 Epistaxis R04.0 Chronic obstructive pulmonary disease J44.9 COPD type: unspecified COPD Atrial fibrillation, persistent I48.1 CAD (coronary artery disease) I25.10 Coronary Disease-Associated Artery/Lesion type: [place] artery [place] vs. transplanted heart: [place] heart Associated angina: without angina CHF (congestive heart failure) I50.32 Heart failure type: diastolic Heart failure chronicity: chronic Leukocytosis D72.829 Leukocytosis type: unspecified Severe protein-calorie malnutrition E43 Hematuria R31.0 Hematuria type: gross Heme positive stool R19.5 DVT prophylaxis Z29.9 (1) Stroke CVA mechanism: unspecified Qualified Code(s): I63.9 - Cerebral infarction, unspecified (2) Right lower lobe pneumonia Pneumonia type: due to unspecified organism Qualified Code(s): J18.9 - Pneumonia, unspecified organism (3) Chronic obstructive pulmonary disease COPD type: unspecified COPD Qualified Code(s): J44.9 - Chronic obstructive pulmonary disease, unspecified (4) CAD (coronary artery disease) Coronary Disease-Associated Artery/Lesion type: [place] artery [place] vs. transplanted heart: [place] heart Associated angina: without angina Qualified Code(s): I25.10 - Atherosclerotic heart disease of [place] coronary artery without angina pectoris (5) CHF (congestive heart failure) Heart failure type: diastolic Heart failure chronicity: chronic Qualified Code(s): I50.32 - Chronic diastolic (congestive) heart failure (6) Leukocytosis Leukocytosis type: unspecified Qualified Code(s): D72.829 - Elevated white blood cell count, unspecified (7) Hematuria Hematuria type: gross Qualified Code(s): R31.0 - Gross hematuria
[2020-03-31] MEDS: DIGOXIN 0.125 MG TAB PO SCH (16:52)
[2020-03-31 19:12] LABS: Partial Thromboplastin Ratio 2.2
[2020-03-31 19:25] LABS: Partial Thromboplastin Time 61.9 Seconds (21.0-31.0)
[2020-03-31] MEDS: dilTIAZem HCL 125 MG in DEXTROSE 5% 100 ML IV SCH ×2 (21:54→21:55)
[2020-04-01] MEDS: LEVALBUTEROL 1.25MG/0.5ML NEB NEB SCH ×4 (00:47→18:54)
[2020-04-01] MEDS: IPRATROPIUM BROMIDE NEB SOLN 0.02% 2.5 ML VIAL INH SCH ×4 (00:47→18:54)
[2020-04-01] MEDS: methylPREDNISolone 30 MG in SYRINGE 0 ML IV SCH ×2 (02:01→14:04)
[2020-04-01] MEDS: MoRPHine SULFATE 2 MG/ML CARP IV PRN ×3 (02:01→22:23)
[2020-04-01] MEDS: NYSTATIN 30 ML, DEXAMETHASONE CONC 3.75 MG, DiphenhydrAMINE Syrup 300 MG, ORA-SWEET SYR... PO SCH ×4 (02:01→23:02)
[2020-04-01] MEDS: HEPARIN SODIUM/DEXTROSE 25,000 UNITS/500 ML BAG IV SCH ×2 (04:33→05:58)
[2020-04-01] MEDS: PIPERACILLIN/TAZOBACTAM 3.375 GM in DEXTROSE 5% 100 ML IV SCH ×3 (06:21→23:39)
[2020-04-01 06:46] LABS: Basophils # (auto) 0.02 K/uL (0-0.2); Basophils % (auto) 0.1 %; Hematocrit (blood only) 31.1 % (42-52); Hemoglobin 9.6 g/dL (14.0-18.0); Immature Granulocytes # (auto) 0.29 K/uL (0.00-0.02); Immature Granulocytes % (auto) 1.6 %; Lymphocytes # (auto) 0.56 K/uL (1.2-3.4); Mean Corpuscular Hemoglobin 30.3 pg (25-34); Mean Corpuscular Hgb Conc 30.9 g/dL (32-36); Mean Corpuscular Volume 98.1 fL (80-100); Mean Platelet Volume 9.8 fL (7.4-10.4); Monocytes # (auto) 0.75 K/uL (0.11-0.59); Monocytes % (auto) 4.1 %; Neutrophils # (auto) 16.76 K/uL (1.4-6.5); Neutrophils % (auto) 91.2 %; Nucleated RBC # (auto) 0.06 K/uL (0-0); Nucleated RBC % (auto) 0.3 %; Platelet Count 417 K/uL (130-400); RDW Coefficient of Variation 21.4 % (11.5-14.5); RDW Standard Deviation 67.7 fL (36.4-46.3); Red Blood Count 3.17 M/uL (4.7-6.1); White Blood Count 18.38 K/uL (4.8-10.8)
--- NOTE | 2020-04-01 06:53 | Electrocardiogram Report ---
Test Reason : Blood Pressure : / mmHG Vent. Rate : 114 BPM Atrial Rate : 101 BPM P-R Int : 000 ms QRS Dur : 144 ms QT Int : 378 ms P-R-T Axes : 000 -62 178 degrees QTc Int : 521 ms Atrial fibrillation with rapid ventricular response Right bundle branch block Left anterior fascicular block Bifascicular block T wave abnormality, consider lateral ischemia Abnormal ECG When compared with ECG of 28-MAR-2020 22:24, T wave inversion less evident in Lateral leads Confirmed by Issa Leyva ([id number]) on 04/01/2020 6:53:14 AM Referred By: REFERRED SELF Confirmed By:Issa Leyva
[2020-04-01 07:06] LABS: Anisocytosis Present; Echinocytes 1+; Ovalocytes 1+; Partial Thromboplastin Ratio 2.2; Polychromasia 1+
[2020-04-01 07:16] LABS: Partial Thromboplastin Time 61.7 Seconds (21.0-31.0)
[2020-04-01 07:25] LABS: Creatinine Clr Calc Pharmacy 20.3 ml/min; Est GFR (Non-African American) 19.8
[2020-04-01] MEDS: METOPROLOL TARTRATE 25 MG TAB PO SCH ×2 (10:16→23:02)
[2020-04-01] MEDS: LIDOCAINE 5% 1 PATCH TD SCH (10:16)
[2020-04-01] MEDS: PANTOprazole 40 MG TAB PO SCH ×2 (10:16→23:03)
[2020-04-01] MEDS: UMECLIDINIUM/VILANTEROL 62.5/25MCG 7 PUFFS/INHALER INH SCH (10:17)
[2020-04-01] MEDS: MUPIROCIN 2% OINT 22 GM TUBE EXT SCH ×2 (10:17→23:02)
[2020-04-01] MEDS: ACETAMINOPHEN 325 MG TAB PO SCH ×4 (10:34→23:02)
--- NOTE | 2020-04-01 14:43 | Hospitalist Progress Note ---
Date of Service April 01, 2020 Assessment & Plan (1) Stroke: confirmed with CT head on 03/28. right frontal lobe - c/w clinical exam. appreciate neurology consult and recs. no need for additional antiplatelet agent. cont systemic anticoagulation, if possible, in light of epistaxis/melena/hematur ia. PT, OT, speech evals. work-up including CTA head/neck and echo negative. uncertain why he developed the stroke in the midst of his bacteremia. is he hypercoagulable from underlying malignancy? other? will need rehab. given his tenuous status with bleeding (epistaxis, hematuria, and now melena) will HOLD eliquis; place on heparin infusion in lieu. if bleeding worsens, Hb drops, etc we may be forced to stop the heparin. Hb 03/30 AM 9.7, repeat around 5p is 9.8, now at 9.9 03/31--will continue heparin given risks of d/c in the setting of stable Hb Continue to assess Lengthy discussion regarding goals of care with daughter and on 03/31. They are interested in speaking with palliative care. They are not certain they will pursue this route at this time, but would like to discuss given pt has "a long road ahead". Discussed that he is not actively bleeding now, but that this would be a very life limiting event given he cannot have surgical or procedural interventions for this. I did discuss with Dr. Polo who stated she will see pt on Friday given current stability. (2) Acute and chronic respiratory failure with hypoxia: acute component 2nd to RML/RLL pneumonia +/- acute/chronic diastolic CHF - latter resolved. chronic respiratory failure 2nd to COPD/pulmonary fibrosis. On 3 L NC at baseline. cont oxymask. cont broad-spectrum IV antibiotics for pneumonia. completed course of zithromax 03/30 zosyn started 03/24 vancomyin started 03/24, d/c 03/31 given metzger sensi COVID-19 testing negative x 2. (3) Septicemia: 2nd to enterococcal UTI. zosyn will cover (it is pansensitive). repeat blood cx's negative. echo w/o obvious signs of endocarditis. goddard in place. Ongoing leukocytosis in the setting of steroid use (4) Enterococcal bacteremia: as above. continue zosyn. repeat blood cx's negative. 14 days in total of IV/PO antibiotics will be needed. (5) Right lower lobe pneumonia: stable. no distress. slow improvement overall. started on triple IV abx therapy on admission (zosyn, vanco, zithromax). completed course of zithromax 03/30 zosyn started 03/24 vancomyin started 03/24, d/c 03/31 cont bronchodilators. cont o2 support. COVID-19 testing negative. (6) Acute kidney injury: likely combination of sepsis-associated ATN and diuresis. Cr has peaked; continues to improve supportive care. BMP am. cont goddard. (7) Metabolic encephalopathy: ongoing 2nd to UTI, pneumonia, bacteremia, hypoxia. supportive care. treat infections. avoid sedatives. VBG checked today to r/o hypercarbia - negative for such (8) Epistaxis: 2nd to dryness in nose from NC O2 in setting of eliquis use. cont oxymask. bactroban to nares BID. nasal saline q1h prn. afrin protocol. if epistaxis worsens/recurs then ENT eval no bleeding since 03/28 (9) Chronic obstructive pulmonary disease: start solumedrol 30mg IV q12h hopefully this will help pulmonary status and appetite Cont bronchodilators and mucinex along with pulmonary toilet. (10) Atrial fibrillation, persistent: improving. cont digoxin. dig level acceptable, cont cardizem infusion - probably can transition to PO cardizem on 03/30 use heparin drip in jeanine of apixaban for now (11) CAD (coronary artery disease): cont metoprolol no ischemic symptoms (12) CHF (congestive heart failure): acute/chronic - s/p multiple doses of lasix earlier this admission. again mildly volume contracted today and he is very thirsty. give 1 liter of fluids back to him then saline lock. no further diuretics either. (13) Leukocytosis: has seen heme/onc for such. chronic. possible precursor to MDS or other malignancy. mild lymphadenopathy on CT chest. mild hepatosplenomegaly on CT abd/pelvis. concerning for development of lymphoma, especially with progressive weight loss since 2019? Abn cells seen on CBC--d/w Dr. Jacobs, contaminated land consultant path. She states that this is likely c/w his anemia and his body's attempt to respond (14) Severe protein-calorie malnutrition: 20+ pounds of weight loss since 09/2019 worrisome for malignancy vs wasting from severe COPD (15) Hematuria: 2nd to UTI and/or prostatitis in setting of eliquis use appears grossly worse today, but fortunately h/h remain stable in case the hematuria worsens further stop the eliquis change to heparin drip that way it can be stopped quickly if necessary cont goddard coags checked and acceptable platelets acceptable Urology c/s pending given ongoing hematuria but stable H/H Blood is dark in appearance suggesting old blood that is moving through catheter (16) Heme positive stool: melena stool per staff and indeed heme+ start PPI not a candidate for endoscopic evaluation follow serial CBCs see discussion above re: systemic anticoagulation (17) DVT prophylaxis: remains on anticoagulation cautiously in light of multiple sites of bleeding Too sick to participate in PT/OT Zoom session set up for daughter/ to interact again on 03/31; staff to assist w/ this Of note, daughter informs me that pt's hearing aids were lost in a room transfer (18) Anemia: Likely in part related to acute blood loss, but also noted for iron deficiency prior B12/folate WNL Borderline macrocytic Venofer 200mg IV 04/01 given likely intolerance of PO iron Admission and Anticipated Discharge Date Admission Date: March 21, 2020 Subjective Pt notes he feels a bit better again today. A nursing clinical director in the room who has been taking care of pt recently says that she thinks pt looks much improved also. He says he ate more today. Nursing states he ate 50% of his breakfast. No further nose bleeding. No mouth bleeding. Ongoing blood in goddard. No bowel movement. Review of Systems Review of Systems: Pertinent positives and negatives reviewed in HPI--all others negative Physical Exam Constitutional: WD/WN, vitals as above Eyes: normal visual teague by confrontation and + anicteric sclerae ENMT: Nose: + epistaxis (appears dried) Mouth is clear of blood Neck: normal visual inspection and trachea midline Respiratory: normal respiratory effort, lungs clear to auscultation Cardiovascular: Rate/Rhythm: regular rate and regular rhythm Gastrointestinal (Abdomen): Inspection/Auscultation: abdomen not distended Percussion/Palpation: abdomen soft; abdomen nontender Musculoskeletal: Head/Neck/Chest: normocephalic and head atraumatic Skin: no rashes, warm and dry Neurologic: awake; not confused Speech / Cognition: normal speech Psychiatric: A+Ox3, euthymic affect Orientation: oriented x 3 and cooperative Genitourinary: Urine in goddard is darker today, more c/w old blood Results & Data Results & Data ([facility]) Vital Signs (Past 12 Hours) Vital Signs Temp Pulse Pulse Pulse Resp BP BP 04/01/20 13:18 110 H 20 04/01/20 12:41 36.4 C L 80 26 H 104/57 L 04/01/20 08:00 119 H 04/01/20 07:34 36.4 C L 103 H 20 118/78 04/01/20 06:50 101 H 20 04/01/20 03:19 36.5 C 112 H 22 114/70 Pulse Ox 04/01/20 13:18 93 04/01/20 12:41 91 04/01/20 08:00 04/01/20 07:34 93 04/01/20 06:50 91 04/01/20 03:19 94 PG Care Time/CCT Total # of Minutes Spent Total Time Spent with Patient: Total time spent is greater than 50% in coordination of care (as documented) at patient's floor/unit and/or counseling patient: Coding Level of Care Code 50657 Subseq Hosp Care Lvl 3 Diagnoses Stroke I63.9 CVA mechanism: unspecified Acute and chronic respiratory failure with hypoxia J96.21 Septicemia A41.9 Enterococcal bacteremia R78.81; B95.2 Right lower lobe pneumonia J18.9 Pneumonia type: due to unspecified organism Acute kidney injury N17.9 Metabolic encephalopathy G93.41 Epistaxis R04.0 Chronic obstructive pulmonary disease J44.9 COPD type: unspecified COPD Atrial fibrillation, persistent I48.1 CAD (coronary artery disease) I25.10 Coronary Disease-Associated Artery/Lesion type: [place] artery [place] vs. transplanted heart: [place] heart Associated angina: without angina CHF (congestive heart failure) I50.32 Heart failure type: diastolic Heart failure chronicity: chronic Leukocytosis D72.829 Leukocytosis type: unspecified Severe protein-calorie malnutrition E43 Hematuria R31.0 Hematuria type: gross Heme positive stool R19.5 DVT prophylaxis Z29.9 Anemia D64.9 (1) Stroke CVA mechanism: unspecified Qualified Code(s): I63.9 - Cerebral infarction, unspecified (2) Right lower lobe pneumonia Pneumonia type: due to unspecified organism Qualified Code(s): J18.9 - Pneumonia, unspecified organism (3) Chronic obstructive pulmonary disease COPD type: unspecified COPD Qualified Code(s): J44.9 - Chronic obstructive pulmonary disease, unspecified (4) CAD (coronary artery disease) Coronary Disease-Associated Artery/Lesion type: [place] artery [place] vs. transplanted heart: [place] heart Associated angina: without angina Qualified Code(s): I25.10 - Atherosclerotic heart disease of [place] coronary artery without angina pectoris (5) CHF (congestive heart failure) Heart failure type: diastolic Heart failure chronicity: chronic Qualified Code(s): I50.32 - Chronic diastolic (congestive) heart failure (6) Leukocytosis Leukocytosis type: unspecified Qualified Code(s): D72.829 - Elevated white blood cell count, unspecified (7) Hematuria Hematuria type: gross Qualified Code(s): R31.0 - Gross hematuria
--- NOTE | 2020-04-01 14:56 | Urology Consultation ---
Date of Consultation April 01, 2020 Assessment & Plan (1) Hematuria: Patient has acute sepsis/bacteremia likely secondary from urinary source which led to significant multi organ disease and subsequent stroke. Patient has a complicated medical history. His history was reviewed and summarized as above. No significant family history of malignancy. Patient developed gross hematuria during hospitalization. Has had a catheter in place. Prior to this patient denies previous episodes of gross hematuria. His ability to remember things related to acute events was limited secondary to the severe condition and current deconditioning. Patient is resting comfortably. Is tolerating yolanda ter. Has no mother major changes. Discussed need for full work-up of gross hematuria. Will likely need patient set up for cystoscopy at some point. Will likely need to maintain catheter for time being. Due to the severe nature of the UTI/pyelonephritis/bacteremia he had developed will need urologic work-up for these issues as well. Agree with current supportive care. Agree with plans to maintain catheter for now. Will monitor for significant development of clots or obstruction. We will plan for follow-up in approximately 2 to 3 weeks and will likely plan cystoscopy and catheter removal at that time. Patient may undergo trial of removal of catheter especially if he ends up in the rehab facility. Patient's imaging was reviewed interpreted by myself. All labs were reviewed. Patient's history was reviewed and summarized as above. (2) Stroke: (3) Enterococcal bacteremia: History of Present Illness Attending Physician: Betzy Morgan DO History of Present Illness Consult for urinary issues with incomplete emptying and gross hematuria with catheter placement. Patient was admitted due to a acute stroke with significant weakness. Patient is on Eliquis at home however during the hospitalization has developed gross hematuria. Per patient he has never had this before. He has no family history of malignancy. Does have moderate lower urinary tract symptoms at baseline. Patient has mild to moderate discomfort in pelvis and groin going to back and side in waves. Is dealing with acute illness from CVA as well as acute UTI with sepsis and JUAN. Has been deconditioned from this. Has decreased mobility significantly with acute issues. Patient has not had complete return to normal bowel function. Has had some minor urinary issues in the past. No severe nausea or vomiting. Currently no fevers. Allergies Allergy/AdvReac Type Severity Reaction Status Date / Time No Known Allergies Allergy Unknown Verified 03/17/20 13:40 Home Medications Home Medications Medication Instructions Recorded Confirmed Type Oxygen Home #1 ea 04/14/19 03/17/20 History tiotropium 2.5 mcg-olodaterol 2.5 2 puffs INHALATION DAILY #3 inhaler 08/05/19 03/21/20 Rx mcg/actuation mist for inhalation multivitamin 1 tab PO DAILY 08/13/19 03/21/20 History triamterene 37.5 1 cap PO QAM #90 cap 11/08/19 03/21/20 Rx mg-hydrochlorothiazide 25 mg capsule apixaban 5 mg tablet 5 mg PO BID #180 tab 02/15/20 03/21/20 Rx digoxin 125 mcg (0.125 mg) tablet 125 mcg PO DAILY #90 tab 02/15/20 03/21/20 Rx metoprolol tartrate 25 mg tablet 25 mg PO BID #180 tab 02/15/20 03/21/20 Rx diclofenac sodium 1 % topical gel 4 gm TOP TID PRN #100 gm 03/17/20 03/21/20 Rx coenzyme Q10 [Co Q-10] 100 mg PO BID 03/21/20 03/21/20 History diltiazem HCl [Cardizem CD] 360 mg PO QPM 03/21/20 03/21/20 History Patient History Medical History Aneurysm of infrarenal abdominal aorta (Chronic) Atrial fibrillation, persistent (Chronic) CAD (coronary artery disease) (Chronic) CHF (congestive heart failure) (Chronic) Chronic obstructive pulmonary disease (Chronic) Constipation (Chronic) Daytime hypersomnolence (Chronic) History of renal calculi (Chronic) Hyperglycemia (Chronic) Hyperlipidemia (Chronic) Leukocytosis (Chronic) Mediastinal adenopathy (Chronic) On anticoagulant therapy (Chronic) Pulmonary emphysema (Chronic) Surgical History H/O elbow surgery S/P hip replacement LEFT- 05/14/2007- Dr. Jimenez RIGHT- 12/27/04- Dr. Jimenez Family History Father Sepsis Cardiac disorder Brother Lung cancer Mother Uterine cancer Social History (Reviewed 04/01/20 @ 14:50 by JOAQUIN Gonzalez Preferred Language: Tajik Communication Ability: Effective Visual Impairment: No Limitations Hearing Ability: Use of Hearing Aid Rail [place] Required: No Beliefs That Will Affect Care: None marital status: Current Living Situation: Spouse current occupational status: retired Other Information That Helps Us Care for You: No Feels Safe at Home: Yes Safety Concerns: Feels Safe At This Time Smoking Status: Former smoker Tobacco Type: cigarettes ; Age Started Using Tobacco: 16 ; Age Quit Using Tobacco: 50 ; Second Hand Exposure: No ; Hx Alcohol Use: Yes Alcohol type: beer Alcohol Intake Frequency: Weekly Hx Substance Use: No Childhood Exposure to Second-Hand Smoke: No Seatbelt Use: always Sunscreen Use: No Review of Systems Review of Systems: All systems reviewed & are unremarkable except as noted in HPI & below, Unobtainable due to mental health condition and Unobtainable due to cognitive status Pertinent positives and negatives reviewed in HPI--all others negative limited secondary to patient's weakness and deconditioning from acute illness Constitutional: + fatigue and + anorexia; no fever Respiratory: + cough and + dyspnea; no hemoptysis Genitourinary: + hematuria (Worse today) Musculoskeletal: + back pain (low back) Neurologic: as per Subjective / HPI and + localized weakness Physical Exam Physical Exam: General: Alert but very weak. Some issues remembering acute events secondary to severe illness. Advanced age. Chronic Medical issues. HEENT: Normocephalic. Inspection normal. Cranial Nerves 2-12 Grossly intact with some hearing issues. Normal inspection of face. Normal inspection of neck. Psychologic: Normal affect. Baseline issues with memory. Respiratory: Nonlabored. No use of accessory muscles. No tachypnea or dyspnea. Cardiovascular: No tachycardia Skin: [place] and Dry. No rashes or visible lesions. Extremities/Lymphatics: Minor Mobility issues. Significant weakness Abdomen: Soft Non-distended. No rebound or guarding : Mccoy in place draining dark red urine with some clearing of urine in the catheter tubing Constitutional: WD/WN, vitals as above well developed, + ill appearing, + frail appearing and + lethargic; + not well nourished and no acute distress Neck: trachea midline, no thyromegaly normal visual inspection and trachea midline Skin: no rashes, warm and dry Results & Data Vital Signs (Past 12 Hours) Vital Signs Temp Pulse Pulse Pulse Resp BP BP 06/06/20 13:18 110 H 20 04/01/20 12:41 36.4 C L 80 26 H 104/57 L 04/01/20 08:00 119 H 04/01/20 07:34 36.4 C L 103 H 20 118/78 04/01/20 06:50 101 H 20 04/01/20 03:19 36.5 C 112 H 22 114/70 Pulse Ox 04/01/20 13:18 93 04/01/20 12:41 91 04/01/20 08:00 04/01/20 07:34 93 04/01/20 06:50 91 04/01/20 03:19 94 PG Care Time/CCT Total # of Minutes Spent Total Time Spent with Patient: Total time spent is greater than 50% in c oordination of care (as documented) at patient's floor/unit and/or counseling patient: Coding Level of Care Code 80240 Inpt Consult Level 5 Diagnoses Hematuria R31.0 Hematuria type: gross Stroke I63.9 CVA mechanism: unspecified Enterococcal bacteremia R78.81; B95.2 (1) Hematuria Hematuria type: gross Qualified Code(s): R31.0 - Gross hematuria (2) Stroke CVA mechanism: unspecified Qualified Code(s): I63.9 - Cerebral infarction, unspecified
[2020-04-01] MEDS ORDERED: IRON SUCROSE 200 MG in 0.9 % SODIUM CHLORIDE 100 ML IV ONE (16:00)
[2020-04-01] MEDS: DIGOXIN 0.125 MG TAB PO SCH (16:52)
[2020-04-02] MEDS: LEVALBUTEROL 1.25MG/0.5ML NEB NEB SCH ×4 (00:40→18:59)
[2020-04-02] MEDS: IPRATROPIUM BROMIDE NEB SOLN 0.02% 2.5 ML VIAL INH SCH ×4 (00:40→18:59)
[2020-04-02] MEDS: methylPREDNISolone 30 MG in SYRINGE 0 ML IV SCH ×2 (02:07→13:33)
[2020-04-02] MEDS: NYSTATIN 30 ML, DEXAMETHASONE CONC 3.75 MG, DiphenhydrAMINE Syrup 300 MG, ORA-SWEET SYR... PO SCH ×4 (02:07→23:45)
[2020-04-02] MEDS: HEPARIN SODIUM/DEXTROSE 25,000 UNITS/500 ML BAG IV SCH ×3 (02:07→09:41)
[2020-04-02] MEDS: MoRPHine SULFATE 2 MG/ML CARP IV PRN ×4 (03:33→21:59)
[2020-04-02] MEDS ORDERED: LORazepam 0.5 MG/1 ML VIAL IV STA (04:06)
[2020-04-02 05:32] LABS: Basophils # (auto) 0.02 K/uL (0-0.2); Basophils % (auto) 0.1 %; Hematocrit (blood only) 31.5 % (42-52); Hemoglobin 9.5 g/dL (14.0-18.0); Immature Granulocytes # (auto) 0.49 K/uL (0.00-0.02); Immature Granulocytes % (auto) 2.6 %; Lymphocytes # (auto) 0.32 K/uL (1.2-3.4); Lymphocytes % (auto) 1.7 %; Mean Corpuscular Hemoglobin 29.6 pg (25-34); Mean Corpuscular Hgb Conc 30.2 g/dL (32-36); Mean Corpuscular Volume 98.1 fL (80-100); Mean Platelet Volume 9.7 fL (7.4-10.4); Monocytes # (auto) 0.89 K/uL (0.11-0.59); Monocytes % (auto) 4.7 %; Neutrophils # (auto) 17.28 K/uL (1.4-6.5); Neutrophils % (auto) 90.9 %; Nucleated RBC # (auto) 0.15 K/uL (0-0); Nucleated RBC % (auto) 0.8 %; Platelet Count 354 K/uL (130-400); RDW Coefficient of Variation 21.6 % (11.5-14.5); RDW Standard Deviation 73.3 fL (36.4-46.3); Red Blood Count 3.21 M/uL (4.7-6.1)
[2020-04-02 05:48] LABS: Creatinine Clr Calc Pharmacy 19.1 ml/min; Est GFR (African American) 21.3; Est GFR (Non-African American) 18.4
[2020-04-02] MEDS: PIPERACILLIN/TAZOBACTAM 3.375 GM in DEXTROSE 5% 100 ML IV SCH ×2 (06:05→21:59)
[2020-04-02 06:09] LABS: Partial Thromboplastin Ratio 3.7
[2020-04-02 06:14] LABS: Anisocytosis Present; Echinocytes 1+; Ovalocytes 1+; Polychromasia 1+
--- NOTE | 2020-04-02 06:25 | Communication Note ---
Date of Service: April 02, 2020 Numerous pages overnight regarding patient complaints of generalized pain and was tearful regarding being uncomfortable. After supportive measures were exh austed, Ativan 0.5mg IV x 1 was given to provide patient with comfort. Resident Activity Tracking Resident Involvement: Resident Care Provided Care Provided: Adult Hospital Medicine
[2020-04-02] MEDS ORDERED: ALBUT/IPRATROP 3MG/0.5MG NEB 3 ML VIAL NEB STA ×2 (08:01→17:16)
[2020-04-02] MEDS: ACETYLCYSTEINE 20% INHAL SOLN 4ML ***DISPENSED BY RESP. INH SCH ×2 (08:08→17:25)
[2020-04-02 08:23] LABS: BUN Creatinine Ratio 35.4 (10-20); Calcium 8.4 mg/dl (8.5-10.1); Creatinine Clr Calc Pharmacy 18.4 ml/min; Est GFR (African American) 20.5; Est GFR (Non-African American) 17.7; Potassium 3.9 mmol/L (3.5-5.1)
[2020-04-02 08:40] LABS: Troponin I 0.126 ng/ml (0-0.045)
--- NOTE | 2020-04-02 09:02 | XRay Report ---
XR chest 1V portable CLINICAL HISTORY: distress dyspnea COMPARISON STUDY: 03/31/2020 FINDINGS: Mildly progressive right basilar infiltrative process. Probable small right effusion. Poor visibility right hemidiaphragm. Slightly progressive infiltrative process medial left base. Components of mild congestive failure are noted. IMPRESSION: 1. Mildly progressive right and to a lesser extent left basilar parenchymal infiltrates. 2. Mild congestive failure unchanged. ACT 112: Negative or not required by law. The above report was generated using voice recognition software. It may contain grammatical, syntax or spelling errors. Electronically signed by: Taurus Hurt M.D. 04/02/2020 9:00 AM
[2020-04-02] MEDS ORDERED: VANCOMYCIN CONSULT ACTIVE PRN (09:12)
[2020-04-02] MEDS ORDERED: VANCOMYCIN HCL 1,000 MG in SODIUM CHLORIDE 0.9% 250 ML IV SCH (09:15)
[2020-04-02] MEDS ORDERED: BUMETANIDE 0.5 MG in SYRINGE 0 ML IV ONE ×2 (09:30→18:00)
[2020-04-02] MEDS: METOPROLOL TARTRATE 25 MG TAB PO SCH ×2 (09:43→23:48)
[2020-04-02] MEDS: ACETAMINOPHEN 325 MG TAB PO SCH ×4 (09:43→20:00)
[2020-04-02] MEDS: UMECLIDINIUM/VILANTEROL 62.5/25MCG 7 PUFFS/INHALER INH SCH (09:47)
[2020-04-02] MEDS: LIDOCAINE 5% 1 PATCH TD SCH (09:49)
[2020-04-02] MEDS: PANTOprazole 40 MG TAB PO SCH ×2 (09:49→23:48)
[2020-04-02] MEDS: MUPIROCIN 2% OINT 22 GM TUBE EXT SCH ×2 (09:49→23:46)
[2020-04-02] MEDS ORDERED: METOPROLOL TARTRATE 1 MG/ML VIAL IV PRN (12:21)
--- NOTE | 2020-04-02 13:35 | Hospitalist Progress Note ---
Date of Service April 02, 2020 Assessment & Plan (1) Stroke: confirmed with CT head on 03/28. right frontal lobe - c/w clinical exam. appreciate neurology consult and recs. no need for additional antiplatelet agent. cont systemic anticoagulation, if possible, in light of epistaxis/melena/hematur ia. PT, OT, speech evals. work-up including CTA head/neck and echo negative. uncertain why he developed the stroke in the midst of his bacteremia. is he hypercoagulable from underlying malignancy? other? will need rehab. given his tenuous status with bleeding (epistaxis, hematuria, and now melena) will HOLD eliquis; place on heparin infusion in lieu. if bleeding worsens, Hb drops, etc we may be forced to stop the heparin. Hb 03/30 AM 9.7, repeat around 5p is 9.8, now at 9.9 03/31--will continue heparin given risks of d/c in the setting of stable Hb Continue to assess Lengthy discussion regarding goals of care with daughter and on 03/31. They are interested in speaking with palliative care. They are not certain they will pursue this route at this time, but would like to discuss given pt has "a long road ahead". Discussed that he is not actively bleeding now, but that this would be a very life limiting event given he cannot have surgical or procedural interventions for this. I did discuss with Dr. Polo who stated she will see pt on Friday given current stability. (2) Acute and chronic respiratory failure with hypoxia: acute component 2nd to RML/RLL pneumonia +/- acute/chronic diastolic CHF - latter resolved. chronic respiratory failure 2nd to COPD/pulmonary fibrosis. On 3 L NC at baseline. cont oxymask. cont broad-spectrum IV antibiotics for pneumonia. completed course of zithromax 03/30 zosyn started 03/24 vancomyin started 03/24, d/c 03/31 given metzger sensi, however worsening PNA noted on CXR 04/02--resume dosing Concern for possible mucous plugging given poor resolution/progression of infiltrate Would not be a candidate for bronch Discussed possibility of chest tube with family. Unclear if he is a candidate for this, family will discuss CXR 04/02 with mild CHF, bumex x1 and monitor UOP COVID-19 testing negative x 2. (3) Septicemia: 2nd to enterococcal UTI. zosyn will cover (it is pansensitive). repeat blood cx's negative. echo w/o obvious signs of endocarditis. goddard in place. Ongoing leukocytosis in the setting of steroid use (4) Enterococcal bacteremia: as above. continue zosyn. repeat blood cx's negative. 14 days in total of IV/PO antibiotics will be needed. (5) Right lower lobe pneumonia: stable. no distress. slow improvement overall. started on triple IV abx therapy on admission (zosyn, vanco, zithromax). completed course of zithromax 03/30 zosyn started 03/24 vancomyin started 03/24, d/c 03/31, resume 04/02 cont bronchodilators. cont o2 support. COVID-19 testing negative. (6) Acute kidney injury: likely combination of sepsis-associated ATN and diuresis. Cr has peaked; continues to improve supportive care. BMP am. cont goddard. (7) Metabolic encephalopathy: ongoing 2nd to UTI, pneumonia, bacteremia, hypoxia. supportive care. treat infections. avoid sedatives. VBG checked today to r/o hypercarbia - negative for such (8) Epistaxis: 2nd to dryness in nose from NC O2 in setting of eliquis use. cont oxymask. bactroban to nares BID. nasal saline q1h prn. afrin protocol. if epistaxis worsens/recurs then ENT eval no bleeding since 03/28 (9) Chronic obstructive pulmonary disease: start solumedrol 30mg IV q12h hopefully this will help pulmonary status and appetite Cont bronchodilators and mucinex along with pulmonary toilet. (10) Atrial fibrillation, persistent: improving. cont digoxin, metoprolol, PRN IV metoprolol if unable to take PO dig level acceptable, cont cardizem infusion - probably can transition to PO cardizem on 03/30 use heparin drip in jeanine of apixaban for now (11) CAD (coronary artery disease): cont metoprolol no ischemic symptoms (12) CHF (congestive heart failure): acute/chronic - s/p multiple doses of lasix earlier this admission. again mildly volume contracted today and he is very thirsty. Had been holding on diuretics given renal fxn bumex x1 on 04/02 as above (13) Leukocytosis: has seen heme/onc for such. chronic. possible precursor to MDS or other malignancy. mild lymphadenopathy on CT chest. mild hepatosplenomegaly on CT abd/pelvis. concerning for development of lymphoma, especially with progressive weight loss since 2018? Abn cells seen on CBC--d/w Dr. Jacobs, director of loss prevention path. She states that this is likely c/w his anemia and his body's attempt to respond (14) Severe protein-calorie malnutrition: 20+ pounds of weight loss since 09/2019 worrisome for malignancy vs wasting from severe COPD (15) Hematuria: 2nd to UTI and/or prostatitis in setting of eliquis use appears grossly worse today, but fortunately h/h remain stable in case the hematuria worsens further stop the eliquis change to heparin drip that way it can be stopped quickly if necessary cont goddard coags checked and acceptable platelets acceptable Urology planning for goddard remaining in place x2 weeks and f/u for outpt cysto Can d/c goddard if needed for rehab purposes or if blood clears Blood is dark in appearance suggesting old blood that is moving through catheter (16) Heme positive stool: melena stool per staff and indeed heme+ start PPI not a candidate for endoscopic evaluation follow serial CBCs see discussion above re: systemic anticoagulation (17) DVT prophylaxis: remains on anticoagulation cautiously in light of multiple sites of bleeding Too sick to participate in PT/OT Zoom session set up for daughter/ to interact again on 03/31; staff to assist w/ this Of note, daughter informs me that pt's hearing aids were lost in a room transfer (18) Anemia: Likely in part related to acute blood loss, but also noted for iron deficiency prior B12/folate WNL Borderline macrocytic Venofer 200mg IV 04/01 given likely intolerance of PO iron Admission and Anticipated Discharge Date Admission Date: March 21, 2020 Subjective Pt had a rough night per nursing. He was restless and c/o abd pain. No n/v. Warm towels on abd made pt more comfortable. Pt is less interactive this AM. Wakes, nods head for simple yes/no answers, but not much verbal communication today. Denies abd pain or other pain, n/v. No bleeding. UOP is low. No bowel movement. Pt was given ativan overnight. Family to come in today. Review of Systems Review of Systems: Pertinent positives and negatives reviewed in HPI--all others negative Physical Exam Constitutional: WD/WN, vitals as above Eyes: normal visual teague by confrontation and + anicteric sclerae ENMT: Nose: + epistaxis (appears dried) Neck: normal visual inspection and trachea midline Respiratory: normal respiratory effort, lungs clear to auscultation Cardiovascular: Rate/Rhythm: regular rate and regular rhythm Extremities: + edema (L UE edema increased from yesterday); no pedal edema Gastrointestinal (Abdomen): Inspection/Auscultation: abdomen not distended Percussion/Palpation: abdomen soft; abdomen nontender Musculoskeletal: Head/Neck/Chest: normocephalic and head atraumatic Skin: no rashes, warm and dry Neurologic: moves all extremities and awake (opens eyes to voice, minimal answers to questions) Psychiatric: Orientation: oriented to person and cooperative Affect: + blunted affect Results & Data Results & Data ([facility]) Vital Signs (Past 12 Hours) Vital Signs Temp Pulse Pulse Pulse Resp BP BP 04/02/20 13:02 110 H 20 04/02/20 11:53 36.1 C L 113 H 22 121/77 04/02/20 08:08 112 H 20 04/02/20 08:02 36.1 C L 125 H 21 114/75 04/02/20 08:00 103 H 04/02/20 07:00 101 H 20 04/02/20 03:51 37.0 C 103 H 24 136/79 Pulse Ox 04/02/20 13:02 93 04/02/20 11:53 92 04/02/20 08:08 90 04/02/20 08:02 90 04/02/20 08:00 04/02/20 07:00 04/02/20 03:51 94 PG Care Time/CCT Total # of Minutes Spent Total Time Spent with Patient: Total time spent is greater than 50% in coordination of care (as documented) at patient's floor/unit and/or counseling patient: Coding Level of Care Code 01504 Subseq Hosp Care Lvl 3 Diagnoses Stroke I63.9 CVA mechanism: unspecified Acute and chronic respiratory failure with hypoxia J96.21 Septicemia A41.9 Enterococcal bacteremia R78.81; B95.2 Right lower lobe pneumonia J18.9 Pneumonia type: due to unspecified organism Acute kidney injury N17.9 Metabolic encephalopathy G93.41 Epistaxis R04.0 Chronic obstructive pulmonary disease J44.9 COPD type: unspecified COPD Atrial fibrillation, persistent I48.1 CAD (coronary artery disease) I25.10 Coronary Disease-Associated Artery/Lesion type: teller artery [place] vs. transplanted heart: teller heart Associated angina: without angina CHF (congestive heart failure) I50.32 Heart failure type: diastolic Heart failure chronicity: chronic Leukocytosis D72.829 Leukocytosis type: unspecified Severe protein-calorie malnutrition E43 Hematuria R31.0 Hematuria type: gross Heme positive stool R19.5 DVT prophylaxis Z29.9 Anemia D64.9 (1) Stroke CVA mechanism: unspecified Qualified Code(s): I63.9 - Cerebral infarction, unspecified (2) Right lower lobe pneumonia Pneumonia type: due to unspecified organism Qualified Code(s): J18.9 - Pneumonia, unspecified organism (3) Chronic obstructive pulmonary disease COPD type: unspecified COPD Qualified Code(s): J44.9 - Chronic obstructive pulmonary disease, unspecified (4) CAD (coronary artery disease) Coronary Disease-Associated Artery/Lesion type: teller artery [place] vs. transplanted heart: teller heart Associated angina: without angina Qualified Code(s): I25.10 - Atherosclerotic heart disease of teller coronary artery without angina pectoris (5) CHF (congestive heart failure) Heart failure type: diastolic Heart failure chronicity: chronic Qualified Code(s): I50.32 - Chronic diastolic (congestive) heart failure (6) Leukocytosis Leukocytosis type: unspecified Qualified Code(s): D72.829 - Elevated white blood cell count, unspecified (7) Hematuria Hematuria type: gross Qualified Code(s): R31.0 - Gross hematuria
[2020-04-02] MEDS: DIGOXIN 0.125 MG TAB PO SCH (16:15)
--- NOTE | 2020-04-02 16:17 | Pharmacy Report ---
Pharmacy Abx Dose Short Note - Date of Service April 02, 2020 - Assessment & Plan Assessment 84 year old M receiving IV Zosyn and Vancomycin (restarted 04/02/20) for treatment of worsening pulmonary infiltrate/pneumonia, E. faecalis bacteremia Day # 8 of antimicrobial therapy. * Patient doing worse on Zosyn monotherapy, therefore provider would like to restart Vancomycin * Last Vancomycin dose of 1000mg was given on 03/30/20 @ 0900 * Last Vancomycin level was supratherapeutic at 27.8 mcg/mL on 03/31 @ 0406 * Renal function has worsened since * Based on pharmacokinetics, estimate that patient's Ke ~0.009/hr; T1/2 ~77 hrs Plan Vancomycin * Random level of 17.1 mcg/mL is therapeutic * Give Vancomycin 500mg IV x 1 on 04/03/20 @ 0000 (estimate that Vancomycin will fall <15 mcg/mL at this time; about 14 hours after last lab based on estimated Ke of 0.009/hr) * Goal trough level for pneumonia : 15 to 20 mcg/mL * Estimate that 500mg dose will bring Vancomycin to ~23.54 mcg/mL. He will not need a dose on 04/03 as level will not fall <15 mcg/mL until 50 hours later * Continue to monitor renal function and urine output closely * Random ordered for: 04/04/20 with AM labs (anticipate he will be due for another dose on 04/04) Pharmacy will continue to follow and will adjust dose/frequency as necessary. Thank you.
[2020-04-02 17:37] LABS: Partial Thromboplastin Ratio 2.1
[2020-04-02 17:38] LABS: Partial Thromboplastin Time 57.2 Seconds (21.0-31.0)
[2020-04-02] MEDS: LORazepam 0.5 MG TAB PO PRN (21:59)
[2020-04-03] MEDS ORDERED: VANCOMYCIN HCL 500 MG in SODIUM CHLORIDE 0.9% 250 ML IV ONE
[2020-04-03] MEDS: IPRATROPIUM BROMIDE NEB SOLN 0.02% 2.5 ML VIAL INH SCH ×4 (00:21→18:49)
[2020-04-03] MEDS: LEVALBUTEROL 1.25MG/0.5ML NEB NEB SCH ×4 (00:21→18:49)
[2020-04-03] MEDS: methylPREDNISolone 30 MG in SYRINGE 0 ML IV SCH ×2 (00:47→14:14)
[2020-04-03] MEDS: NYSTATIN 30 ML, DEXAMETHASONE CONC 3.75 MG, DiphenhydrAMINE Syrup 300 MG, ORA-SWEET SYR... PO SCH ×4 (01:49→21:48)
[2020-04-03] MEDS: MoRPHine SULFATE 2 MG/ML CARP IV PRN ×7 (02:11→20:28)
[2020-04-03] MEDS ORDERED: MoRPHine SULFATE 2 MG/ML CARP IV STA (03:44)
[2020-04-03] MEDS: HEPARIN SODIUM/DEXTROSE 25,000 UNITS/500 ML BAG IV SCH (04:08)
--- NOTE | 2020-04-03 05:51 | Electrocardiogram Report ---
Test Reason : Blood Pressure : / mmHG Vent. Rate : 120 BPM Atrial Rate : 119 BPM P-R Int : 000 ms QRS Dur : 144 ms QT Int : 384 ms P-R-T Axes : 000 -47 165 degrees QTc Int : 542 ms Poor data quality, interpretation may be adversely affected Atrial fibrillation with rapid ventricular response Left axis deviation Right bundle branch block T wave abnormality, consider anterolateral ischemia Abnormal ECG When compared with ECG of 31-MAR-2020 04:03, T wave inversion more evident in Anterolateral leads Confirmed by Jake Cabrera ([id number]) on 04/03/2020 5:51:15 AM Referred By: REFERRED SELF Confirmed By:Jake Cabrera
[2020-04-03 06:14] LABS: Partial Thromboplastin Ratio 2.4
[2020-04-03 06:21] LABS: Creatinine Clr Calc Pharmacy 17.7 ml/min; Est GFR (African American) 19.5; Est GFR (Non-African American) 16.8
[2020-04-03 06:40] LABS: Partial Thromboplastin Time 68.1 Seconds (21.0-31.0)
[2020-04-03] MEDS: ACETYLCYSTEINE 20% INHAL SOLN 4ML ***DISPENSED BY RESP. INH SCH ×2 (07:09→18:50)
[2020-04-03] MEDS: ACETAMINOPHEN 325 MG TAB PO SCH ×4 (07:29→21:49)
[2020-04-03] MEDS: MUPIROCIN 2% OINT 22 GM TUBE EXT SCH ×2 (09:44→21:49)
[2020-04-03] MEDS: UMECLIDINIUM/VILANTEROL 62.5/25MCG 7 PUFFS/INHALER INH SCH (09:44)
[2020-04-03] MEDS: PANTOprazole 40 MG TAB PO SCH ×2 (09:45→21:50)
[2020-04-03] MEDS: METOPROLOL TARTRATE 25 MG TAB PO SCH ×2 (09:45→21:50)
[2020-04-03] MEDS: LIDOCAINE 5% 1 PATCH TD SCH (09:45)
[2020-04-03] MEDS ORDERED: BUMETANIDE 2 MG in SYRINGE 0 ML IV ONE (10:00)
[2020-04-03] MEDS: PIPERACILLIN/TAZOBACTAM 3.375 GM in DEXTROSE 5% 100 ML IV SCH ×2 (10:29→21:52)
--- NOTE | 2020-04-03 10:30 | Cardiology Consultation ---
Date of Consultation April 03, 2020 Assessment & Plan (1) Acute heart failure with preserved ejection fraction (HFpEF): - Recent EF 03/21 55-60%, no wall motion abnormalities, mild MR/TR/concentric LVH. - Appears significantly fluid overloaded on exam, and appears uncomfortable 2/2 SOB. - SOB possibly multifactorial in the setting of mucous plugging and current pneumonia on Abx. - Would start Bumex 2mg IV BID, continue to monitor for clinical improvement, improvement in kidney function. - Palliative to see later today with family present. (2) Atrial fibrillation, persistent: - Currently with HR 80s-110s on telemetry. - episodes of tachycardia likely 2/2 discomfort from SOB. - Continue metoprolol 25mg BID with metoprolol 2.5mg IV q4h PRN HR >110. - Holding Eliquis at this time for Heparin drip in the setting of several bleeding events this admission. - CHADSVASC score 7, HASBLED score 5. (3) Hypertension: - normotensive at this time on metoprolol 25mg BID as above. - holding home diltiazem, triamterene/HCTZ. History of Present Illness Attending Physician: Betzy Morgan DO History of Present Illness 84 yo M PMHx permanent AFib on Eliquis, HTN, HLD, COPD on 3LNC at baseline, remote verbalized history of CAD per previous Cardiology report ("difficulty with exertion in the mid-1980s, catheterization performed at that time where he recalls being told he had a blocked vessel with what sounds like a description of collateral flow") admitted 03/21 for back pain and found to have Enterococcus bacteremia likely from urinary source. During admission also had right posterior frontal lobe CVA noted on CT head. Was previously on Diltiazem drip for AFib with RVR, currently on metoprolol 25mg BID with 2.5mg IV q4h PRN HR >110. On Heparin drip, Eliquis d/c'ed secondary to numerous bleeding events this admission (epistaxis, hematuria, melena with Hgb dropping to 9.5 from 14 earlier this year. For the last several days has had continued increase in his creatinine as well as lower extremity edema, and on CXR found to have pulmonary edema. Currently on Oxymask 15L saturating well on room air. Cardiology consulted for worsening CHF. On my interview patient is minimally responsive to questions, but will nod head yes or no for simple questions. Confirmd shortness of breath, denies chest pain/palpitations, denies peripheral edema at baseline, reports history of smoking but quit decades ago, no headaches or dizziness. Allergies Allergy/AdvReac Type Severity Reaction Status Date / Time No Known Allergies Allergy Unknown Verified 03/17/20 13:40 Home Medications Home Medications Medication Instructions Recorded Confirmed Type Oxygen Home #1 ea 04/14/19 03/17/20 History tiotropium 2.5 mcg-olodaterol 2.5 2 puffs INHALATION DAILY #3 inhaler 08/05/19 03/21/20 Rx mcg/actuation mist for inhalation multivitamin 1 tab PO DAILY 08/13/19 03/21/20 History triamterene 37.5 1 cap PO QAM #90 cap 11/08/19 03/21/20 Rx mg-hydrochlorothiazide 25 mg capsule apixaban 5 mg tablet 5 mg PO BID #180 tab 02/15/20 03/21/20 Rx digoxin 125 mcg (0.125 mg) tablet 125 mcg PO DAILY #90 tab 02/15/20 03/21/20 Rx metoprolol tartrate 25 mg tablet 25 mg PO BID #180 tab 02/15/20 03/21/20 Rx diclofenac sodium 1 % topical gel 4 gm TOP TID PRN #100 gm 03/17/20 03/21/20 Rx coenzyme Q10 [Co Q-10] 100 mg PO BID 03/21/20 03/21/20 History diltiazem HCl [Cardizem CD] 360 mg PO QPM 03/21/20 03/21/20 History Patient History Medical History Aneurysm of infrarenal abdominal aorta (Chronic) Atrial fibrillation, persistent (Chronic) CAD (coronary artery disease) (Chronic) CHF (congestive heart failure) (Chronic) Chronic obstructive pulmonary disease (Chronic) Constipation (Chronic) Daytime hypersomnolence (Chronic) History of renal calculi (Chronic) Hyperglycemia (Chronic) Hyperlipidemia (Chronic) Leukocytosis (Chronic) Mediastinal adenopathy (Chronic) On anticoagulant therapy (Chronic) Pulmonary emphysema (Chronic) Surgical History H/O elbow surgery S/P hip replacement LEFT- 05/14/2007- Dr. Jimenez RIGHT- 12/27/04- Dr. Jimenez Family History Father Sepsis Cardiac disorder Brother Lung cancer Mother Uterine cancer Social History Preferred Language: Citizen Of [place] Communication Ability: Effective Visual Impairment: No Limitations Hearing Ability: Use of Hearing Aid Director Of Operations Home Health Required: No Beliefs That Will Affect Care: None marital status: Current Living Situation: Spouse current occupational status: retired Other Information That Helps Us Care for You: No Feels Safe at Home: Yes Safety Concerns: Feels Safe At This Time Smoking Status: Former smoker Tobacco Type: cigarettes ; Age Started Using Tobacco: 16 ; Age Quit Using Tobacco: 50 ; Second Hand Exposure: No ; Hx Alcohol Use: Yes Alcohol type: beer Alcohol Intake Frequency: Weekly Hx Substance Use: No Childhood Exposure to Second-Hand Smoke: No Seatbelt Use: always Sunscreen Use: No Review of Systems Review of Systems: Other Other than as above, unable to obtain due to patient fatigue and cognitive status Physical Exam Constitutional: + ill appearing and + thin ENMT: Nose: + epistaxis (appears dried) Neck: normal visual inspection Respiratory: no cough Auscultation: + diminished lung sounds (bilateral); no wheezes tachypneic Cardiovascular: Rate/Rhythm: + irregularly irregular Heart Sounds: no murmur Vessels: + JVD (To angle of mandible) Extremities: + edema (2+ pitting edema bilateral LE to hip; bilateral UE edema L>R) bilateral LE cold and clammy to the touch; difficult to appreciate PT pulses 2/2 edema; DP pulses palpable bilaterally Gastrointestinal (Abdomen): Inspection/Auscultation: abdomen not distended Percussion/Palpation: abdomen soft Skin: with numerous ecchymoses of bilateral UE at presumed IV and blood draw sites Neurologic: awake (opens eyes to voice, minimal answers to questions) Psychiatric: Orientation: oriented to person and cooperative Affect: + blunted affect alert, however unclear orientation 2/2 not wanting to talk and intermittent responsiveness to questioning Results & Data ([facility]) Vital Signs (Past 12 Hours) Vital Signs Temp Pulse Pulse Pulse Resp BP BP 04/03/20 08:08 36.9 C 71 22 131/84 04/03/20 07:10 113 H 20 04/03/20 00:46 126 H 04/03/20 00:42 126 H 22 125/73 04/03/20 00:24 111 H 20 Pulse Ox 04/03/20 08:08 94 04/03/20 07:10 89 L 04/03/20 00:46 04/03/20 00:42 94 04/03/20 00:24 91 (1) Hypertension Hypertension type: unspecified Qualified Code(s): I10 - Essential (primary) hypertension
--- NOTE | 2020-04-03 12:44 | Cardiology Consultation ---
Date of Consultation April 03, 2020 Assessment & Plan (1) Acute and chronic respiratory failure with hypoxia: (2) Hypervolemia: (3) Acute kidney injury: (4) Permanent atrial fibrillation: (5) Hypertension: (6) Enterococcal bacteremia: (7) Stroke: (8) Heme positive stool: ASSESSMENT/PLAN: 1. Acute on chronic respiratory failure with hypoxia: He has significant COPD at baseline and has documented pneumonia, concern for mucus plugging according to hospitalist service, and hypervolemia. Will attempt to diurese to improve his breathing status. Will defer COPD and pneumonia to hospitalist service. 2. Hypervolemia: He does not have a history of heart failure according to records and developed hypervolemia while hospitalized. This is likely due to worsening renal function and in the setting of fluid administration for his acute illnesses (iatrogenic). He appears to be intravascularly hypervolemic. He has not responded well to a total of 2.5 mg of Bumex so far this morning. Diuril 500 mg IV x1 followed by Bumex 4 mg 30 minutes later ordered. If he does not have adequate output, would recommend Bumex drip later this afternoon. Monitor electrolytes closely. 3. Permanent atrial fibrillation: He is mostly tachycardic but is no longer receiving his home dose of diltiazem and has been refusing or unable to swallow recent doses of metoprolol. He did not receive yesterday's dose of digoxin. If he is unable to swallow or continues to refuse his oral medications, consider IV diltiazem drip to maintain reasonable heart rate. He is on anticoagulation for stroke risk reduction and has had recent stroke while hospitalized according to records. Can continue heparin if no significant bleeding. 4. Bacteremia: As per primary service. 5. Heme-positive stool/anemia: As per primary service. 6. 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 He does have atrial fibrillation. He is on anticoagulation therapy. 7. Acute kidney injury: Attempting to diurese with more aggressive diuretic therapy today. According to Dr. Morgan, he is not interested in dialysis. If diuresis is ineffective or renal function worsens, would consider nephrology consultation if interested in more aggressive measures. If not, may require more palliative measures. Palliative consult is pending. Nursing staff was asked to flush his catheter to make sure that he has not clotted his Mccoy catheter since he has not had significant urine output despite Bumex this mornin g. 8. Disposition: Cardiology will continue to follow. Patient care discussed with Dr. Morgan, primary hospitalist. Highly complex medical issues. Thank you for allowing me to participate in the care of your patient. Please call for any other questions or concerns. Sincerely, Troy Cabrera M.D. History of Present Illness Reason for Consultation: CHF Requesting Physician: Dr. Patti Morgan Attending Physician: Betzy Morgan, History of Present Illness Mr. Hellre is a pleasant 84-year-old gentleman with a history significant for atrial fibrillation, anticoagulation therapy, hypertension, COPD (home supplemental oxygen 3 L per nasal cannula), and dyslipidemia. He also reportedly has CAD undergoing a cardiac catheterization many years ago. His primary mine captain is Dr. Leyva. He was admitted to [facility] on 03/21/2020 with back pain. During this hospitalization, he has been found to have UTI, pneumonia, enterococcal bacteremia, metabolic encephalopathy, acute right frontal lobe stroke, melena, hematuria, and anemia undergoing iron infusion on 04/01/2020. He has been evaluated by Neurology and felt to have cardioembolic etiology for his right fro ntal lobe stroke. Because of his GI bleeding and hematuria, Eliquis has been discontinued in favor of heparin. He has been seen by Urology on 04/01/2020 and further outpatient evaluation was recommended.. His renal function has been worsening throughout his hospital stay. Creatinine on presentation was 1.99 but in 2019, creatinine was 1.3. While here, his creatinine had fluctuated initially but over the past few days has readily increased up to 3.21 today. His BUN has also increased up to 109 today. He is greater than 9 L positive throughout his hospital stay according to charted values. In regards to his pneumonia, there is concern that mucous plugging is occurring as he has had increasing oxygen requirements. He has become more and more edematous as well. he was given Bumex 0.5 mg last evening, this morning, and then another 2 mg at approximately 10:00 a.m. this morning. Despite intravenous Bumex, he has not had any significant urine output today, approximately 100 mL according to nursing staff. He continues to have ozzie hematuria. He is a poor historian. He did occasionally answer yes or no question either verbally or by shaking his head. He admits to shortness of breath. He denies any pain. He otherwise was unable to give much of a history. History was obtained by talking with nursing staff, Rj, and also the attending primary hospitalist, Dr. Morgan. Other history obtained by reviewing the chart. Review of systems: As above and otherwise unobtainable due to patient's current medical status. Family history: Unobtainable due to patient's current mental status. Social history: According to records, he is a former smoker with occasional alcohol consumption. He lives with his spouse. He was unaccompanied in his room today. Allergies Allergy/AdvReac Type Severity Reaction Status Date / Time No Known Allergies Allergy Unknown Verified 03/17/20 13:40 Home Medications Home Medications Medication Instructions Recorded Confirmed Type Oxygen Home #1 ea 04/14/19 03/17/20 History tiotropium 2.5 mcg-olodaterol 2.5 2 puffs INHALATION DAILY #3 inhaler 08/05/19 03/21/20 Rx mcg/actuation mist for inhalation multivitamin 1 tab PO DAILY 08/13/19 03/21/20 History triamterene 37.5 1 cap PO QAM #90 cap 11/08/19 03/21/20 Rx mg-hydrochlorothiazide 25 mg capsule apixaban 5 mg tablet 5 mg PO BID #180 tab 02/15/20 03/21/20 Rx digoxin 125 mcg (0.125 mg) tablet 125 mcg PO DAILY #90 tab 02/15/20 03/21/20 Rx metoprolol tartrate 25 mg tablet 25 mg PO BID #180 tab 02/15/20 03/21/20 Rx diclofenac sodium 1 % topical gel 4 gm TOP TID PRN #100 gm 03/17/20 03/21/20 Rx coenzyme Q10 [Co Q-10] 100 mg PO BID 03/21/20 03/21/20 History diltiazem HCl [Cardizem CD] 360 mg PO QPM 03/21/20 03/21/20 History Patient History Medical History Aneurysm of infrarenal abdominal aorta (Chronic) Atrial fibrillation, persistent (Chronic) CAD (coronary artery disease) (Chronic) CHF (congestive heart failure) (Chronic) Chronic obstructive pulmonary disease (Chronic) Constipation (Chronic) Daytime hypersomnolence (Chronic) History of renal calculi (Chronic) Hyperglycemia (Chronic) Hyperlipidemia (Chronic) Leukocytosis (Chronic) Mediastinal adenopathy (Chronic) On anticoagulant therapy (Chronic) Pulmonary emphysema (Chronic) Surgical History H/O elbow surgery S/P hip replacement LEFT- 05/14/2007- Dr. Jimenez RIGHT- 12/27/04- Dr. Jimenez Family History Father Sepsis Cardiac disorder Brother Lung cancer Mother Uterine cancer Social History Preferred Language: Cameroonian Communication Ability: Effective Visual Impairment: No Limitations Hearing Ability: Use of Hearing Aid Patient Care Technician Required: No Beliefs That Will Affect Care: None marital status: Current Living Situation: Spouse current occupational status: retired Other Information That Helps Us Care for You: No Feels Safe at Home: Yes Safety Concerns: Feels Safe At This Time Smoking Status: Former smoker Tobacco Type: cigarettes ; Age Started Using Tobacco: 16 ; Age Quit Using Tobacco: 50 ; Second Hand Exposure: No ; Hx Alcohol Use: Yes Alcohol type: beer Alcohol Intake Frequency: Weekly Hx Substance Use: No Childhood Exposure to Second-Hand Smoke: No Seatbelt Use: always Sunscreen Use: No Physical Exam Physical Exam: Gen.: No acute distress on OxyMask. Somnolent but awake and more arousable with verbal stimuli. HEENT: Anicteric sclera. Neck: JVD to the mandible nearly sitting upright in bed. No bruits. Normal carotid upstrokes bilaterally. Cardiac: PMI was prominent and nondisplaced. No ventricular heave. Irregularly irregular with heart rate near 100 bpm. Normal S1-S2. No murmurs, rubs, or gallops. Pulmonary: Clear to auscultation bilaterally without wheezes, rales, or rhonchi. Abdomen: Soft, nontender, nondistended, with normoactive bowel sounds. No bruits noted. Extremities: 2+ radial pulses bilaterally. 2+ posterior tibialis pulses bilaterally. 4+ bilateral lower extremity pitting edema to the knees with 2+ bilateral lower extremity edema above the knees to the hips. One to 2+ left upper extremity edema. No cyanosis. Psychiatric: Affect appears appropriate. Results & Data ([facility]) Vital Signs (Past 12 Hours) Vital Signs Temp Pulse Pulse Pulse Resp BP BP 04/03/20 08:08 36.9 C 71 22 131/84 04/03/20 07:10 113 H 20 04/03/20 00:46 126 H 04/03/20 00:42 126 H 22 125/73 Pulse Ox 04/03/20 08:08 94 04/03/20 07:10 89 L 04/03/20 00:46 04/03/20 00:42 94 Intake & Output 04/01/20 04/02/20 04/03/20 04/04/20 06:59 06:59 06:59 06:59 Intake Total 1275.950 / 1275.950 990.900 / 990.900 947.65 / 947.65 Output Total 1125 / 1125 700 / 700 850 / 850 Balance 150.950 / 150.950 290.900 / 290.900 97.65 / 97.65 Weight 81.6 kg 83.6 kg Laboratory Results Laboratory Results - last 24 hr 04/02/20 04/03/20 04/03/20 16:51 05:18 05:18 APTT 57.2 H* 68.1 H* PTT Ratio 2.1 2.4 Creatinine 3.21 H Est Cr Clr Drug Dosing 17.7 Est GFR ( Amer) 19.5 Est GFR (Non-Af Amer) 16.8 POC Glucose 04/03/20 07:12 APTT PTT Ratio Creatinine Est Cr Clr Drug Dosing Est GFR ( Amer) Est GFR (Non-Af Amer) POC Glucose 203 H Diagnostic Findings Telemetry personally reviewed: Atrial fibrillation often with rapid ventricular response. Echo 03/22/2020: Normal LV size, wall motion, systolic function. EF 55-60%. Mild MR. Mild TR. Chest x-ray personally reviewed: Chest x-ray 04/02/2020: Right-sided infiltrate. Prominent pulmonary vasculature. ECG personally reviewed: ECG 04/02/2020 8:45 a.m.: AFib with RVR 120 bpm. RBBB. Anterolateral T-wave inversion. Head CT 03/28/2020: Subacute/evolving lacunar infarct right centrum semiovale, new from 03/23/2020. No hemorrhage. Medications Administered Current Inpatient Medications Acetaminophen (Tylenol) 650 mg PO Q4HWA [facility] Stop: 04/20/20 16:14 Last Admin: 04/03/20 13:04 Dose: Not Given Documented by: Acetylcysteine (Mucomyst 20%) 5 ml INH Q12R [facility] Stop: 05/02/20 07:59 Last Admin: 04/03/20 07:09 Dose: 5 ml Documented by: Apixaban (Eliquis) 2.5 mg PO BID [facility] Stop: 04/26/20 20:59 Last Admin: 03/29/20 09:20 Dose: 2.5 mg Documented by: Nystatin 30 ml/ Dexamethasone 3.75 mg/ Diphenhydramine HCl 300 mg/ Sucrose 45 ml/Microcrystalline Cellulose 45 ml/ BARCODE IDENTIFIER 1 ea 0 ml PO Q6H [facility] Stop: 04/28/20 19:29 Last Admin: 04/03/20 13:29 Dose: Not Given Documented by: Diclofenac Sodium (Voltaren 1% Top) 4 gm EXT TID PRN PRN Reason: back pain Stop: 04/20/20 16:14 Last Admin: 03/29/20 05:25 Dose: 4 gm Documented by: Digoxin (Lanoxin) 0.125 mg PO DAILY@1600 [facility] Stop: 04/26/20 15:59 Last Admin: 04/02/20 16:15 Dose: Not Given Documented by: Diltiazem HCl 125 mg/ Dextrose 125 mls @ 0 mls/hr IV .Q0M [facility]; Protocol Stop: 04/26/20 10:59 Last Admin: 03/31/20 21:55 Dose: Not Given Documented by: Methylprednisolone 30 mg/ (Syringe) 0.48 mls @ 1.5 mls/min IV Q12H [facility] Stop: 04/28/20 13:59 Last Admin: 04/03/20 00:47 Dose: 1.5 mls/min Documented by: Heparin Sodium/Dextrose (Heparin Sodium/Dextrose) 25,000 units in 500 mls @ 18 mls/hr IV .Q24H [facility]; Protocol Stop: 04/28/20 19:59 Last Titration: 04/03/20 06:48 Dose: 900 units/hr, 18 mls/hr Documented by: Piperacillin Sod/Tazobactam (Sod 3.375 gm/ Dextrose) 115 mls @ 28.75 mls/hr IV Q12H [facility]; Protocol Stop: 04/07/20 21:59 Last Admin: 04/03/20 10:29 Dose: 28.8 mls/hr Documented by: Ipratropium Willard (Atrovent 0.02% 0.5mg/2.5ml) 0.5 mg INH Q6R [facility] Stop: 04/26/20 12:59 Last Admin: 04/03/20 13:20 Dose: 0.5 mg Documented by: Levalbuterol HCl (Xopenex 1.25mg/0.5ml Neb) 1.25 mg NEB Q6R [facility] Stop: 04/24/20 00:59 Last Admin: 04/03/20 13:20 Dose: 1.25 mg Documented by: Lidocaine (Lidoderm 5%) 1 patch TD QAM [facility] Stop: 04/21/20 08:59 Last Admin: 04/03/20 09:45 Dose: Not Given Documented by: Lorazepam (Ativan) 0.5 mg PO Q4H PRN PRN Reason: Anxiety Stop: 04/25/20 12:41 Last Admin: 04/02/20 21:59 Dose: 0.5 mg Documented by: Metoprolol Tartrate (Lopressor) 25 mg PO BID [facility] Stop: 04/20/20 20:59 Last Admin: 04/03/20 09:45 Dose: Not Given Documented by: Metoprolol Tartrate (Lopressor) 2.5 mg IV Q4 PRN PRN Reason: HR >110 Stop: 05/02/20 15:59 Last Admin: 04/03/20 00:46 Dose: 2.5 mg Documented by: Miscellaneous (Remove Lidoderm Patch) 1 ea N/A DAILY@2100 [facility] Stop: 04/21/20 20:59 Last Admin: 04/03/20 00:54 Dose: 1 ea Documented by: Miscellaneous Information (Consult) 1 ea N/A UD PRN PRN Reason: Consult Stop: 04/23/20 15:12 Miscellaneous Information (Consult) 1 ea N/A UD PRN PRN Reason: Consult Stop: 05/02/20 09:11 Morphine Sulfate (Morphine Sulfate) 2 mg IV Q4H PRN PRN Reason: Pain or shortness of breath Stop: 04/09/20 13:27 Last Admin: 04/03/20 11:43 Dose: 2 mg Documented by: Mupirocin (Bactroban 2%) 1 appln EXT BID [facility] Stop: 04/26/20 10:34 Last Admin: 04/03/20 09:44 Dose: 1 appln Documented by: Pantoprazole Sodium (Protonix) 40 mg PO BID [facility] Stop: 04/28/20 14:34 Last Admin: 04/03/20 09:45 Dose: Not Given Documented by: Sodium Chloride ([place] Nasal) 2 sprays NA Q1H PRN PRN Reason: nasal irritation Stop: 04/26/20 10:31 Tramadol HCl (Ultram) 50 mg PO Q4H PRN PRN Reason: Pain Stop: 04/20/20 16:14 Last Admin: 03/23/20 16:56 Dose: 50 mg Documented by: Umeclidinium/Vilanterol (Anoro Ellipta 62.5/25 Mcg Inh) 1 puffs INH DAILY [facility] Stop: 04/21/20 08:59 Last Admin: 04/03/20 09:44 Dose: Not Given Documented by: PG Care Time/CCT Total # of Minutes Spent Total Time Spent with Patient: Total time spent is greater than 50% in coordination of care (as documented) at patient's floor/unit and/or counseling patient: Coding Level of Care Code 16030 Initial Inpt Care Lvl 3 Diagnoses Acute and chronic respiratory failure with hypoxia J96.21 Hypervolemia E87.70 Acute kidney injury N17.9 Permanent atrial fibrillation I48.21 Hypertension I10 Hypertension type: unspecified Enterococcal bacteremia R78.81; B95.2 Stroke I63.9 CVA mechanism: unspecified Heme positive stool R19.5 (1) Hypertension Hypertension type: unspecified Qualified Code(s): I10 - Essential (primary) hypertension (2) Stroke CVA mechanism: unspecified Qualified Code(s): I63.9 - Cerebral infarction, unspecified
[2020-04-03] MEDS ORDERED: CHLOROTHIAZIDE SODIUM 500 MG in DEXTROSE 5% 50 ML IV ONE ×2 (13:00→16:30)
[2020-04-03] MEDS ORDERED: BUMETANIDE 4 MG in SYRINGE 0 ML IV ONE (13:30)
--- NOTE | 2020-04-03 13:38 | Palliative Care Consultation ---
Date of Consultation April 03, 2020 Assessment & Plan (1) Goals of care, counseling/discussion: -84 year old male patient with PMH AAA, afib, CAD, CHF, COPD on chronic oxygen use, HLD, PE, and others, presented to the hospital 13 days ago initially with c/o back pain and a reported fever of 101. Patient lives at home with his . He wasn't eating or drinking well due to the back pain that started about two weeks prior. CT of lumbar spine negative for fracture-- were going to obtain MRI lumbar spine but apparently patient declined. Patient has a prolonged and complicated course during hospitalization due to UTI, developing bacteremia (echo showed no signs of endocarditis), and developing RLL pneumonia. On 03/24, patient c/o left hand numbness and weakness-- CT head and CTA head/neck were negative. Patient refused MRI brain initially. He also had worsening respiratory status on 03/[address] chest on 03/25 showed ground glass opacities trace left, and small/moderate right effusions. Rapid COVID test negative on 03/25. Patient's respiratory status continued to worsen despite medical treatment. He did not tolerate bipap but was using high-flow nasal cannula intermittently. He remains on 15L oxygen at this time. On 03/28, patient still c/o weak left side. Repeat CT head did show right frontal CVA. Neuro consulted-- apixaban was held briefly for a day due to possible need for procedures. It is not known why patient developed this stroke. Patient then developed heme positive stools and hematuria while on apixaban-- this has been put on hold and patient is on Heparin gtt. On 03/31, prop and scenery maker doctor notified on chest pain and SOB. CXR showed increased haziness-- Lasix given. Creatinine continues to rise, now up to 3.21 today. Patient still has pulmonary edema on CXR. Cardiology consulted today. Patient has been unable to work with PT/OT due to his condition. Family and patient maintain that their plan is for him to recover and go to rehab at [facility]. Uncertain goals of care given his multiple acute medical issues that are not improving despite fairly aggressive medical treatment.Palliative care is consulted to discuss goals of care. -Patient to be seen by palliative MD this afternoon. Family will be present for family meeting as well. -Given patient's tenuous status without significant improvement in 13 days, prognosis is certainly guarded. At this point, still on heparin gtt, hematuria continues, high level of oxygen requirements at 15L which cannot be provided outside of hospital, has been unable to participate in PT/OT, continued discomfort/pain. -These things will be discussed with patient/family as we will attempt to clarify goals of care. Patient is currently a DNR/DNI, but otherwise is full treatment. Further recommendations and discussion after palliative MD meets with family. (2) Acute and chronic respiratory failure with hypoxia: (3) Stroke: CVA mechanism: unspecified Qualified Code(s): I63.9 - Cerebral infarction, unspecified (4) Heme positive stool: Supervising Physician Co-Signing Physician Notes Chart reviewed, patient seen and examined. Collaborated with MACIEL Swift as well as attending physician Dr. Morgan. Met with , Tanisha, daughters Slime and Tash -each individually at bedside. Patient has been declining during this hospitalization, family has been in to visit as recent as yesterday. They understand patient's continued decline. Patient has stated he wants to go home, patient barely able to speak, able to nod yes or no or respond with one-word. Patient has a weak cough and gets short of breath with minimal exertion. Discussed bringing the patient home under hospice care-patient's family agreeable-they would like to get him home tomorrow morning, understand that he may no longer be able to take p.o. meds and that he will not be able to be transported on 15 L of O2. They are excepting of transfer with 10 L of O2 until patient returns home. Patient has a hospital bed as well as O2 at home-multiple family members available to assist with care. Patient has a Mccoy catheter-having hematuria, likely no longer able to take his oral anticoagulants. Discussed end-of-life issues at length with each family member. PE: Patient awake, lethargic, dozes off frequently. HEENT: [place], EOMI, dry mucous membranes Respirations: Unlabored at rest, diminished breath sounds bilaterally CV: Tachycardic lower extremity as well as left upper extremity edema Abdomen: Soft, nontender Extremities: Severe weakness Neuro: Alert, able to make needs known with one-word statements Agree with above note, assessment and plan as per MACIEL Swift, collaborated with case management regarding discharge home under hospice care in a.m. Plan to continue IV diuresis and IV meds until the time of discharge. History of Present Illness Attending Physician: Betzy Morgan DO History of Present Illness This 84 year old male patient with PMH AAA, afib, CAD, CHF, COPD on chronic oxygen use, HLD, PE, and others, presented to the hospital 13 days ago initially with c/o back pain and a reported fever of 101. Patient lives at home with his . He wasn't eating or drinking well due to the back pain that started about two weeks prior. CT of lumbar spine negative for fracture-- were going to obtain MRI lumbar spine but apparently patient declined. Patient has a prolonged and complicated course during hospitalization due to UTI, developing bacteremia (echo showed no signs of endocarditis), and developing RLL pneumonia. On 03/24, patient c/o left hand numbness and weakness-- CT head and CTA head/neck were negative. Patient refused MRI brain initially. He also had worsening respiratory status on 03/[address] chest on 03/25 showed ground glass opacities trace left, and small/moderate right effusions. Rapid COVID test negative on 03/25. Patient's respiratory status continued to worsen despite medical treatment. He did not tolerate bipap but was using high-flow nasal cannula intermittently. He remains on 15L oxygen at this time. On 03/28, patient still c/o weak left side. Repeat CT head did show right frontal CVA. Neuro consulted-- apixaban was held briefly for a day due to possible need for procedures. It is not known why patient developed this stroke. Patient then developed heme positive stools and hematuria while on apixaban-- this has been put on hold and patient is on Heparin gtt. On 03/31, prop and scenery maker doctor notified on chest pain and SOB. CXR showed increased haziness-- Lasix given. Creatinine continues to rise, now up to 3.21 today. Patient still has pulmonary edema on CXR. Cardiology consulted today. Patient has been unable to work with PT/OT due to his condition. Family and patient maintain that their plan is for him to recover and go to rehab at [facility]. Uncertain goals of care given his multiple acute medical issues that are not improving despite fairly aggressive medical treatment.Palliative care is consulted to discuss goals of care. Allergies Allergy/AdvReac Type Severity Reaction Status Date / Time No Known Allergies Allergy Unknown Verified 03/17/20 13:40 Home Medications Home Medications Medication Instructions Recorded Confirmed Type Oxygen Home #1 ea 04/14/19 03/17/20 History tiotropium 2.5 mcg-olodaterol 2.5 2 puffs INHALATION DAILY #3 inhaler 08/05/19 03/21/20 Rx mcg/actuation mist for inhalation multivitamin 1 tab PO DAILY 08/13/19 03/21/20 History triamterene 37.5 1 cap PO QAM #90 cap 11/08/19 03/21/20 Rx mg-hydrochlorothiazide 25 mg capsule apixaban 5 mg tablet 5 mg PO BID #180 tab 02/15/20 03/21/20 Rx digoxin 125 mcg (0.125 mg) tablet 125 mcg PO DAILY #90 tab 02/15/20 03/21/20 Rx metoprolol tartrate 25 mg tablet 25 mg PO BID #180 tab 02/15/20 03/21/20 Rx diclofenac sodium 1 % topical gel 4 gm TOP TID PRN #100 gm 03/17/20 03/21/20 Rx coenzyme Q10 [Co Q-10] 100 mg PO BID 03/21/20 03/21/20 History diltiazem HCl [Cardizem CD] 360 mg PO QPM 03/21/20 03/21/20 History Patient History Medical History (Updated 04/03/20 @ 13:45 by MACIEL Richter) Aneurysm of infrarenal abdominal aorta (Chronic) Atrial fibrillation, persistent (Chronic) CAD (coronary artery disease) (Chronic) Chronic obstructive pulmonary disease (Chronic) Constipation (Chronic) Daytime hypersomnolence (Chronic) History of renal calculi (Chronic) Hyperglycemia (Chronic) Hyperlipidemia (Chronic) Leukocytosis (Chronic) Mediastinal adenopathy (Chronic) On anticoagulant therapy (Chronic) Pulmonary emphysema (Chronic) Surgical History H/O elbow surgery S/P hip replacement LEFT- 05/14/2007- Dr. Jimenez RIGHT- 12/27/04- Dr. Jimenez Family History Father Sepsis Cardiac disorder Brother Lung cancer Mother Uterine cancer Social History Preferred Language: Romansh Communication Ability: Effective Visual Impairment: No Limitations Hearing Ability: Use of Hearing Aid Welder Journeyman Required: No Beliefs That Will Affect Care: None marital status: Current Living Situation: Spouse current occupational status: retired Other Information That Helps Us Care for You: No Feels Safe at Home: Yes Safety Concerns: Feels Safe At This Time Smoking Status: Former smoker Tobacco Type: cigarettes ; Age Started Using Tobacco: 16 ; Age Quit Using Tobacco: 50 ; Second Hand Exposure: No ; Hx Alcohol Use: Yes Alcohol type: beer Alcohol Intake Frequency: Weekly Hx Substance Use: No Childhood Exposure to Second-Hand Smoke: No Seatbelt Use: always Sunscreen Use: No Results & Data Vital Signs (Past 12 Hours) Vital Signs Temp Pulse Pulse Resp BP Pulse Ox 04/03/20 13:20 117 H 22 89 L 04/03/20 08:08 36.9 C 71 22 131/84 94 04/03/20 07:10 113 H 20 89 L PG Care Time/CCT Prolonged Care Time Prolonged Care Time: Yes Total Prolonged Care Time: 45 115 Coding Level of Care Code 46754 Inpt Consult Level 2 Diagnoses Goals of care, counseling/discussion Z71.89 Acute and chronic respiratory failure with hypoxia J96.21 Stroke I63.9 CVA mechanism: unspecified Heme positive stool R19.5 Additional Codes Prolonged Care Time - Prolonged Care Time: Yes ([id number]) Time Spent (min) 50 Time Spent Midlevel A total of 50 minutes spent by this PRESS SERVICE READER in reviewing chart, speaking with physicians and IDT regarding patient condition, plan and goals of care. Attending Spent a total of 65 minutes on 4 separate visits to bedside. Discussing patient's current condition and prognosis as well as goals of care with patient's and 2 daughters at bedside individually. For total of 115 minutes-total time of 65 minutes at bedside.
--- NOTE | 2020-04-03 14:03 | Hospitalist Progress Note ---
Date of Service April 03, 2020 Assessment & Plan (1) Stroke: confirmed with CT head on 03/28. right frontal lobe - c/w clinical exam. appreciate neurology consult and recs. no need for additional antiplatelet agent. cont systemic anticoagulation, if possible, in light of epistaxis/melena/hematur ia. PT, OT, speech evals. work-up including CTA head/neck and echo negative. uncertain why he developed the stroke in the midst of his bacteremia. is he hypercoagulable from underlying malignancy? other? will need rehab. given his tenuous status with bleeding (epistaxis, hematuria, and now melena) will HOLD eliquis; place on heparin infusion in lieu. if bleeding worsens, Hb drops, etc we may be forced to stop the heparin. Hb 03/30 AM 9.7, repeat around 5p is 9.8, now at 9.9 03/31--will continue heparin given risks of d/c in the setting of stable Hb Continue to assess Lengthy discussion regarding goals of care with daughter and on 03/31. They are interested in speaking with palliative care. They are not certain they will pursue this route at this time, but would like to discuss given pt has "a long road ahead". Discussed that he is not actively bleeding now, but that this would be a very life limiting event given he cannot have surgical or procedural interventions for this. I did discuss with Dr. Polo who stated she will see pt on Friday given current stability. (2) Acute and chronic respiratory failure with hypoxia: acute component 2nd to RML/RLL pneumonia +/- acute/chronic diastolic CHF - latter resolved. chronic respiratory failure 2nd to COPD/pulmonary fibrosis. On 3 L NC at baseline. cont oxymask. cont broad-spectrum IV antibiotics for pneumonia. completed course of zithromax 03/30 zosyn started 03/24 vancomyin started 03/24, d/c 03/31 given metzger sensi, however worsening PNA noted on CXR 04/02--resume dosing Concern for possible mucous plugging given poor resolution/progression of infiltrate Would not be a candidate for bronch Discussed possibility of chest tube with family. Unclear if he is a candidate for this, family will discuss CXR 04/02 with mild CHF, bumex 0.5 x2 with some UOP, however with only modest clinical improvement d/w Dr. Cabrera who is planning for diuril x1 and bumex 4mg today. If no increase in UOP, t/c bumex drip t/c renal c/s if unable to diuresis and ongoing increasing cr COVID-19 testing negative x 2. (3) Septicemia: 2nd to enterococcal UTI. zosyn will cover (it is pansensitive). repeat blood cx's negative. echo w/o obvious signs of endocarditis. goddard in place. Ongoing leukocytosis in the setting of steroid use (4) Enterococcal bacteremia: as above. continue zosyn. repeat blood cx's negative. 14 days in total of IV/PO antibiotics will be needed. (5) Right lower lobe pneumonia: stable. no distress. slow improvement overall. started on triple IV abx therapy on admission (zosyn, vanco, zithromax). completed course of zithromax 03/30 zosyn started 03/24 vancomyin started 03/24, d/c 03/31, resume 04/02 cont bronchodilators. cont o2 support. COVID-19 testing negative. (6) Acute kidney injury: likely combination of sepsis-associated ATN and diuresis. Cr increasing supportive care. BMP am. cont goddard. t/c renal c/s if unable to diuresis and ongoing increasing cr (7) Metabolic encephalopathy: ongoing 2nd to UTI, pneumonia, bacteremia, hypoxia. supportive care. treat infections. avoid sedatives. VBG checked today to r/o hypercarbia - negative for such (8) Epistaxis: 2nd to dryness in nose from NC O2 in setting of eliquis use. cont oxymask. bactroban to nares BID. nasal saline q1h prn. afrin protocol. if epistaxis worsens/recurs then ENT eval no bleeding since 03/28 (9) Chronic obstructive pulmonary disease: start solumedrol 30mg IV q12h hopefully this will help pulmonary status and appetite Cont bronchodilators and mucinex along with pulmonary toilet. (10) Atrial fibrillation, persistent: improving. cont digoxin, metoprolol, PRN IV metoprolol if unable to take PO dig level acceptable, may need dig drip if continues to not take PO use heparin drip in jeanine of apixaban for now (11) CAD (coronary artery disease): cont metoprolol no ischemic symptoms (12) CHF (congestive heart failure): acute/chronic - s/p multiple doses of lasix earlier this admission. again mildly volume contracted today and he is very thirsty. Had been holding on diuretics given renal fxn bumex as above (13) Leukocytosis: has seen heme/onc for such. chronic. possible precursor to MDS or other malignancy. mild lymphadenopathy on CT chest. mild hepatosplenomegaly on CT abd/pelvis. concerning for development of lymphoma, especially with progressive weight loss since 2018? Abn cells seen on CBC--d/w Dr. Jacobs, personnel research scientist path. She states that this is likely c/w his anemia and his body's attempt to respond (14) Severe protein-calorie malnutrition: 20+ pounds of weight loss since 09/2019 worrisome for malignancy vs wasting from severe COPD (15) Hematuria: 2nd to UTI and/or prostatitis in setting of eliquis use appears grossly worse today, but fortunately h/h remain stable in case the hematuria worsens further stop the eliquis change to heparin drip that way it can be stopped quickly if necessary cont goddard coags checked and acceptable platelets acceptable Urology planning for goddard remaining in place x2 weeks and f/u for outpt cysto Can d/c goddard if needed for rehab purposes or if blood clears Blood is dark in appearance suggesting old blood that is moving through catheter (16) Heme positive stool: melena stool per staff and indeed heme+ start PPI not a candidate for endoscopic evaluation follow serial CBCs see discussion above re: systemic anticoagulation (17) DVT prophylaxis: remains on anticoagulation cautiously in light of multiple sites of bleeding Too sick to participate in PT/OT Zoom session set up for daughter/ to interact again on 03/31; staff to assist w/ this Of note, daughter informs me that pt's hearing aids were lost in a room transfer (18) Anemia: Likely in part related to acute blood loss, but also noted for iron deficiency prior B12/folate WNL Borderline macrocytic Venofer 200mg IV 04/01 given likely intolerance of PO iron Admission and Anticipated Discharge Date Admission Date: March 21, 2020 Subjective Pt had another restless night per nursing. SOB and pulling at lines. No abd pain. Denies any pain. Did not eat breakfast. Denies n/v. No bleeding. UOP is low but did increase some s/p bumex dosing yesterday. No bowel movement. Review of Systems Review of Systems: Pertinent positives and negatives reviewed in HPI--all others negative Physical Exam Constitutional: WD/WN, vitals as above Eyes: normal visual teague by confrontation and + anicteric sclerae ENMT: Nose: + epistaxis (appears dried) Neck: normal visual inspection and trachea midline Respiratory: normal respiratory effort; no respiratory distress Auscult ation: + crackles; no wheezes Cardiovascular: Rate/Rhythm: regular rate and regular rhythm Extremities: + pedal edema and + edema (L UE edema increased from yesterday) Gastrointestinal (Abdomen): Inspection/Auscultation: abdomen not distended Percussion/Palpation: abdomen soft; abdomen nontender Musculoskeletal: Head/Neck/Chest: normocephalic and head atraumatic Skin: no rashes, warm and dry Neurologic: moves all extremities and awake (opens eyes to voice, minimal answers to questions) Speech / Cognition: normal speech Psychiatric: A+Ox3, euthymic affect Orientation: oriented to person and cooperative Affect: + blunted affect Results & Data Results & Data ([facility]) Vital Signs (Past 12 Hours) Vital Signs Temp Pulse Pulse Resp BP Pulse Ox 04/03/20 13:20 117 H 22 89 L 04/03/20 08:08 36.9 C 71 22 131/84 94 04/03/20 07:10 113 H 20 89 L PG Care Time/CCT Total # of Minutes Spent Total Time Spent with Patient: Total time spent is greater than 50% in coordinat ion of care (as documented) at patient's floor/unit and/or counseling patient: Coding Level of Care Code 20169 Subseq Hosp Care Lvl 3 Diagnoses Stroke I63.9 CVA mechanism: unspecified Acute and chronic respiratory failure with hypoxia J96.21 Septicemia A41.9 Enterococcal bacteremia R78.81; B95.2 Right lower lobe pneumonia J18.9 Pneumonia type: due to unspecified organism Acute kidney injury N17.9 Metabolic encephalopathy G93.41 Epistaxis R04.0 Chronic obstructive pulmonary disease J44.9 COPD type: unspecified COPD Atrial fibrillation, persistent I48.1 CAD (coronary artery disease) I25.10 Coronary Disease-Associated Artery/Lesion type: enterprise artery [place] vs. transplanted heart: enterprise heart Associated angina: without angina CHF (congestive heart failure) I50.32 Heart failure type: diastolic Heart failure chronicity: chronic Leukocytosis D72.829 Leukocytosis type: unspecified Severe protein-calorie malnutrition E43 Hematuria R31.0 Hematuria type: gross Heme positive stool R19.5 DVT prophylaxis Z29.9 Anemia D64.9 (1) Stroke CVA mechanism: unspecified Qualified Code(s): I63.9 - Cerebral infarction, unspecified (2) Right lower lobe pneumonia Pneumonia type: due to unspecified organism Qualified Code(s): J18.9 - Pneumonia, unspecified organism (3) Chronic obstructive pulmonary disease COPD type: unspecified COPD Qualified Code(s): J44.9 - Chronic obstructive pulmonary disease, unspecified (4) CAD (coronary artery disease) Coronary Disease-Associated Artery/Lesion type: enterprise artery [place] vs. transplanted heart: enterprise heart Associated angina: without angina Qualified Code(s): I25.10 - Atherosclerotic heart disease of enterprise coronary artery without angina pectoris (5) CHF (congestive heart failure) Heart failure type: diastolic Heart failure chronicity: chronic Qualified Code(s): I50.32 - Chronic diastolic (congestive) heart failure (6) Leukocytosis Leukocytosis type: unspecified Qualified Code(s): D72.829 - Elevated white blood cell count, unspecified (7) Hematuria Hematuria type: gross Qualified Code(s): R31.0 - Gross hematuria
[2020-04-03] MEDS: DIGOXIN 0.125 MG TAB PO SCH (15:29)
[2020-04-03] MEDS ORDERED: BUMETANIDE 4 MG in SYRINGE 0 ML IV SCH (17:00)
[2020-04-03] MEDS: BUMETANIDE 10 MG in DEXTROSE 5% 10 ML IV SCH (17:12)
[2020-04-04] MEDS: MoRPHine SULFATE 2 MG/ML CARP IV PRN ×2 (00:33→05:30)
[2020-04-04] MEDS: LEVALBUTEROL 1.25MG/0.5ML NEB NEB SCH ×2 (00:55→06:03)
[2020-04-04] MEDS: IPRATROPIUM BROMIDE NEB SOLN 0.02% 2.5 ML VIAL INH SCH ×2 (00:55→06:03)
[2020-04-04] MEDS: NYSTATIN 30 ML, DEXAMETHASONE CONC 3.75 MG, DiphenhydrAMINE Syrup 300 MG, ORA-SWEET SYR... PO SCH ×2 (01:41→07:57)
[2020-04-04] MEDS: methylPREDNISolone 30 MG in SYRINGE 0 ML IV SCH (01:43)
[2020-04-04] MEDS: BUMETANIDE 10 MG in DEXTROSE 5% 10 ML IV SCH (03:51)
[2020-04-04] MEDS: ACETYLCYSTEINE 20% INHAL SOLN 4ML ***DISPENSED BY RESP. INH SCH (06:03)
[2020-04-04] MEDS ORDERED: LORazepam 0.5 MG/1 ML VIAL IV PRN (08:08)
[2020-04-04] MEDS ORDERED: ATROPINE SULFATE 1% OP SOLN 2 ML BTL PO PRN (08:08)
[2020-04-04] MEDS ORDERED: MoRPHine SULFATE 2 MG/ML CARP IV PRN (08:08)
[2020-04-04] MEDS ORDERED: LORazepam 0.5 MG TAB PO PRN (08:08)
[2020-04-04] MEDS ORDERED: ONDANSETRON INJ 2 MG/ML 2 ML VIAL IV PRN (08:08)
[2020-04-04] MEDS ORDERED: SCOPOLAMINE 1.5 MG TDSY TD SCH (09:00)
[2020-04-04] MEDS: ACETAMINOPHEN 325 MG TAB PO SCH (09:04)
[2020-04-04] MEDS ORDERED: LEVALBUTEROL 1.25MG/0.5ML NEB NEB PRN (12:26)
[2020-04-04] MEDS ORDERED: IPRATROPIUM BROMIDE NEB SOLN 0.02% 2.5 ML VIAL INH PRN (12:27)
[2020-04-04] MEDS ORDERED: BUMETANIDE 10 MG in DEXTROSE 5% 10 ML IV SCH (13:00)
[2020-04-04] MEDS ORDERED: MoRPHine SULF/NSS 250 MG/250 ML BTL IV SCH (14:00)
[2020-04-04] MEDS ORDERED: STAT IV Infusion **Titration per Protocol STA (14:00)
[2020-04-04] MEDS: LIDOCAINE 5% 1 PATCH TD SCH (14:44)
[2020-04-04] MEDS: UMECLIDINIUM/VILANTEROL 62.5/25MCG 7 PUFFS/INHALER INH SCH (14:52)
[2020-04-04] MEDS: METOPROLOL TARTRATE 25 MG TAB PO SCH (14:53)
[2020-04-04] MEDS: PANTOprazole 40 MG TAB PO SCH (14:53)
[2020-04-04] MEDS: MUPIROCIN 2% OINT 22 GM TUBE EXT SCH (14:53)
[2020-04-04] MEDS: PIPERACILLIN/TAZOBACTAM 3.375 GM in DEXTROSE 5% 100 ML IV SCH (14:54)
[2020-04-04] MEDS: HEPARIN SODIUM/DEXTROSE 25,000 UNITS/500 ML BAG IV SCH (14:58)
--- NOTE | 2020-04-04 15:37 | Discharge Summary ---
Date of Service date of admission - March 21, 2020 date of discharge - April 04, 2020 Admission HPI Per Admitting Provider Rafiq Heller is an 84 year old male who presents to the ER via EMS due to ongoing bilateral back pain for the past 2-2.5 weeks. No sudden event event that occurred to start this but he has been finding it harder and harder to get out of a chair and move around because of the pain. No radiation down his legs, no perianal numbness, no change in his urine frequency, stream, nocturia, hematuria. Associated bilateral generalized lower leg weakness. He does endorse three days during this time in which he had to take some laxatives to help his bowels move but otherwise no change in his bowel movements. He denies any red blood in stool or melena. While resting in bed the pain severity is 1/10 but on any movement this increases to 10/10. Prior to this he notes only the occasional back twinge which was helped by his daughter who is a chiropractor but this severity of pain he has never experienced before now. Associated loss of appetite and weight loss during this time. He has not been eating or drinking much due to the pain over the last 2 days. He is chronically on 3L O2 due to COPD. No acute wheezing or shortness of breath. Discussed with his and daughter over the phone who confirmed history above in addition to noting he had a temperature of 101 degree Fahrenheit this morning. Principal Diagnosis enterococcal septicemia acute/chronic hypoxic respiratory failure end-stage COPD severe community-acquired pneumonia vs aspiration pneumonia right-sided frontal lobe stroke Discharge Exam Constitutional + acute distress (Tachypnea, retractions, calling out/encephalopathic), + ill appearing, + altered mental status, + frail appearing and + lethargic ENGA Mouth: + lip abnormality (dry) and + dry oral mucous membranes Respiratory + respiratory distress, + retractions, + uses accessory muscles, + cough and + tachypneic Auscultation: + crackles (bases ); no wheezes Cardiovascular Rate/Rhythm: regular rate and + irregularly irregular Heart Sounds: normal S1 and normal S2; no murmur Vessels: posterior tibial pulses present and dorsalis pedis pulses present Extremities: + edema (Left arm, both legs) Gastrointestinal (Abdomen) normal bowel sounds, soft, nontender, no hepatosplenomegaly Psychiatric Orientation: + not alert and + not oriented x 3 Discharge Data Allergies Allergy/AdvReac Type Severity Reaction Status Date / Time No Known Allergies Allergy Unknown Verified 03/17/20 13:40 Consultations 03/21/20 13:15 ED Decision to Admit Stat 03/28/20 07:57 Consult Neurology Routine 03/31/20 13:07 Consult Urology Routine 03/31/20 15:33 Consult Palliative Care Routine 04/03/20 09:20 Consult Cardiology Routine Ordered Studies 03/21/20 11:14 CT lumbar spine wo con Stat 03/21/20 13:53 CT abd pelvis wo con Stat 03/23/20 11:24 CT angio head w con Stat CT angio neck with con Stat CT head/brain wo con Stat 03/25/20 08:14 CT abd pelvis wo con Urgent CT chest wo con Urgent 03/28/20 10:32 CT head/brain wo con Routine echocardiogram Hospital Course (1) Stroke: confirmed with CT head on 03/28 showing right frontal lobe stroke. patient began to complain of right hand weakness about 2 days following admission. the hand weakness then progressed to the entire right arm, then leg, and the right face. speech not affected. seen by [facility] neurology. no need for additional antiplatelet agent as patient was on systemic anticoagulation. PT, OT, speech evals were completed; made little to no progress with PT/OT due to poor pulmonary status and other comorbidities. work-up including CTA head/neck and echo negative. uncertain why he developed the stroke in the midst of his bacteremia. I question if the patient was hypercoagulable from an underlying malignancy? (CTs with lymphadenopathy in various locations, mild splenomegaly, history of persistently elevated WBC count, etc). (2) Acute and chronic respiratory failure with hypoxia: acute component 2nd to RML/RLL pneumonia + acute/chronic diastolic CHF +/- COPD exacerbation. chronic respiratory failure 2nd to COPD/pulmonary fibrosis. On 3 L NC at baseline. COVID-19 testing negative x 2. received copious broad-spectrum IV antibiotics including zosyn/vancomycin/azithromycin, diuresis, and IV steroids. Despite such his respiratory status never improved appreciably. Later in his stay his oxygen requirement again worsened and chest x-ray showed progressive infiltrates especially right-sided. Palliative care was consulted, and he was transitioned to comfort care measures on 04/04/20 and ultimately inpatient hospice status. (3) Septicemia: 2nd to enterococcal UTI. treated with IV zosyn. repeat blood cx's negative. echo w/o obvious signs of endocarditis. (4) Enterococcal bacteremia: as above. (5) Right lower lobe pneumonia: treated aggressively with triple IV abx therapy (zosyn, vanco, zithromax). COVID-19 testing negative x 2. despite such he had progressive pneumonic infiltrates on chest x-rays and worsening respiratory status as noted above. (6) Acute kidney injury: likely combination of sepsis-associated ATN and diuresis for acute/chronic diastolic CHF. creatinine gradually improved in the first few days of his hospitalization, then the creatinine again worsened to 3.2 before the patient was made comfort care. (7) Metabolic encephalopathy: significant issue throughout the stay. 2nd to UTI, pneumonia, bacteremia, hypoxia. (8) Epistaxis: 2nd to dryness in nose from NC O2 in setting of eliquis use. treated locally with afrin, nasal saline, etc. never required cautery or other intervention. (9) Chronic obstructive pulmonary disease: severe. end-stage. on chronic Home O2. despite IV steroids, bronchodilators, etc his respiratory status continued to worsen while hospitalized as noted above. (10) Atrial fibrillation, persistent: required cardizem infusion while here. digoxin PO was continued along with metoprolol. (11) CAD (coronary artery disease): cont metoprolol no ischemic symptoms during the stay (12) CHF (congestive heart failure): acute/chronic diastolic - s/p multiple doses of lasix early in admission. volume status then worsened again later in the stay - likely due to steroids, worsening renal function, etc. (13) Leukocytosis: has seen heme/onc for such. chronic. possible precursor to MDS or other malignancy. mild lymphadenopathy on CT chest. mild hepatosplenomegaly on CT abd/pelvis. concerning for development of lymphoma, especially with progressive weight loss since 2019? (14) Severe protein-calorie malnutrition: 20+ pounds of weight loss since 09/2019 worrisome for malignancy vs wasting from severe COPD (15) Hematuria: 2nd to UTI and/or prostatitis in setting of eliquis use this continued for much of the stay, but H/H remained stable (16) Heme positive stool: melena stool per staff and indeed heme+ received PPI was not a candidate for endoscopic evaluation due to poor respiratory status and other issues (17) Palliative care status: Despite aggressive care for a lengthy period of time the patient's overall status did not improve and ultimately worsened late in his stay (worsening pulmonary status, worsening renal function, escalating O2 requirements, etc). Seen by palliative care team - decision made to transition to hospice and d/c home with such. On the evening prior to anticipated d/c to home with hospice the patient worsened once more with progressive lethargy, significant increase in O2 requirement, and respiratory distress. Decision made to transition fully to comfort care measures only. All therapies (antibiotics, cardizem, heparin, etc) were discontinued. Hospice was consulted, and he was approved for GIP (inpatient hospice status). The patient was subsequently discharged from the medical service and readmitted under inpatient hospice status. Total Time Total Time Spent Total Time Spent (In Minutes): 60 Total Time Includes: Examination of the Patient, Discharge Planning, Medication Reconciliation and Communication With Other Providers Discharge Plan Discharge Items Patient Disposition: Hospice - Medical Facility Reason For Visit: INTRACTABLE BACK PAIN Discharge Diagnosis: acute/chronic respiratory failure pneumonia bacteremia UTI altered mental status acute renal failure transition to palliative care and hospice status Activity: As commented below Activity Comment: bedrest Non-emergency contact: Superintendent Transmission Call non-emergency contact if: you have any medication questions Follow-up/Referrals: Dorothea Gary MD [Primary Care Provider] - Diet: Nothing by Mouth Addtl Attending Provider Instructions: Mr Heller is transitioning to hospice and will be admitted to "inpatient hospice status" at [facility]. Pending Studies at Discharge: No Stand-Alone Forms: My [facility] Skilled Items Patient informed of condition?: No DNR: Yes Discharge Level of Care: Other Communicable Disease: No Discharge Prognosis: Deteriorating Lines: Peripheral IV Urinary Catheter: Yes Medications and DC Order Prescriptions: Continued (DME) Oxygen Home Liters Per Minute See Dose Instructions .ROUTE .MEDSUPPLY Qty: 1 RF: 0 Discontinued tiotropium-olodaterol 2.5-2.5 mcg/actuation mist 2 puffs inhalation DAILY Qty: 3 RF: 1 triamterene-hydrochlorothiazid [Dyazide] 37.5-25 mg capsule 1 cap PO QAM Qty: 90 RF: 3 digoxin 125 mcg (0.125 mg) tablet 125 mcg PO DAILY Qty: 90 RF: 3 apixaban 5 mg tablet 5 mg PO BID Qty: 180 RF: 3 metoprolol tartrate 25 mg tablet 25 mg PO BID Qty: 180 RF: 3 multivitamin tablet 1 tab PO DAILY RF: 0 diclofenac sodium 1 % gel 4 gm TOP TID PRN (Reason: back pain) Qty: 100 RF: 0 ipratropium-albuterol 0.5 mg-3 mg(2.5 mg base)/3 mL solution for nebulization 3 ml inhalation ONCE Qty: 3 RF: 0 coenzyme Q10 [Co Q-10] 100 mg Capsule 100 mg PO BID RF: 0 diltiazem HCl [Cardizem CD] 360 mg capsule,extended release 24hr 360 mg PO QPM RF: 0 Discharge Orders: Discharge Order (Routine); Ordered 04/04/20 Ordered By: Anthony Lopez Admission Data Admit Date/Time: 03/21/20 13:18 Attending Provider: Anthony Lopez Admit Provider: Anthony Ball Primary Care Provider: Dorothea Gray V. Other Providers: [facility] ; Poli Hansen ; [facility] ; Anthony Ball ; Kay Segovia ; Issa Gonzalez ; Arti Polo ; Jake Cabrera Other Interventions: Discharge Summary Assessment (RN) Last Done: 04/04/20 17:39 DC Date/Time DO NOT enter until pt leaves facility: 04/04/20 17:40 Coding Level of Care Code D/C Day Management >30 mins Diagnoses Stroke I63.9 CVA mechanism: unspecified Acute and chronic respiratory failure with hypoxia J96.21 Septicemia A41.9 Enterococcal bacteremia R78.81; B95.2 Right lower lobe pneumonia J18.9 Pneumonia type: due to unspecified organism Acute kidney injury N17.9 Metabolic encephalopathy G93.41 Epistaxis R04.0 Chronic obstructive pulmonary disease J44.9 COPD type: unspecified COPD Atrial fibrillation, persistent I48.1 CAD (coronary artery disease) I25.10 Associated angina: without angina Coronary Disease-Associated Artery/Lesion type: [place] artery [place] vs. transplanted heart: [place] heart CHF (congestive heart failure) I50.32 Heart failure chronicity: chronic Heart failure type: diastolic Leukocytosis D72.829 Leukocytosis type: unspecified Severe protein-calorie malnutrition E43 Hematuria R31.0 Hematuria type: gross Heme positive stool R19.5 Palliative care status Z51.5
[2020-04-04] MEDS ORDERED: CHECK SCOPOLAMINE PATCH PLACEMENT SCH (16:00)
--- NOTE | 2020-04-04 16:47 | Palliative Care Progress Note ---
Date of Service April 04, 2020 Assessment & Plan (1) Goals of care, counseling/discussion: - Patient is an 84 year old male patient with PMH AAA, afib, CAD, CHF, COPD on chronic oxygen use, HLD, PE, and others, presented to the hospital 13 days ago initially with c/o back pain and a reported fever of 101. Patient lives at home with his . He wasn't eating or drinking well due to the back pain that started about two weeks prior. CT of lumbar spine negative for fracture-- were going to obtain MRI lumbar spine but apparently patient declined. Patient has a prolonged and complicated course during hospitalization due to UTI, developing bacteremia (echo showed no signs of endocarditis), and developing RLL pneumonia. On 03/24, patient c/o left hand numbness and weakness-- CT head and CTA head/neck were negative. Patient refused MRI brain initially. He also had worsening respiratory status on 03/[address] chest on 03/25 showed ground glass opacities trace left, and small/moderate right effusions. Rapid COVID test negative on 03/25. Patient's respiratory status continued to worsen despite medical treatment. He did not tolerate bipap but was using high- flow nasal cannula intermittently. He remains on 15L oxygen at this time. On 03/28, patient still c/o weak left side. Repeat CT head did show right frontal CVA. Neuro consulted-- apixaban was held briefly for a day due to possible need for procedures. Patient then developed heme positive stools and hematuria while on apixaban-- this has been put on hold and patient is on Heparin gtt. On 03/31, warehouse shift supervisor doctor notified on chest pain and SOB. CXR showed increased haziness-- Lasix given. Creatinine continues to rise, now up to 3.21 today. Patient still has pulmonary edema on CXR. Has been requiring increasing levels of O2 to maintain sats in the 80s. He is currently on O2 at 15 L via oxymask. Family had wanted to bring patient home with hospice care. Due to his continuing rapid decline-it was deemed he was not safe for transfer as O2 would not be tolerated at less than 15 L. -Patient seen this afternoon with multiple family administer at bedside -Patient requiring frequent as needed morphine for comfort-is uncomfortable when more alert-we will plan to start a morphine drip-collaborated with attending physician -Patient is currently a DNR/DNI, he is no longer able to take p.o. meds -Will continue to follow and provide support family at bedside. (2) Acute and chronic respiratory failure with hypoxia: (3) Stroke: (4) Heme positive stool: Subjective Patient seen and examined, multiple family at bedside including patient's and daughter Slime. Patient's hop strainer also at bedside. Patient receiving as needed morphine-patient requiring 7 to 8 mg in a 24-hour period. Whenever patient is awake he cries out help me, help me breathe. Discussed with attending physician Dr. Lopez, starting a morphine drip. Patient no longer able to take p.o. meds. Patient's and daughters are comfortable with patient not being able to return home. Patient to be evaluated by hospice for possible GIP admission this afternoon. Review of Systems Review of Systems: Unobtainable due to cognitive status Physical Exam Physical Exam: Patient arousable with voice and touch, moderate distress when awake due to shortness of breath-patient with sats of 86% on O2 at 15 L via oxymask PE: Patient arousable, moderate distress HEENT: EOMI, [place] Respirations: Increased respiratory rate, increased shortness of breath with cough CV: Tachycardic Abdomen: Soft nontender Extremities: Warm to touch Neuro: Recognizes family. Results & Data Vital Signs (Past 12 Hours) Vital Signs Pulse Pulse Resp Pulse Ox 04/04/20 07:51 86 L 04/04/20 07:31 109 H 04/04/20 06:07 92 H 28 H 86 L PG Care Time/CCT Total # of Minutes Spent Total Time Spent with Patient: Total time spent 35 minutes with greater than 50% of the time spent at bedside discussing patient's comfort level, developing a plan and providing support to the family at bedside. Coding Level of Care Code 34699 Subseq Hosp Care Lvl 3 Diagnoses Goals of care, counseling/discussion Z71.89 Acute and chronic respiratory failure with hypoxia J96.21 Stroke I63.9 CVA mechanism: unspecified Heme positive stool R19.5 Time Spent (min) 35 (1) Stroke CVA mechanism: unspecified Qualified Code(s): I63.9 - Cerebral infarction, unspecified
== END 2020-04-04 17:40 | disposition hospice, inpatient (51) | DRG 871 ==
LOC: ED 10:49 → SUATTDRO 13:18 → 2N 13:18 → 2S 03-26 11:26 → 2N 04-04 09:20

== ENCOUNTER 2020-04-04 17:44 | Inpatient (IN) ==
[2020-04-04] MEDS ORDERED: STAT IV Infusion **Titration per Protocol STA (17:54)
[2020-04-04] MEDS ORDERED: ATROPINE SULFATE 1% OP SOLN 2 ML BTL PO PRN (17:54)
[2020-04-04] MEDS ORDERED: LORazepam 0.5 MG/1 ML VIAL IV PRN (17:54)
[2020-04-04] MEDS ORDERED: ONDANSETRON INJ 2 MG/ML 2 ML VIAL IV PRN (17:54)
--- NOTE | 2020-04-04 17:54 | History & Physical Report ---
Date of Service April 04, 2020 Assessment & Plan (1) Palliative care patient: see HPI for details regarding prior lengthy hospitalization. now being admitted for inpatient hospice status for symptom control and comfort care measures. appreciate assistance from hospice team and palliative care team. plan - * cont goddard * cont oxygen * morphine infusion - titrate for respiratory distress and comfort * ativan IV prn * zofran IV prn * scopalamine patch + atropine drops prn excess secretions * support given to and 3 children at bedside today on several visits * patient is member of [email or web address] in [place]; internal affairs commander was able to come to hospital to provide support & blessing * d/c all vitals, labs, therapies, other meds, etc Admission and Anticipated Discharge Date Admission Date: April 04, 2020 History of Present Illness Chief Complaint: inpatient hospice status / comfort care measures Primary Care Provider: Dorothea Gray MD 84yo male with end-stage COPD with resulting chronic hypoxic respiratory failure - on NC O2 at home - permanent a.fib, chronic leukocytosis - who was admitted on 03/21/2020 for back pain. Ultimately developed a significant right- sided pneumonia, acute/chronic respiratory failure with acute/chronic diastolic CHF & COPD exacerbation, and enterococcal bacteremia/septicemia from UTI. Further, about 2 days into his stay, he began to c/o left hand weakness which then progressed to left arm and left leg weakness. Stroke work-up finally revealed a right-sided frontal lobe stroke. Admission was further complicated by acute renal failure from ATN, epistaxis, hematuria, metabolic encephalopathy, extreme weakness, and heme+ stool. COVID-19 testing was negative x 2. He received IV antibiotic therapy for his UTI/septicemia and pneumonia, diuresis, IV steroids, O2 support, PT/OT/Speech, and other supportive care measures. Despite aggressive care the patient did not make significant improvements in his respiratory status nor his left-sided weakness. Acute renal failure also worsened. Palliative care was consulted, and preparations were being made for discharge to home with hospice. On the night before anticipated discharge home the patient's mental status worsened, oxygen requirements escalated, and his respiratory distress worsened. A decision was made at that time to forego discharge home with hospice and instead transition to full comfort care measures in the hospital. Morphine drip was ultimately initiated. On the afternoon of 04/04/20 hospice was consulted for consideration of inpatient hospice status. He was approved for such at that time. He was "medically discharged" and readmitted under inpatient hospice status for comfort care measures and symptom control. Allergies Allergy/AdvReac Type Severity Reaction Status Date / Time No Known Allergies Allergy Unknown Verified 03/17/20 13:40 Home Medications Home Medications Medication Instructions Recorded Confirmed Type Oxygen Home #1 ea 04/14/19 03/17/20 History Past Med/Surg History Medical History (Updated 04/05/20 @ 03:53 by Anthony Lopez) Acute renal failure due to tubular necrosis Aneurysm of infrarenal abdominal aorta Atrial fibrillation CAD (coronary artery disease) Chronic obstructive pulmonary disease Chronic respiratory failure with hypoxia Constipation Daytime hypersomnolence (Chronic) History of renal calculi (Chronic) Hyperglycemia (Chronic) Hyperlipidemia (Chronic) Mediastinal adenopathy (Chronic) On anticoagulant therapy (Chronic) Pneumonia Pulmonary emphysema (Chronic) Septicemia due to enterococcus Severe protein-calorie malnutrition Stroke Surgical History H/O elbow surgery S/P hip replacement LEFT- 05/14/2007- Dr. Jimenez RIGHT- 12/27/04- Dr. Jimenez Family History Father Sepsis Cardiac disorder Brother Lung cancer Mother Uterine cancer Social History Preferred Language: Malagasy Communication Ability: Effective Visual Impairment: No Limitations Hearing Ability: Use of Hearing Aid Chain Link Fence Installer Required: No Beliefs That Will Affect Care: None marital status: Current Living Situation: Spouse current occupational status: retired Other Information That Helps Us Care for You: No Feels Safe at Home: Yes Safety Concerns: Feels Safe At This Time Smoking Status: Former smoker Tobacco Type: cigarettes ; Age Started Using Tobacco: 16 ; Age Quit Using Tobacco: 50 ; Second Hand Exposure: No ; Hx Alcohol Use: Yes Alcohol type: beer Alcohol Intake Frequency: Weekly Hx Substance Use: No Childhood Exposure to Second-Hand Smoke: No Seatbelt Use: always Sunscreen Use: No Review of Systems Review of Systems: Unobtainable due to reduced consciousness Physical Exam Constitutional: + acute distress (Respiratory distress), + ill appearing, + altered mental status and + frail appearing; + not well developed and + not well nourished ENMT: Mouth: + dry oral mucous membranes Respiratory: + respiratory distress, + labored breathing, + retractions, + uses accessory muscles and + tachypneic Auscultation: + diminished lung sounds and + crackles; no wheezes Cardiovascular: Rate/Rhythm: + tachycardic and + irregularly irregular Heart Sounds: normal S1 and normal S2; no murmur Vessels: posterior tibial pulses present and dorsalis pedis pulses present; no JVD Extremities: + edema Gastrointestinal (Abdomen): normal bowel sounds, soft, nontender, no hepatosplenomegaly Neurologic: + focal motor deficit (Left arm/leg ) Psychiatric: Orientation: + not alert and + not oriented x 3 Code Status & VTE Plan Code Status DNR/DNI PG Care Time/CCT Total # of Minutes Spent Total Time Spent with Patient: Total time spent is greater than 50% in coordination of care (as documented) at patient's floor/unit and/or counseling patient: Coding Level of Care Code None Diagnoses Palliative care patient Z51.5
[2020-04-04] MEDS ORDERED: MoRPHine SULF/NSS 250 MG/250 ML BTL IV SCH (18:00)
[2020-04-04] MEDS ORDERED: SCOPOLAMINE 1.5 MG TDSY TD SCH (18:00)
[2020-04-05] MEDS ORDERED: CHECK SCOPOLAMINE PATCH PLACEMENT SCH
--- NOTE | 2020-04-05 07:31 | Death Pronouncement Note ---
Date of Service April 05, 2020 Pronouncement Note Date and Time of Date of : 04/05/20 Time of : 00:15 PCOD Preliminary cause of : Pneumonia Contributing Factors (1) Palliative care patient: Hospital Course Hospital Course: see discharge summaries dated 04/04/2020 and 04/09/2020 for further details. Summary Additional details: patient pronounced by nursing staff. Additional Data Attending physician: Anthony Lopez Was code activated?: No Autopsy requested?: No electric powerline examiner notified?: No Organ bank notified?: No Coding Level of Care Code None Diagnoses Palliative care patient Z51.5
[2020-04-07] MEDS ORDERED: SCOPOLAMINE 1.5 MG TDSY TD SCH (09:00)
--- NOTE | 2020-04-09 09:18 | Discharge Summary ---
Date of Service date of admission - April 04, 2020 date of - April 05, 2020 Admission HPI Per Admitting Provider 84yo male with end-stage COPD with resulting chronic hypoxic respiratory failure - on NC O2 at home - permanent a.fib, chronic leukocytosis - who was admitted on 03/21/2020 for back pain. Ultimately developed a significant right-sided pneumonia, acute/chronic respiratory failure with acute/chronic diastolic CHF & COPD exacerbation, and enterococcal bacteremia/septicemia from UTI. Further, about 2 days into his stay, he began to c/o left hand weakness which then progressed to left arm and left leg weakness. Stroke work-up finally revealed a right-sided frontal lobe stroke. Admission was further complicated by acute renal failure from ATN, epistaxis, hematuria, metabolic encephalopathy, extreme weakness, and heme+ stool. COVID-19 testing was negative x 2. He received IV antibiotic therapy for his UTI/septicemia and pneumonia, diuresis, IV steroids, O2 support, PT/OT/Speech, and other supportive care measures. Despite aggressive care the patient did not make significant improvements in his respiratory status nor his left-sided weakness. Acute renal failure also worsened. Palliative care was consulted, and preparations were being made for discharge to home with hospice. On the night before anticipated discharge home the patient's mental status worsened, oxygen requirements escalated, and his respiratory distress worsened. A decision was made at that time to forego discharge home with hospice and instead transition to full comfort care measures in the hospital. Morphine drip was ultimately initiated. On the afternoon of 04/04/20 hospice was consulted for consideration of inpatient hospice status. He was approved for such at that time. He was "medically discharged" and readmitted under inpatient hospice status for comfort care measures and symptom control. Principal Diagnosis acute/chronic hypoxic respiratory failure palliative care patient / inpatient hospice status Discharge Exam Patient was pronounced by nursing staff early AM of 04/05/2020. By report pupils were fixed/dilated; no spontaneous breathing; no heart tones. No response to voice/pain. Discharge Data Allergies Allergy/AdvReac Type Severity Reaction Status Date / Time No Known Allergies Allergy Unknown Verified 03/17/20 13:40 Consultations hospice Procedures Performed morphine infusion Hospital Course (1) Palliative care patient: see HPI for details regarding prior lengthy hospitalization. admitted to inpatient hospice status for symptom control and comfort care measures on 04/04/20. the following were utilized for end-of-life care - morphine infusion, oxygen, goddard, scopalamine patch, etc. patient passed peacefully on the AM of 04/05/20. Total Time Total Time Spent Total Time Spent (In Minutes): 0 Discharge Plan Discharge Items Patient Disposition: Reason For Visit: INTRACTABLE BACK PAIN Follow-up/Referrals: Dorothea Gray MD [Primary Care Provider] - Admission Data Admit Date/Time: 04/04/20 17:44 Other DC Date/Time DO NOT enter until pt leaves facility: 04/05/20 00:15 Coding Level of Care Code None Diagnoses Palliative care patient Z51.5
== END 2020-04-05 00:15 | disposition expired | DRG 951 ==
LOC: 2N 17:44